=== PATIENT | male | born 1970 | race Caucasian/White ===

== ENCOUNTER 2019-01-14 18:30 | Emergency (ER) | payer OTHER, SELFPAY ==
[2019-01-14 18:31] VITALS: BP 108/63; PULSE 80; RESP 15; TEMP 36.7; O2SAT 97; BMI 36.0
--- NOTE | 2019-01-14 18:35 | EKG12_ITS ---
Test Reason : DIZZINESS Blood Pressure : / mmHG Vent. Rate : 078 BPM Atrial Rate : 078 BPM P-R Int : 172 ms QRS Dur : 104 ms QT Int : 334 ms P-R-T Axes : 023 -32 098 degrees QTc Int : 380 ms Normal sinus rhythm Left axis deviation Anterolateral infarct , age undetermined Abnormal ECG Confirmed by BELINDA WALDROP, MARLIN ([id number]), casing trimmer [place] SANDOVAL ([id number]) on 01/17/2019 1:57:25 PM Referred By: KALIA Confirmed By:MARLIN TREVINO MD
--- NOTE | 2019-01-14 18:50 | RAD_ITS ---
STUDY: X-RAY CHEST REASON FOR EXAM: Male, 48 years old. Dizziness TECHNIQUE: Single AP portable view of the chest. COMPARISON: None. FINDINGS: A left-sided pacemaker is present. The lungs are clear and expanded. There is no demonstrated pleural abnormality. The heart size is within normal limits. Status post sternotomy changes are present. Normal mediastinum and brisa. Normal visualized pulmonary arteries. Normal visualized aortic arch and descending thoracic aorta. Normal visualized thoracic spine. Normal visualized ribs, clavicles, and shoulders. There is no demonstrated abnormality of the visualized soft tissue structures of the upper abdomen. RAD/Chest 1 View (Portable) IMPRESSION: Left-sided pacemaker present. Status post sternotomy. No acute cardiopulmonary disease process is seen. Electronically Signed: Rogelio Wang MD at 19:10 EDT , Service support ,
[2019-01-14 19:02] VITALS: O2SAT 95
[2019-01-14 19:06] VITALS: BP 98/65; PULSE 76; RESP 18; O2SAT 93
[2019-01-14] MEDS: 0.9% Normal Saline 1,000 ML 150 ML IV (19:07)
--- NOTE | 2019-01-14 19:19 | ED.DCSUM_ITS ---
History of Present Illness Chief Complaint: Dizziness Informant: Patient Onset: Today Context: Onset with activity Timing: Intermittent Current Severity: Moderate Maximum Severity: Moderate Narrative: Patient presents to the emergency department with chest pressure and lightheadedness. The patient has a significant cardiac history. 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 He states that for the past few days, he has had intermittent chest pressure. He states that this is not abnormal when it is hot or humid. Today, he noticed that when he changes position, he will get lightheaded. He had no chest pain associated with this. He denies exertional dyspnea orthopnea. He denies any leg swelling. He has had no recent change in medications. Past Medical History - Allergies and Home Meds Allergies/Adverse Reactions: Allergies No Known Allergies Allergy (Verified 01/14/19 18:34) Primary Care Physician: Chanda Espana DO [Primary Care Provider] - Prior records reviewed: Yes Surgical History: coronary bypass surgery Lives: With Family Smoking Status: Never smoker Alcohol: None Drugs: None Review of Systems General: Denies: Chills, Fever, Sweats Eyes: Denies: Visual changes - bilaterally, Diplopia ENT: Denies: Rhinorrhea, Sore throat Cardiovascular: Reports: Chest pain Respiratory: Denies: Dyspnea, Cough, Dyspnea on exertion Gastrointestinal: Denies: Abdominal pain, Nausea, Vomiting, Diarrhea, Melena, Hematochezia Genitourinary: Denies: Dysuria, Hematuria, Frequency Musculoskeletal: Denies: Back pain, Extremity Pain Skin: Denies: Rash, Wounds Neurological: Denies: Headache, Weakness, Numbness Physical Exam Vital Signs/Narrative: Vital Signs Temp Pulse Resp BP Pulse Ox 01/14/19 19:06 76 18 98/65 93 01/14/19 19:02 95 01/14/19 18:31 98.0 F 80 15 108/63 97 Inital Vital Signs reviewed: Yes General: Well nourished, Well developed, No Acute Distress Head: Normocephalic, Atraumatic Eyes: Perrl, EOMI ENT: Moist mucous membranes, No rhinorrhea Neck: Supple, Nontender Cardiovascular: Regular rate, Regular rhythm, No murmurs Respiratory: No distress, CTA bilaterally, Chest nontender Abdomen: Soft, Nontender, Nondistended, Normal bowel sounds Back: Nontender, Normal Inspection Extremities: Nontender, No edema Skin: Normal color, No rash Neurological: Alert, Oriented x3, Cranial nerves II-XII grossly intact, Normal Strength, Normal Sensation Psychological: Normal affect, Normal Mood Diagnostic/Tx/Re-eval Chest X-Ray - ED: 1 View, Normal, Heart, Lungs Clinical Impression(s) from Imaging Studies Chest X-Ray 01/14/19 18:50 IMPRESSION: Left-sided pacemaker present. Status post sternotomy. No acute cardiopulmonary disease process is seen. Electronically Signed: Rogelio Wang MD at 19:10 EDT , Service support , Abnormal Lab Results 01/14/19 01/14/19 01/14/19 19:11 19:11 19:11 WBC 4.6 RBC 4.63 Hgb 13.1 Hct 39.0 L MCV 84.2 MCH 28.3 MCHC 33.6 RDW 16.8 H RDW Differential 51.7 H Plt Count 276 MPV 8.8 Immature Gran % (Auto) 0.000 Neut % (Auto) 57.3 Lymph % (Auto) 29.1 [place] % (Auto) 9.5 Eos % (Auto) 3.7 Baso % (Auto) 0.4 Absolute Neuts (auto) 2.6 Absolute Lymphs (auto) 1.34 Total Counted Not Reportable Sodium 137 Potassium 3.8 Chloride 104 Carbon Dioxide 27.0 Anion Gap 6 BUN 21 H Creatinine 1.34 H Estim Creat Clear Calc 71.12 Est GFR (MDRD) Af Amer 74 Est GFR (MDRD) Non-Af 61 BUN/Creatinine Ratio 15.7 Glucose 107 H Calcium 8.7 Troponin I < 0.015 B-Natriuretic Peptide 31.6 01/14/19 21:28 WBC RBC Hgb Hct MCV MCH MCHC RDW RDW Differential Plt Count MPV Immature Gran % (Auto) Neut % (Auto) Lymph % (Auto) [place] % (Auto) Eos % (Auto) Baso % (Auto) Absolute Neuts (auto) Absolute Lymphs (auto) Total Counted Sodium Potassium Chloride Carbon Dioxide Anion Gap BUN Creatinine Estim Creat Clear Calc Est GFR (MDRD) Af Amer Est GFR (MDRD) Non-Af BUN/Creatinine Ratio Glucose Calcium Troponin I < 0.015 B-Natriuretic Peptide - Rhythm Strip Rhythm Strip: Sinus Rhythm - EKG Initial EKG Interpretation: Sinus Rhythm, No Acute Injury Pattern Prior: Unchanged - Medical Decision Making The patient presents with lightheadedness. His EKG on arrival. Showed no acute ischemic change. It was unchanged from prior. He has not had chest pain or dyspnea. His blood pressure was borderline so he was given IV fluids. He did have improvement. His initial cardiac enzymes are normal. In light of the patient's significant coronary vascular disease, I did do a repeat troponin at 3 hours. This continues to be negative. His symptoms have improved. My suspicion is mild dehydration causing his lightheadedness as the patient is on multiple cardiac medications. At this point, I do feel that he is safe for outpatient follow-up. Both he and are comfortable with this plan of care. He will be discharged home. ED Disposition - Plan for ED Patient: Disposition: Home or Assisted Living Diagnosis: Lightheaded Instructions: DEHYDRATION (8y-Adult) Referrals: Chanda Espana DO [Primary Care Provider] -
--- OUTSIDE RECORDS SUMMARY | 2019-01-14 19:22 | XMS RPT_ITS | CCD ---
:1970 External Reference #:[id number] Author Organization [facility] Care Team Providers Name Role Phone KIMBELL Unavailable Unavailable KIMBELL Unavailable Unavailable KIMBELL Unavailable Unavailable Asbridge Unavailable Unavailable Asbridge Unavailable Unavailable Oberhauser, L Unavailable Unavailable KIMBELL Attending Unavailable KIMRILEY Primary Care Unavailable KEVAN Attending Unavailable CARMEN Primary Care Unavailable DENNING Admitting Unavailable KIMBELL Primary Care Unavailable KIMBELL Consulting Unavailable ISREAL SJustine Attending Unavailable Chava ALBA Consulting Unavailable DENNING Consulting Unavailable ISREAL SJustine Consulting Unavailable RAGHUNATALEXIS Consulting Unavailable ZAYNAB Consulting Unavailable BAUTISTA SERVIN Consulting Unavailable ARTHUR Attending Unavailable CARMEN Primary Care Unavailable REFERRING, WO ID~[id number] Primary Care Unavailable SANDY Admitting Unavailable SANDY Attending Unavailable ALLI PONBLOSSOM Consulting Unavailable NAGAJOTHI Consulting Unavailable PODUGU Attending Unavailable REFERRING, WO ID~[id number] Primary Care Unavailable PODUGU Admitting Unavailable NAGAJOTHI Consulting Unavailable RAGHUNATHAN Consulting Unavailable Problems Active Problems Category Problem Name Status Date Location Diabetes mellitus Type 2 diabetes Active 10-27-2017 - [facility] without complication mellitus without Fou [place]ation ([place]) complications (81046) Unclassified Unknown / UNK(Unknown) Active 01-19-2017 - [facility] [place] (000 00) Past or Other Problems Category Problem Name Status Date Location Other aftercare Encounter for Completed 10-27-2017 - [facility] therapeutic drug level Found ation ([place]) monitoring (86528) Unclassified E11.9,V58.83,Z51.81 01-19-2017 - [facility] (000 00) Results Result Name Value Range Unit Interpretation Flag Date Location zzplt morph on 2018 Platelet morphology finding NORMAL Normal [facility] (d) System (00 000) Comment: Performed By: #### [id number] # ### IMELDA [employer] [address] [place] [address] Platelets #/vol (Bld) NORMAL Normal 01-04-20 [facility] (09534) Comment: Performed By: #### [id number] # ### IMELDA [employer] [address] [place] [address] morph on 2019-01-03 Anisocytosis Ql (Bld) 2+ Normal 01-04-20 [facility] (65265) Comment: Order Comment: Order Added b y Discern Expert. Performed By: #### [id number] # ### IMELDA [employer] [address] [place] [address] Elliptocytes 1+ Normal 01-03-2019 [facility] (56366) Comment: Order Comment: Order Added b y Discern Expert. Performed By: #### [id number] # ### IMELDA [employer] [address] [place] [address] RBC morphology finding SEE MORPHOLOGY Normal [facility] (d) Health Sys tem (46820) Comment: Order Comment: Order Added b y Discern Expert. Performed By: #### [id number] # ### IMELDA [employer] [address] [place] [address] lipid profile on 28-12-24 Cholesterol in HDL mass conc 37 40-60 mg/dL Low 0 01-03-2019 [facility] (00 000) Comment: Performed By: #### [id number] # ### IMELDA [employer] [address] [place] [address] Cholesterol in LDL mass 71 0-130 mg/dL Normal 2018 [facility] (00 000) Comment: Result Comment: <100 OPTIMAL 100-129 NEAR / ABOVE OPTIMAL 130-159 BORDERLINE HIGH 160-189 HIGH >190 VERY HIGH CALC LDL NOT VALID WHEN TRIG LYCERIDE IS >400 MG/DL Performed By: #### [id number] # ### IMELDA [facility] [address] [place] [address] Cholesterol in VLDL mass 26 0-40 mg/dL Normal 01-03 [facility] (00 000) Comment: Performed By: #### [id number] # ### IMELDA [employer] [address] [place] [address] Cholesterol mass conc 134 0-199 mg/dL Normal 01-04-20 19 [facility] (00 000) Comment: Result Comment: TOTAL CHOLEE STEROL: <200 NORMAL 200 - 239 BORDERLINE HIGH >240 HIGH Performed By: #### [id number] # ### IMELDA IsabellaStonehenge Gardens [facility] [place] [address] Triglyceride mass conc 131 0-149 mg/dL Normal 019 [facility] () Comment: Result Comment: AGE DESIRABL E BORDERLINE HIGH 91 D - 9 Y 0 - 74 75 - 99 > 100 10 - 19 Y 0 - 89 90 - 129 > 130 20 -24 Y 0 - 114 115 - 149 > 150 > 25 0 - 149 150 - 199 200 - 499 Performed By: #### [id number] # ### [facility]ELDADan[facility] MasonStonehen[facility] Gardens [address] [place] [address] hep func panel on Albumin mass conc 4.2 3.4-5.0 gm/dL Normal 01-03-[address] [facility] () Comment: Performed By: #### [id number] # ### IMELDA [facility] [address] [place] [address] Albumin/Globulin mass ratio 1.8 1.1-1.9 ratio Normal [facility] tem (15699) Comment: Performed By: #### [id number] # ### [facility] [address] [place] [address] Alk Phos 37 33-120 Int._Unit/L Normal 01-03-2019 [facility] (14220) Comment: Performed By: #### [id number] # ### [facility] [address] [place] [address] ALT enzyme act/vol 20 10-52 Int._Unit/L Normal 9 [facility] ( 000) Comment: Performed By: #### [id number] # ### IMELDA [facility] [place] [address] AST enzyme act/vol 12 9-39 Int._Unit/L Normal 9 [facility] ( 000) Comment: Performed By: #### [id number] # ### IMELDA [employer] [address] [place] [address] Bili Direct 0.10 0.00-0.30 mg/dL Normal 01-03-2019 [facility] (33206) Comment: Performed By: #### [id number] # ### IMELDA Alfaro [address] [place] [address] Bili Indirect 0.43 mg/dL Normal 01-03-2019 [facility] (82896) Comment: Result Comment: No establish ed ranges available for the indirect bilirubin Performed By: #### [id number] # ### IMELDA Angelina [address] [place] [address] Bili Total 0.53 0.00-1.20 mg/dL Normal 01-03-2019 [facility] (04455) Comment: Performed By: #### [id number] # ### IMELDA Angelina [facility] [place] [address] Globulin mass conc (S) 2.0 2.0-4.0 G/DL Normal [address] [place] [address] (00 000) Comment: Performed By: #### [id number] # ### IMELDA Alfaro [address] [place] [address] Protein mass conc 6.5 6.4-8.2 gm/dL Normal 01-03-[address] [facility] (00 000) Comment: Performed By: #### [id number] # ### IMELDA Angelina [address] [place] [address] egfr on 2019-01-03 GFR/1.73 sq M predicted >60 mL/min/{1.73_m2} Normal 01-03-2019 [facility]bl[facility] (63292) vol rate/area (S/P/Bld) Comment: Order Comment: Order added b y Discern Expert. Performed By: #### [id number] # ### IMELDA Angelina [address] [place] [address] cbc w/ auto diff on 2019-01-03 Erythrocyte distribution 19.0 11.5-14.5 % High 01-03 [facility] width Ratio (RBC) He alth System (03630) Comment: Performed By: #### [id number] # ### IMELDA [employer] [address] [place] [address] Hematocrit Volume Fraction 42.7 42.0-52.0 % Normal [facility] Sys tem (75758) Comment: Performed By: #### [id number] # ### IMELDA [employer] [address] [place] [address] Hemoglobin mass conc 13.9 13.5-18.0 G/DL Normal 9 [facility] Sys tem (64345) Comment: Performed By: #### [id number] # ### IMELDA [employer] [address] [place] [address] MCH Entitic mass (RBC) 27.8 27.0-31.0 pg Normal 019 [facility] () Comment: Performed By: #### [id number] # ### IMELDA [employer] [address] [place] [address] MCHC mass conc (RBC) 32.6 33.0-37.0 G/DL Low 9 [facility] (00 000) Comment: Performed By: #### [id number] # ### IMELDA [employer] [address] [place] [address] MCV Entitic volume 85.4 78.0-100.0 fL Normal 01-03-2019 [facility] (RBC) System (00 000) Comment: Performed By: #### [id number] # ### IMELDA [employer] [address] [place] [address] Platelet mean volume 7.9 7.4-11.0 fL Normal 9 [facility] Entitic volume (Bld) System (13466) Comment: Performed By: #### [id number] # ### IMELDA [employer] [address] [place] [address] Platelets #/vol (Bld) 312 130-400 E3/mcL Normal 01-04-20 19 [facility] (00 000) Comment: Performed By: #### [id number] # ### IMELDA [employer] [address] [place] [address] RBC #/vol (Bld) 5.00 3.90-6.10 E6/mcL Normal 01-03-2019 [facility] () Comment: Performed By: #### [id number] # ### IMELDA [employer] [address] [place] [address] WBC #/vol (Bld) 5.3 3.6-11.0 E3/mcL Normal 01-03-2019 [facility] () Comment: Performed By: #### [id number] # ### IMELDA [employer] [address] [place] [address] bmp on 2019-01-03 Anion gap molar conc 13 10-20 mEq/L Normal 9 [facility] () Comment: Performed By: #### [id number] # ### IMELDA [employer] [address] [place] [address] Calcium mass conc 9.0 8.6-10.3 mg/dL Normal 01-03-[address] [facility] () Comment: Performed By: #### [id number] # ### IMELDA [employer] [address] [place] [address] Chloride molar conc 105 98-107 mEq/L Normal 01-03-2019 [facility] () Comment: Performed By: #### [id number] # ### IMELDA [employer] [address] [place] [address] CO2 molar conc 24.0 21.0-32.0 mEq/L Normal 01-03-2019 [facility] () Comment: Performed By: #### [id number] # ### IMELDA [employer] [address] [place] [address] Creatinine mass conc 1.0 0.5-1.3 mg/dL Normal 9 [facility] () Comment: Performed By: #### [id number] # ### IMELDA [employer] [address] [place] [address] Glucose mass conc 122 70-99 mg/dL High 01-03-[address] [facility] (24701) Comment: Performed By: #### [id number] # ### IMELDA [employer] [address] [place] [address] Potassium molar conc 4.2 3.5-5.3 mEq/L Normal 9 [facility] () Comment: Performed By: #### [id number] # ### IMELDA [place] [address] [place] [address] Sodium molar conc 137 136-145 mEq/L Normal 01-03-[address] [facility] () Comment: Performed By: #### [id number] # ### IMELDA Alfaro [facility] [place] [address] Urea nitrogen mass conc 19 6-23 mg/dL Normal 2018 [facility] () Comment: Performed By: #### [id number] # ### IMELDA [place] [address] [place] [address] Urea nitrogen/Creatinine mass 19.0 5.4-30.0 ratio Normal 01-03-2019 [facility] (94194) Comment: Performed By: #### [id number] # ### IMELDADanica Mason[address] [address] auto diff on 01-03 Basophils #/vol (Bld) 0.1 0.0-0.2 E3/mcL Normal 01-04-20 [facility] () Comment: Order Comment: Order Added b y Discern Expert. Performed By: #### [id number] # ### IMELDA Mason[address] [address] Basophils/100 WBC (Bld) 1.3 0.0-2.0 % Normal 2018 [facility] ( 000) Comment: Order Comment: Order Added b y Discern Expert. Performed By: #### [id number] # ### IMELDA Mason[address] [address] Eos Absolute 0.2 0.0-0.7 E3/mcL Normal 01-03-2019 [facility] (63997) Comment: Order Comment: Order Added b y Discern Expert. Performed By: #### [id number] # ### IMELDADanica Mason[address] [address] Eosinophils/100 WBC (Bld) 2.9 0.0-11.0 % Normal 12-11 [facility] ( 000) Comment: Order Comment: Order Added b y Discern Expert. Performed By: #### [id number] # ### IMELDA [employer] [address] [place] [address] Lymphocytes #/vol (Bld) 1.0 1.2-3.4 E3/mcL Low 2018 [facility] (00 000) Comment: Order Comment: Order Added b y Discern Expert. Performed By: #### [id number] # ### IMELDA MasonJarett [address] [place] [address] Lymphocytes/100 WBC (Bld) 18.1 20.0-55.0 % Low 12-11 [facility] (00 000) Comment: Order Comment: Order Added b y Discern Expert. Performed By: #### [id number] # ### IMELDA [facility] [address] [place] [address] [place] Absolute 0.5 0.0-0.7 E3/mcL Normal 01-03-2019 [facility] (42977) Comment: Order Comment: Order Added b y Discern Expert. Performed By: #### [id number] # ### IMELDA MasonJarett [address] [place] [address] Monocytes/100 WBC (Bld) 8.6 0.0-10.0 % Normal 2018 [facility] (00 000) Comment: Order Comment: Order Added b y Discern Expert. Performed By: #### [id number] # ### IMELDA [employer] [address] [place] [address] Neutro Absolute 3.7 1.4-6.5 E3/mcL Normal 01-03-2019 [facility] (73168) Comment: Order Comment: Order Added b y Discern Expert. Performed By: #### [id number] # ### IMELDA [employer] [address] [place] [address] Neutro Auto 69.1 37.0-75.0 % Normal 01-03-2019 [facility] (37148) Comment: Order Comment: Order Added b y Discern Expert. Performed By: #### [id number] # ### IMELDA [employer] [address] [place] [address] xr knee 1 or 2 views right on 2018-12-14 XR Knee 1 or 2 Exam Date/Time: Normal 9 [facility] Views Right 12/14/2018 10:48 EDT [facility] System Reason for Exam: (00 000) Pain, Non Traumatic Report STUDY: XR Knee 1 or 2 Views Right; 12/14/2018 10:48 am INDICATION: Pain, Non Traumatic. COMPARISON: None. ACCESSION NUMBER(S): [id number] ORDERING CLINICIAN: Chanda Espana TECHNIQUE: 2 views of the right knee including AP and later al projections were obtained. FINDINGS: There is no evidence of acut e fracture or dislocation identified. The joint spaces are well preserved throughout without significant degenerative changes. No suprapatellar joint effusion is present. IMPRESSION: 1. No acute fracture or dislocation. FINAL REPORT Dictated: 12/14/2018 1:44 pm Rip Mar MD Signed (Electronic Signature): 12/14/2018 1:44 pm Signed by: Rip Mar MD Technologist: MARGARITA zzplt morph on 2018 Platelet morphology finding NORMAL Normal [facility] System (00 000) Comment: Performed By: #### [id number] # ### IMELDA [employer] [address] [place] [address] Platelets #/vol (Bld) NORMAL Normal 11-03-19 19 [facility] (86057) Comment: Performed By: #### [id number] # ### IMELDA [employer] [address] [place] [address] morph on 2018-11-02 Anisocytosis Ql (Bld) 1+ Normal 11-03-19 19 [facility] (21211) Comment: Order Comment: Order Added b y Discern Expert. Performed By: #### [id number] # ### IMELDA [employer] [address] [place] [address] Poikilocytosis 1+ Normal 11-02-2018 [facility] (22623) Comment: Order Comment: Order Added b y Discern Expert. Performed By: #### [id number] # ### IMELDA [employer] [address] [place] [address] RBC morphology finding SEE MORPHOLOGY Normal [facility] Health Sys tem (82977) Comment: Order Comment: Order Added b y Shamika Expert. Performed By: #### [id number] # ### IMELDA [facility] [address] [place] [address] egfr on 2018-11-02 GFR/1.73 sq M predicted >60 mL/min/{1.73_m2} Normal 11-02-2018 [facility] among non-blacks [facility] (04010) vol rate/area (S/P/Bld) Comment: Order Comment: Order added b y Shamika Expert. Performed By: #### [id number] # ### IMELDA [facility] [address] [place] [address] cbc w/ auto diff on 2018-11-02 Erythrocyte distribution 18.4 11.5-14.5 % High 11-02 [facility] width Ratio (RBC) He alth System (63983) Comment: Performed By: #### [id number] #### IMELDA [facility]abellaStone[facility] [address] [place] [address] Hematocrit Volume Fraction 43.1 42.0-52.0 % Normal [facility] (00791) Comment: Performed By: #### [id number] #### IMELDA RemStone[facility] [address] [place] [address] Hemoglobin mass conc 14.2 13.5-18.0 G/DL Normal 9 [facility] tem (63586) Comment: Performed By: #### [id number] #### IMELDA [facility] [address] [place] [address] MCH Entitic mass (RBC) 25.9 27.0-31.0 pg Low 019 [facility] (00 000) Comment: Performed By: #### [id number] #### IMELDA [facility] [address] [place] [address] MCHC mass conc (RBC) 32.9 33.0-37.0 G/DL Low 9 [facility] (00 000) Comment: Performed By: #### [id number] #### IMELDA [facility] [address] [place] [address] MCV Entitic volume 78.9 78.0-100.0 fL Normal 11-02-2018 [facility] (RBC) System () Comment: Performed By: #### [id number] #### IMELDADanica Alfaro [address] [place] [address]5 Platelet mean volume 7.7 7.4-11.0 fL Normal 9 [facility] Entitic volume (Bld) System (60102) Comment: Performed By: #### [id number] #### IMELDADanica [employer] [address] [place] [address]19805 Platelets #/vol (Bld) 356 130-400 E3/mcL Normal 11-03-19 19 [facility] () Comment: Performed By: #### [id number] #### IMELDADanica MasonChem [facility] [place] [address]19805 RBC #/vol (Bld) 5.47 3.90-6.10 E6/mcL Normal 11-02-2018 [facility] () Comment: Performed By: #### [id number] #### IMELDADanica MasonChem [facility] [place] [address]19805 WBC #/vol (Bld) 8.7 3.6-11.0 E3/mcL Normal 11-02-2018 [facility] () Comment: Performed By: #### [id number] #### IMELDADanica [employer] [address] [place] [address]19805 bmp on 2018-11-02 Anion gap molar conc 14 10-20 mEq/L Normal 9 [facility] () Comment: Performed By: #### [id number] #### IMELDADanica [employer] [address] [place] [address] Calcium mass conc 9.3 8.6-10.3 mg/dL Normal 11-02-[address] [facility] () Comment: Performed By: #### [id number] #### IMELDADanica [employer] [address] [place] [address] Chloride molar conc 102 98-107 mEq/L Normal 11-02-2018 [facility] () Comment: Performed By: #### [id number] #### IMELDADanica [employer] [address] [place] 2519805 CO2 molar conc 26.0 21.0-32.0 mEq/L Normal 11-02-2018 [facility] ( 000) Comment: Performed By: #### [id number] #### IMELDA Alfaro [address] [place] [address] Creatinine mass conc 1.2 0.5-1.3 mg/dL Normal 9 [facility] (00 000) Comment: Performed By: #### [id number] #### IMELDA Alfaro [facility] [place] [address] Glucose mass conc 98 70-99 mg/dL Normal 11-02-[address] [facility] (56352) Comment: Performed By: #### [id number] #### IMELDA Alfaro [facility] [place] [address] Potassium molar conc 4.5 3.5-5.3 mEq/L Normal 9 [facility] () Comment: Performed By: #### [id number] #### IMELDA Alfaro [facility] [place] [address] Sodium molar conc 137 136-145 mEq/L Normal 11-02-[address] [facility] ( 000) Comment: Performed By: #### [id number] #### IMELDA Alfaro [facility] [place] [address] Urea nitrogen mass conc 22 6-23 mg/dL Normal 2018 [facility] (00 000) Comment: Performed By: #### [id number] #### IMELDA Alfaro [facility] [place] [address] Urea nitrogen/Creatinine mass 18.3 5.4-30.0 ratio Normal 11-02-2018 [facility] (75212) Comment: Performed By: #### [id number] #### IMELDA MasonStonehen[facility] Gardens [facility] [place] [address] auto diff on 24 Basophils #/vol (Bld) 0.0 0.0-0.2 E3/mcL Normal 11-03-19 19 [facility] (00 000) Comment: Order Comment: Order added b y Discern Expert. Performed By: #### [id number] #### IMELDA [employer] [address] [place] [address] Basophils/100 WBC (Bld) 0.6 0.0-2.0 % Normal 2018 [facility] (00 000) Comment: Order Comment: Order added b y Discern Expert. Performed By: #### [id number] #### IMELDA IsabellaChem [facility] [place] [address] Eos Absolute 0.3 0.0-0.7 E3/mcL Normal 11-02-2018 [facility] (21099) Comment: Order Comment: Order added b y Discern Expert. Performed By: #### [id number] #### IMELDA MasonChem [facility] [place] [address] Eosinophils/100 WBC (Bld) 3.1 0.0-11.0 % Normal 10-11 [facility] (00 000) Comment: Order Comment: Order added b y Discern Expert. Performed By: #### [id number] #### IMELDA [facility] [address] [place] [address] Lymphocytes #/vol (Bld) 1.2 1.2-3.4 E3/mcL Normal 2018 [facility] (62214) Comment: Order Comment: Order added b y Discern Expert. Performed By: #### [id number] #### IMELDA MasonStone[facility] [address] [place] [address] Lymphocytes/100 WBC (Bld) 13.2 20.0-55.0 % Low 10-11 [facility] (00 000) Comment: Order Comment: Order added b y Discern Expert. Performed By: #### [id number] #### IMELDA Rem[employer] [facility] [place] [address] [place] Absolute 0.8 0.0-0.7 E3/mcL High 11-02-2018 [facility] (73100) Comment: Order Comment: Order added b y Discern Expert. Performed By: #### [id number] #### IMELDA RemStonehenge Gardens [facility] [place] [address] Monocytes/100 WBC (Bld) 9.6 0.0-10.0 % Normal 2018 [facility] (00 000) Comment: Order Comment: Order added richard Wick Expert. Performed By: #### [id number] #### IMELDADanica Alfaro [address] [place] [address] Neutro Absolute 6.4 1.4-6.5 E3/mcL Normal 11-02-2018 [facility] (56220) Comment: Order Comment: Order added richard Wick Expert. Performed By: #### [id number] #### IMELDADanica Alfaro [address] [place] [address] Neutro Auto 73.5 37.0-75.0 % Normal 11-02-2018 [facility] (03880) Comment: Order Comment: Order added richard Wick Expert. Performed By: #### [id number] #### IMELDADanica Alfaro [address] [place] [address] phos on 2018-10-15 Phosphate mass conc 2.8 2.5-4.5 mg/dL Normal 10-15-2018 [facility] ([place]) (0000 0) Comment: Performed By: #### BMP, CK, GFR, LIPID, HFP, A1C #### [address] [address] mg on 2018-10-15 Magnesium mass conc 2.7 1.6-2.4 mg/dL High 10-15-2018 [facility] ([place]) (76601) Comment: Performed By: #### BMP, CK, GFR, LIPID, HFP, A1C #### [address] [address] lipid on 2018-10-15 Cholesterol in HDL mass conc 24 40-59 mg/dL Low 0 10-15-2018 [facility] ([place]) (0000 0) Comment: Result Comment: HDL Referenc e Interval: Less than 40 Low - high risk 60 or above Optimal/lowers r isk Performed By: #### BMP, CK, GFR, LIPID, HFP, A1C #### [address] [address] Cholesterol in LDL mass Not Valid 0-129 Normal 2018 [facility] ([place]) (51890) Comment: Result Comment: Triglyceride >400 invalidates the calculated LDL. LDL is a calculated result a nd requires a 12-hr fast. LDL Reference Interval: Less than 100 Optimal 100-129 Near or above optima l 130-159 Borderline high risk 160-189 High risk 190 and above Very high risk Performed By: #### BMP, CK, GFR, LIPID, HFP, A1C #### [address] [address] Cholesterol mass conc 131 50-199 mg/dL Normal 10-16-19 19 [facility] ([place]) (0000 0) Comment: Result Comment: Cholesterol Reference Interval: Less than 200 Desirable 200-239 Borderline high risk 240 and above High risk Performed By: #### BMP, CK, GFR, LIPID, HFP, A1C #### [address] [address] Triglyceride mass conc 449 3-149 mg/dL High 019 [facility] ([place] (33298) Comment: Result Comment: Triglyceride Reference Interval: Less than 150 Normal 150-199 Borderline high risk 200-499 High risk 500 or higher Very high risk Performed By: #### BMP, CK, GFR, LIPID, HFP, A1C #### [address] [address] cbc on 2018-10-15 Erythrocyte distribution 17.3 11.5-15.5 % High 10-15 [facility] width Ratio (RBC) (O H) (18095) Comment: Performed By: #### BMP, CK, GFR, LIPID, HFP, A1C #### [place] [address] Hematocrit Volume Fraction 36.1 40.0-52.0 % Low [facility] (d) ([place]) (0000 0) Comment: Performed By: #### BMP, CK, GFR, LIPID, HFP, A1C #### [place] [id number] Hemoglobin mass conc 11.9 13.0-17.5 G/dL Low 9 [facility] (d) ([place]) (0000 0) Comment: Performed By: #### BMP, CK, GFR, LIPID, HFP, A1C #### [place] [address] MCH Entitic mass (RBC) 25.8 27.0-33.0 pg Low --2 019 [facility] ([place]) (0000 0) Comment: Performed By: #### BMP, CK, GFR, LIPID, HFP, A1C #### [place] [address] MCHC mass conc (RBC) 33.0 32.0-36.0 G/dL Normal 9 [facility] ([place]) (0000 0) Comment: Performed By: #### BMP, CK, GFR, LIPID, HFP, A1C #### [place] [address] MCV Entitic volume (RBC) 78.3 81.0-100.0 fL Low 04-0 [facility] [facility] ([place]) (0000 0) Comment: Performed By: #### BMP, CK, GFR, LIPID, HFP, A1C #### [place] [address] Platelet mean volume 7.6 6.4-10.5 fL Normal 9 [facility] Entitic volume (Bld) ([place]) (47661) Comment: Performed By: #### BMP, CK, GFR, LIPID, HFP, A1C #### [place] [address] Platelets #/vol (Bld) 263 150-450 10 3/mcL Normal 10-16-19 19 [facility] ([place]) (26843) Comment: Performed By: #### BMP, CK, GFR, LIPID, HFP, A1C #### [place] [address] RBC #/vol (Bld) 4.61 4.50-6.00 10 6/mcL Normal 10-15-2018 [facility] ([place]) (0000 0) Comment: Performed By: #### BMP, CK, GFR, LIPID, HFP, A1C #### [place] [address] WBC #/vol (Bld) 3.50 4.50-10.80 10 3/mcL Low 10-15-2018 [facility] ([place]) (0000 0) Comment: Performed By: #### BMP, CK, GFR, LIPID, HFP, A1C #### [address] [address] bmp on 2018-10-15 Creatinine mass conc 0.89 0.60-1.40 mg/dL Normal 9 [facility] ([place]) (0000 0) Comment: Performed By: #### BMP, CK, GFR, LIPID, HFP, A1C #### [place] [address] Urea nitrogen/Creatinine mass 23.6 10.0-22.0 ratio High 10-15-2018 [facility] ([place]) (80551) Comment: Performed By: #### BMP, CK, GFR, LIPID, HFP, A1C #### [place] [address] Calcium mass conc 8.0 8.4-10.1 mg/dL Low 10-15-2018 [facility] ([place]) (38610) Comment: Performed By: #### BMP, CK, GFR, LIPID, HFP, A1C #### [place] [address] Chloride molar conc 106 98-110 mEq/L Normal 10-15-2018 [facility] ([place]) (72644) Comment: Performed By: #### BMP, CK, GFR, LIPID, HFP, A1C #### [address] [address] CO2 molar conc 28 22-32 mEq/L Normal 10-15-2018 Count includes the [facility] ([place]) (94108) Comment: Performed By: #### BMP, CK, GFR, LIPID, HFP, A1C #### [place] [address] Electrolyte Balance 3.0 4.0-15.0 mEq/L Low 10-15-2018 [facility] ([place]) (85233) Comment: Performed By: #### BMP, CK, GFR, LIPID, HFP, A1C #### [place] [address] Glucose mass conc 189 70-110 mg/dL High 10-15-2018 A [facility] ([place]) (78045) Comment: Performed By: #### BMP, CK, GFR, LIPID, HFP, A1C #### [address] [address] Potassium molar conc 4.9 3.5-5.0 mEq/L Normal 9 [facility] ([place]) (0000 0) Comment: Performed By: #### BMP, CK, GFR, LIPID, HFP, A1C #### [place] [address] Sodium molar conc 137 136-145 mEq/L Normal 10-15-2018 A [facility] ([place]) (41215) Comment: Performed By: #### BMP, CK, GFR, LIPID, HFP, A1C #### [place] [address] Urea nitrogen mass conc 21.0 8.0-22.0 mg/dL Normal 2018 [facility] ([place]) (33165) Comment: Performed By: #### BMP, CK, GFR, LIPID, HFP, A1C #### [address] [address] .neuabs on Neutrophils #/vol (Bld) 1.80 2.25-8.10 10 3/mcL Low 2018 [facility] ([place]) (99670) Comment: Performed By: #### BMP, CK, GFR, LIPID, HFP, A1C #### [address] [address] .gfr on 2018-10-15 GFR >60 Normal 9 [facility] ([place]) (15378) Comment: Result Comment: GFR Population mean for Afri can Nauruan, Non- Americans Ages 20-29 = 116 mL/min/1.73 sq.m. Ages 30-39 = 107 mL/min/1.73 sq.m. Ages 40-49 = 99 mL/min/1.73 sq.m. Ages 50-59 = 93 mL/min/1.73 sq.m. Ages 60-69 = 85 mL/min/1.73 sq.m. Ages 70+ = 75 mL/min/1.73 sq .m. Chronic Kidney Disease: Less than 60 mL/min/1.73 square meters End Stage Renal Disease: Les s than 15 mL/min/1.73 square meters Performed By: #### BMP, CK, GFR, LIPID, HFP, A1C #### [address] [address] GFR Non- >60 Normal 10-15 [facility] ([place]) (80863) Comment: Result Comment: GFR Population mean for Afri can Nauruan, Non- Americans Ages 20-29 = 116 mL/min/1.73 sq.m. Ages 30-39 = 107 mL/min/1.73 sq.m. Ages 40-49 = 99 mL/min/1.73 sq.m. Ages 50-59 = 93 mL/min/1.73 sq.m. Ages 60-69 = 85 mL/min/1.73 sq.m. Ages 70+ = 75 mL/min/1.73 sq .m. Chronic Kidney Disease: Less than 60 mL/min/1.73 square meters End Stage Renal Disease: Les s than 15 mL/min/1.73 square meters Performed By: #### BMP, CK, GFR, LIPID, HFP, A1C #### [address] [address] .auto diff on 10-15 Ammonia mass conc 0.60 0.09-1.40 10 3/mcL Normal 10-15-2018 A [facility] () [facility] ([place]) (82361) Comment: Performed By: #### BMP, CK, GFR, LIPID, HFP, A1C #### [address] [address] Basophils #/vol (Bld) 0.00 0.00-0.27 10 3/mcL Normal 10-16-19 19 [facility] ([place]) (45197) Comment: Performed By: #### BMP, CK, GFR, LIPID, HFP, A1C #### [place] [address] Basophils/100 WBC (Bld) 0.5 0.0-2.5 % Normal 2018 [facility] ([place]) (0000 0) Comment: Performed By: #### BMP, CK, GFR, LIPID, HFP, A1C #### [address] [address] Eosinophils #/vol 0.30 0.00-0.65 10 3/[facility] Normal 10-15-2018 [facility]) (00176) Comment: Performed By: #### BMP, CK, GFR, LIPID, HFP, A1C #### [address] [address] Eosinophils/100 WBC (Bld) 7.6 0.0-6.0 % High -0 [facility] ([place]) (0000 0) Comment: Performed By: #### BMP, CK, GFR, LIPID, HFP, A1C #### [address] [address] Lymphocytes #/vol (Bld) 0.80 0.90-4.32 10 3/[facility] Low 2018 [facility] ([place]) (52012) Comment: Performed By: #### BMP, CK, GFR, LIPID, HFP, A1C #### [address] [address] Lymphocytes/100 WBC (Bld) 22.6 20.0-40.0 % Normal [facility] ([place]) (31726) Comment: Performed By: #### BMP, CK, GFR, LIPID, HFP, A1C #### [address] [address] Monocytes/100 WBC (Bld) 16.4 2.0-13.0 % High 2018 [facility] ([place]) (0000 0) Comment: Performed By: #### BMP, CK, GFR, LIPID, HFP, A1C #### [address] [address] Neutrophils/100 WBC (Bld) 52.9 50.0-75.0 % Normal 0 [facility] ([place]) (04228) Comment: Performed By: #### BMP, CK, GFR, LIPID, HFP, A1C #### [address] [address] xr chest 1 view on 2018-10-14 XR CHEST 1 VIEW ORIGINAL Normal 10-14-2018 [facility] XR CHEST 1 VIEW [facility] ([place] ([address]16) CLINICAL STATEMENT: Chest Pain. COMPARISON: 08/14/2018 FINDINGS: The heart is normal in size. Pacer/defibrillator device seen from a LEFT subclavian approach. No consolidation seen. No pneumothorax. No destructive osseous lesion visualized. IMPRESSION: No acute radiographic finding Interpreted By: Pawel Bass MD Preliminary Report By: Pawel Bass MD Electronically Signed By: Pawel Bass MD Dictated Date: 10/14/2018 8:28:55 AM Prelim Date: 10/14/2018 8:28:55 AM Sign Date: 10/14/2018 8:30:09 AM tsh on 2018-10-14 Thyrotropin Qn 2.190 0.360-3.740 mcIU/mL Normal 10-14-2018 [facility] ([place]) (0000 0) Comment: Result Comment: Please note as of 01/23/17 new pediatric reference intervals were added for this test. Performed By: #### BMP, CK, GFR, LIPID, HFP, A1C #### [address] [address] tropi on 2018-10-14 Troponin I.cardiac 0.113 0.000-0.040 ng/mL High 9 [facility] ([place]) (35819) Comment: Result Comment: Troponin I r eference ranges (03/19/14): 0.00-0.040 ng/mL Negative an d non-diagnostic. >0.040 ng/mL Consistent with cardiac damage, increased clinical risk and possibility of myocardial in farction. Serial measurements, a rise & fall in test results, clinical histo ry, appropriate symptoms and/or ECG changes may help assess possibility of IN. *Other non-acute coronary sy ndrome conditions such as CHF, myoc arditis, pulmonary emboli, sepsis and cardiac surgery could result in myoc ardial damage and increased troponi n levels. Performed By: #### BMP, CK, GFR, LIPID, HFP, A1C #### [address] [address] Troponin I.cardiac 0.129 0.000-0.040 ng/mL High 9 [facility] ([place]) (23934) Comment: Result Comment: Troponin I r eference ranges (03/19/14): 0.00-0.040 ng/mL Negative an d non-diagnostic. >0.040 ng/mL Consistent with cardiac damage, increased clinical risk and possibility of myocardial in farction. Serial measurements, a rise & fall in test results, clinical histo ry, appropriate symptoms and/or ECG changes may help assess possibility of IN. *Other non-acute coronary sy ndrome conditions such as CHF, myoc arditis, pulmonary emboli, sepsis and cardiac surgery could result in myoc ardial damage and increased troponi n levels. Performed By: #### BMP, CK, GFR, LIPID, HFP, A1C #### [place] [id number] [address] [place] [address] Troponin I.cardiac 0.161 0.000-0.040 ng/mL High 9 [facility] ([place]) (43759) Comment: Result Comment: Troponin I r eference ranges (03/19/14): 0.00-0.040 ng/mL Negative an d non-diagnostic. >0.040 ng/mL Consistent with cardiac damage, increased clinical risk and possibility of myocardial in farction. Serial measurements, a rise & fall in test results, clinical histo ry, appropriate symptoms and/or ECG changes may help assess possibility of IN. *Other non-acute coronary sy ndrome conditions such as CHF, myoc arditis, pulmonary emboli, sepsis and cardiac surgery could result in myoc ardial damage and increased troponi n levels. Performed By: #### BMP, CK, GFR, LIPID, HFP, A1C #### [facility] [address] [place] [address] pro on 2018-10-14 INR Coag RelTime (PPP) 0.9 ratio Normal 019 [facility] ([place]) (47924) Comment: Result Comment: The [place] [employer] (CHEST, 1992, 102:312S-25S) recommended therapeutic rang e for oral anticoagulant therapy is: LOW RISK: Prophylaxis of denise ous thrombosis INR: 2.0-3.0 Treatment of pulmonary embol ism 2.0-3.0 Prevention of systemic embol ism 2.0-3.0 HIGH RISK: Mechanical prosth etic valves 2.5-3.5 Performed By: #### BMP, CK, GFR, LIPID, HFP, A1C #### [address] [address] Prothrombin time (PT) 11.0 9.0-14.6 seconds Normal 10-15-19 19 [facility] Coag time (PPP) [facility] ([place] (20325) Comment: Result Comment: Effective , Protime results may be affected by some antibiotics (i.e. Ciprofloxa emelia, Azithromycin, Bactrim) which may potentiate the action of oral anticoagu lants, with further increases in Protime/INR. Performed By: #### BMP, CK, GFR, LIPID, HFP, A1C #### [address] [address] phos on 2018-10-14 Phosphate mass conc 2.8 2.5-4.5 mg/dL Normal 10-14-2018 [facility] ([place]) (0000 0) Comment: Performed By: #### BMP, CK, GFR, LIPID, HFP, A1C #### [address] [address] pbnp on 2018-10-14 Natriuretic peptide B mass 80 0-450 pg/mL Normal [facility] conc (Bld) ([place]) (000 00) Comment: Result Comment: NT-proBNP re sults of less than 300 pg/mL effectively rules out acute congestive h eart failure with 99% negative predictive value. Performed By: #### BMP, CK, GFR, LIPID, HFP, A1C #### [address] [address] mg on 2018-10-14 Magnesium mass conc 2.4 1.6-2.4 mg/dL Normal 10-14-2018 [facility] ([place]) (0000 0) Comment: Result Comment: Specimen sli ghtly hemolyzed. Results may be falsely elevated. Performed By: #### BMP, CK, GFR, LIPID, HFP, A1C #### [address] [address] cmp on 2018-10-14 ALT enzyme act/vol 38 12-55 U/L Normal 10-14-2018 [facility] ([place]) (43972) Comment: Performed By: #### BMP, CK, GFR, LIPID, HFP, A1C #### [place] [id number] Albumin/Globulin mass ratio 1.1 0.9-1.6 ratio Normal [facility] ([place]) (82127) Comment: Performed By: #### BMP, CK, GFR, LIPID, HFP, A1C #### [place] [id number] ALP enzyme act/vol 56 38-126 U/L Normal 10-14-2018 [facility] ([place]) (96293) Comment: Performed By: #### BMP, CK, GFR, LIPID, HFP, A1C #### [place] [address] Bili Total 0.7 0.2-1.2 mg/dL Normal 10-14-2018 [facility] ([place]) (98140) Comment: Performed By: #### BMP, CK, GFR, LIPID, HFP, A1C #### [place] [address] Creatinine mass conc 0.89 0.60-1.40 mg/dL Normal 9 [facility] ([place]) (0000 0) Comment: Performed By: #### BMP, CK, GFR, LIPID, HFP, A1C #### [place] [address] Globulin mass conc (S) 3.2 1.5-3.8 G/dL Normal 019 [facility] ([place]) (0000 0) Comment: Performed By: #### BMP, CK, GFR, LIPID, HFP, A1C #### [place] [address] Protein mass conc 6.8 6.0-8.5 G/dL Normal 10-14-2018 A [facility] ([place]) (59510) Comment: Performed By: #### BMP, CK, GFR, LIPID, HFP, A1C #### [place] [address] Urea nitrogen/Creatinine mass 32.6 10.0-22.0 ratio High 10-14-2018 [facility] ([place]) (26601) Comment: Performed By: #### BMP, CK, GFR, LIPID, HFP, A1C #### [place] [address] AST enzyme act/vol 27 8-34 U/L Normal 10-14-2018 [facility] ([place]) (42245) Comment: Result Comment: Specimen sli ghtly hemolyzed. Results may be falsely elevated. Performed By: #### BMP, CK, GFR, LIPID, HFP, A1C #### [place] [address] Glucose mass conc 136 70-110 mg/dL High 10-14-2018 A [facility] ([place]) (04658) Comment: Result Comment: Specimen sli ghtly lipemic. Results may be falsely elevated. Performed By: #### BMP, CK, GFR, LIPID, HFP, A1C #### [place] [address] Potassium molar conc 4.1 3.5-5.0 mEq/L Normal 9 [facility] ([place]) (0000 0) Comment: Result Comment: Specimen sli ghtly hemolyzed. Results may be falsely elevated. Performed By: #### BMP, CK, GFR, LIPID, HFP, A1C #### [place] [address] Albumin mass conc 3.6 3.2-4.8 G/dL Normal 10-14-2018 A [facility] ([place]) (63065) Comment: Performed By: #### BMP, CK, GFR, LIPID, HFP, A1C #### [place] [address] Calcium mass conc 8.3 8.4-10.1 mg/dL Low 10-14-2018 A [facility] ([place]) (94910) Comment: Performed By: #### BMP, CK, GFR, LIPID, HFP, A1C #### [place] [address] Chloride molar conc 103 98-110 mEq/L Normal 10-14-2018 [facility] ([place]) (56439) Comment: Performed By: #### BMP, CK, GFR, LIPID, HFP, A1C #### [place] [address] CO2 molar conc 24 22-32 mEq/L Normal 10-14-2018 Count includes the [facility] ([place]) (43741) Comment: Performed By: #### BMP, CK, GFR, LIPID, HFP, A1C #### [place] [address] Electrolyte Balance 9.0 4.0-15.0 mEq/L Normal 10-14-2018 [facility] ([place]) (0000 0) Comment: Performed By: #### BMP, CK, GFR, LIPID, HFP, A1C #### [place] [address] Sodium molar conc 136 136-145 mEq/L Normal 10-14-2018 [facility] ([place]) (98036) Comment: Performed By: #### BMP, CK, GFR, LIPID, HFP, A1C #### [place] [address] Urea nitrogen mass conc 29.0 8.0-22.0 mg/dL High 2018 [facility] ([place]) (0000 0) Comment: Performed By: #### BMP, CK, GFR, LIPID, HFP, A1C #### [place] [address] cbc on 2018-10-14 Erythrocyte distribution 17.3 11.5-15.5 % High 10-14 [facility] width Ratio (RBC) ([place]) (00512) Comment: Performed By: #### BMP, CK, GFR, LIPID, HFP, A1C #### [place] [address] Hematocrit Volume Fraction 36.0 40.0-52.0 % Low [facility] (Bld) ([place]) (0000 0) Comment: Performed By: #### BMP, CK, GFR, LIPID, HFP, A1C #### [place] [address] Hemoglobin mass conc 12.4 13.0-17.5 G/dL Low 9 [facility] (Bld) ([place]) (0000 0) Comment: Performed By: #### BMP, CK, GFR, LIPID, HFP, A1C #### [place] [address] MCH Entitic mass (RBC) 26.8 27.0-33.0 pg Low --2 019 [facility] ([place]) (0000 0) Comment: Performed By: #### BMP, CK, GFR, LIPID, HFP, A1C #### [place] [address] MCHC mass conc (RBC) 34.3 32.0-36.0 G/dL Normal 9 [facility] ([place]) (0000 0) Comment: Performed By: #### BMP, CK, GFR, LIPID, HFP, A1C #### [place] [address] MCV Entitic volume (RBC) 78.3 81.0-100.0 fL Low -0 [facility] ([place]) (0000 0) Comment: Performed By: #### BMP, CK, GFR, LIPID, HFP, A1C #### [place] [address] Platelet mean volume 7.7 6.4-10.5 fL Normal 9 [facility] Entitic volume (Bld) ([place]) (84660) Comment: Performed By: #### BMP, CK, GFR, LIPID, HFP, A1C #### [place] [address] Platelets #/vol (Bld) 266 150-450 10 3/mcL Normal 10-15-19 19 [facility] ([place]) (29809) Comment: Performed By: #### BMP, CK, GFR, LIPID, HFP, A1C #### [place] [address] RBC #/vol (Bld) 4.60 4.50-6.00 10 6/[facility] Normal 10-14-2018 [facility]) (0000 0) Comment: Performed By: #### BMP, CK, GFR, LIPID, HFP, A1C #### [place] [address] WBC #/vol (Bld) 4.40 4.50-10.80 10 3/mcL Low 10-14-2018 [facility] ([place]) (0000 0) Comment: Performed By: #### BMP, CK, GFR, LIPID, HFP, A1C #### [place] [address] aptt on 2018-10-14 aPTT Coag time (Bld) Heparin IV Normal 10-15-[address] [place] [address] ([place]) (05222) Comment: Performed By: #### BMP, CK, GFR, LIPID, HFP, A1C #### [place] [address] aPTT Coag time (Bld) 36.5 25.0-35.0 seconds High 10-14- 9 [facility] ([place]) (0000 0) Comment: Result Comment: For Heparin anticoagulation therapy, the recommended therapeutic range is: 54-77 seconds (APTT Correlation with Anti-Xa therapeutic ran ge of 0.3-0.7 units/ml). PLEASE REFERENCE THE PHARMAC Y PROTOCOL FOR DOSING. Performed By: #### BMP, CK, GFR, LIPID, HFP, A1C #### [place] [address] aPTT Coag time (Bld) Heparin IV Normal 10-15-19 19 [facility] ([place]) (67484) Comment: Performed By: #### BMP, CK, GFR, LIPID, HFP, A1C #### [place] [address] aPTT Coag time (Bld) 35.1 25.0-35.0 seconds High --201 9 [facility] ([place]) (0000 0) Comment: Result Comment: For Heparin anticoagulation therapy, the recommended therapeutic range is: 54-77 seconds (APTT Correlation with Anti-Xa therapeutic ran ge of 0.3-0.7 units/ml). PLEASE REFERENCE THE PHARMAC Y PROTOCOL FOR DOSING. Performed By: #### BMP, CK, GFR, LIPID, HFP, A1C #### [place] [id number] [address] [place] [address] a1c on 2018-10-14 Hemoglobin A1c/Hemoglobin.total 9.2 4.0-6.0 % High 10-14-2018 [facility] mass fraction ([facility]) [facility] ([place]) (00215) Comment: Performed By: #### BMP, CK, GFR, LIPID, HFP, A1C #### [address] [address] .neuabs on Neutrophils #/vol 2.50 2.25-8.10 10 3/mcL Normal 10-14-2018 A [facility] ([facility]) [facility] ([place]) (22229) Comment: Performed By: #### BMP, CK, GFR, LIPID, HFP, A1C #### [place] [address] .gfr on 2018-10-14 GFR Non- >60 Normal 10-14 [facility] ([place]) (06470) Comment: Result Comment: GFR Population mean for Afri can Nauruan, Non- Americans Ages 20-29 = 116 mL/min/1.73 sq.m. Ages 30-39 = 107 mL/min/1.73 sq.m. Ages 40-49 = 99 mL/min/1.73 sq.m. Ages 50-59 = 93 mL/min/1.73 sq.m. Ages 60-69 = 85 mL/min/1.73 sq.m. Ages 70+ = 75 mL/min/1.73 sq .m. Chronic Kidney Disease: Less than 60 mL/min/1.73 square meters End Stage Renal Disease: Les s than 15 mL/min/1.73 square meters Performed By: #### BMP, CK, GFR, LIPID, HFP, A1C #### [address] [address] GFR >60 Normal 9 [facility] ([place]) (48398) Comment: Result Comment: GFR Population mean for Afri can Nauruan, Non- Americans Ages 20-29 = 116 mL/min/1.73 sq.m. Ages 30-39 = 107 mL/min/1.73 sq.m. Ages 40-49 = 99 mL/min/1.73 sq.m. Ages 50-59 = 93 mL/min/1.73 sq.m. Ages 60-69 = 85 mL/min/1.73 sq.m. Ages 70+ = 75 mL/min/1.73 sq .m. Chronic Kidney Disease: Less than 60 mL/min/1.73 square meters End Stage Renal Disease: Les s than 15 mL/min/1.73 square meters Performed By: #### BMP, CK, GFR, LIPID, HFP, A1C #### [address] [address] .auto diff on 10-14 Ammonia mass conc 0.70 0.09-1.40 10 3/[facility] Normal 10-14-2018 [facility] () [facility] ([place]) (32445) Comment: Performed By: #### BMP, CK, GFR, LIPID, HFP, A1C #### [address] [address] Basophils #/vol (Bld) 0.00 0.00-0.27 10 3/[facility] Normal 10-15-19 19 [facility] ([place]) (71059) Comment: Performed By: #### BMP, CK, GFR, LIPID, HFP, A1C #### [address] [address] Basophils/100 WBC (Bld) 0.5 0.0-2.5 % Normal 2018 [facility] ([place]) (0000 0) Comment: Performed By: #### BMP, CK, GFR, LIPID, HFP, A1C #### [address] [address] Eosinophils #/vol 0.20 0.00-0.65 10 3/[facility] Normal 10-14-2018 [facility] (d) [facility] ([place]) (68519) Comment: Performed By: #### BMP, CK, GFR, LIPID, HFP, A1C #### [address] [address] Eosinophils/100 WBC (Bld) 5.5 0.0-6.0 % Normal [facility] ([place]) (0000 0) Comment: Performed By: #### BMP, CK, GFR, LIPID, HFP, A1C #### [address] [address] Lymphocytes #/vol 1.00 0.90-4.32 10 3/mcL Normal 10-14-2018 [facility] ([facility] ([place]) (83995) Comment: Performed By: #### BMP, CK, GFR, LIPID, HFP, A1C #### [address] [address] Lymphocytes/100 WBC (Bld) 21.6 20.0-40.0 % Normal [facility] ([place]) (52024) Comment: Performed By: #### BMP, CK, GFR, LIPID, HFP, A1C #### [address] [address] Monocytes/100 WBC (Bld) 15.4 2.0-13.0 % High 2018 [facility] ([place]) (0000 0) Comment: Performed By: #### BMP, CK, GFR, LIPID, HFP, A1C #### [address] [address] Neutrophils/100 WBC (Bld) 57.0 50.0-75.0 % Normal [facility] ([place]) (75082) Comment: Performed By: #### BMP, CK, GFR, LIPID, HFP, A1C #### [address] [address] zzplt morph on 2018 Platelet morphology finding NORMAL Normal [facility] ([facility]) System (00 000) Comment: Performed By: #### [id number] #### [facility] [address] [place] [address] Platelets #/vol (d) NORMAL Normal 10-14-19 19 [facility] (63490) Comment: Performed By: #### [id number] #### [facility] [address] [place] [address] xr chest ap portable on 2018-10-13 XR Chest AP Exam Date/Time: Normal 10-13-2018 [facility] 10/13/2018 21:09 EDT H lt System Reason for Exam: (00 000) Chest pain Report STUDY: XR Chest AP Portable; 10/13/2018 9:09 pm INDICATION: Chest pain. COMPARISON: 06/24/2018 ACCESSION NUMBER(S): [id number] ORDERING CLINICIAN: Jose Garcia FINDINGS: Left cardiac pacing device has a wire to the right atrium and right ventricle. CARDIOMEDIASTINAL SILHOUETTE: Cardiomediastinal silhouette is normal in size and configuration. The patient is status post sternotomy. LUNGS: Lungs are clear. There is no confluent airspace disease or e ffusion. ABDOMEN: No remarkable upper abdominal findings. BONES: No acute osseous changes. IMPRESSION: 1. No evidence of acute cardiopulmonary process. FINAL REPORT Dictated: 10/13/2018 9:11 pm Micah Can MD Signed (Electronic Signature): 10/13/2018 9:11 pm Signed by: Micah Can MD Technologist: JERICA troponin-i on 10-13 Troponin I.cardiac .12 .00-.03 ng/mL Critically abnormal 0 10-13-2018 [facility] ([id number]) Comment: Result Comment: Critical Res ult (s) Called to and read back by: ED GENAO at: 10/13/2018 21:04 :03 by:MARJAN Performed By: #### [id number] #### [facility] [address] [place] [address] morph on 2018-10-13 Anisocytosis Ql (Bld) 1+ Normal 10-14-19 19 [facility] ([id number]) Comment: Order Comment: Order added richard Wick Expert. Performed By: #### [id number] #### [facility] [address] [place] [address] Hypochromasia 2+ Normal 10-13-2018 [facility] (15218) Comment: Order Comment: Order added richard Wick Expert. Performed By: #### [id number] #### [facility] [address] [place] [address] RBC morphology finding SEE MORPHOLOGY Normal [facility] ([facility]) [facility] ([id number]) Comment: Order Comment: Order added b y Discern Expert. Performed By: #### [id number] #### [facility] IsabellaChem [address] [place] [address] magnesium on 10-13 Magnesium mass conc 2.0 1.6-2.4 mg/dL Normal 10-13-2018 [facility] (00 000) Comment: Performed By: #### [id number] ### [facility] [address] [place] [id number] egfr on 2018-10-13 GFR/1.73 sq M predicted >60 mL/min/{1.73_m2} Normal 10-13-2018 [facility] among non-blacks [facility] ([id number]) vol rate/area (S/P/Bld) Comment: Order Comment: Order added b y Discern Expert. Performed By: #### [id number] ### IMELDA [facility] [address] [place] [id number] cbc w/ auto diff on 2018-10-13 Erythrocyte distribution 17.1 11.5-14.5 % High 10-13 [facility] width Ratio (RBC) [facility] ([id number]) Comment: Performed By: #### [id number] #### [facility] [address] [place], [place] [address] Hematocrit Volume Fraction 40.3 42.0-52.0 % Low [facility] (d) System (00 000) Comment: Performed By: #### [id number] #### IMELDA [employer] [address] [place] [address] Hemoglobin mass conc (Bld) 12.9 13.5-18.0 G/DL Low [facility] tem (83951) Comment: Performed By: #### [id number] #### IMELDA [employer] [address] [place] [address] MCH Entitic mass (RBC) 25.4 27.0-31.0 pg Low 019 [facility] (00 000) Comment: Performed By: #### [id number] #### IMELDADanica Shen5 [place] 2519805 MCHC mass conc (RBC) 31.9 33.0-37.0 G/DL Low 9 [facility] (00 000) Comment: Performed By: #### [id number] #### IMELDA IsabellaJarett [facility]5 [place] 2519805 MCV Entitic volume 79.7 78.0-100.0 fL Normal 10-13-2018 [facility] (RBC) System (00 000) Comment: Performed By: #### [id number] #### IMELDA IsabellaJarett [facility]5 [place] 2519805 Platelet mean volume 7.7 7.4-11.0 fL Normal 9 [facility] Entitic volume (Bld) System (26713) Comment: Performed By: #### [id number] #### IMELDA IsabellaJarett [address] [place] [address] Platelets #/vol (Bld) 303 130-400 E3/mcL Normal 10-14-19 19 [facility] (00 000) Comment: Performed By: #### [id number] #### IMELDA Angelina [facility]5 [place] [address] RBC #/vol (Bld) 5.06 3.90-6.10 E6/mcL Normal 10-13-2018 [facility] (00 000) Comment: Performed By: #### [id number] #### IMELDA IsabellaJarett [address] [place], [place] [address] WBC #/vol (Bld) 4.8 3.6-11.0 E3/mcL Normal 10-13-2018 [facility] (00 000) Comment: Performed By: #### [id number] #### IMELDA IsabellaJarett [facility]5 [place] 2519805 bnp. on 2018-10-13 Natriuretic peptide B mass 28 <=500 pg/mL Normal [facility] conc (Bld) System (0 0000) Comment: Result Comment: Notice: Effe ctive 12/23/2016 the methodology for BNP testing has changed. BNP values less than or equal to 100 pg/mL is considered normal for patients without CHF.The decision threshold was determined by the 95% confidence limit of BNP conc entration in the non-CHF population age 55 and older.It is recommended that a new baseline value be established using the new method if monitoring pat ient's BNP level. Performed By: #### [id number] #### IMELDA [facility] [address] [place] [address] bmp on 2018-10-13 Anion gap molar conc 14 10-20 mEq/L Normal 9 [facility] (00 000) Comment: Performed By: #### [id number] # ### IMELDA [facility] [address] [place] [address] Calcium mass conc 9.1 8.6-10.3 mg/dL Normal 10-13-[address] [facility] (00 000) Comment: Performed By: #### [id number] # ### IMELDA [employer] [address] [place] [address] Chloride molar conc 100 98-107 mEq/L Normal 10-13-2018 [facility] (00 000) Comment: Performed By: #### [id number] # ### IMELDA [facility] [address] [place] [address] CO2 molar conc 24.0 21.0-32.0 mEq/L Normal 10-13-2018 [facility] (00 000) Comment: Performed By: #### [id number] # ### IMELDA [facility] [address] [place] [address] Creatinine mass conc 1.0 0.5-1.3 mg/dL Normal 9 [facility] (00 000) Comment: Performed By: #### [id number] # ### IMELDA [employer] [address] [place] [address] Glucose mass conc 153 70-99 mg/dL High 10-13-[address] [facility] (81060) Comment: Performed By: #### [id number] # ### IMELDA [facility] [address] [place] [address] Potassium molar conc 3.9 3.5-5.3 mEq/L Normal 9 [facility] () Comment: Performed By: #### [id number] # ### IMELDA [place] [address] [place] [address] Sodium molar conc 134 136-145 mEq/L Low 10-13-2018 [facility] (57890) Comment: Performed By: #### [id number] # ### IMELDA Mason[address] [address] Urea nitrogen mass conc 27 6-23 mg/dL High 2018 [facility] ( 000) Comment: Performed By: #### [id number] # ### IMELDA Mason[address] [address] Urea nitrogen/Creatinine mass 27.0 5.4-30.0 ratio Normal 10-13-2018 [facility] (75291) Comment: Performed By: #### [id number] # ### IMELDADanica Mason[address] [address] auto diff on 10-13 Basophils #/vol (Bld) 0.0 0.0-0.2 E3/mcL Normal 10-14-19 19 [facility] ( 000) Comment: Order Comment: Order added b y Discern Expert. Performed By: #### [id number] #### IMELDADanica Mason[address] [address] Basophils/100 WBC (Bld) 0.6 0.0-2.0 % Normal 2018 [facility] ( 000) Comment: Order Comment: Order added b y Discern Expert. Performed By: #### [id number] #### IMELDADanica Mason[address] [address] Eos Absolute 0.2 0.0-0.7 E3/mcL Normal 10-13-2018 [facility] (31318) Comment: Order Comment: Order added b y Discern Expert. Performed By: #### [id number] #### IMELDADanica Mason[address] [address] Eosinophils/100 WBC (Bld) 4.4 0.0-11.0 % Normal [facility] ( 000) Comment: Order Comment: Order added b y Discern Expert. Performed By: #### [id number] #### IMELDA IsabellaStonehenge Gardens [facility]5 [place] [address] Lymphocytes #/vol (Bld) 0.8 1.2-3.4 E3/mcL Low 2018 [facility] (00 000) Comment: Order Comment: Order added b y Discern Expert. Performed By: #### [id number] #### [facility] Isabella[address] [address] Lymphocytes/100 WBC (Bld) 16.8 20.0-55.0 % Low 04-0 [facility] (00 000) Comment: Order Comment: Order added b y Discern Expert. Performed By: #### [id number] #### [facility] [address] [place] [address] [place] Absolute 0.7 0.0-0.7 E3/mcL Normal 10-13-2018 [facility] (14895) Comment: Order Comment: Order added b y Discern Expert. Performed By: #### [id number] #### IMELDA [facility]abellaStonehenge Gardens [address] [place] [address] Monocytes/100 WBC (Bld) 14.0 0.0-10.0 % High 2018 [facility] (00 000) Comment: Order Comment: Order added b y Discern Expert. Performed By: #### [id number] #### IMELDA Isabella[address] [address] Neutro Absolute 3.1 1.4-6.5 E3/mcL Normal 10-13-2018 [facility] (73591) Comment: Order Comment: Order added b y Discern Expert. Performed By: #### [id number] #### [facility] [address] [place] [address] Neutro Auto 64.2 37.0-75.0 % Normal 10-13-2018 [facility] (18736) Comment: Order Comment: Order added b y Discern Expert. Performed By: #### [id number] #### [facility] [address] [place] [address] tropi on 2018-08-15 Troponin I.cardiac <0.015 0.000-0.040 ng/mL Normal 9 [facility] ([place]) (237[address]) Comment: Result Comment: Troponin I r eference ranges (03/19/14): 0.00-0.040 ng/mL Negative an d non-diagnostic. >0.040 ng/mL Consistent with cardiac damage, increased clinical risk and possibility of myocardial in farction. Serial measurements, a rise & fall in test results, clinical histo ry, appropriate symptoms and/or ECG changes may help assess possibility of IN. *Other non-acute coronary sy ndrome conditions such as CHF, myoc arditis, pulmonary emboli, sepsis and cardiac surgery could result in myoc ardial damage and increased troponi n levels. Performed By: #### BMP, CK, GFR, LIPID, HFP, A1C #### [address] [address] Troponin I.cardiac <0.015 0.000-0.040 ng/mL Normal 9 [facility] ([place]) ([address]61) Comment: Result Comment: Troponin I r eference ranges (03/19/14): 0.00-0.040 ng/mL Negative an d non-diagnostic. >0.040 ng/mL Consistent with cardiac damage, increased clinical risk and possibility of myocardial in farction. Serial measurements, a rise & fall in test results, clinical histo ry, appropriate symptoms and/or ECG changes may help assess possibility of IN. *Other non-acute coronary sy ndrome conditions such as CHF, myoc arditis, pulmonary emboli, sepsis and cardiac surgery could result in myoc ardial damage and increased troponi n levels. Performed By: #### BMP, CK, GFR, LIPID, HFP, A1C #### [address] [address] Troponin I.cardiac <0.015 0.000-0.040 ng/mL Normal 9 [facility] ([place]) (04192) Comment: Result Comment: Troponin I r eference ranges (03/19/14): 0.00-0.040 ng/mL Negative an d non-diagnostic. >0.040 ng/mL Consistent with cardiac damage, increased clinical risk and possibility of myocardial in farction. Serial measurements, a rise & fall in test results, clinical histo ry, appropriate symptoms and/or ECG changes may help assess possibility of IN. *Other non-acute coronary sy ndrome conditions such as CHF, myoc arditis, pulmonary emboli, sepsis and cardiac surgery could result in myoc ardial damage and increased troponi n levels. Performed By: #### BMP, CK, GFR, LIPID, HFP, A1C #### [place] [address] respid on 4 Adenovirus Not Detected Not Detected Normal 08-15-2018 [facility] ([place]) (0000 0) Comment: Order Comment: Order added b y [email or web address] Performed By: #### BMP, CK, GFR, LIPID, HFP, A1C #### [place] [address] Bordetella Not Detected Not Detected Normal 08-15-2018 [facility] ([place]) ([address]) Comment: Order Comment: Order added b y [email or web address] Performed By: #### BMP, CK, GFR, LIPID, HFP, A1C #### [place] [address] Bordetella Pertussis Not Detected Not Detected Normal [facility] ([place]) (94131) Comment: Order Comment: Order added b y [email or web address] Performed By: #### BMP, CK, GFR, LIPID, HFP, A1C #### [place] [address] Chlamydophila Not Detected Not Detected Normal 08-15-2018 [facility] ([place]) ([address]43) Comment: Order Comment: Order added b y [email or web address] Performed By: #### BMP, CK, GFR, LIPID, HFP, A1C #### [place] [address] Coronavirus 229E Not Detected Not Detected Normal 019 [facility] ([place]) (55665) Comment: Order Comment: Order added b y [email or web address] Performed By: #### BMP, CK, GFR, LIPID, HFP, A1C #### [place] [address] Coronavirus HKU1 Not Detected Not Detected Normal [address] [place] [address] ([place]) ([address]) Comment: Order Comment: Order added b y [email or web address] Performed By: #### BMP, CK, GFR, LIPID, HFP, A1C #### [place] [address] Coronavirus NL63 Not Detected Not Detected Normal 019 [facility] ([place]) (92243) Comment: Order Comment: Order added b y [email or web address] Performed By: #### BMP, CK, GFR, LIPID, HFP, A1C #### [place] [address] Coronavirus OC43 Not Detected Not Detected Normal 019 [facility] ([place]) (27967) Comment: Order Comment: Order added b y [email or web address] Performed By: #### BMP, CK, GFR, LIPID, HFP, A1C #### [place] [address] Human Metapneumovirus Not Detected Not Detected Normal [facility] ([place]) ([address]25) Comment: Order Comment: Order added b y [email or web address] Performed By: #### BMP, CK, GFR, LIPID, HFP, A1C #### [place] [address] Influenza A Not Detected Not Detected Normal 08-15-2018 A [facility] ([place]) (0000 0) Comment: Order Comment: Order added b y [email or web address] Performed By: #### BMP, CK, GFR, LIPID, HFP, A1C #### [place] [address] Influenza B Not Detected Not Detected Normal 08-15-2018 A [facility] ([place]) (0000 0) Comment: Order Comment: Order added b y [email or web address] Performed By: #### BMP, CK, GFR, LIPID, HFP, A1C #### [address] [address] Mycoplasma Not Detected Not Detected Normal 08-15-2018 [facility] ([place]) (71549) Comment: Order Comment: Order added b y [email or web address] Performed By: #### BMP, CK, GFR, LIPID, HFP, A1C #### [place] [address] Parainfluenza 1 Not Detected Not Detected Normal 08-15-19 19 [facility] ([place]) (36081) Comment: Order Comment: Order added b y [email or web address] Performed By: #### BMP, CK, GFR, LIPID, HFP, A1C #### [place] [address] Parainfluenza 2 Not Detected Not Detected Normal 08-15-19 19 [facility] ([place]) (81991) Comment: Order Comment: Order added b y [email or web address] Performed By: #### BMP, CK, GFR, LIPID, HFP, A1C #### [place] [address] Parainfluenza 3 Not Detected Not Detected Normal 08-15-19 19 [facility] ([place]) (84647) Comment: Order Comment: Order added b y [email or web address] Performed By: #### BMP, CK, GFR, LIPID, HFP, A1C #### [place] [address] Parainfluenza 4 Not Detected Not Detected Normal 08-15-19 19 [facility] ([place]) (10702) Comment: Order Comment: Order added b y [email or web address] Performed By: #### BMP, CK, GFR, LIPID, HFP, A1C #### [place] [address] Respiratory Not Detected Not Detected Normal 08-15-2018 A [facility] Syncytial Virus Foun dation ([place]) (07148) Comment: Order Comment: Order added b y [email or web address] Performed By: #### BMP, CK, GFR, LIPID, HFP, A1C #### [place] [id number] [address] [place] [address] Rhinovirus/Enterovirus Not Detected Not Detected Normal 0 08-15-2018 [facility] ([place]) (51881) Comment: Order Comment: Order added b y [email or web address] Performed By: #### BMP, CK, GFR, LIPID, HFP, A1C #### [address] [address] nm myocardial spect stress/rest on 2018-08-15 NM MYOCARDIAL ORIGINAL Normal 08-15-2018 [facility] SPECT STRESS/REST PA MYOCARDIAL SPECT STRESS/REST [facility]) (94299) CLINICAL STATEMENT: CP TECHNIQUE: Adenosine dose:60 mg Radiopharmaceutical (stress): Tc-99m Sestamibi Dose:18.7 mCi Radiopharmaceutical (rest): Tc-99m Sestamibi Dose:6.6 mCi SPECT acquisition and processing Reconstruction and reorienta tion of SPECT images into short axis, vertical and horizontal long axis planes Quantitative LVEF assessment COMPARISON:08/28/2017 REPORT:This is a good qualit y study. Review tomographic images reveals a fixed defect in the anterior wall most prominent from the mid ventricle to the apex. There is also a fixed apical wall defect and a fixed inferoapical wall d efect extending to the mid inferior wall. There are no significant reversible defects noted the gated study demonstrates apical hypokinesis extending into the anteroapical an d inferoapical quinonez. The re maining segments are fabiano normally with normal thickening. 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 There are no signific ant areas of ischemia noted. The gated study demonstrates mild apical hypokinesis with preserved ejection fraction. Compared to prior study the defect is the same. The ejection fraction is improved from 48-61% Interpreted By: Jonathan Chen MD Preliminary Report By: Jonathan Chen MD Electronically Signed By: Jonathan Chen MD Dictated Date: 08/15/2018 10:16:06 AM Prelim Date: 08/15/2018 10:16:06 AM Sign Date: 08/15/2018 10:22:30 AM cbc on 2018-08-15 Erythrocyte distribution 13.8 11.5-15.5 % Normal 08-15 [facility] Ratio (RBC) Fo undation ([place]) (17778) Comment: Performed By: #### BMP, CK, GFR, LIPID, HFP, A1C #### [place] [address] Hematocrit Volume Fraction 35.0 40.0-52.0 % Low [facility] ([facility]) ([place]) (0000 0) Comment: Performed By: #### BMP, CK, GFR, LIPID, HFP, A1C #### [place] [address] Hemoglobin mass conc 11.8 13.0-17.5 G/dL Low 9 [facility] ([facility]) ([place]) (0000 0) Comment: Performed By: #### BMP, CK, GFR, LIPID, HFP, A1C #### [place] [address] MCH Entitic mass (RBC) 27.8 27.0-33.0 pg Normal 019 [facility] ([place]) (0000 0) Comment: Performed By: #### BMP, CK, GFR, LIPID, HFP, A1C #### [place] [address] MCHC mass conc (RBC) 33.6 32.0-36.0 G/dL Normal 9 [facility] ([place]) (0000 0) Comment: Performed By: #### BMP, CK, GFR, LIPID, HFP, A1C #### [place] [address] MCV Entitic volume 82.6 81.0-100.0 fL Normal 08-15-2018 [facility] (RBC) ([place]) (0000 0) Comment: Performed By: #### BMP, CK, GFR, LIPID, HFP, A1C #### [place] [address] Platelet mean volume 7.8 6.4-10.5 fL Normal 9 [facility] Entitic volume (Bld) ([place]) (86477) Comment: Performed By: #### BMP, CK, GFR, LIPID, HFP, A1C #### [address] [address] Platelets #/vol (Bld) 286 150-450 10 3/mcL Normal 08-15-19 19 [facility] ([place]) (03662) Comment: Performed By: #### BMP, CK, GFR, LIPID, HFP, A1C #### [address] [address] RBC #/vol (Bld) 4.24 4.50-6.00 10 6/mcL Low 08-15-2018 [facility] ([place]) (71867) Comment: Performed By: #### BMP, CK, GFR, LIPID, HFP, A1C #### [place] [address] WBC #/vol (Bld) 5.10 4.50-10.80 10 3/mcL Normal 08-15-2018 [facility] ([place]) (0000 0) Comment: Performed By: #### BMP, CK, GFR, LIPID, HFP, A1C #### [address] [address] bmp on 2018-08-15 Calcium mass conc 8.6 8.4-10.1 mg/dL Normal 08-15-2018 [facility] ([place]) (31164) Comment: Performed By: #### BMP, CK, GFR, LIPID, HFP, A1C #### [place] [address] Chloride molar conc 98 98-110 mEq/L Normal 08-15-2018 [facility] ([place]) (25850) Comment: Performed By: #### BMP, CK, GFR, LIPID, HFP, A1C #### [place] [address] CO2 molar conc 27 22-32 mEq/L Normal 08-15-2018 Count includes the [facility] ([place]) (54170) Comment: Performed By: #### BMP, CK, GFR, LIPID, HFP, A1C #### [place] [address] Creatinine mass conc 0.92 0.60-1.40 mg/dL Normal 9 [facility] ([place]) (0000 0) Comment: Performed By: #### BMP, CK, GFR, LIPID, HFP, A1C #### [place] [address] Electrolyte Balance 13.0 4.0-15.0 mEq/L Normal 08-15-2018 [facility] ([place]) (0000 0) Comment: Performed By: #### BMP, CK, GFR, LIPID, HFP, A1C #### [place] [address] Glucose mass conc 192 70-110 mg/dL High 08-15-2018 A [facility] ([place]) (89662) Comment: Performed By: #### BMP, CK, GFR, LIPID, HFP, A1C #### [place] [address] Potassium molar conc 3.6 3.5-5.0 mEq/L Normal 9 [facility] ([place]) (0000 0) Comment: Performed By: #### BMP, CK, GFR, LIPID, HFP, A1C #### [place] [address] Sodium molar conc 138 136-145 mEq/L Normal 08-15-2018 [facility] ([place]) (05630) Comment: Performed By: #### BMP, CK, GFR, LIPID, HFP, A1C #### [place] [address] Urea nitrogen mass conc 27.0 8.0-22.0 mg/dL High 2018 [facility] ([place]) (0000 0) Comment: Performed By: #### BMP, CK, GFR, LIPID, HFP, A1C #### [place] [address] Urea nitrogen/Creatinine mass 29.3 10.0-22.0 ratio High 08-15-2018 [facility] ([place]) (49409) Comment: Performed By: #### BMP, CK, GFR, LIPID, HFP, A1C #### [address] [address] .neuabs on Neutrophils #/vol 3.20 2.25-8.10 10 3/mcL Normal 08-15-2018 A [facility] ([facility]) [facility] ([place]) ([address]28) Comment: Performed By: #### BMP, CK, GFR, LIPID, HFP, A1C #### [address] [address] .gfr on 2018-08-15 GFR >60 Normal 9 [facility] ([place]) (37100) Comment: Result Comment: GFR Population mean for Afri can Nauruan, Non- Americans Ages 20-29 = 116 mL/min/1.73 sq.m. Ages 30-39 = 107 mL/min/1.73 sq.m. Ages 40-49 = 99 mL/min/1.73 sq.m. Ages 50-59 = 93 mL/min/1.73 sq.m. Ages 60-69 = 85 mL/min/1.73 sq.m. Ages 70+ = 75 mL/min/1.73 sq .m. Chronic Kidney Disease: Less than 60 mL/min/1.73 square meters End Stage Renal Disease: Les s than 15 mL/min/1.73 square meters Performed By: #### BMP, CK, GFR, LIPID, HFP, A1C #### [address] [address] GFR Non- >60 Normal 08-15 [facility] ([place]) (27728) Comment: Result Comment: GFR Population mean for Afri can Nauruan, Non- Americans Ages 20-29 = 116 mL/min/1.73 sq.m. Ages 30-39 = 107 mL/min/1.73 sq.m. Ages 40-49 = 99 mL/min/1.73 sq.m. Ages 50-59 = 93 mL/min/1.73 sq.m. Ages 60-69 = 85 mL/min/1.73 sq.m. Ages 70+ = 75 mL/min/1.73 sq .m. Chronic Kidney Disease: Less than 60 mL/min/1.73 square meters End Stage Renal Disease: Les s than 15 mL/min/1.73 square meters Performed By: #### BMP, CK, GFR, LIPID, HFP, A1C #### [place] [address] .auto diff on 08-15 Ammonia mass conc 0.80 0.09-1.40 10 3/mcL Normal 08-15-2018 [facility] () [facility] ([place]) ([id number]) Comment: Performed By: #### BMP, CK, GFR, LIPID, HFP, A1C #### [place] [address] Basophils #/vol (Bld) 0.00 0.00-0.27 10 3/mcL Normal 08-15-19 19 [facility] ([place]) (03806) Comment: Performed By: #### BMP, CK, GFR, LIPID, HFP, A1C #### [place] [address] Basophils/100 WBC (Bld) 0.5 0.0-2.5 % Normal 2018 [facility] ([place]) (0000 0) Comment: Performed By: #### BMP, CK, GFR, LIPID, HFP, A1C #### [place] [address] Eosinophils #/vol 0.20 0.00-0.65 10 3/[facility] Normal 08-15-2018 [facility] ([facility] ([place]) (06144) Comment: Performed By: #### BMP, CK, GFR, LIPID, HFP, A1C #### [place] [address] Eosinophils/100 WBC (Bld) 3.2 0.0-6.0 % Normal [facility] ([place]) (0000 0) Comment: Performed By: #### BMP, CK, GFR, LIPID, HFP, A1C #### [place] [address] Lymphocytes #/vol 0.90 0.90-4.32 10 3/mcL Normal 08-15-2018 [facility] ([facility]) [facility] ([place]) (63479) Comment: Performed By: #### BMP, CK, GFR, LIPID, HFP, A1C #### [facility] [address] [place] [address] Lymphocytes/100 WBC (Bld) 17.2 20.0-40.0 % Low -0 [facility] ([place]) (0000 0) Comment: Performed By: #### BMP, CK, GFR, LIPID, HFP, A1C #### [place] [id number] [place] [address] Monocytes/100 WBC (Bld) 15.2 2.0-13.0 % High 2018 [facility] ([place]) (0000 0) Comment: Performed By: #### BMP, CK, GFR, LIPID, HFP, A1C #### [place] [id number] [place] [address] Neutrophils/100 WBC (Bld) 63.9 50.0-75.0 % Normal - [facility] ([place]) (94428) Comment: Performed By: #### BMP, CK, GFR, LIPID, HFP, A1C #### [address] [address] xr chest 1 view on 2018-08-14 XR CHEST 1 VIEW ORIGINAL Normal 08-14-2018 [facility] XR CHEST 1 VIEW [facility] ([place]) (47459) CLINICAL STATEMENT: Chest pain COMPARISON: Chest radiograph 07/20/2018 FINDINGS: The cardiomediasti nal contours are normal. There is a left-sided ICD device in place and positioned similarly when compared to prior study. There is no consolidation, vascular congestion, pleu ral effusion, or pneumothora x. Osseous structures demonstrate no acute abnormalities. IMPRESSION: No acute radiographic findings. I have personally reviewed t he images of this examination and agree with the resident's findings and interpretation. Interpreted By: Judson Jeffries MD Preliminary Report By: Rosita Flores MD Electronically Signed By: Judson Jeffries MD Dictated Date: 08/14/2018 5:44:02 PM Prelim Date: 08/14/2018 5:44:43 PM Sign Date: 08/14/2018 5:55:31 PM tropi on 2018-08-14 Troponin I.cardiac <0.015 0.000-0.040 ng/mL Normal 9 [facility] ([facility] ([id number]) Comment: Result Comment: Troponin I r eference ranges (03/19/14): 0.00-0.040 ng/mL Negative an d non-diagnostic. >0.040 ng/mL Consistent with cardiac damage, increased clinical risk and possibility of myocardial in farction. Serial measurements, a rise & fall in test results, clinical histo ry, appropriate symptoms and/or ECG changes may help assess possibility of IN. *Other non-acute coronary sy ndrome conditions such as CHF, myoc arditis, pulmonary emboli, sepsis and cardiac surgery could result in myoc ardial damage and increased troponi n levels. Performed By: #### BMP, CK, GFR, LIPID, HFP, A1C #### [address] [address] rflu on 2018-08-14 RFLU . Normal 08-14-2018 [facility] MICRO - Microbiology [facility] ([place]) (35045) PROCEDURE: Rapid Influenza A+B Screen w Cult if Ind [*1] SOURCE: Nasopharyngeal Swab BODY SITE: COLLECTED DATE/TIME: 08/14/2018 17:56 EST RECEIVED DATE/TIME: 08/14/2018 18:05 EST START DATE/TIME: 08/14/2018 18:05 EST FREE TEXT SOURCE: FINAL REPORTS Final Report [] Verified Date/Time/Personnel: 08/14/2018 18:22 EST Specimen is negative for the presence of influenza A antigen. . Specimen is negative for the presence of influenza B antigen. . Inadequate specimen collection, improper sample handling and/or low levels of viral shedding may yield a false-negative result. . The optimal specimen type for the Rapid Flu test is a nasopharyngeal wash/aspirate or nasopharyngeal swab. All negative rapid tests for Flu A and Flu B will be confirmed with a Respiratory Id Panel by PCR. . Assay method employs immunofluorescence technology. Performing Locations *1: This test was performed at: [address], [address] , [place] Comment: Performed By: #### BMP, CK, GFR, LIPID, HFP, A1C #### [address] [address] cbc on 2018-08-14 Erythrocyte distribution 14.5 11.5-15.5 % Normal 08-14 [facility] Ratio (RBC) Fo undation ([place]) ([id number]) Comment: Performed By: #### BMP, CK, GFR, LIPID, HFP, A1C #### [place] [address] Hematocrit Volume Fraction 36.8 40.0-52.0 % Low [facility] ([facility]) ([place]) (0000 0) Comment: Performed By: #### BMP, CK, GFR, LIPID, HFP, A1C #### [place] [address] Hemoglobin mass conc 12.6 13.0-17.5 G/dL Low 9 [facility] (d) ([place]) (0000 0) Comment: Performed By: #### BMP, CK, GFR, LIPID, HFP, A1C #### [place] [address] MCH Entitic mass (RBC) 27.9 27.0-33.0 pg Normal 019 [facility] ([place]) (0000 0) Comment: Performed By: #### BMP, CK, GFR, LIPID, HFP, A1C #### [place] [address] MCHC mass conc (RBC) 34.2 32.0-36.0 G/dL Normal 9 [facility] ([place]) (0000 0) Comment: Performed By: #### BMP, CK, GFR, LIPID, HFP, A1C #### [place] [address] MCV Entitic volume 81.7 81.0-100.0 fL Normal 08-14-2018 [facility] (RBC) ([place]) (0000 0) Comment: Performed By: #### BMP, CK, GFR, LIPID, HFP, A1C #### [place] [address] Platelet mean volume 7.6 6.4-10.5 fL Normal 9 [facility] Entitic volume (Bld) ([place]) ([id number]) Comment: Performed By: #### BMP, CK, GFR, LIPID, HFP, A1C #### [place] [address] Platelets #/vol (Bld) 322 150-450 10 3/mcL Normal 08-14-19 19 [facility] ([place]) ([address]16) Comment: Performed By: #### BMP, CK, GFR, LIPID, HFP, A1C #### [place] [address] RBC #/vol (Bld) 4.50 4.50-6.00 10 6/mcL Normal 08-14-2018 [facility] ([place]) (0000 0) Comment: Performed By: #### BMP, CK, GFR, LIPID, HFP, A1C #### [place] [address] WBC #/vol (Bld) 8.70 4.50-10.80 10 3/mcL Normal 08-14-2018 [facility] ([place]) (0000 0) Comment: Performed By: #### BMP, CK, GFR, LIPID, HFP, A1C #### [place] [address] bmp on 2018-08-14 Calcium mass conc 9.0 8.4-10.1 mg/dL Normal 08-14-2018 A [facility] ([place]) ([id number]) Comment: Performed By: #### BMP, CK, GFR, LIPID, HFP, A1C #### [place] [address] Chloride molar conc 95 98-110 mEq/L Low 08-14-2018 [facility] ([place]) ([id number]) Comment: Performed By: #### BMP, CK, GFR, LIPID, HFP, A1C #### [place] [address] CO2 molar conc 24 22-32 mEq/L Normal 08-14-2018 Count includes the [facility] ([place]) ([address]206) Comment: Performed By: #### BMP, CK, GFR, LIPID, HFP, A1C #### [place] [address] Creatinine mass conc 0.93 0.60-1.40 mg/dL Normal 9 [facility] ([place]) (0000 0) Comment: Performed By: #### BMP, CK, GFR, LIPID, HFP, A1C #### [address] [address] Electrolyte Balance 14.0 4.0-15.0 mEq/L Normal 08-14-2018 [facility] ([place]) (0000 0) Comment: Performed By: #### BMP, CK, GFR, LIPID, HFP, A1C #### [address] [address] Glucose mass conc 233 70-110 mg/dL High 08-14-2018 A [facility] ([place]) (02355) Comment: Performed By: #### BMP, CK, GFR, LIPID, HFP, A1C #### [place] [address] Potassium molar conc 3.4 3.5-5.0 mEq/L Low 9 [facility] ([place]) (30787) Comment: Performed By: #### BMP, CK, GFR, LIPID, HFP, A1C #### [address] [address] Sodium molar conc 133 136-145 mEq/L Low 08-14-2018 A [facility] ([place]) (92551) Comment: Performed By: #### BMP, CK, GFR, LIPID, HFP, A1C #### [place] [address] Urea nitrogen mass conc 30.0 8.0-22.0 mg/dL High 2018 [facility] ([place]) (0000 0) Comment: Performed By: #### BMP, CK, GFR, LIPID, HFP, A1C #### [place] [address] Urea nitrogen/Creatinine mass 32.3 10.0-22.0 ratio High 08-14-2018 [facility] ([place]) (48339) Comment: Performed By: #### BMP, CK, GFR, LIPID, HFP, A1C #### [address] [address] .neuabs on Neutrophils #/vol 7.00 2.25-8.10 10 3/mcL Normal 08-14-2018 A [facility] ([facility]) [facility] ([place]) ([id number]) Comment: Performed By: #### BMP, CK, GFR, LIPID, HFP, A1C #### [address] [address] .gfr on 2018-08-14 GFR >60 Normal 9 [facility] ([place]) (35891) Comment: Result Comment: GFR Population mean for Afri can Nauruan, Non- Americans Ages 20-29 = 116 mL/min/1.73 sq.m. Ages 30-39 = 107 mL/min/1.73 sq.m. Ages 40-49 = 99 mL/min/1.73 sq.m. Ages 50-59 = 93 mL/min/1.73 sq.m. Ages 60-69 = 85 mL/min/1.73 sq.m. Ages 70+ = 75 mL/min/1.73 sq .m. Chronic Kidney Disease: Less than 60 mL/min/1.73 square meters End Stage Renal Disease: Les s than 15 mL/min/1.73 square meters Performed By: #### BMP, CK, GFR, LIPID, HFP, A1C #### [place] [address] GFR Non- >60 Normal 08-14 [facility] ([place]) (97456) Comment: Result Comment: GFR Population mean for Afri can Nauruan, Non- Americans Ages 20-29 = 116 mL/min/1.73 sq.m. Ages 30-39 = 107 mL/min/1.73 sq.m. Ages 40-49 = 99 mL/min/1.73 sq.m. Ages 50-59 = 93 mL/min/1.73 sq.m. Ages 60-69 = 85 mL/min/1.73 sq.m. Ages 70+ = 75 mL/min/1.73 sq .m. Chronic Kidney Disease: Less than 60 mL/min/1.73 square meters End Stage Renal Disease: Les s than 15 mL/min/1.73 square meters Performed By: #### BMP, CK, GFR, LIPID, HFP, A1C #### [address] [address] .auto diff on 08-14 Ammonia mass conc 0.80 0.09-1.40 10 3/mcL Normal 08-14-2018 [facility] () [facility] ([place]) ([id number]) Comment: Performed By: #### BMP, CK, GFR, LIPID, HFP, A1C #### [address] [address] Basophils #/vol (Bld) 0.00 0.00-0.27 10 3/[facility] Normal 08-14-19 19 [facility] ([place]) (71232) Comment: Performed By: #### BMP, CK, GFR, LIPID, HFP, A1C #### [place] [address] Basophils/100 WBC (Bld) 0.3 0.0-2.5 % Normal 2018 [facility] ([place]) (0000 0) Comment: Performed By: #### BMP, CK, GFR, LIPID, HFP, A1C #### [address] [address] Eosinophils #/vol 0.10 0.00-0.65 10 3/[facility] Normal 08-14-2018 [facility] ([facility] ([place]) (31249) Comment: Performed By: #### BMP, CK, GFR, LIPID, HFP, A1C #### [place] [address] Eosinophils/100 WBC (Bld) 1.5 0.0-6.0 % Normal [facility] ([place]) (0000 0) Comment: Performed By: #### BMP, CK, GFR, LIPID, HFP, A1C #### [address] [address] Lymphocytes #/vol (Bld) 0.80 0.90-4.32 10 3/mcL Low 2018 [facility] ([place]) (85144) Comment: Performed By: #### BMP, CK, GFR, LIPID, HFP, A1C #### [address] [address] Lymphocytes/100 WBC (Bld) 8.7 20.0-40.0 % Low 02-0 [facility] ([place]) (0000 0) Comment: Performed By: #### BMP, CK, GFR, LIPID, HFP, A1C #### [address] [address] Monocytes/100 WBC (Bld) 9.4 2.0-13.0 % Normal 2018 [facility] ([place]) (0000 0) Comment: Performed By: #### BMP, CK, GFR, LIPID, HFP, A1C #### [address] [address] Neutrophils/100 WBC (Bld) 80.1 50.0-75.0 % High 02-0 [facility] ([place]) (0000 0) Comment: Performed By: #### BMP, CK, GFR, LIPID, HFP, A1C #### [address] [address] egfr on 2018-08-10 GFR/1.73 sq M predicted >60 mL/min/{1.73_m2} Normal 08-10-2018 [facility] among non-blacks [facility] (67601) vol rate/area (S/P/Bld) Comment: Order Comment: Order added b y Discern Expert. Performed By: #### [id number] # ### [facility] [employer] [address] [place] [address] bmp on 2018-08-10 Anion gap molar conc 14 10-20 mEq/L Normal [address] [place] [address] (00 000) Comment: Performed By: #### [id number] # ### [facility] [employer] [address] [place] [address] Calcium mass conc 9.4 8.6-10.3 mg/dL Normal 08-10-[address] [facility] (00 000) Comment: Performed By: #### [id number] # ### [facility] [employer] [address] [place] [address] Chloride molar conc 107 98-107 mEq/L Normal 08-10-2018 [facility] (00 000) Comment: Performed By: #### [id number] # ### [facility] [address] [place] [address] CO2 molar conc 24.0 21.0-32.0 mEq/L Normal 08-10-2018 [facility] (00 000) Comment: Performed By: #### [id number] # ### [facility] [employer] [address] [place] [address] Creatinine mass conc 0.8 0.5-1.3 mg/dL Normal 9 [facility] (00 000) Comment: Performed By: #### [id number] # ### [facility] [employer] [address] [place] [address] Glucose mass conc 176 70-99 mg/dL High 08-10-[address] [facility] (29769) Comment: Performed By: #### [id number] # ### [facility] [employer] [address] [place] [address] Potassium molar conc 4.6 3.5-5.3 mEq/L Normal 9 [facility] (00 000) Comment: Performed By: #### [id number] # ### [facility] [employer] [address] [place] [address] Sodium molar conc 140 136-145 mEq/L Normal 08-10-[address] [facility] (00 000) Comment: Performed By: #### [id number] # ### [facility] [employer] [address] [place] [address] Urea nitrogen mass conc 19 6-23 mg/dL Normal 2018 [facility] (00 000) Comment: Performed By: #### [id number] # ### [facility] [employer] [address] [place] [address] Urea nitrogen/Creatinine mass 23.8 5.4-30.0 ratio Normal 08-10-2018 [facility] (39581) Comment: Performed By: #### [id number] # ### [facility] [employer] [address] [place] [address] xr chest 2 views on 2018-07-20 XR CHEST 2 VIEWS ORIGINAL Normal 07-20-2018 [facility] Chest 2 views [facility] ([place]) ([id number]) HISTORY: Pleural effusion COMPARISON: 07/02/2018 Pacemaker unit and wires are in good position. The heart is normal in size and there is no vascular congestion present. No consolidation, atelectasis or pleural fluid seen. There are minor degenerative changes noted in the spine and at the shoulders. IMPRESSION: No acute finding. Interpreted By: Judson Hathaway MD Preliminary Report By: Judson Hathaway MD Electronically Signed By: Judson Hathaway MD Dictated Date: 07/20/2018 12:12:06 PM Prelim Date: 07/20/2018 12:12:06 PM Sign Date: 07/20/2018 12:12:35 PM xr chest 2 views on 2018-07-02 XR CHEST 2 VIEWS ORIGINAL Normal 07-02-2018 [facility] Clinical history: Abnormal breath sounds . Cardiac surgery postoperative day 4. [facility] ([place]) ([address]653) COMPARISON: Chest x-ray on 06/30/2018. RIGHT subclavian central denise ous catheter tip is in the superior vena cava. LEFT subclavian defibrillator is in place. There is mild cardiomegaly that is stable. Small LEFT pleural effusion is present. There is mild atelectasis in LEFT lower lobe with slight improvement compared with prior chest x-ray. RIGHT lung is well-expanded with no acute abnormality. There is no pneumothorax. IMPRESSION: Small LEFT pleural effusion and mild LEFT lower lobe atele ctasis remaining. Interpreted By: Shawn Kim MD Preliminary Report By: Shawn Kim MD Electronically Signed By: Shawn Kim MD Dictated Date: 07/02/2018 7:43:05 AM Prelim Date: 07/02/2018 7:43:05 AM Sign Date: 07/02/2018 7:44:46 AM cbc on 2018-07-02 Erythrocyte distribution 13.2 11.5-15.5 % Normal 07-02 [facility] Ratio (RBC) [place] ([place]) ([id number]) Comment: Performed By: #### BMP, CK, GFR, LIPID, HFP, A1C #### [address] [address] Hematocrit Volume Fraction 31.5 40.0-52.0 % Low [facility] (d) ([place]) (0000 0) Comment: Performed By: #### BMP, CK, GFR, LIPID, HFP, A1C #### [place] [address] Hemoglobin mass conc 10.8 13.0-17.5 G/dL Low 8 [facility] (Bld) ([place]) (0000 0) Comment: Performed By: #### BMP, CK, GFR, LIPID, HFP, A1C #### [place] [address] MCH Entitic mass (RBC) 31.1 27.0-33.0 pg Normal 018 [facility] ([place]) (0000 0) Comment: Performed By: #### BMP, CK, GFR, LIPID, HFP, A1C #### [place] [address] MCHC mass conc (RBC) 34.2 32.0-36.0 G/dL Normal 8 [facility] ([place]) (0000 0) Comment: Performed By: #### BMP, CK, GFR, LIPID, HFP, A1C #### [place] [address] MCV Entitic volume 90.9 81.0-100.0 fL Normal 07-02-2018 [facility] (RBC) ([place]) (0000 0) Comment: Performed By: #### BMP, CK, GFR, LIPID, HFP, A1C #### [place] [address] Platelet mean volume 7.7 6.4-10.5 fL Normal 8 [facility] Entitic volume (Bld) ([place]) (82707) Comment: Performed By: #### BMP, CK, GFR, LIPID, HFP, A1C #### [place] [address] Platelets #/vol (Bld) 248 150-450 10 3/mcL Normal 07-02-20 18 [facility] ([place]) (89754) Comment: Performed By: #### BMP, CK, GFR, LIPID, HFP, A1C #### [place] [address] RBC #/vol (Bld) 3.46 4.50-6.00 10 6/mcL Low 07-02-2018 [facility] ([place]) ([address]82) Comment: Performed By: #### BMP, CK, GFR, LIPID, HFP, A1C #### [address] [address] WBC #/vol (Bld) 6.50 4.50-10.80 10 3/mcL Normal 07-02-2018 [facility] ([place]) (0000 0) Comment: Performed By: #### BMP, CK, GFR, LIPID, HFP, A1C #### [address] [address] bmp on 2018-07-02 Creatinine mass conc 0.87 0.60-1.40 mg/dL Normal [address] [place] [address] ([place]) (0000 0) Comment: Performed By: #### BMP, CK, GFR, LIPID, HFP, A1C #### [place] [address] Urea nitrogen mass conc 24.0 8.0-22.0 mg/dL High 2017 [facility] ([place]) (0000 0) Comment: Performed By: #### BMP, CK, GFR, LIPID, HFP, A1C #### [place] [address] Urea nitrogen/Creatinine mass 27.6 10.0-22.0 ratio High 07-02-2018 [facility] ([place]) (28305) Comment: Performed By: #### BMP, CK, GFR, LIPID, HFP, A1C #### [place] [address] Calcium mass conc 8.2 8.4-10.1 mg/dL Low 07-02-2018 A [facility] ([place]) (47945) Comment: Performed By: #### BMP, CK, GFR, LIPID, HFP, A1C #### [place] [address] Chloride molar conc 108 98-110 mEq/L Normal 07-02-2018 [facility] ([place]) (25161) Comment: Performed By: #### BMP, CK, GFR, LIPID, HFP, A1C #### [address] [address] CO2 molar conc 26 22-32 mEq/L Normal 07-02-2018 Count includes the [facility] ([place]) (69493) Comment: Performed By: #### BMP, CK, GFR, LIPID, HFP, A1C #### [place] [address] Electrolyte Balance 6.0 4.0-15.0 mEq/L Normal 07-02-2018 [facility] ([place]) (0000 0) Comment: Performed By: #### BMP, CK, GFR, LIPID, HFP, A1C #### [place] [address] Glucose mass conc 120 70-110 mg/dL High 07-02-2018 A [facility] ([place]) (20262) Comment: Performed By: #### BMP, CK, GFR, LIPID, HFP, A1C #### [place] [address] Potassium molar conc 3.9 3.5-5.0 mEq/L Normal 8 [facility] ([place]) (0000 0) Comment: Performed By: #### BMP, CK, GFR, LIPID, HFP, A1C #### [place] [address] Sodium molar conc 140 136-145 mEq/L Normal 07-02-2018 A [facility] ([place]) (71718) Comment: Performed By: #### BMP, CK, GFR, LIPID, HFP, A1C #### [place] [address] .neuabs on Neutrophils #/vol 4.30 2.25-8.10 10 3/mcL Normal 07-02-2018 A [facility] ([facility]) [facility] ([place]) ([address]) Comment: Performed By: #### BMP, CK, GFR, LIPID, HFP, A1C #### [address] [address] .gfr on 2018-07-02 GFR >60 Normal 8 [facility] ([place]) (72592) Comment: Result Comment: GFR Population mean for Afri can Nauruan, Non- Americans Ages 20-29 = 116 mL/min/1.73 sq.m. Ages 30-39 = 107 mL/min/1.73 sq.m. Ages 40-49 = 99 mL/min/1.73 sq.m. Ages 50-59 = 93 mL/min/1.73 sq.m. Ages 60-69 = 85 mL/min/1.73 sq.m. Ages 70+ = 75 mL/min/1.73 sq .m. Chronic Kidney Disease: Less than 60 mL/min/1.73 square meters End Stage Renal Disease: Les s than 15 mL/min/1.73 square meters Performed By: #### BMP, CK, GFR, LIPID, HFP, A1C #### [address] [address] GFR Non- >60 Normal 07-02 [facility] ([place]) (19957) Comment: Result Comment: GFR Population mean for Afri can Nauruan, Non- Americans Ages 20-29 = 116 mL/min/1.73 sq.m. Ages 30-39 = 107 mL/min/1.73 sq.m. Ages 40-49 = 99 mL/min/1.73 sq.m. Ages 50-59 = 93 mL/min/1.73 sq.m. Ages 60-69 = 85 mL/min/1.73 sq.m. Ages 70+ = 75 mL/min/1.73 sq .m. Chronic Kidney Disease: Less than 60 mL/min/1.73 square meters End Stage Renal Disease: Les s than 15 mL/min/1.73 square meters Performed By: #### BMP, CK, GFR, LIPID, HFP, A1C #### [address] [address] .auto diff on 07-02 Ammonia mass conc 0.70 0.09-1.40 10 3/mcL Normal 07-02-2018 A [facility] () [facility] ([place]) ([address]30) Comment: Performed By: #### BMP, CK, GFR, LIPID, HFP, A1C #### [address] [address] Basophils #/vol (Bld) 0.00 0.00-0.27 10 3/mcL Normal 07-02-20 18 [facility]) (88861) Comment: Performed By: #### BMP, CK, GFR, LIPID, HFP, A1C #### [address] [address] Basophils/100 WBC (Bld) 0.3 0.0-2.5 % Normal 2017 [facility] ([place]) (0000 0) Comment: Performed By: #### BMP, CK, GFR, LIPID, HFP, A1C #### [address] [address] Eosinophils #/vol 0.40 0.00-0.65 10 3/mcL Normal 07-02-2018 [facility] ([facility]) (79534) Comment: Performed By: #### BMP, CK, GFR, LIPID, HFP, A1C #### [address] [address] Eosinophils/100 WBC (Bld) 6.0 0.0-6.0 % Normal 06-12 [facility] ([place]) (0000 0) Comment: Performed By: #### BMP, CK, GFR, LIPID, HFP, A1C #### [address] [address] Lymphocytes #/vol 1.10 0.90-4.32 10 3/mcL Normal 07-02-2018 [facility] ([facility] ([place]) (26611) Comment: Performed By: #### BMP, CK, GFR, LIPID, HFP, A1C #### [address] [address] Lymphocytes/100 WBC (Bld) 17.6 20.0-40.0 % Low 06-12 [facility] ([place]) (0000 0) Comment: Performed By: #### BMP, CK, GFR, LIPID, HFP, A1C #### [address] [address] Monocytes/100 WBC (Bld) 10.5 2.0-13.0 % Normal 2017 [facility] ([place]) (0000 0) Comment: Performed By: #### BMP, CK, GFR, LIPID, HFP, A1C #### [facility] [address] [place] [address] Neutrophils/100 WBC (Bld) 65.6 50.0-75.0 % Normal 06-12 [facility]) (86764) Comment: Performed By: #### BMP, CK, GFR, LIPID, HFP, A1C #### [address] [address] k on 2018-07-01 Potassium molar conc 3.9 3.5-5.0 mEq/L Normal 8 [facility]) (0000 0) Comment: Performed By: #### BMP, CK, GFR, LIPID, HFP, A1C #### [place] [id number] [place] [address] xr chest 1 view on 2018-06-30 XR CHEST 1 VIEW ORIGINAL Normal 06-30-2018 [facility] Clinical history: Abnormal breath sounds. [facility]) ([id number]) COMPARISON: Chest x-ray on 06/29/2018. Portable AP radiograph of the chest was obtained at 5:00 AM. The endotracheal tube and th e enteric tube have been removed. RIGHT subclavian central venous catheter tip is in the superior vena cava. LEFT subclavian defibrillator is in place. Heart size is mildly e nlarged but stable. Mild ericka ateral basilar atelectasis is unchanged. There is no pleural fluid or pneumothorax. Mediastinal drain is in place. IMPRESSION: Patient has been extubated. Mild bilateral basilar atelectasis. No new abnormality. Interpreted By: Shawn Kim MD Preliminary Report By: Shawn Kim MD Electronically Signed By: Shawn Kim MD Dictated Date: 06/30/2018 5:22:31 AM Prelim Date: 06/30/2018 5:22:31 AM Sign Date: 06/30/2018 5:24:23 AM k on 2018-06-30 Potassium molar conc 4.3 3.5-5.0 mEq/L Normal 8 [facility] ([place]) (0000 0) Comment: Performed By: #### BMP, CK, GFR, LIPID, HFP, A1C #### [facility] [address] [place] [address] Potassium molar conc 3.9 3.5-5.0 mEq/L Normal 8 [facility] ([place]) (0000 0) Comment: Performed By: #### BMP, CK, GFR, LIPID, HFP, A1C #### [address] [address] cmp on 2018-06-30 Albumin/Globulin mass ratio 2.0 0.9-1.6 ratio High [facility]) (07562) Comment: Performed By: #### BMP, CK, GFR, LIPID, HFP, A1C #### [address] [address] ALP enzyme act/vol 29 38-126 U/L Low 06-30-2018 [facility] ([place]) (79045) Comment: Performed By: #### BMP, CK, GFR, LIPID, HFP, A1C #### [address] [address] Bili Total 0.8 0.2-1.2 mg/dL Normal 06-30-2018 [facility] ([place]) (04650) Comment: Performed By: #### BMP, CK, GFR, LIPID, HFP, A1C #### [address] [address] Creatinine mass conc 0.72 0.60-1.40 mg/dL Normal 8 [facility] ([place]) (0000 0) Comment: Performed By: #### BMP, CK, GFR, LIPID, HFP, A1C #### [address] [address] Globulin mass conc (S) 2.2 1.5-3.8 G/dL Normal 018 [facility]) (0000 0) Comment: Performed By: #### BMP, CK, GFR, LIPID, HFP, A1C #### [address] [address] Protein mass conc 6.5 6.0-8.5 G/dL Normal 06-30-2018 A [facility] ([place]) (50844) Comment: Performed By: #### BMP, CK, GFR, LIPID, HFP, A1C #### [place] [address] Urea nitrogen/Creatinine 20.8 10.0-22.0 ratio Normal 06-30 [facility] ([place]) (80079) Comment: Performed By: #### BMP, CK, GFR, LIPID, HFP, A1C #### [place] [address] Albumin mass conc 4.3 3.2-4.8 G/dL Normal 06-30-2018 A [facility] ([place]) (95936) Comment: Performed By: #### BMP, CK, GFR, LIPID, HFP, A1C #### [place] [address] ALT enzyme act/vol 45 12-55 U/L Normal 06-30-2018 [facility] ([place]) (35312) Comment: Performed By: #### BMP, CK, GFR, LIPID, HFP, A1C #### [place] [address] AST enzyme act/vol 35 8-34 U/L High 06-30-2018 [facility] ([place]) (51451) Comment: Performed By: #### BMP, CK, GFR, LIPID, HFP, A1C #### [place] [address] Calcium mass conc 9.0 8.4-10.1 mg/dL Normal 06-30-2018 [facility] ([place]) (23935) Comment: Performed By: #### BMP, CK, GFR, LIPID, HFP, A1C #### [place] [address] Chloride molar conc 110 98-110 mEq/L Normal 06-30-2018 [facility] ([place]) (58726) Comment: Performed By: #### BMP, CK, GFR, LIPID, HFP, A1C #### [place] [address] CO2 molar conc 24 22-32 mEq/L Normal 06-30-2018 Count includes the [facility] ([place]) (26966) Comment: Performed By: #### BMP, CK, GFR, LIPID, HFP, A1C #### [place] [address] Electrolyte Balance 9.0 4.0-15.0 mEq/L Normal 06-30-2018 [facility] ([place]) (0000 0) Comment: Performed By: #### BMP, CK, GFR, LIPID, HFP, A1C #### [place] [address] Glucose mass conc 128 70-110 mg/dL High 06-30-2018 A [facility] ([place]) (53228) Comment: Performed By: #### BMP, CK, GFR, LIPID, HFP, A1C #### [place] [address] Potassium molar conc 3.8 3.5-5.0 mEq/L Normal [address] [place] [address] ([place]) (0000 0) Comment: Performed By: #### BMP, CK, GFR, LIPID, HFP, A1C #### [place] [address] Sodium molar conc 143 136-145 mEq/L Normal 06-30-2018 [facility] ([place]) ([id number]) Comment: Performed By: #### BMP, CK, GFR, LIPID, HFP, A1C #### [place] [address] Urea nitrogen mass conc 15.0 8.0-22.0 mg/dL Normal 2017 [facility] ([place]) ([id number]) Comment: Performed By: #### BMP, CK, GFR, LIPID, HFP, A1C #### [place] [address] cbc on 2018-06-30 Erythrocyte distribution 13.2 11.5-15.5 % Normal 06-30 [facility] width Ratio (RBC) [place] ([place]) ([address]) Comment: Performed By: #### BMP, CK, GFR, LIPID, HFP, A1C #### [place] [address] Hematocrit Volume Fraction 32.0 40.0-52.0 % Low [facility] ([place] ([place]) (0000 0) Comment: Performed By: #### BMP, CK, GFR, LIPID, HFP, A1C #### [place] [address] Hemoglobin mass conc 10.9 13.0-17.5 G/dL Low 8 [facility] [place] ([place]) (0000 0) Comment: Performed By: #### BMP, CK, GFR, LIPID, HFP, A1C #### [place] [address] MCH Entitic mass (RBC) 30.7 27.0-33.0 pg Normal 018 [facility] ([place]) (0000 0) Comment: Performed By: #### BMP, CK, GFR, LIPID, HFP, A1C #### [place] [address] MCHC mass conc (RBC) 34.0 32.0-36.0 G/dL Normal 8 [facility] ([place]) (0000 0) Comment: Performed By: #### BMP, CK, GFR, LIPID, HFP, A1C #### [place] [address] MCV Entitic volume 90.2 81.0-100.0 fL Normal 06-30-2018 [facility] (RBC) ([place]) (0000 0) Comment: Performed By: #### BMP, CK, GFR, LIPID, HFP, A1C #### [place] [address] Platelet mean volume 7.5 6.4-10.5 fL Normal 8 [facility] Entitic volume (Bld) ([place]) ([id number]) Comment: Performed By: #### BMP, CK, GFR, LIPID, HFP, A1C #### [place] [address] Platelets #/vol (Bld) 230 150-450 10 3/mcL Normal 06-30-20 18 [facility] ([place]) ([id number]) Comment: Performed By: #### BMP, CK, GFR, LIPID, HFP, A1C #### [place] [address] RBC #/vol (Bld) 3.55 4.50-6.00 10 6/mcL Low 06-30-2018 [facility] ([place]) ([id number]) Comment: Performed By: #### BMP, CK, GFR, LIPID, HFP, A1C #### [address] [address] WBC #/vol (Bld) 10.10 4.50-10.80 10 3/mcL Normal 06-30-2018 [facility] ([place]) (0000 0) Comment: Performed By: #### BMP, CK, GFR, LIPID, HFP, A1C #### [address] [address] bg on 2018-06-30 Barometric Pressure 731 mmHg Normal 06-30-2018 [facility] ([place]) ([id number]) Comment: Performed By: #### BMP, CK, GFR, LIPID, HFP, A1C #### [place] [address] Base excess Calculated 1.0 mmol/L Normal [address] [place] [address] molar conc (Bld) ([place] ) ([id number]) Comment: Performed By: #### BMP, CK, GFR, LIPID, HFP, A1C #### [place] [address] CO2 molar conc 25.6 22.0-30.0 mmol/L Normal 06-30-2018 Count includes the [facility] ([place]) ([id number]) Comment: Performed By: #### BMP, CK, GFR, LIPID, HFP, A1C #### [place] [address] HCO3 molar conc 24.5 21.0-29.0 mmol/L Normal 06-30-2018 [facility] (Bld) ([place]) (0000 0) Comment: Performed By: #### BMP, CK, GFR, LIPID, HFP, A1C #### [place] [address] Oxygen ppres (Bld) 65.4 74.0-108.0 mmHg Low 06-30-2018 [facility] ([place]) ([id number]) Comment: Performed By: #### BMP, CK, GFR, LIPID, HFP, A1C #### [address] [place], [place] [address] Oxygen saturation in 94.9 92.0-96.0 % Normal 06-30- 8 [facility] Blood ([place]) (0000 0) Comment: Performed By: #### BMP, CK, GFR, LIPID, HFP, A1C #### [place] [id number] [address] [place] [address] pCO2 34.9 32.0-46.0 mmHg Normal 06-30-2018 Pending sale to [facility] ([place]) ([id number]) Comment: Performed By: #### BMP, CK, GFR, LIPID, HFP, A1C #### [address] [address] pH (Bld) 7.464 7.380-7.460 [pH] High 06-30-2018 [facility] ([place]) ([id number]) Comment: Performed By: #### BMP, CK, GFR, LIPID, HFP, A1C #### [address] [address] .neuabs on Neutrophils #/vol (Bld) 8.30 2.25-8.10 10 3/mcL High 2017 [facility] ([place]) ([id number]) Comment: Performed By: #### BMP, CK, GFR, LIPID, HFP, A1C #### [address] [address] .gfr on 2018-06-30 GFR Non- >60 Normal 06-30 [facility] ([place]) ([id number]) Comment: Result Comment: GFR Population mean for Afri can Nauruan, Non- Americans Ages 20-29 = 116 mL/min/1.73 sq.m. Ages 30-39 = 107 mL/min/1.73 sq.m. Ages 40-49 = 99 mL/min/1.73 sq.m. Ages 50-59 = 93 mL/min/1.73 sq.m. Ages 60-69 = 85 mL/min/1.73 sq.m. Ages 70+ = 75 mL/min/1.73 sq .m. Chronic Kidney Disease: Less than 60 mL/min/1.73 square meters End Stage Renal Disease: Les s than 15 mL/min/1.73 square meters Performed By: #### BMP, CK, GFR, LIPID, HFP, A1C #### [address] [address] GFR >60 Normal 8 [facility] ([place]) ([id number]) Comment: Result Comment: GFR Population mean for Afri can Nauruan, Non- Americans Ages 20-29 = 116 mL/min/1.73 sq.m. Ages 30-39 = 107 mL/min/1.73 sq.m. Ages 40-49 = 99 mL/min/1.73 sq.m. Ages 50-59 = 93 mL/min/1.73 sq.m. Ages 60-69 = 85 mL/min/1.73 sq.m. Ages 70+ = 75 mL/min/1.73 sq .m. Chronic Kidney Disease: Less than 60 mL/min/1.73 square meters End Stage Renal Disease: Les s than 15 mL/min/1.73 square meters Performed By: #### BMP, CK, GFR, LIPID, HFP, A1C #### [address] [address] .auto diff on 06-30 Ammonia mass conc 1.10 0.09-1.40 10 3/mcL Normal 06-30-2018 [facility] () [facility] ([place]) ([id number]) Comment: Performed By: #### BMP, CK, GFR, LIPID, HFP, A1C #### [address] [address] Basophils #/vol (Bld) 0.00 0.00-0.27 10 3/mcL Normal 06-30-20 18 [facility] ([place]) ([id number]) Comment: Performed By: #### BMP, CK, GFR, LIPID, HFP, A1C #### [place] [address] Basophils/100 WBC (Bld) 0.1 0.0-2.5 % Normal 2017 [facility] ([place]) (0000 0) Comment: Performed By: #### BMP, CK, GFR, LIPID, HFP, A1C #### [address] [address] Eosinophils #/vol 0.00 0.00-0.65 10 3/mcL Normal 06-30-2018 [facility] ([facility] ([place]) (05784) Comment: Performed By: #### BMP, CK, GFR, LIPID, HFP, A1C #### [address] [address] Eosinophils/100 WBC (Bld) 0.0 0.0-6.0 % Normal 06-12 [facility] ([place]) (0000 0) Comment: Performed By: #### BMP, CK, GFR, LIPID, HFP, A1C #### [address] [address] Lymphocytes #/vol (Bld) 0.60 0.90-4.32 10 3/mcL Low 2017 [facility] ([place]) (76135) Comment: Performed By: #### BMP, CK, GFR, LIPID, HFP, A1C #### [address] [address] Lymphocytes/100 WBC (Bld) 6.2 20.0-40.0 % Low 06-12 [facility] ([place]) (0000 0) Comment: Performed By: #### BMP, CK, GFR, LIPID, HFP, A1C #### [address] [address] Monocytes/100 WBC (Bld) 11.2 2.0-13.0 % Normal 2017 [facility] ([place]) (0000 0) Comment: Performed By: #### BMP, CK, GFR, LIPID, HFP, A1C #### [address] [address] Neutrophils/100 WBC (Bld) 82.5 50.0-75.0 % High 06-12 [facility] ([place]) (0000 0) Comment: Performed By: #### BMP, CK, GFR, LIPID, HFP, A1C #### [address] [address] xr chest 1 view on 2018-06-29 XR CHEST 1 VIEW ORIGINAL Normal 06-29-2018 [facility] XR CHEST 1 VIEW, 06/29/2018 12:36 PM [facility] [place] ([place]) ([id number]) INDICATION: Post operative lines COMPARISON: Previous day FINDINGS: LEFT ICD is unchan ged. Sternotomy wires and a RIGHT subclavian catheter with tip in the superior vena cava are new. There is an endotracheal tube with tip above the level of the clavicles. The re is nasogastric tube with tip below the diaphragm. There is mild atelectasis on both sides. The pulmonary vasculature is unremarkable in appearance. IMPRESSION: Interval sternotomy. Mild atelectasis. Interpreted By: Nazario Miller MD Preliminary Report By: Nazario Miller MD Electronically Signed By: Nazario Miller MD Dictated Date: 06/29/2018 12:45:42 PM Prelim Date: 06/29/2018 12:45:42 PM Sign Date: 06/29/2018 12:46:51 PM xr abdomen ap on 28-06-19 XR ABDOMEN AP ORIGINAL Normal 06-29-2018 [facility] XR ABDOMEN AP, 06/29/2018 12:37 PM [facility] [place] ([place]) ([id number]) INDICATION: OG placement COMPARISON: No FINDINGS: There is a nasogas tric tube with tip in the stomach. Mediastinal drains, sternotomy wires and pacemaker leads are all partly visualized. IMPRESSION: Nasogastric tube tip is in the stomach. Interpreted By: Nazario Miller MD Preliminary Report By: Nazario Miller MD Electronically Signed By: Nazario Miller MD Dictated Date: 06/29/2018 12:44:55 PM Prelim Date: 06/29/2018 12:44:55 PM Sign Date: 06/29/2018 12:45:31 PM rbc (product) on 28-06-19 RBC #/vol (Bld) RBC Ready for Pickup Normal [facility] ([place]) (0000 0) Comment: Order Comment: on hold for s urgery 06/29/18 Performed By: #### BMP, CK, GFR, LIPID, HFP, A1C #### [place] [address] pro on 2018-06-29 INR Coag RelTime (PPP) 1.2 ratio Normal 018 [facility]) ([id number]) Comment: Result Comment: The [place] [employer] (CHEST, 1992, 102:[id number]) recommended therapeutic rang e for oral anticoagulant therapy is: LOW RISK: Prophylaxis of denise ous thrombosis INR: 2.0-3.0 Treatment of pulmonary embol ism 2.0-3.0 Prevention of systemic embol ism 2.0-3.0 HIGH RISK: Mechanical prosth etic valves 2.5-3.5 Performed By: #### MG, PHOS, CMP, PBNP, GFR, CBC, ADIFF, ANEU, A1C #### [address] [address] Prothrombin time (PT) 13.5 9.0-14.6 seconds Normal 06-29-20 18 [facility] Coag time (PPP) [facility] ([place]) ([id number]) Comment: Result Comment: Effective , Protime results may be affected by some antibiotics (i.e. Ciprofloxa emelia, Azithromycin, Bactrim) which may potentiate the action of oral anticoagu lants, with further increases in Protime/INR. Performed By: #### MG, PHOS, CMP, PBNP, GFR, CBC, ADIFF, ANEU, A1C #### [address] [address] plt on 2018-06-29 Platelets #/vol (Bld) 216 150-450 10 3/mcL Normal 06-29-20 18 [facility] ([place]) ([id number]) Comment: Performed By: #### BMP, CK, GFR, LIPID, HFP, A1C #### [address] [address] platelet (product) on 2018-06-29 Platelets #/vol (Bld) Platelet Ready for Normal 06-29-2018 [facility] ([place]) ([id number]) Comment: Order Comment: ON HOLD FOR C VOR Performed By: #### BMP, CK, GFR, LIPID, HFP, A1C #### [address] [address] phos on 2018-06-29 Phosphate mass conc 1.8 2.5-4.5 mg/dL Low 06-29-2018 [facility]) (51259) Comment: Performed By: #### BMP, CK, GFR, LIPID, HFP, A1C #### [address] [address] narp on 2018-06-29 Sodium molar conc 139 136-145 mEq/L Normal 06-29-2018 A [facility] ([place]) (75002) Comment: Performed By: #### BMP, CK, GFR, LIPID, HFP, A1C #### [address] [address] Sodium molar conc 137 136-145 mEq/L Normal 06-29-2018 A [facility] ([place]) (85072) Comment: Performed By: #### BMP, CK, GFR, LIPID, HFP, A1C #### [address] [address] Sodium molar conc 135 136-145 mEq/L Low 06-29-2018 A [facility] ([place]) (38497) Comment: Performed By: #### BMP, CK, GFR, LIPID, HFP, A1C #### [address] [address] Sodium molar conc 134 136-145 mEq/L Low 06-29-2018 A [facility] ([place]) (41870) Comment: Performed By: #### MG, PHOS, CMP, PBNP, GFR, CBC, ADIFF, ANEU, A1C #### [address] [address] Sodium molar conc 138 136-145 mEq/L Normal 06-29-2018 A [facility] ([place]) (75909) Comment: Performed By: #### MG, PHOS, CMP, PBNP, GFR, CBC, ADIFF, ANEU, A1C #### [address] [address] Sodium molar conc 138 136-145 mEq/L Normal 06-29-2018 A [facility] ([place]) (18793) Comment: Performed By: #### MG, PHOS, CMP, PBNP, GFR, CBC, ADIFF, ANEU, A1C #### [address] [address] Sodium molar conc 139 136-145 mEq/L Normal 06-29-2018 A [facility] ([place]) (51821) Comment: Performed By: #### MG, PHOS, CMP, PBNP, GFR, CBC, ADIFF, ANEU, A1C #### [address] [address] mg on 2018-06-29 Magnesium mass conc 2.6 1.6-2.4 mg/dL High 06-29-2018 [facility] ([place]) (49347) Comment: Performed By: #### BMP, CK, GFR, LIPID, HFP, A1C #### [address] [address] Magnesium mass conc 2.1 1.6-2.4 mg/dL Normal 06-29-2018 [facility] ([place]) (0000 0) Comment: Performed By: #### MG, PHOS, CMP, PBNP, GFR, CBC, ADIFF, ANEU, A1C #### [address] [address] krp on 2018-06-29 Potassium molar conc 4.1 3.5-5.0 mEq/L Normal 8 [facility] ([place]) (0000 0) Comment: Performed By: #### BMP, CK, GFR, LIPID, HFP, A1C #### [address] [address] Potassium molar conc 4.8 3.5-5.0 mEq/L Normal 8 [facility] ([place]) (0000 0) Comment: Performed By: #### BMP, CK, GFR, LIPID, HFP, A1C #### [address] [address] Potassium molar conc 5.3 3.5-5.0 mEq/L High 8 [facility] ([place]) (23937) Comment: Performed By: #### BMP, CK, GFR, LIPID, HFP, A1C #### [address] [address] Potassium molar conc 5.1 3.5-5.0 mEq/L High 8 [facility] ([place]) (15446) Comment: Performed By: #### MG, PHOS, CMP, PBNP, GFR, CBC, ADIFF, ANEU, A1C #### [address] [address] Potassium molar conc 4.7 3.5-5.0 mEq/L Normal 8 [facility] ([place]) (0000 0) Comment: Performed By: #### MG, PHOS, CMP, PBNP, GFR, CBC, ADIFF, ANEU, A1C #### [address] [address] Potassium molar conc 4.3 3.5-5.0 mEq/L Normal 8 [facility] ([place]) (0000 0) Comment: Performed By: #### MG, PHOS, CMP, PBNP, GFR, CBC, ADIFF, ANEU, A1C #### [address] [address] Potassium molar conc 4.4 3.5-5.0 mEq/L Normal 8 [facility] ([place]) (0000 0) Comment: Performed By: #### MG, PHOS, CMP, PBNP, GFR, CBC, ADIFF, ANEU, A1C #### [address] [address] k on 2018-06-29 Potassium molar conc 4.0 3.5-5.0 mEq/L Normal 8 [facility] ([place]) (0000 0) Comment: Performed By: #### BMP, CK, GFR, LIPID, HFP, A1C #### [address] [address] Potassium molar conc 3.7 3.5-5.0 mEq/L Normal 8 [facility] ([place]) (0000 0) Comment: Performed By: #### BMP, CK, GFR, LIPID, HFP, A1C #### [address] [address] hh on 2018-06-29 Hematocrit Volume Fraction 36.0 40.0-52.0 % Low [facility] ([facility]) ([place]) (0000 0) Comment: Performed By: #### BMP, CK, GFR, LIPID, HFP, A1C #### [address] [address] Hemoglobin mass conc 12.4 13.0-17.5 G/dL Low 8 [facility] ([place]) (0000 0) Comment: Performed By: #### BMP, CK, GFR, LIPID, HFP, A1C #### [address] [address] hgbrp on 2018-06-29 Hemoglobin mass conc 13.4 13.0-17.5 G/dL Normal 8 [facility] ([place]) (82684) Comment: Performed By: #### BMP, CK, GFR, LIPID, HFP, A1C #### [address] [address] Hemoglobin mass conc 12.8 13.0-17.5 G/dL Low 8 [facility] ([place]) (0000 0) Comment: Performed By: #### BMP, CK, GFR, LIPID, HFP, A1C #### [address] [address] Hemoglobin mass conc 12.0 13.0-17.5 G/dL Low 8 [facility] ([place]) (0000 0) Comment: Performed By: #### BMP, CK, GFR, LIPID, HFP, A1C #### [address] [address] Hemoglobin mass conc 11.7 13.0-17.5 G/dL Low 8 [facility] ([place]) (0000 0) Comment: Performed By: #### MG, PHOS, CMP, PBNP, GFR, CBC, ADIFF, ANEU, A1C #### [address] [address] Hemoglobin mass conc 13.8 13.0-17.5 G/dL Normal 8 [facility] ([place]) (24771) Comment: Performed By: #### MG, PHOS, CMP, PBNP, GFR, CBC, ADIFF, ANEU, A1C #### [address] [address] Hemoglobin mass conc 14.0 13.0-17.5 G/dL Normal 8 [facility] ([place]) (30698) Comment: Performed By: #### MG, PHOS, CMP, PBNP, GFR, CBC, ADIFF, ANEU, A1C #### [place] [address] Hemoglobin mass conc 14.5 13.0-17.5 G/dL Normal 8 [facility] ([place]) (30108) Comment: Performed By: #### MG, PHOS, CMP, PBNP, GFR, CBC, ADIFF, ANEU, A1C #### [address] [address] hctrp on 2018-06-29 Hematocrit Volume Fraction 39.0 42.0-52.0 % Low [facility] ([place]) (0000 0) Comment: Performed By: #### BMP, CK, GFR, LIPID, HFP, A1C #### [place] [address] Hematocrit Volume Fraction 38.0 42.0-52.0 % Low [facility] ([facility] ([place]) (0000 0) Comment: Performed By: #### BMP, CK, GFR, LIPID, HFP, A1C #### [place] [address] Hematocrit Volume Fraction 35.0 42.0-52.0 % Low [facility] ([facility] ([place]) (0000 0) Comment: Performed By: #### BMP, CK, GFR, LIPID, HFP, A1C #### [place] [address] Hematocrit Volume Fraction 34.0 42.0-52.0 % Low [facility] ([facility]) ([place]) (0000 0) Comment: Performed By: #### MG, PHOS, CMP, PBNP, GFR, CBC, ADIFF, ANEU, A1C #### [place] [address] Hematocrit Volume Fraction 41.0 42.0-52.0 % Low [facility] (d) ([place]) (0000 0) Comment: Performed By: #### MG, PHOS, CMP, PBNP, GFR, CBC, ADIFF, ANEU, A1C #### [address] [address] Hematocrit Volume Fraction 41.0 42.0-52.0 % Low [facility] (d) ([place]) (0000 0) Comment: Performed By: #### MG, PHOS, CMP, PBNP, GFR, CBC, ADIFF, ANEU, A1C #### [address] [address] Hematocrit Volume 43.0 42.0-52.0 % Normal 06-29-2018 A [facility] Fraction (d) ([place]) ([id number]) Comment: Performed By: #### MG, PHOS, CMP, PBNP, GFR, CBC, ADIFF, ANEU, A1C #### [address] [address] glurp on 2018-06-29 Glucose mass conc 182 70-110 mg/dL High 06-29-2018 A [facility] ([place]) ([id number]) Comment: Performed By: #### BMP, CK, GFR, LIPID, HFP, A1C #### [address] [address] Glucose mass conc 182 70-110 mg/dL High 06-29-2018 A [facility] ([place]) (57887) Comment: Performed By: #### BMP, CK, GFR, LIPID, HFP, A1C #### [address] [address] Glucose mass conc 180 70-110 mg/dL High 06-29-2018 A [facility] ([place]) (72228) Comment: Performed By: #### BMP, CK, GFR, LIPID, HFP, A1C #### [address] [address] Glucose mass conc 159 70-110 mg/dL High 06-29-2018 A [facility] ([place]) (46629) Comment: Performed By: #### MG, PHOS, CMP, PBNP, GFR, CBC, ADIFF, ANEU, A1C #### [place] [address] Glucose mass conc 155 70-110 mg/dL High 06-29-2018 A [facility] ([place]) (71440) Comment: Performed By: #### MG, PHOS, CMP, PBNP, GFR, CBC, ADIFF, ANEU, A1C #### [place] [address] Glucose mass conc 140 70-110 mg/dL High 06-29-2018 A [facility] ([place]) (80564) Comment: Performed By: #### MG, PHOS, CMP, PBNP, GFR, CBC, ADIFF, ANEU, A1C #### [place] [address] Glucose mass conc 154 70-110 mg/dL High 06-29-2018 A [facility] ([place]) (02507) Comment: Performed By: #### MG, PHOS, CMP, PBNP, GFR, CBC, ADIFF, ANEU, A1C #### [address] [address] fib on 2018-06-29 Fibrinogen 290 250-550 mg/dL Normal 06-29-2018 [facility] ([place]) (70994) Comment: Performed By: #### MG, PHOS, CMP, PBNP, GFR, CBC, ADIFF, ANEU, A1C #### [address] [address] clrp on 2018-06-29 Chloride molar conc 103 98-110 mEq/L Normal 06-29-2018 [facility] ([place]) ([id number]) Comment: Performed By: #### BMP, CK, GFR, LIPID, HFP, A1C #### [place] [id number] Chloride molar conc 102 98-110 mEq/L Normal 06-29-2018 [facility] ([place]) (25342) Comment: Performed By: #### BMP, CK, GFR, LIPID, HFP, A1C #### [place] [address] Chloride molar conc 103 98-110 mEq/L Normal 06-29-2018 [facility] ([place]) (72426) Comment: Performed By: #### MG, PHOS, CMP, PBNP, GFR, CBC, ADIFF, ANEU, A1C #### [address] [address] Chloride molar conc 102 98-110 mEq/L Normal 06-29-2018 [facility] ([place]) (34626) Comment: Performed By: #### MG, PHOS, CMP, PBNP, GFR, CBC, ADIFF, ANEU, A1C #### [address] [address] Chloride molar conc 105 98-110 mEq/L Normal 06-29-2018 [facility] ([place]) (36650) Comment: Performed By: #### MG, PHOS, CMP, PBNP, GFR, CBC, ADIFF, ANEU, A1C #### [address] [address] Chloride molar conc 105 98-110 mEq/L Normal 06-29-2018 [facility] ([place]) ([id number]) Comment: Performed By: #### MG, PHOS, CMP, PBNP, GFR, CBC, ADIFF, ANEU, A1C #### [address] [address] Chloride molar conc 104 98-110 mEq/L Normal 06-29-2018 [facility] ([place]) (37643) Comment: Performed By: #### MG, PHOS, CMP, PBNP, GFR, CBC, ADIFF, ANEU, A1C #### [address] [address] cbc on 2018-06-29 Erythrocyte distribution 13.3 11.5-15.5 % Normal 06-29 [facility] width Ratio (RBC) Fo undation ([place]) (45283) Comment: Performed By: #### BMP, CK, GFR, LIPID, HFP, A1C #### [address] [address] Hematocrit Volume 42.9 40.0-52.0 % Normal 06-29-2018 A [facility] Fraction (Bld) ([place]) (26628) Comment: Performed By: #### BMP, CK, GFR, LIPID, HFP, A1C #### [place] [address] Hemoglobin mass conc 14.7 13.0-17.5 G/dL Normal 8 [facility] ([facility] ([place]) (72012) Comment: Performed By: #### BMP, CK, GFR, LIPID, HFP, A1C #### [place] [address] MCH Entitic mass (RBC) 30.9 27.0-33.0 pg Normal 018 [facility] ([place]) (0000 0) Comment: Performed By: #### BMP, CK, GFR, LIPID, HFP, A1C #### [place] [address] MCHC mass conc (RBC) 34.2 32.0-36.0 G/dL Normal 8 [facility] ([place]) (0000 0) Comment: Performed By: #### BMP, CK, GFR, LIPID, HFP, A1C #### [place] [address] MCV Entitic volume 90.4 81.0-100.0 fL Normal 06-29-2018 [facility] (RBC) ([place]) (0000 0) Comment: Performed By: #### BMP, CK, GFR, LIPID, HFP, A1C #### [place] [address] Platelet mean volume 7.5 6.4-10.5 fL Normal 8 [facility] Entitic volume (Bld) ([place]) ([id number]) Comment: Performed By: #### BMP, CK, GFR, LIPID, HFP, A1C #### [place] [address] Platelets #/vol (Bld) 275 150-450 10 3/mcL Normal 06-29-20 18 [facility] ([place]) (71210) Comment: Performed By: #### BMP, CK, GFR, LIPID, HFP, A1C #### [place] [address] RBC #/vol (Bld) 4.75 4.50-6.00 10 6/mcL Normal 06-29-2018 [facility]) (0000 0) Comment: Performed By: #### BMP, CK, GFR, LIPID, HFP, A1C #### [place] [address] WBC #/vol (Bld) 5.00 4.50-10.80 10 3/[facility] Normal 06-29-2018 [facility] ([place]) (0000 0) Comment: Performed By: #### BMP, CK, GFR, LIPID, HFP, A1C #### [place] [address] carp on 2018-06-29 Ionized Calcium - POC 1.11 1.12-1.32 mmol/L Low 06-29-[address] [place] [address] ([place]) (0000 0) Comment: Performed By: #### BMP, CK, GFR, LIPID, HFP, A1C #### [place] [address] Ionized Calcium - POC 1.25 1.12-1.32 mmol/L Normal 06-29-[address] [place] [address] ([place]) ([id number]) Comment: Performed By: #### BMP, CK, GFR, LIPID, HFP, A1C #### [place] [address] Ionized Calcium - POC 1.08 1.12-1.32 mmol/L Low 06-29-[address] [place] [address] ([place]) (0000 0) Comment: Performed By: #### BMP, CK, GFR, LIPID, HFP, A1C #### [place] [address] Ionized Calcium - POC 1.04 1.12-1.32 mmol/L Low 06-29-[address] [place] [address] ([place]) (0000 0) Comment: Performed By: #### MG, PHOS, CMP, PBNP, GFR, CBC, ADIFF, ANEU, A1C #### [place] [address] Ionized Calcium - POC 1.10 1.12-1.32 mmol/L Low 06-29-[address] [place] [address] ([place]) (0000 0) Comment: Performed By: #### MG, PHOS, CMP, PBNP, GFR, CBC, ADIFF, ANEU, A1C #### [place] [address] Ionized Calcium - POC 1.12 1.12-1.32 mmol/L Normal 06-29-20 18 [facility] ([place]) ([id number]) Comment: Performed By: #### MG, PHOS, CMP, PBNP, GFR, CBC, ADIFF, ANEU, A1C #### [place] [address] Ionized Calcium - POC 1.15 1.12-1.32 mmol/L Normal 06-29-20 18 [facility] ([place]) (35541) Comment: Performed By: #### MG, PHOS, CMP, PBNP, GFR, CBC, ADIFF, ANEU, A1C #### [place] [address] caion on 2018-06-29 Calcium Ionized 1.04 1.12-1.32 mmol/L Low 06-29-2018 [facility] ([place]) (04385) Comment: Performed By: #### BMP, CK, GFR, LIPID, HFP, A1C #### [place] [address] bmp on 2018-06-29 Calcium mass conc 8.4 8.4-10.1 mg/dL Normal 06-29-2018 A [facility] ([place]) ([id number]) Comment: Performed By: #### BMP, CK, GFR, LIPID, HFP, A1C #### [place] [address] CO2 molar conc 27 22-32 mEq/L Normal 06-29-2018 Count includes the [facility] ([place]) ([id number]) Comment: Performed By: #### BMP, CK, GFR, LIPID, HFP, A1C #### [place] [address] Creatinine mass conc 0.79 0.60-1.40 mg/dL Normal 8 [facility] ([place]) (0000 0) Comment: Performed By: #### BMP, CK, GFR, LIPID, HFP, A1C #### [place] [address] Electrolyte Balance 10.0 4.0-15.0 mEq/L Normal 06-29-2018 [facility] ([place]) (0000 0) Comment: Performed By: #### BMP, CK, GFR, LIPID, HFP, A1C #### [address] [address] Glucose mass conc 170 70-110 mg/dL High 06-29-2018 A [facility] ([place]) ([id number]) Comment: Performed By: #### BMP, CK, GFR, LIPID, HFP, A1C #### [address] [address] Potassium molar conc 3.7 3.5-5.0 mEq/L Normal 8 [facility] ([place]) (0000 0) Comment: Performed By: #### BMP, CK, GFR, LIPID, HFP, A1C #### [place] [address] Urea nitrogen mass conc 18.0 8.0-22.0 mg/dL Normal 2017 [facility] ([place] ([id number]) Comment: Performed By: #### BMP, CK, GFR, LIPID, HFP, A1C #### [place] [address] Urea nitrogen/Creatinine mass 22.8 10.0-22.0 ratio High 06-29-2018 [facility] ([place]) ([id number]) Comment: Performed By: #### BMP, CK, GFR, LIPID, HFP, A1C #### [address] [address] Chloride molar conc 104 98-110 mEq/L Normal 06-29-2018 [facility] ([place]) ([id number]) Comment: Performed By: #### BMP, CK, GFR, LIPID, HFP, A1C #### [address] [address] Sodium molar conc 141 136-145 mEq/L Normal 06-29-2018 A [facility] ([place]) ([id number]) Comment: Performed By: #### BMP, CK, GFR, LIPID, HFP, A1C #### [address] [address] Calcium mass conc 9.3 8.4-10.1 mg/dL Normal 06-29-2018 A [facility] ([place]) ([id number]) Comment: Performed By: #### BMP, CK, GFR, LIPID, HFP, A1C #### [place] [address] Chloride molar conc 105 98-110 mEq/L Normal 06-29-2018 [facility] ([place]) (25507) Comment: Performed By: #### BMP, CK, GFR, LIPID, HFP, A1C #### [place] [address] CO2 molar conc 33 22-32 mEq/L High 06-29-2018 Count includes the [facility] ([place]) (05456) Comment: Performed By: #### BMP, CK, GFR, LIPID, HFP, A1C #### [place] [address] Creatinine mass conc 0.94 0.60-1.40 mg/dL Normal 8 [facility] ([place]) (0000 0) Comment: Performed By: #### BMP, CK, GFR, LIPID, HFP, A1C #### [place] [address] Electrolyte Balance 3.0 4.0-15.0 mEq/L Low 06-29-2018 [facility] ([place]) ([id number]) Comment: Performed By: #### BMP, CK, GFR, LIPID, HFP, A1C #### [place] [address] Glucose mass conc 146 70-110 mg/dL High 06-29-2018 [facility] ([place]) (06943) Comment: Performed By: #### BMP, CK, GFR, LIPID, HFP, A1C #### [place] [address] Potassium molar conc 4.3 3.5-5.0 mEq/L Normal 8 [facility] ([place]) (0000 0) Comment: Performed By: #### BMP, CK, GFR, LIPID, HFP, A1C #### [place] [address] Sodium molar conc 141 136-145 mEq/L Normal 06-29-2018 A [facility] ([place]) (76131) Comment: Performed By: #### BMP, CK, GFR, LIPID, HFP, A1C #### [place] [address] Urea nitrogen mass conc 18.0 8.0-22.0 mg/dL Normal 2017 [facility] ([place]) ([id number]) Comment: Performed By: #### BMP, CK, GFR, LIPID, HFP, A1C #### [place] [address] Urea nitrogen/Creatinine 19.1 10.0-22.0 ratio Normal 06-29 [facility] ([place]) (67525) Comment: Performed By: #### BMP, CK, GFR, LIPID, HFP, A1C #### [address] [address] bgrp on 2018-06-29 Base Excess - POC 0.6 mmol/L Normal 06-29-2018 A [facility] ([place]) ([id number]) Comment: Performed By: #### BMP, CK, GFR, LIPID, HFP, A1C #### [place] [id number] Bicarbonate - POC 24.6 21.0-29.0 mmol/L Normal 06-29-2018 A [facility] ([place]) (0000 0) Comment: Performed By: #### BMP, CK, GFR, LIPID, HFP, A1C #### [place] [id number] Oxygen saturation in Blood 97.8 92.0-96.0 % High [facility] ([place]) (0000 0) Comment: Performed By: #### BMP, CK, GFR, LIPID, HFP, A1C #### [place] [id number] PCO2 - POC 37.5 32.0-46.0 mmHg Normal 06-29-2018 [facility] ([place]) ([id number]) Comment: Performed By: #### BMP, CK, GFR, LIPID, HFP, A1C #### [place] [address] pH (poct) - POC 7.435 7.380-7.460 Normal 06-29-2018 A [facility] ([place]) ([id number]) Comment: Performed By: #### BMP, CK, GFR, LIPID, HFP, A1C #### [place] [address] PO2 - POC 129.9 74.0-108.0 mmHg High 06-29-2018 [facility] ([place]) ([id number]) Comment: Performed By: #### BMP, CK, GFR, LIPID, HFP, A1C #### [place] [address] Total CO2 - POC 25.8 22.0-30.0 mmol/L Normal 06-29-2018 [facility] ([place]) (0000 0) Comment: Performed By: #### BMP, CK, GFR, LIPID, HFP, A1C #### [place] [address] Base Excess - POC 1.1 mmol/L Normal 06-29-2018 A [facility] ([place]) (23818) Comment: Performed By: #### BMP, CK, GFR, LIPID, HFP, A1C #### [place] [address] Bicarbonate - POC 25.2 21.0-29.0 mmol/L Normal 06-29-2018 A [facility] ([place]) (0000 0) Comment: Performed By: #### BMP, CK, GFR, LIPID, HFP, A1C #### [place] [address] Oxygen saturation in Blood 98.3 92.0-96.0 % High [facility] ([place]) (0000 0) Comment: Performed By: #### BMP, CK, GFR, LIPID, HFP, A1C #### [place] [address] PCO2 - POC 38.4 32.0-46.0 mmHg Normal 06-29-2018 [facility] ([place]) ([id number]) Comment: Performed By: #### BMP, CK, GFR, LIPID, HFP, A1C #### [place] [id number] pH (poct) - POC 7.435 7.380-7.460 Normal 06-29-2018 A [facility] ([place]) ([id number]) Comment: Performed By: #### BMP, CK, GFR, LIPID, HFP, A1C #### [place] [address] PO2 - POC 194.1 74.0-108.0 mmHg High 06-29-2018 [facility] ([place]) (01307) Comment: Performed By: #### BMP, CK, GFR, LIPID, HFP, A1C #### [place] [address] Total CO2 - POC 26.4 22.0-30.0 mmol/L Normal 06-29-2018 [facility] ([place]) (0000 0) Comment: Performed By: #### BMP, CK, GFR, LIPID, HFP, A1C #### [place] [address] Base Excess - POC -2.6 mmol/L Normal 06-29-2018 A [facility] ([place]) (05972) Comment: Performed By: #### MG, PHOS, CMP, PBNP, GFR, CBC, ADIFF, ANEU, A1C #### [place] [address] Bicarbonate - POC 22.3 21.0-29.0 mmol/L Normal 06-29-2018 A [facility] ([place]) (0000 0) Comment: Performed By: #### MG, PHOS, CMP, PBNP, GFR, CBC, ADIFF, ANEU, A1C #### [place] [address] Oxygen saturation in Blood 98.4 92.0-96.0 % High [facility] ([place]) (0000 0) Comment: Performed By: #### MG, PHOS, CMP, PBNP, GFR, CBC, ADIFF, ANEU, A1C #### [place] [address] PCO2 - POC 38.9 32.0-46.0 mmHg Normal 06-29-2018 [facility] ([place]) ([id number]) Comment: Performed By: #### MG, PHOS, CMP, PBNP, GFR, CBC, ADIFF, ANEU, A1C #### [address] [address] pH (poct) - POC 7.376 7.380-7.460 Low 06-29-2018 A [facility] ([place]) (89107) Comment: Performed By: #### MG, PHOS, CMP, PBNP, GFR, CBC, ADIFF, ANEU, A1C #### [address] [address] PO2 - POC 247.0 74.0-108.0 mmHg High 06-29-2018 [facility] ([place]) (45512) Comment: Performed By: #### MG, PHOS, CMP, PBNP, GFR, CBC, ADIFF, ANEU, A1C #### [place] [id number] Total CO2 - POC 23.5 22.0-30.0 mmol/L Normal 06-29-2018 [facility] ([place]) (0000 0) Comment: Performed By: #### MG, PHOS, CMP, PBNP, GFR, CBC, ADIFF, ANEU, A1C #### [place] [id number] Base Excess - POC -1.4 mmol/L Normal 06-29-2018 A [facility] ([place]) (27617) Comment: Performed By: #### MG, PHOS, CMP, PBNP, GFR, CBC, ADIFF, ANEU, A1C #### [address] [address] Bicarbonate - POC 24.1 21.0-29.0 mmol/L Normal 06-29-2018 A [facility] ([place]) (0000 0) Comment: Performed By: #### MG, PHOS, CMP, PBNP, GFR, CBC, ADIFF, ANEU, A1C #### [address] [address] Oxygen saturation in Blood 98.4 92.0-96.0 % High [facility] ([place]) (0000 0) Comment: Performed By: #### MG, PHOS, CMP, PBNP, GFR, CBC, ADIFF, ANEU, A1C #### [address] [address] PCO2 - POC 43.3 32.0-46.0 mmHg Normal 06-29-2018 [facility] ([place]) ([id number]) Comment: Performed By: #### MG, PHOS, CMP, PBNP, GFR, CBC, ADIFF, ANEU, A1C #### [address] [address] pH (poct) - POC 7.363 7.380-7.460 Low 06-29-2018 A [facility] ([place]) (04827) Comment: Performed By: #### MG, PHOS, CMP, PBNP, GFR, CBC, ADIFF, ANEU, A1C #### [address] [address] PO2 - POC 498.8 74.0-108.0 mmHg High 06-29-2018 [facility] ([place]) (44833) Comment: Performed By: #### MG, PHOS, CMP, PBNP, GFR, CBC, ADIFF, ANEU, A1C #### [address] [address] Total CO2 - POC 25.4 22.0-30.0 mmol/L Normal 06-29-2018 [facility] ([place]) (0000 0) Comment: Performed By: #### MG, PHOS, CMP, PBNP, GFR, CBC, ADIFF, ANEU, A1C #### [address] [address] Base Excess - POC -0.1 mmol/L Normal 06-29-2018 A [facility] ([place]) ([id number]) Comment: Performed By: #### MG, PHOS, CMP, PBNP, GFR, CBC, ADIFF, ANEU, A1C #### [address] [address] Bicarbonate - POC 24.6 21.0-29.0 mmol/L Normal 06-29-2018 [facility] ([place]) (0000 0) Comment: Performed By: #### MG, PHOS, CMP, PBNP, GFR, CBC, ADIFF, ANEU, A1C #### [place] [id number] Oxygen saturation in Blood 98.6 92.0-96.0 % High [facility] ([place]) (0000 0) Comment: Performed By: #### MG, PHOS, CMP, PBNP, GFR, CBC, ADIFF, ANEU, A1C #### [place] [id number] PCO2 - POC 40.4 32.0-46.0 mmHg Normal 06-29-2018 [facility] ([place]) (52441) Comment: Performed By: #### MG, PHOS, CMP, PBNP, GFR, CBC, ADIFF, ANEU, A1C #### [place] [address] pH (poct) - POC 7.403 7.380-7.460 Normal 06-29-2018 [facility] ([place]) (43283) Comment: Performed By: #### MG, PHOS, CMP, PBNP, GFR, CBC, ADIFF, ANEU, A1C #### [place] [id number] PO2 - POC 355.4 74.0-108.0 mmHg High 06-29-2018 [facility] ([place]) (60047) Comment: Performed By: #### MG, PHOS, CMP, PBNP, GFR, CBC, ADIFF, ANEU, A1C #### [place] [address] Total CO2 - POC 25.9 22.0-30.0 mmol/L Normal 06-29-2018 [facility] ([place]) (0000 0) Comment: Performed By: #### MG, PHOS, CMP, PBNP, GFR, CBC, ADIFF, ANEU, A1C #### [place] [address] Base Excess - POC 0.7 mmol/L Normal 06-29-2018 [facility] ([place]) (81672) Comment: Performed By: #### MG, PHOS, CMP, PBNP, GFR, CBC, ADIFF, ANEU, A1C #### [address] [address] Bicarbonate - POC 25.2 21.0-29.0 mmol/L Normal 06-29-2018 A [facility] ([place]) (0000 0) Comment: Performed By: #### MG, PHOS, CMP, PBNP, GFR, CBC, ADIFF, ANEU, A1C #### [address] [address] Oxygen saturation in Blood 98.5 92.0-96.0 % High [facility] ([place]) (0000 0) Comment: Performed By: #### MG, PHOS, CMP, PBNP, GFR, CBC, ADIFF, ANEU, A1C #### [address] [address] PCO2 - POC 40.1 32.0-46.0 mmHg Normal 06-29-2018 [facility] ([place]) ([id number]) Comment: Performed By: #### MG, PHOS, CMP, PBNP, GFR, CBC, ADIFF, ANEU, A1C #### [address] [address] pH (poct) - POC 7.416 7.380-7.460 Normal 06-29-2018 A [facility] ([place]) (05312) Comment: Performed By: #### MG, PHOS, CMP, PBNP, GFR, CBC, ADIFF, ANEU, A1C #### [address] [address] PO2 - POC 258.4 74.0-108.0 mmHg High 06-29-2018 [facility] ([place]) (33965) Comment: Performed By: #### MG, PHOS, CMP, PBNP, GFR, CBC, ADIFF, ANEU, A1C #### [address] [address] Total CO2 - POC 26.4 22.0-30.0 mmol/L Normal 06-29-2018 [facility] ([place]) (0000 0) Comment: Performed By: #### MG, PHOS, CMP, PBNP, GFR, CBC, ADIFF, ANEU, A1C #### [place] [address] Base Excess - POC -0.7 mmol/L Normal 06-29-2018 A [facility] ([place]) (45106) Comment: Performed By: #### MG, PHOS, CMP, PBNP, GFR, CBC, ADIFF, ANEU, A1C #### [place] [address] Bicarbonate - POC 24.6 21.0-29.0 mmol/L Normal 06-29-2018 A [facility] ([place]) (0000 0) Comment: Performed By: #### MG, PHOS, CMP, PBNP, GFR, CBC, ADIFF, ANEU, A1C #### [place] [address] Oxygen saturation in Blood 98.0 92.0-96.0 % High [facility] ([place]) (0000 0) Comment: Performed By: #### MG, PHOS, CMP, PBNP, GFR, CBC, ADIFF, ANEU, A1C #### [place] [address] PCO2 - POC 43.3 32.0-46.0 mmHg Normal 06-29-2018 [facility] ([place]) (65681) Comment: Performed By: #### MG, PHOS, CMP, PBNP, GFR, CBC, ADIFF, ANEU, A1C #### [place] [address] pH (poct) - POC 7.373 7.380-7.460 Low 06-29-2018 A [facility] ([place]) (65248) Comment: Performed By: #### MG, PHOS, CMP, PBNP, GFR, CBC, ADIFF, ANEU, A1C #### [place] [address] PO2 - POC 142.8 74.0-108.0 mmHg High 06-29-2018 [facility] ([place]) (99810) Comment: Performed By: #### MG, PHOS, CMP, PBNP, GFR, CBC, ADIFF, ANEU, A1C #### [place] [id number] Total CO2 - POC 26.0 22.0-30.0 mmol/L Normal 06-29-2018 [facility] ([place]) (0000 0) Comment: Performed By: #### MG, PHOS, CMP, PBNP, GFR, CBC, ADIFF, ANEU, A1C #### [address] [address] bg on 2018-06-29 Barometric Pressure 733 mmHg Normal 06-29-2018 [facility] ([place]) (46709) Comment: Performed By: #### BMP, CK, GFR, LIPID, HFP, A1C #### [place] [address] Base excess Calculated 2.3 mmol/L Normal 018 [facility] molar conc (Bld) ([place] ) (10238) Comment: Performed By: #### BMP, CK, GFR, LIPID, HFP, A1C #### [place] [address] CO2 molar conc 27.9 22.0-30.0 mmol/L Normal 06-29-2018 Count includes the [facility] ([place]) (43985) Comment: Performed By: #### BMP, CK, GFR, LIPID, HFP, A1C #### [place] [address] HCO3 molar conc 26.6 21.0-29.0 mmol/L Normal 06-29-2018 [facility] (d) ([place]) (0000 0) Comment: Performed By: #### BMP, CK, GFR, LIPID, HFP, A1C #### [place] [address] Oxygen ppres (Bld) 111.6 74.0-108.0 mmHg High 06-29-2018 [facility] ([place]) (0000 0) Comment: Performed By: #### BMP, CK, GFR, LIPID, HFP, A1C #### [place] [address] Oxygen saturation in Blood 98.2 92.0-96.0 % High [facility] ([place]) (0000 0) Comment: Performed By: #### BMP, CK, GFR, LIPID, HFP, A1C #### [address] [address] pCO2 40.4 32.0-46.0 mmHg Normal 06-29-2018 [facility] ([place]) (63027) Comment: Performed By: #### BMP, CK, GFR, LIPID, HFP, A1C #### [place] [address] pH (Bld) 7.437 7.380-7.460 [pH] Normal 06-29-2018 [facility] ([place]) (58515) Comment: Performed By: #### BMP, CK, GFR, LIPID, HFP, A1C #### [place] [address] Barometric Pressure 730 mmHg Normal 06-29-2018 [facility] ([place]) (31975) Comment: Performed By: #### BMP, CK, GFR, LIPID, HFP, A1C #### [place] [address] Base excess Calculated 2.0 mmol/L Normal [address] [place] [address] molar conc (Bld) ([place] ) (89049) Comment: Performed By: #### BMP, CK, GFR, LIPID, HFP, A1C #### [place] [address] CO2 molar conc 27.5 22.0-30.0 mmol/L Normal 06-29-2018 Count includes the [facility] ([place]) (89483) Comment: Performed By: #### BMP, CK, GFR, LIPID, HFP, A1C #### [place] [address] HCO3 molar conc 26.3 21.0-29.0 mmol/L Normal 06-29-2018 [facility] ([facility]) ([place]) (0000 0) Comment: Performed By: #### BMP, CK, GFR, LIPID, HFP, A1C #### [place] [address] Oxygen ppres (Bld) 109.9 74.0-108.0 mmHg High 06-29-2018 [facility] ([place]) (0000 0) Comment: Performed By: #### BMP, CK, GFR, LIPID, HFP, A1C #### [address] [address] Oxygen saturation in Blood 98.0 92.0-96.0 % High [facility] ([place]) (0000 0) Comment: Performed By: #### BMP, CK, GFR, LIPID, HFP, A1C #### [address] [address] pCO2 39.7 32.0-46.0 mmHg Normal 06-29-2018 [facility] to [facility] ([place]) (79938) Comment: Performed By: #### BMP, CK, GFR, LIPID, HFP, A1C #### [place] [id number] pH (Bld) 7.439 7.380-7.460 [pH] Normal 06-29-2018 [facility] ([place]) (08537) Comment: Performed By: #### BMP, CK, GFR, LIPID, HFP, A1C #### [place] [address] Barometric Pressure 734 mmHg Normal 06-29-2018 [facility] ([place]) (42687) Comment: Performed By: #### BMP, CK, GFR, LIPID, HFP, A1C #### [place] [address] Base excess Calculated 1.3 mmol/L Normal [address] [place] [address] molar conc ([facility]) ([place] ) (33622) Comment: Performed By: #### BMP, CK, GFR, LIPID, HFP, A1C #### [address] [address] CO2 molar conc 26.8 22.0-30.0 mmol/L Normal 06-29-2018 Count includes the [facility] ([place]) (54617) Comment: Performed By: #### BMP, CK, GFR, LIPID, HFP, A1C #### [place] [address] HCO3 molar conc 25.6 21.0-29.0 mmol/L Normal 06-29-2018 [facility] (d) ([place]) (0000 0) Comment: Performed By: #### BMP, CK, GFR, LIPID, HFP, A1C #### [address] [address] Oxygen ppres (Bld) 160.1 74.0-108.0 mmHg High 06-29-2018 [facility] ([place]) (0000 0) Comment: Performed By: #### BMP, CK, GFR, LIPID, HFP, A1C #### [place] [id number] Oxygen saturation in Blood 98.6 92.0-96.0 % High [facility] ([place]) (0000 0) Comment: Performed By: #### BMP, CK, GFR, LIPID, HFP, A1C #### [place] [id number] pCO2 39.4 32.0-46.0 mmHg Normal 06-29-2018 [facility] to [facility] ([place]) (88126) Comment: Performed By: #### BMP, CK, GFR, LIPID, HFP, A1C #### [address] [address] pH (Bld) 7.430 7.380-7.460 [pH] Normal 06-29-2018 [facility] ([place]) (26947) Comment: Performed By: #### BMP, CK, GFR, LIPID, HFP, A1C #### [address] [address] aptt on 2018-06-29 aPTT Coag time (Bld) 22.5 25.0-35.0 seconds Low 8 [facility] ([place]) (0000 0) Comment: Order Comment: coags collect ed in error by CVOR; Result Comment: For Heparin anticoagulation therapy, the recommended therapeutic range is: 54-77 seconds (APTT Correlation with Anti-Xa therapeutic ran ge of 0.3-0.7 units/ml). PLEASE REFERENCE THE PHARMAC Y PROTOCOL FOR DOSING. Performed By: #### MG, PHOS, CMP, PBNP, GFR, CBC, ADIFF, ANEU, A1C #### [address] [address] aPTT Coag time (Bld) Unknown Normal 8 [facility] ([place]) (06516) Comment: Order Comment: coags collect ed in error by CVOR; Performed By: #### MG, PHOS, CMP, PBNP, GFR, CBC, ADIFF, ANEU, A1C #### [facility] [address] [place] [address] aPTT Coag time (Bld) 30.5 25.0-35.0 seconds Normal 8 [facility] ([place]) (06340) Comment: Result Comment: For Heparin anticoagulation therapy, the recommended therapeutic range is: 54-77 seconds (APTT Correlation with Anti-Xa therapeutic ran ge of 0.3-0.7 units/ml). PLEASE REFERENCE THE PHARMAC Y PROTOCOL FOR DOSING. Performed By: #### MG, PHOS, CMP, PBNP, GFR, CBC, ADIFF, ANEU, A1C #### [place] [id number] [address] [place], [place] [id number] aPTT Coag time (Bld) Unknown Normal 8 [facility] ([place]) (78412) Comment: Performed By: #### MG, PHOS, CMP, PBNP, GFR, CBC, ADIFF, ANEU, A1C #### [address] [address] .neuabs on Neutrophils #/vol 3.10 2.25-8.10 10 3/mcL Normal 06-29-2018 A [facility] ([facility]) [facility] [place] ([place]) (33975) Comment: Performed By: #### MG, PHOS, CMP, PBNP, GFR, CBC, ADIFF, ANEU, A1C #### [address] [address] .gfr on 2018-06-29 GFR >60 Normal 8 [facility] ([place]) (53527) Comment: Result Comment: GFR Population mean for Afri can Nauruan, Non- Americans Ages 20-29 = 116 mL/min/1.73 sq.m. Ages 30-39 = 107 mL/min/1.73 sq.m. Ages 40-49 = 99 mL/min/1.73 sq.m. Ages 50-59 = 93 mL/min/1.73 sq.m. Ages 60-69 = 85 mL/min/1.73 sq.m. Ages 70+ = 75 mL/min/1.73 sq .m. Chronic Kidney Disease: Less than 60 mL/min/1.73 square meters End Stage Renal Disease: Les s than 15 mL/min/1.73 square meters Performed By: #### BMP, CK, GFR, LIPID, HFP, A1C #### [address] [address] GFR Non- >60 Normal 06-29 [facility] ([place]) (50538) Comment: Result Comment: GFR Population mean for Afri can Nauruan, Non- Americans Ages 20-29 = 116 mL/min/1.73 sq.m. Ages 30-39 = 107 mL/min/1.73 sq.m. Ages 40-49 = 99 mL/min/1.73 sq.m. Ages 50-59 = 93 mL/min/1.73 sq.m. Ages 60-69 = 85 mL/min/1.73 sq.m. Ages 70+ = 75 mL/min/1.73 sq .m. Chronic Kidney Disease: Less than 60 mL/min/1.73 square meters End Stage Renal Disease: Les s than 15 mL/min/1.73 square meters Performed By: #### BMP, CK, GFR, LIPID, HFP, A1C #### [address] [address] GFR Non- >60 Normal 06-29 [facility] ([place]) (44698) Comment: Result Comment: GFR Population mean for Afri can Nauruan, Non- Americans Ages 20-29 = 116 mL/min/1.73 sq.m. Ages 30-39 = 107 mL/min/1.73 sq.m. Ages 40-49 = 99 mL/min/1.73 sq.m. Ages 50-59 = 93 mL/min/1.73 sq.m. Ages 60-69 = 85 mL/min/1.73 sq.m. Ages 70+ = 75 mL/min/1.73 sq .m. Chronic Kidney Disease: Less than 60 mL/min/1.73 square meters End Stage Renal Disease: Les s than 15 mL/min/1.73 square meters Performed By: #### BMP, CK, GFR, LIPID, HFP, A1C #### [address] [address] GFR >60 Normal 8 [facility] ([place]) (91877) Comment: Result Comment: GFR Population mean for Afri can Nauruan, Non- Americans Ages 20-29 = 116 mL/min/1.73 sq.m. Ages 30-39 = 107 mL/min/1.73 sq.m. Ages 40-49 = 99 mL/min/1.73 sq.m. Ages 50-59 = 93 mL/min/1.73 sq.m. Ages 60-69 = 85 mL/min/1.73 sq.m. Ages 70+ = 75 mL/min/1.73 sq .m. Chronic Kidney Disease: Less than 60 mL/min/1.73 square meters End Stage Renal Disease: Les s than 15 mL/min/1.73 square meters Performed By: #### BMP, CK, GFR, LIPID, HFP, A1C #### [address] [address] .auto diff on 06-29 Ammonia mass conc 0.60 0.09-1.40 10 3/mcL Normal 06-29-2018 A [facility] () [facility] ([place]) (00700) Comment: Performed By: #### BMP, CK, GFR, LIPID, HFP, A1C #### [address] [address] Basophils #/vol (Bld) 0.00 0.00-0.27 10 3/mcL Normal 06-29-20 18 [facility] ([place]) (31529) Comment: Performed By: #### BMP, CK, GFR, LIPID, HFP, A1C #### [place] [address] Basophils/100 WBC (Bld) 0.6 0.0-2.5 % Normal 2017 [facility] ([place]) (0000 0) Comment: Performed By: #### BMP, CK, GFR, LIPID, HFP, A1C #### [address] [address] Eosinophils #/vol 0.20 0.00-0.65 10 3/mcL Normal 06-29-2018 [facility] ([place]) (27496) Comment: Performed By: #### BMP, CK, GFR, LIPID, HFP, A1C #### [address] [address] Eosinophils/100 WBC (Bld) 4.6 0.0-6.0 % Normal 06-11 [facility] ([place]) (0000 0) Comment: Performed By: #### BMP, CK, GFR, LIPID, HFP, A1C #### [address] [address] Lymphocytes #/vol 1.10 0.90-4.32 10 3/mcL Normal 06-29-2018 [facility] ([facility] ([place]) (27649) Comment: Performed By: #### BMP, CK, GFR, LIPID, HFP, A1C #### [address] [address] Lymphocytes/100 WBC (Bld) 21.1 20.0-40.0 % Normal 06-11 [facility] ([place]) (41607) Comment: Performed By: #### BMP, CK, GFR, LIPID, HFP, A1C #### [address] [address] Monocytes/100 WBC (Bld) 11.8 2.0-13.0 % Normal 2017 [facility] ([place]) (0000 0) Comment: Performed By: #### BMP, CK, GFR, LIPID, HFP, A1C #### [address] [address] Neutrophils/100 WBC (Bld) 61.9 50.0-75.0 % Normal 06-11 [facility] ([place]) (24361) Comment: Performed By: #### BMP, CK, GFR, LIPID, HFP, A1C #### [address] [address] xr chest 2 views on 2018-06-28 XR CHEST 2 ORIGINAL Normal 06-28-2018 [facility] VIEWS XR CHEST 2 VIEWS, [place] [facility] ([place]) ([id number]) Clinical Statement: CHF, , chest pain, pacemaker Comparison: 06/25/2018 Findings: No consolidation, pneumothor ax, pleural fluid, or vascular congestion is seen. Heart size and mediastinal contours are within normal limits for age and projection. No acute skeletal abnormality. There i s a dual lead left-sided def ibrillator/pacemaker as previously with intracardiac leads in the RIGHT atrium and RIGHT ventricle. IMPRESSION: No acute cardiopulmonary process. Interpreted By: Chacho Dye MD Preliminary Report By: Chacho Dye MD Electronically Signed By: Chacho Dye MD Dictated Date: 06/28/2018 8:40:20 AM Prelim Date: 06/28/2018 8:40:20 AM Sign Date: 06/28/2018 8:40:54 AM tsh on 2018-06-28 Thyrotropin Qn 2.690 0.360-3.740 mcIU/mL Normal 06-28-2018 [facility] ([place]) (0000 0) Comment: Result Comment: Please note as of 01/23/17 new pediatric reference intervals were added for this test. Performed By: #### BMP, CK, GFR, LIPID, HFP, A1C #### [address] [id number] tabs on 2018-06-28 Antibody Screen Tango Negative ABSC Normal 06-11 [facility] ([place]) (0000 0) Comment: Performed By: #### BMP, CK, GFR, LIPID, HFP, A1C #### [address] [address] tabo on 2018-06-28 ABO/Rh Interp A POS 06-28-2018 [facility] ([place]) ([id number]) Comment: Performed By: #### BMP, CK, GFR, LIPID, HFP, A1C #### [address] [address] phos on 2018-06-28 Phosphate mass conc 2.8 2.5-4.5 mg/dL Normal 06-28-2018 [facility] ([place]) (0000 0) Comment: Performed By: #### BMP, CK, GFR, LIPID, HFP, A1C #### [place] [address] mg on 2018-06-28 Magnesium mass conc 2.0 1.6-2.4 mg/dL Normal 06-28-2018 [facility] ([place]) (0000 0) Comment: Performed By: #### BMP, CK, GFR, LIPID, HFP, A1C #### [address] [address] lipid on 2018-06-28 Cholesterol in HDL mass conc 27 40-59 mg/dL Low 1 08-29-2017 [facility] ([place]) (0000 0) Comment: Result Comment: HDL Referenc e Interval: Less than 40 Low - high risk 60 or above Optimal/lowers r isk Performed By: #### BMP, CK, GFR, LIPID, HFP, A1C #### [address] [address] Cholesterol in LDL mass Not Valid 0-129 Normal 2017 [facility] ([place]) ([id number]) Comment: Result Comment: Triglyceride >400 invalidates the calculated LDL. LDL is a calculated result a nd requires a 12-hr fast. LDL Reference Interval: Less than 100 Optimal 100-129 Near or above optima l 130-159 Borderline high risk 160-189 High risk 190 and above Very high risk Performed By: #### BMP, CK, GFR, LIPID, HFP, A1C #### [address] [address] Cholesterol mass conc 193 50-199 mg/dL Normal 06-28-20 18 [facility] ([place]) (0000 0) Comment: Result Comment: Cholesterol Reference Interval: Less than 200 Desirable 200-239 Borderline high risk 240 and above High risk Performed By: #### BMP, CK, GFR, LIPID, HFP, A1C #### [address] [address] Triglyceride mass conc 520 3-149 mg/dL High 018 [facility] ([place]) ([id number]) Comment: Result Comment: Triglyceride Reference Interval: Less than 150 Normal 150-199 Borderline high risk 200-499 High risk 500 or higher Very high risk Performed By: #### BMP, CK, GFR, LIPID, HFP, A1C #### [address] [address] cbc on 2018-06-28 Erythrocyte distribution 13.1 11.5-15.5 % Normal 06-28 [facility] width Ratio (RBC) Fo undation ([place]) (02753) Comment: Performed By: #### BMP, CK, GFR, LIPID, HFP, A1C #### [place] [address] Hematocrit Volume 40.8 40.0-52.0 % Normal 06-28-2018 A [facility] Fraction (Bld) ([place]) ([id number]) Comment: Performed By: #### BMP, CK, GFR, LIPID, HFP, A1C #### [place] [address] Hemoglobin mass conc 13.9 13.0-17.5 G/dL Normal 8 [facility] (Bld) [facility] [place] ([place]) ([address]486) Comment: Performed By: #### BMP, CK, GFR, LIPID, HFP, A1C #### [place] [address] MCH Entitic mass (RBC) 31.1 27.0-33.0 pg Normal 018 [facility] ([place]) (0000 0) Comment: Performed By: #### BMP, CK, GFR, LIPID, HFP, A1C #### [place] [address] MCHC mass conc (RBC) 34.0 32.0-36.0 G/dL Normal 8 [facility] ([place]) (0000 0) Comment: Performed By: #### BMP, CK, GFR, LIPID, HFP, A1C #### [place] [address] MCV Entitic volume 91.3 81.0-100.0 fL Normal 06-28-2018 [facility] (RBC) ([place]) (0000 0) Comment: Performed By: #### BMP, CK, GFR, LIPID, HFP, A1C #### [place] [address] Platelet mean volume 7.4 6.4-10.5 fL Normal 8 [facility] Entitic volume (Bld) ([place]) (38593) Comment: Performed By: #### BMP, CK, GFR, LIPID, HFP, A1C #### [place] [address] Platelets #/vol (Bld) 289 150-450 10 3/mcL Normal 06-28-20 [facility] ([place]) (40198) Comment: Performed By: #### BMP, CK, GFR, LIPID, HFP, A1C #### [place] [address] RBC #/vol (Bld) 4.47 4.50-6.00 10 6/mcL Low 06-28-2018 [facility] ([place]) (48266) Comment: Performed By: #### BMP, CK, GFR, LIPID, HFP, A1C #### [place] [address] WBC #/vol (Bld) 4.80 4.50-10.80 10 3/mcL Normal 06-28-2018 [facility] ([place]) (0000 0) Comment: Performed By: #### BMP, CK, GFR, LIPID, HFP, A1C #### [place] [address] bmp on 2018-06-28 Calcium mass conc 8.1 8.4-10.1 mg/dL Low 06-28-2018 [facility] ([place]) (85102) Comment: Performed By: #### BMP, CK, GFR, LIPID, HFP, A1C #### [place] [address] CO2 molar conc 26 22-32 mEq/L Normal 06-28-2018 Count includes the [facility] ([place]) (10886) Comment: Performed By: #### BMP, CK, GFR, LIPID, HFP, A1C #### [place] [address] Creatinine mass conc 0.83 0.60-1.40 mg/dL Normal [facility] ([place]) (0000 0) Comment: Performed By: #### BMP, CK, GFR, LIPID, HFP, A1C #### [place] [address] Electrolyte Balance 10.0 4.0-15.0 mEq/L Normal 06-28-2018 [facility] ([place]) (0000 0) Comment: Performed By: #### BMP, CK, GFR, LIPID, HFP, A1C #### [address] [address] Glucose mass conc 177 70-110 mg/dL High 06-28-2018 A [facility] ([place]) (41922) Comment: Performed By: #### BMP, CK, GFR, LIPID, HFP, A1C #### [address] [address] Potassium molar conc 3.7 3.5-5.0 mEq/L Normal 8 [facility] ([place]) (0000 0) Comment: Performed By: #### BMP, CK, GFR, LIPID, HFP, A1C #### [place] [address] Urea nitrogen mass conc 18.0 8.0-22.0 mg/dL Normal 2017 [facility] ([place]) ([id number]) Comment: Performed By: #### BMP, CK, GFR, LIPID, HFP, A1C #### [place] [id number] Urea nitrogen/Creatinine 21.7 10.0-22.0 ratio Normal 06-28 [facility] ([place]) (61052) Comment: Performed By: #### BMP, CK, GFR, LIPID, HFP, A1C #### [address] [address] Chloride molar conc 105 98-110 mEq/L Normal 06-28-2018 [facility] ([place]) (11160) Comment: Performed By: #### BMP, CK, GFR, LIPID, HFP, A1C #### [address] [address] Sodium molar conc 141 136-145 mEq/L Normal 06-28-2018 A [facility] ([place]) (89460) Comment: Performed By: #### BMP, CK, GFR, LIPID, HFP, A1C #### [address] [address] bg on 2018-06-28 Barometric Pressure 736 mmHg Normal 06-28-2018 [facility] ([place]) (70609) Comment: Order Comment: on Room Air. Preop Cardiothoracic OR (date) Performed By: #### BMP, CK, GFR, LIPID, HFP, A1C #### [address] [address] Base excess Calculated 0.4 mmol/L Normal 018 [facility] molar conc (Bld) ([place] ) (72500) Comment: Order Comment: on Room Air. Preop Cardiothoracic OR (date) Performed By: #### BMP, CK, GFR, LIPID, HFP, A1C #### [address] [address] CO2 molar conc 25.8 22.0-30.0 mmol/L Normal 06-28-2018 Count includes the [facility] ([place]) (56473) Comment: Order Comment: on Room Air. Preop Cardiothoracic OR (date) Performed By: #### BMP, CK, GFR, LIPID, HFP, A1C #### [address] [address] HCO3 molar conc 24.6 21.0-29.0 mmol/L Normal 06-28-2018 [facility] (d) ([place]) (0000 0) Comment: Order Comment: on Room Air. Preop Cardiothoracic OR (date) Performed By: #### BMP, CK, GFR, LIPID, HFP, A1C #### [place] [id number] Oxygen ppres (Bld) 74.3 74.0-108.0 mmHg Normal 06-28-2018 [facility] ([place]) (0000 0) Comment: Order Comment: on Room Air. Preop Cardiothoracic OR (date) Performed By: #### BMP, CK, GFR, LIPID, HFP, A1C #### [address] [address] Oxygen saturation in 94.9 92.0-96.0 % Normal 8 [facility] Blood ([place]) (0000 0) Comment: Order Comment: on Room Air. Preop Cardiothoracic OR (date) Performed By: #### BMP, CK, GFR, LIPID, HFP, A1C #### [address] [address] pCO2 38.4 32.0-46.0 mmHg Normal 06-28-2018 Pending [facility] to [facility] ([place]) (17816) Comment: Order Comment: on Room Air. Preop Cardiothoracic OR (date) Performed By: #### BMP, CK, GFR, LIPID, HFP, A1C #### [place] [address] pH (Bld) 7.425 7.380-7.460 [pH] Normal 06-28-2018 [facility] ([place]) (31013) Comment: Order Comment: on Room Air. Preop Cardiothoracic OR (date) Performed By: #### BMP, CK, GFR, LIPID, HFP, A1C #### [place] [id number] aptt on 2018-06-28 aPTT Coag time (Bld) 49.1 25.0-35.0 seconds High 8 [facility] ([place]) (0000 0) Comment: Result Comment: For Heparin anticoagulation therapy, the recommended therapeutic range is: 54-77 seconds (APTT Correlation with Anti-Xa therapeutic ran ge of 0.3-0.7 units/ml). PLEASE REFERENCE THE PHARMAC Y PROTOCOL FOR DOSING. Performed By: #### BMP, CK, GFR, LIPID, HFP, A1C #### [address] [address] aPTT Coag time (Bld) Heparin IV Normal 06-28-20 18 [facility] ([place]) (10675) Comment: Performed By: #### BMP, CK, GFR, LIPID, HFP, A1C #### [address] [address] aPTT Coag time (Bld) 49.9 25.0-35.0 seconds High 8 [facility] ([place]) (0000 0) Comment: Result Comment: For Heparin anticoagulation therapy, the recommended therapeutic range is: 54-77 seconds (APTT Correlation with Anti-Xa therapeutic ran ge of 0.3-0.7 units/ml). PLEASE REFERENCE THE PHARMAC Y PROTOCOL FOR DOSING. Performed By: #### BMP, CK, GFR, LIPID, HFP, A1C #### [place] [address] aPTT Coag time (Bld) Heparin IV Normal 06-28-20 [facility] ([place]) ([id number]) Comment: Performed By: #### BMP, CK, GFR, LIPID, HFP, A1C #### [place] [address] .neuabs on Neutrophils #/vol (Bld) 2.20 2.25-8.10 10 3/mcL Low 2017 [facility] ([place]) (21879) Comment: Performed By: #### BMP, CK, GFR, LIPID, HFP, A1C #### [place] [address] .gfr on 2018-06-28 GFR Non- >60 Normal 06-28 [facility] ([place]) (06012) Comment: Result Comment: GFR Population mean for Afri can Nauruan, Non- Americans Ages 20-29 = 116 mL/min/1.73 sq.m. Ages 30-39 = 107 mL/min/1.73 sq.m. Ages 40-49 = 99 mL/min/1.73 sq.m. Ages 50-59 = 93 mL/min/1.73 sq.m. Ages 60-69 = 85 mL/min/1.73 sq.m. Ages 70+ = 75 mL/min/1.73 sq .m. Chronic Kidney Disease: Less than 60 mL/min/1.73 square meters End Stage Renal Disease: Les s than 15 mL/min/1.73 square meters Performed By: #### BMP, CK, GFR, LIPID, HFP, A1C #### [place] [address] GFR >60 Normal 06-28- 8 [facility] ([place]) ([id number]) Comment: Result Comment: GFR Population mean for Afri can Nauruan, Non- Americans Ages 20-29 = 116 mL/min/1.73 sq.m. Ages 30-39 = 107 mL/min/1.73 sq.m. Ages 40-49 = 99 mL/min/1.73 sq.m. Ages 50-59 = 93 mL/min/1.73 sq.m. Ages 60-69 = 85 mL/min/1.73 sq.m. Ages 70+ = 75 mL/min/1.73 sq .m. Chronic Kidney Disease: Less than 60 mL/min/1.73 square meters End Stage Renal Disease: Les s than 15 mL/min/1.73 square meters Performed By: #### BMP, CK, GFR, LIPID, HFP, A1C #### [address] [address] .auto diff on 06-28 Ammonia mass conc 0.50 0.09-1.40 10 3/mcL Normal 06-28-2018 [facility] () [facility] [place] ([place]) (70246) Comment: Performed By: #### BMP, CK, GFR, LIPID, HFP, A1C #### [place] [address] Basophils #/vol (Bld) 0.00 0.00-0.27 10 3/mcL Normal 06-28-20 [facility] ([place]) (23196) Comment: Performed By: #### BMP, CK, GFR, LIPID, HFP, A1C #### [address] [address] Basophils/100 WBC (Bld) 0.4 0.0-2.5 % Normal 2017 [facility] ([place]) (0000 0) Comment: Performed By: #### BMP, CK, GFR, LIPID, HFP, A1C #### [address] [address] Eosinophils #/vol 0.30 0.00-0.65 10 3/mcL Normal 06-28-2018 [facility] (d) [facility] [place] ([place]) (74388) Comment: Performed By: #### BMP, CK, GFR, LIPID, HFP, A1C #### [address] [address] Eosinophils/100 WBC (Bld) 5.4 0.0-6.0 % Normal 06-11 [facility] ([place]) (0000 0) Comment: Performed By: #### BMP, CK, GFR, LIPID, HFP, A1C #### [address] [address] Lymphocytes #/vol 1.90 0.90-4.32 10 3/mcL Normal 06-28-2018 [facility] ([facility]) [facility] [place] ([place]) ([address]43) Comment: Performed By: #### BMP, CK, GFR, LIPID, HFP, A1C #### [address] [address] Lymphocytes/100 WBC (Bld) 38.3 20.0-40.0 % Normal 06-11 [facility] ([place]) (71001) Comment: Performed By: #### BMP, CK, GFR, LIPID, HFP, A1C #### [address] [address] Monocytes/100 WBC (Bld) 10.3 2.0-13.0 % Normal 2017 [facility] ([place]) (0000 0) Comment: Performed By: #### BMP, CK, GFR, LIPID, HFP, A1C #### [address] [address] Neutrophils/100 WBC (Bld) 45.6 50.0-75.0 % Low 06-11 [facility] ([place]) (0000 0) Comment: Performed By: #### BMP, CK, GFR, LIPID, HFP, A1C #### [address] [address] cbc on 2018-06-27 Erythrocyte distribution 13.0 11.5-15.5 % Normal 06-27 [facility] width Ratio (RBC) Fo [facility]ation ([place]) (86943) Comment: Performed By: #### BMP, CK, GFR, LIPID, HFP, A1C #### [address] [address] Hematocrit Volume 40.3 40.0-52.0 % Normal 06-27-2018 [facility] Fraction (d) ([place]) (05874) Comment: Performed By: #### BMP, CK, GFR, LIPID, HFP, A1C #### [place] [address] Hemoglobin mass conc 14.4 13.0-17.5 G/dL Normal 8 [facility] ([facility]) [facility] [place] ([place]) (84143) Comment: Performed By: #### BMP, CK, GFR, LIPID, HFP, A1C #### [place] [address] MCH Entitic mass (RBC) 32.3 27.0-33.0 pg Normal 018 [facility] ([place]) (0000 0) Comment: Performed By: #### BMP, CK, GFR, LIPID, HFP, A1C #### [place] [address] MCHC mass conc (RBC) 35.6 32.0-36.0 G/dL Normal 8 [facility] ([place]) (0000 0) Comment: Performed By: #### BMP, CK, GFR, LIPID, HFP, A1C #### [place] [address] MCV Entitic volume 90.6 81.0-100.0 fL Normal 06-27-2018 [facility] (RBC) ([place]) (0000 0) Comment: Performed By: #### BMP, CK, GFR, LIPID, HFP, A1C #### [place] [address] Platelet mean volume 7.8 6.4-10.5 fL Normal 8 [facility] Entitic volume (Bld) ([place]) (23235) Comment: Performed By: #### BMP, CK, GFR, LIPID, HFP, A1C #### [place] [address] Platelets #/vol (Bld) 288 150-450 10 3/mcL Normal 06-27-20 18 [facility] ([place]) (53049) Comment: Performed By: #### BMP, CK, GFR, LIPID, HFP, A1C #### [place] [address] RBC #/vol (Bld) 4.45 4.50-6.00 10 6/mcL Low 12-17-2018 [facility] ([place]) (40849) Comment: Performed By: #### BMP, CK, GFR, LIPID, HFP, A1C #### [address] [address] WBC #/vol (Bld) 4.40 4.50-10.80 10 3/mcL Low 06-27-2018 [facility] ([place]) (0000 0) Comment: Performed By: #### BMP, CK, GFR, LIPID, HFP, A1C #### [address] [address] bmp on 2018-06-27 Creatinine mass conc 0.94 0.60-1.40 mg/dL Normal 8 [facility] ([place]) (0000 0) Comment: Performed By: #### BMP, CK, GFR, LIPID, HFP, A1C #### [address] [address] Urea nitrogen/Creatinine mass 22.3 10.0-22.0 ratio High 06-27-2018 [facility] ([place]) (75717) Comment: Performed By: #### BMP, CK, GFR, LIPID, HFP, A1C #### [address] [address] Calcium mass conc 8.1 8.4-10.1 mg/dL Low 06-27-2018 [facility] ([place]) (27018) Comment: Performed By: #### BMP, CK, GFR, LIPID, HFP, A1C #### [address] [address] Glucose mass conc 229 70-110 mg/dL High 06-27-2018 [facility] ([place]) (60589) Comment: Result Comment: Specimen lip emic. All tests except CO2, cholesterol, triglyceride and HDL were ru n on a specimen processed to remove lipemia. Performed By: #### BMP, CK, GFR, LIPID, HFP, A1C #### [address] [address] Potassium molar conc 4.0 3.5-5.0 mEq/L Normal 8 [facility] ([place]) (0000 0) Comment: Performed By: #### BMP, CK, GFR, LIPID, HFP, A1C #### [place] [address] Urea nitrogen mass conc 21.0 8.0-22.0 mg/dL Normal 2017 [facility] ([place]) (64129) Comment: Performed By: #### BMP, CK, GFR, LIPID, HFP, A1C #### [place] [id number] Chloride molar conc 105 98-110 mEq/L Normal 06-27-2018 [facility] ([place]) (22010) Comment: Performed By: #### BMP, CK, GFR, LIPID, HFP, A1C #### [place] [address] Electrolyte Balance 6.0 4.0-15.0 mEq/L Normal 06-27-2018 [facility] ([place]) (0000 0) Comment: Performed By: #### BMP, CK, GFR, LIPID, HFP, A1C #### [place] [address] Sodium molar conc 140 136-145 mEq/L Normal 06-27-2018 [facility] ([place]) (02080) Comment: Performed By: #### BMP, CK, GFR, LIPID, HFP, A1C #### [place] [address] CO2 molar conc 29 22-32 mEq/L Normal 06-27-2018 Count includes the [facility] ([place]) (44078) Comment: Performed By: #### BMP, CK, GFR, LIPID, HFP, A1C #### [address] [address] aptt on 2018-06-27 aPTT Coag time (Bld) Heparin IV Normal 06-27-20 18 [facility] ([place]) (56249) Comment: Performed By: #### BMP, CK, GFR, LIPID, HFP, A1C #### [address] [address] aPTT Coag time (Bld) 51.4 25.0-35.0 seconds High 8 [facility] ([place]) (0000 0) Comment: Result Comment: For Heparin anticoagulation therapy, the recommended therapeutic range is: 54-77 seconds (APTT Correlation with Anti-Xa therapeutic ran ge of 0.3-0.7 units/ml). PLEASE REFERENCE THE PHARMAC Y PROTOCOL FOR DOSING. Performed By: #### BMP, CK, GFR, LIPID, HFP, A1C #### [address] [address] .neuabs on Neutrophils #/vol (Bld) 2.00 2.25-8.10 10 3/mcL Low 2017 [facility] ([place]) (22709) Comment: Performed By: #### BMP, CK, GFR, LIPID, HFP, A1C #### [address] [address] .gfr on 2018-06-27 GFR Non- >60 Normal 06-27 [facility] ([place]) (80038) Comment: Result Comment: GFR Population mean for Afri can Nauruan, Non- Americans Ages 20-29 = 116 mL/min/1.73 sq.m. Ages 30-39 = 107 mL/min/1.73 sq.m. Ages 40-49 = 99 mL/min/1.73 sq.m. Ages 50-59 = 93 mL/min/1.73 sq.m. Ages 60-69 = 85 mL/min/1.73 sq.m. Ages 70+ = 75 mL/min/1.73 sq .m. Chronic Kidney Disease: Less than 60 mL/min/1.73 square meters End Stage Renal Disease: Les s than 15 mL/min/1.73 square meters Performed By: #### BMP, CK, GFR, LIPID, HFP, A1C #### [address] [address] GFR >60 Normal 8 [facility] ([place]) (66242) Comment: Result Comment: GFR Population mean for Afri can Nauruan, Non- Americans Ages 20-29 = 116 mL/min/1.73 sq.m. Ages 30-39 = 107 mL/min/1.73 sq.m. Ages 40-49 = 99 mL/min/1.73 sq.m. Ages 50-59 = 93 mL/min/1.73 sq.m. Ages 60-69 = 85 mL/min/1.73 sq.m. Ages 70+ = 75 mL/min/1.73 sq .m. Chronic Kidney Disease: Less than 60 mL/min/1.73 square meters End Stage Renal Disease: Les s than 15 mL/min/1.73 square meters Performed By: #### BMP, CK, GFR, LIPID, HFP, A1C #### [address] [address] .auto diff on 06-27 Ammonia mass conc 0.50 0.09-1.40 10 3/mcL Normal 06-27-2018 [facility] () [facility] [place] ([place]) (52295) Comment: Performed By: #### BMP, CK, GFR, LIPID, HFP, A1C #### [address] [address] Basophils #/vol (Bld) 0.00 0.00-0.27 10 3/mcL Normal 06-27-20 18 [facility] ([place]) (70712) Comment: Performed By: #### BMP, CK, GFR, LIPID, HFP, A1C #### [address] [address] Basophils/100 WBC (Bld) 0.7 0.0-2.5 % Normal 2017 [facility] ([place]) (0000 0) Comment: Performed By: #### BMP, CK, GFR, LIPID, HFP, A1C #### [address] [address] Eosinophils #/vol 0.30 0.00-0.65 10 3/mcL Normal 06-27-2018 [facility] ([facility]) [facility] [place] ([place]) (88463) Comment: Performed By: #### BMP, CK, GFR, LIPID, HFP, A1C #### [address] [address] Eosinophils/100 WBC (Bld) 6.4 0.0-6.0 % High 12- [facility] ([place]) (0000 0) Comment: Performed By: #### BMP, CK, GFR, LIPID, HFP, A1C #### [address] [address] Lymphocytes #/vol 1.50 0.90-4.32 10 3/mcL Normal 06-27-2018 [facility]) (16851) Comment: Performed By: #### BMP, CK, GFR, LIPID, HFP, A1C #### [address] [address] Lymphocytes/100 WBC (Bld) 34.9 20.0-40.0 % Normal 06-11 [facility]) (97687) Comment: Performed By: #### BMP, CK, GFR, LIPID, HFP, A1C #### [address] [address] Monocytes/100 WBC (Bld) 11.8 2.0-13.0 % Normal 2017 [facility]) (0000 0) Comment: Performed By: #### BMP, CK, GFR, LIPID, HFP, A1C #### [address] [address] Neutrophils/100 WBC (d) 46.2 50.0-75.0 % Low 06-11 [facility] ([place]) (0000 0) Comment: Performed By: #### BMP, CK, GFR, LIPID, HFP, A1C #### [address] [address] tropi on 2018-06-26 Troponin I.cardiac <0.015 0.000-0.040 ng/mL Normal 06-26-201 8 [facility] ([place]) (72816) Comment: Result Comment: Troponin I r eference ranges (03/19/14): 0.00-0.040 ng/mL Negative an d non-diagnostic. >0.040 ng/mL Consistent with cardiac damage, increased clinical risk and possibility of myocardial in farction. Serial measurements, a rise & fall in test results, clinical histo ry, appropriate symptoms and/or ECG changes may help assess possibility of IN. *Other non-acute coronary sy ndrome conditions such as CHF, myoc arditis, pulmonary emboli, sepsis and cardiac surgery could result in myoc ardial damage and increased troponi n levels. Performed By: #### BMP, CK, GFR, LIPID, HFP, A1C #### [place] [address] cbc on 2018-06-26 Erythrocyte distribution 13.2 11.5-15.5 % Normal 06-26 [facility] (27233) Comment: Performed By: #### BMP, CK, GFR, LIPID, HFP, A1C #### [place] [address] Hematocrit Volume 46.0 40.0-52.0 % Normal 06-26-2018 A [facility] Fraction (d) ([place]) (16250) Comment: Performed By: #### BMP, CK, GFR, LIPID, HFP, A1C #### [place] [address] Hemoglobin mass conc 15.8 13.0-17.5 G/dL Normal 8 [facility] (d) [facility] [place] ([place]) (76257) Comment: Performed By: #### BMP, CK, GFR, LIPID, HFP, A1C #### [place] [address] MCH Entitic mass (RBC) 31.3 27.0-33.0 pg Normal 018 [facility] ([place]) (0000 0) Comment: Performed By: #### BMP, CK, GFR, LIPID, HFP, A1C #### [place] [address] MCHC mass conc (RBC) 34.3 32.0-36.0 G/dL Normal 8 [facility] ([place]) (0000 0) Comment: Performed By: #### BMP, CK, GFR, LIPID, HFP, A1C #### [place] [address] MCV Entitic volume 91.2 81.0-100.0 fL Normal 06-26-2018 [facility] (RBC) ([place]) (0000 0) Comment: Performed By: #### BMP, CK, GFR, LIPID, HFP, A1C #### [place] [address] Platelet mean volume 7.9 6.4-10.5 fL Normal 8 [facility] Entitic volume (Bld) ([place]) (64063) Comment: Performed By: #### BMP, CK, GFR, LIPID, HFP, A1C #### [address] [address] Platelets #/vol (Bld) 284 150-450 10 3/mcL Normal 06-26-20 18 [facility] ([place]) (54005) Comment: Performed By: #### BMP, CK, GFR, LIPID, HFP, A1C #### [address] [address] RBC #/vol (Bld) 5.05 4.50-6.00 10 6/mcL Normal 06-26-2018 [facility] ([place]) (0000 0) Comment: Performed By: #### BMP, CK, GFR, LIPID, HFP, A1C #### [place] [address] WBC #/vol (Bld) 5.80 4.50-10.80 10 3/mcL Normal 06-26-2018 [facility] ([place]) (0000 0) Comment: Performed By: #### BMP, CK, GFR, LIPID, HFP, A1C #### [address] [address] bmp on 2018-06-26 Creatinine mass conc 0.93 0.60-1.40 mg/dL Normal 8 [facility] ([place]) (0000 0) Comment: Performed By: #### BMP, CK, GFR, LIPID, HFP, A1C #### [place] [address] Urea nitrogen mass conc 23.0 8.0-22.0 mg/dL High 2017 [facility] ([place]) (0000 0) Comment: Performed By: #### BMP, CK, GFR, LIPID, HFP, A1C #### [place] [address] Urea nitrogen/Creatinine mass 24.7 10.0-22.0 ratio High 06-26-2018 [facility] ([place]) (69738) Comment: Performed By: #### BMP, CK, GFR, LIPID, HFP, A1C #### [address] [address] Calcium mass conc 9.1 8.4-10.1 mg/dL Normal 06-26-2018 A [facility] ([place]) (33798) Comment: Performed By: #### BMP, CK, GFR, LIPID, HFP, A1C #### [address] [address] Chloride molar conc 101 98-110 mEq/L Normal 06-26-2018 [facility] ([place]) (23559) Comment: Performed By: #### BMP, CK, GFR, LIPID, HFP, A1C #### [address] [address] CO2 molar conc 28 22-32 mEq/L Normal 06-26-2018 Count includes the [facility] ([place]) (03443) Comment: Performed By: #### BMP, CK, GFR, LIPID, HFP, A1C #### [address] [address] Electrolyte Balance 9.0 4.0-15.0 mEq/L Normal 06-26-2018 [facility] ([place]) (0000 0) Comment: Performed By: #### BMP, CK, GFR, LIPID, HFP, A1C #### [address] [address] Glucose mass conc 186 70-110 mg/dL High 06-26-2018 A [facility] ([place]) ([id number]) Comment: Performed By: #### BMP, CK, GFR, LIPID, HFP, A1C #### [address] [address] Potassium molar conc 3.7 3.5-5.0 mEq/L Normal 8 [facility] ([place]) (0000 0) Comment: Performed By: #### BMP, CK, GFR, LIPID, HFP, A1C #### [address] [address] Sodium molar conc 138 136-145 mEq/L Normal 06-26-2018 A [facility] ([place] ([id number]) Comment: Performed By: #### BMP, CK, GFR, LIPID, HFP, A1C #### [address] [address] aptt on 2018-06-26 aPTT Coag time (Bld) 54.2 25.0-35.0 seconds High -201 8 [facility] ([place] (0000 0) Comment: Result Comment: For Heparin anticoagulation therapy, the recommended therapeutic range is: 54-77 seconds (APTT Correlation with Anti-Xa therapeutic ran ge of 0.3-0.7 units/ml). PLEASE REFERENCE THE PHARMAC Y PROTOCOL FOR DOSING. Performed By: #### BMP, CK, GFR, LIPID, HFP, A1C #### [place] [id number] aPTT Coag time (Bld) Heparin IV Normal 06-26- 18 [facility] ([place] ([id number]) Comment: Performed By: #### BMP, CK, GFR, LIPID, HFP, A1C #### [place] [address] aPTT Coag time (Bld) 55.0 25.0-35.0 seconds High 8 [facility] ([place] (0000 0) Comment: Result Comment: For Heparin anticoagulation therapy, the recommended therapeutic range is: 54-77 seconds (APTT Correlation with Anti-Xa therapeutic ran ge of 0.3-0.7 units/ml). PLEASE REFERENCE THE PHARMAC Y PROTOCOL FOR DOSING. Performed By: #### BMP, CK, GFR, LIPID, HFP, A1C #### [place] [id number] aPTT Coag time (Bld) Heparin IV Normal 06-26-20 18 [facility] ([place] ([id number]) Comment: Performed By: #### BMP, CK, GFR, LIPID, HFP, A1C #### [place] [id number] aPTT Coag time (Bld) Heparin IV Normal 06-26-20 18 [facility] [facility] ([place]) ([id number]) Comment: Performed By: #### BMP, CK, GFR, LIPID, HFP, A1C #### [facility] [address] [place] [address] aPTT Coag time ([facility]) 59.0 25.0-35.0 seconds High 8 [facility] ([place]) (0000 0) Comment: Result Comment: For Heparin anticoagulation therapy, the recommended therapeutic range is: 54-77 seconds (APTT Correlation with Anti-Xa therapeutic ran ge of 0.3-0.7 units/ml). PLEASE REFERENCE THE PHARMAC Y PROTOCOL FOR DOSING. Performed By: #### BMP, CK, GFR, LIPID, HFP, A1C #### [address] [address] .neuabs on Neutrophils #/vol 2.90 2.25-8.10 10 3/mcL Normal 06-26-2018 A [facility] ([facility]) [facility] ([place]) ([id number]) Comment: Performed By: #### BMP, CK, GFR, LIPID, HFP, A1C #### [address] [address] .gfr on 2018-06-26 GFR Non- >60 Normal 06-26 [facility] ([place]) (69104) Comment: Result Comment: GFR Population mean for Afri can Nauruan, Non- Americans Ages 20-29 = 116 mL/min/1.73 sq.m. Ages 30-39 = 107 mL/min/1.73 sq.m. Ages 40-49 = 99 mL/min/1.73 sq.m. Ages 50-59 = 93 mL/min/1.73 sq.m. Ages 60-69 = 85 mL/min/1.73 sq.m. Ages 70+ = 75 mL/min/1.73 sq .m. Chronic Kidney Disease: Less than 60 mL/min/1.73 square meters End Stage Renal Disease: Les s than 15 mL/min/1.73 square meters Performed By: #### BMP, CK, GFR, LIPID, HFP, A1C #### [address] [address] GFR >60 Normal 8 [facility] ([place]) (58681) Comment: Result Comment: GFR Population mean for Afri can Nauruan, Non- Americans Ages 20-29 = 116 mL/min/1.73 sq.m. Ages 30-39 = 107 mL/min/1.73 sq.m. Ages 40-49 = 99 mL/min/1.73 sq.m. Ages 50-59 = 93 mL/min/1.73 sq.m. Ages 60-69 = 85 mL/min/1.73 sq.m. Ages 70+ = 75 mL/min/1.73 sq .m. Chronic Kidney Disease: Less than 60 mL/min/1.73 square meters End Stage Renal Disease: Les s than 15 mL/min/1.73 square meters Performed By: #### BMP, CK, GFR, LIPID, HFP, A1C #### [address] [address] .auto diff on 06-26 Ammonia mass conc 0.60 0.09-1.40 10 3/mcL Normal 06-26-2018 [facility] () [facility] ([place]) (10635) Comment: Performed By: #### BMP, CK, GFR, LIPID, HFP, A1C #### [address] [address] Basophils #/vol (Bld) 0.00 0.00-0.27 10 3/mcL Normal 06-26-20 18 [facility] ([place]) ([id number]) Comment: Performed By: #### BMP, CK, GFR, LIPID, HFP, A1C #### [address] [address] Basophils/100 WBC (Bld) 0.6 0.0-2.5 % Normal 2017 [facility] ([place]) (0000 0) Comment: Performed By: #### BMP, CK, GFR, LIPID, HFP, A1C #### [address] [address] Eosinophils #/vol 0.40 0.00-0.65 10 3/mcL Normal 06-26-2018 [facility] (d) [facility] ([place]) (96211) Comment: Performed By: #### BMP, CK, GFR, LIPID, HFP, A1C #### [address] [address] Eosinophils/100 WBC (Bld) 6.2 0.0-6.0 % High - [facility] ([place]) (0000 0) Comment: Performed By: #### BMP, CK, GFR, LIPID, HFP, A1C #### [address] [address] Lymphocytes #/vol 1.90 0.90-4.32 10 3/mcL Normal 06-26-2018 [facility] ([facility] ([place]) (51720) Comment: Performed By: #### BMP, CK, GFR, LIPID, HFP, A1C #### [address] [address] Lymphocytes/100 WBC (Bld) 33.3 20.0-40.0 % Normal 06-11 [facility] ([place]) (93360) Comment: Performed By: #### BMP, CK, GFR, LIPID, HFP, A1C #### [address] [address] Monocytes/100 WBC (Bld) 9.6 2.0-13.0 % Normal 2017 [facility] ([place]) (0000 0) Comment: Performed By: #### BMP, CK, GFR, LIPID, HFP, A1C #### [address] [address] Neutrophils/100 WBC (Bld) 50.3 50.0-75.0 % Normal 06-11 [facility] ([place]) (97931) Comment: Performed By: #### BMP, CK, GFR, LIPID, HFP, A1C #### [address] [address] xr chest ap portable on 2018-06-25 INR Coag Exam Date/Time:06/24/2018 22:25 Normal 06-25-2018 [facility] ESTReason for Exam:Chest Regional (Bld) painReportSTUDY:XR Chest AP Portable; Health System 06/24/2018 10:25 pmINDICATION:Chest (68443) pain.COMPARISON:None. CLINICIAN:Urvashi AsbridgeFINDINGS:Cardiac device has a wire to the right atrium and right ventricle.CARDIOMEDIASTINAL SILHOUETTE:Cardiomediastinal silhouette is normal in size and configuration.LUNGS:Lungs are clear. There is no confluent airspace disease or effusion.ABDOMEN:No remarkable upper abdominal findings.BONES:No acute osseous changes.IMPRESSION:1. No evidence of acute cardiopulmonary process. FINAL REPORT Dictated: 06/24/2018 10:37 pm Micah Can MD JSigned (Electronic Signature): 06/24/2018 10:37 pmSigned by: Micah Can MD Technologist: [facility] XR Chest AP Exam Date/Time: Normal 06-25-2018 [place] [facility] Portable 06/24/2018 22:25 EST Regional Reason for Exam: [facility] Chest pain (54127) Report STUDY: XR Chest AP Portable; 06/24/2018 10:25 pm INDICATION: Chest pain. COMPARISON: None. ACCESSION NUMBER(S): [id number] ORDERING CLINICIAN: Urvashi Aldridge FINDINGS: Cardiac device has a wire to the right atrium and right vent ricle. CARDIOMEDIASTINAL SILHOUETTE: Cardiomediastinal silhouette is normal in size and configura tion. LUNGS: Lungs are clear. There is no confluent airspace disease or e ffusion. ABDOMEN: No remarkable upper abdominal findings. BONES: No acute osseous changes. IMPRESSION: 1. No evidence of acute cardiopulmonary process. FINAL REPORT Dictated: 06/24/2018 10:37 pm Micah Can MD Signed (Electronic Signature): 06/24/2018 10:37 pm Signed by: Micah Can MD Technologist: [facility] xr chest 1 view on 2018-06-25 XR CHEST 1 VIEW ORIGINAL Normal 06-25-2018 [facility] XR CHEST 1 VIEW Foun dation ([place]) ([id number]) CLINICAL STATEMENT: Chest Pain. COMPARISON: 10/14/2017 FINDINGS: Heart size is norm al. Pacer/defibrillator device is unchanged. There is no consolidation. No pneumothorax. No destructive osseous lesion. IMPRESSION: Low lung volumes with hypoventilatory change Interpreted By: Pawel Bass MD Preliminary Report By: Pawel Bass MD Electronically Signed By: Pawel aBss MD Dictated Date: 06/25/2018 7:53:58 AM Prelim Date: 06/25/2018 7:53:58 AM Sign Date: 06/25/2018 7:55:37 AM ua on 2018-06-25 Color Nom (U) Yellow Normal 06-25-2018 formerly [facility] ([place]) (73935) Comment: Performed By: #### BMP, CK, GFR, LIPID, HFP, A1C #### [address] [address] Glucose mass conc (U) >=1000 Negative mg/dL 06-25-20 18 [facility] ([place]) (0000 0) Comment: Performed By: #### BMP, CK, GFR, LIPID, HFP, A1C #### [address] [address] Ketones Ql (U) Negative Neg-Trace Normal 06-25-2018 Count includes the [facility] ([place]) (20019) Comment: Performed By: #### BMP, CK, GFR, LIPID, HFP, A1C #### [address] [address] UA Appear Clear Clear Normal 06-25-2018 Pending sale to [facility] ([place]) (75379) Comment: Performed By: #### BMP, CK, GFR, LIPID, HFP, A1C #### [address] [address] UA Blood Negative Neg-Trace Normal 06-25-2018 Pending sale to [facility] ([place]) (75661) Comment: Performed By: #### BMP, CK, GFR, LIPID, HFP, A1C #### [address] [address] UA Leuk Est Negative Negative Normal 06-25-2018 [facility] ([place]) (01158) Comment: Performed By: #### BMP, CK, GFR, LIPID, HFP, A1C #### [address] [address] UA Nitrite Negative Negative Normal 06-25-2018 [facility] ([place]) (13498) Comment: Performed By: #### BMP, CK, GFR, LIPID, HFP, A1C #### [address] [address] UA pH 5.0 5.0 - 8.0 Normal 06-25-2018 Pending [facility] to [facility] ([place]) (92370) Comment: Performed By: #### BMP, CK, GFR, LIPID, HFP, A1C #### [address] [address] UA Protein Negative Negative Normal 06-25-2018 [facility] ([place]) (65282) Comment: Performed By: #### BMP, CK, GFR, LIPID, HFP, A1C #### [address] [address] UA Spec Grav >=1.030 1.006-1.029 06-25-2018 Count includes the [facility] ([place]) (84998) Comment: Performed By: #### BMP, CK, GFR, LIPID, HFP, A1C #### [address] [address] UA Specimen Type Clean Catch Normal 06-25-2018 [facility] ([place]) (16946) Comment: Performed By: #### BMP, CK, GFR, LIPID, HFP, A1C #### [address] [address] UA Urobilinogen 0.2 0.2-1.0 E.U./dL Normal 06-25-2018 [facility] ([place]) (21083) Comment: Performed By: #### BMP, CK, GFR, LIPID, HFP, A1C #### [place] [address] Urobilinogen Qn (U) Negative Neg-Trace Normal 06-25-2018 [facility] ([place]) (0000 0) Comment: Performed By: #### BMP, CK, GFR, LIPID, HFP, A1C #### [address] [address] troponin-i on 06-25 Troponin I.cardiac mass .01 .00-.03 ng/mL Normal 2017 [facility] tem (94445) Comment: Performed By: #### [id number] # ###IMELDA [address] [place] [address] Performed By: #### [id number] # ### IMELDA [facility] [address] [place] [address] tropi on 2018-06-25 Troponin I.cardiac <0.015 0.000-0.040 ng/mL Normal 8 [facility] ([place]) (30119) Comment: Result Comment: Troponin I r eference ranges (03/19/14): 0.00-0.040 ng/mL Negative an d non-diagnostic. >0.040 ng/mL Consistent with cardiac damage, increased clinical risk and possibility of myocardial in farction. Serial measurements, a rise & fall in test results, clinical histo ry, appropriate symptoms and/or ECG changes may help assess possibility of IN. *Other non-acute coronary sy ndrome conditions such as CHF, myoc arditis, pulmonary emboli, sepsis and cardiac surgery could result in myoc ardial damage and increased troponi n levels. Performed By: #### BMP, CK, GFR, LIPID, HFP, A1C #### [address] [address] Troponin I.cardiac <0.015 0.000-0.040 ng/mL Normal 8 [facility] ([place]) (67489) Comment: Result Comment: Troponin I r eference ranges (03/19/14): 0.00-0.040 ng/mL Negative an d non-diagnostic. >0.040 ng/mL Consistent with cardiac damage, increased clinical risk and possibility of myocardial in farction. Serial measurements, a rise & fall in test results, clinical histo ry, appropriate symptoms and/or ECG changes may help assess possibility of IN. *Other non-acute coronary sy ndrome conditions such as CHF, myoc arditis, pulmonary emboli, sepsis and cardiac surgery could result in myoc ardial damage and increased troponi n levels. Performed By: #### BMP, CK, GFR, LIPID, HFP, A1C #### [address] [address] ptt on 2018-06-25 aPTT Coag time 32.8 23.2-36.4 second(s) Normal 06-25-2018 [facility] ([facility] (24632) Comment: Performed By: #### [id number] # ###IMELDA [facility] [employer] [address] [place] [address] 05 Performed By: #### [id number] # ### IMELDA RemHemo [address] [place] [address] ptt control ratio o n 2018-06-25 PTT Ratio 1.1 0.8-1.2 ratio Normal 06-25-2018 [facility] (65074) Comment: Order Comment: Order added richard Wick Expert. Performed By: #### [id number] ####IMELDA [facility] [address] [place] [address] 05 Performed By: #### [id number] # ### IMELDA RemHemo [address] [place] [address] pt on 2018-06-25 INR Coag RelTime (PPP) 1.4 1.0-1.2 {INR} High 06-25-2 018 [facility] (00 000) Comment: Result Comment: INR Recommen ded Therapeuptic Ranges: Prophylaxis/treatment of DVT and PE?2. 0-3.0 Prevention of systemic embolism?.2.0- 3.0 Mechanical prosthetic values?2.5-3 .5 CRITICAL VALUES?.>4.0 Performed By: #### [id number] # ###IMELDA [facility] [address] [place] [address] 05 Result Comment: INR Recommen ded Therapeuptic Ranges: Prophylaxis/treatment of DVT and PE?2.0-3.0 Prevention of systemic embol ism?.2.0-3.0 Mechanical prosthetic values ?2.5-3.5 CRITICAL VALUES?.>4.0 Performed By: #### [id number] # ### IMELDA RemHemo [address] [place] [address] Prothrombin time (PT) 15.9 11.6-14.6 second(s) High 06-25-20 18 [facility] Coag time (PPP) [facility] (38096) Comment: Performed By: #### [id number] # ###IMELDA [facility] [address] [place], [place] [address] Performed By: #### [id number] # ### IMELDA RemHemo [address] [place] [address] phos on 2018-06-25 Phosphate mass conc 4.3 2.5-4.5 mg/dL Normal 06-25-2018 [facility] ([place]) (0000 0) Comment: Performed By: #### MG, PHOS, CMP, PBNP, GFR, CBC, ADIFF, ANEU, A1C #### [address] [address] pbnp on 2018-06-25 Natriuretic peptide B mass 85 0-450 pg/mL Normal [facility] conc (Bld) ([place]) (000 00) Comment: Result Comment: NT-proBNP re sults of less than 300 pg/mL effectively rules out acute congestive h eart failure with 99% negative predictive value. Performed By: #### MG, PHOS, CMP, PBNP, GFR, CBC, ADIFF, ANEU, A1C #### [address] [address] mg on 2018-06-25 Magnesium mass conc 2.2 1.6-2.4 mg/dL Normal 06-25-2018 [facility] ([place]) (0000 0) Comment: Performed By: #### MG, PHOS, CMP, PBNP, GFR, CBC, ADIFF, ANEU, A1C #### [address] [address] magnesium on 2017-07 Magnesium mass conc 2.0 1.6-2.4 mg/dL Normal 06-25-2018 [facility] (00 000) Comment: Performed By: #### [id number] # ###IMELDA [address] [place] [address] Performed By: #### [id number] # ### IMELDA [facility] [address] [place] [address] egfr on 2018-06-25 eGFR AA >60 Normal 06-25-2018 [facility] (87933) Comment: Order Comment: Order added richard Wick Expert. Performed By: #### [id number] ####IMELDA [address] [place] [address] GFR/1.73 sq M predicted >60 mL/min/{1.73_m2} Normal 06-25-2018 [facility] among non-blacks [facility] (88771) vol rate/area (S/P/Bld) Comment: Order Comment: Order added richard Wick Expert. Performed By: #### [id number] ####IMELDA [address] [place] [address] Performed By: #### [id number] # ### IMELDA [facility] [address] [place] [address] cmp on 2018-06-25 Albumin/Globulin mass ratio 1.3 0.9-1.6 ratio Normal [facility] ([place]) (54332) Comment: Performed By: #### MG, PHOS, CMP, PBNP, GFR, CBC, ADIFF, ANEU, A1C #### [address] [address] ALP enzyme act/vol 40 38-126 U/L Normal 06-25-2018 [facility] ([place]) (94845) Comment: Performed By: #### MG, PHOS, CMP, PBNP, GFR, CBC, ADIFF, ANEU, A1C #### [address] [address] ALT enzyme act/vol 30 12-55 U/L Normal 06-25-2018 [facility] ([place]) (78526) Comment: Performed By: #### MG, PHOS, CMP, PBNP, GFR, CBC, ADIFF, ANEU, A1C #### [address] [address] AST enzyme act/vol 11 8-34 U/L Normal 06-25-2018 [facility] ([place]) (27739) Comment: Performed By: #### MG, PHOS, CMP, PBNP, GFR, CBC, ADIFF, ANEU, A1C #### [address] [address] Bili Total 0.6 0.2-1.2 mg/dL Normal 06-25-2018 [facility] ([place]) (50564) Comment: Performed By: #### MG, PHOS, CMP, PBNP, GFR, CBC, ADIFF, ANEU, A1C #### [place] [address] Creatinine mass conc 0.98 0.60-1.40 mg/dL Normal 8 [facility] ([place]) (0000 0) Comment: Performed By: #### MG, PHOS, CMP, PBNP, GFR, CBC, ADIFF, ANEU, A1C #### [address] [address] Globulin mass conc (S) 3.2 1.5-3.8 G/dL Normal 018 [facility] ([place]) (0000 0) Comment: Performed By: #### MG, PHOS, CMP, PBNP, GFR, CBC, ADIFF, ANEU, A1C #### [address] [address] Protein mass conc 7.3 6.0-8.5 G/dL Normal 06-25-2018 A [facility] ([place]) (84635) Comment: Performed By: #### MG, PHOS, CMP, PBNP, GFR, CBC, ADIFF, ANEU, A1C #### [place] [id number] Urea nitrogen/Creatinine mass 29.6 10.0-22.0 ratio High 06-25-2018 [facility] ([place]) (46438) Comment: Performed By: #### MG, PHOS, CMP, PBNP, GFR, CBC, ADIFF, ANEU, A1C #### [address] [address] Albumin mass conc 4.1 3.2-4.8 G/dL Normal 06-25-2018 A [facility] ([place]) (84693) Comment: Performed By: #### MG, PHOS, CMP, PBNP, GFR, CBC, ADIFF, ANEU, A1C #### [place] [address] Calcium mass conc 8.7 8.4-10.1 mg/dL Normal 06-25-2018 A [facility] ([place]) (99201) Comment: Performed By: #### MG, PHOS, CMP, PBNP, GFR, CBC, ADIFF, ANEU, A1C #### [place] [address] Chloride molar conc 103 98-110 mEq/L Normal 06-25-2018 [facility] ([place]) (91777) Comment: Performed By: #### MG, PHOS, CMP, PBNP, GFR, CBC, ADIFF, ANEU, A1C #### [place] [address] CO2 molar conc 27 22-32 mEq/L Normal 06-25-2018 Count includes the [facility] ([place]) (83522) Comment: Performed By: #### MG, PHOS, CMP, PBNP, GFR, CBC, ADIFF, ANEU, A1C #### [place] [address] Electrolyte Balance 8.0 4.0-15.0 mEq/L Normal 06-25-2018 [facility] ([place]) (0000 0) Comment: Performed By: #### MG, PHOS, CMP, PBNP, GFR, CBC, ADIFF, ANEU, A1C #### [place] [address] Glucose mass conc 144 70-110 mg/dL High 06-25-2018 A [facility] ([place]) (19754) Comment: Performed By: #### MG, PHOS, CMP, PBNP, GFR, CBC, ADIFF, ANEU, A1C #### [place] [address] Potassium molar conc 3.8 3.5-5.0 mEq/L Normal 8 [facility] ([place]) (0000 0) Comment: Performed By: #### MG, PHOS, CMP, PBNP, GFR, CBC, ADIFF, ANEU, A1C #### [address] [address] Sodium molar conc 138 136-145 mEq/L Normal 06-25-2018 A [facility] ([place]) (83549) Comment: Performed By: #### MG, PHOS, CMP, PBNP, GFR, CBC, ADIFF, ANEU, A1C #### [place] [address] Urea nitrogen mass conc 29.0 8.0-22.0 mg/dL High 2017 [facility] ([place]) (0000 0) Comment: Performed By: #### MG, PHOS, CMP, PBNP, GFR, CBC, ADIFF, ANEU, A1C #### [place] [address] cbc on 2018-06-25 Erythrocyte distribution 13.4 11.5-15.5 % Normal 06-25 [facility] width Ratio (RBC) Fo undation ([place]) (39132) Comment: Performed By: #### BMP, CK, GFR, LIPID, HFP, A1C #### [place] [address] Hematocrit Volume 40.8 40.0-52.0 % Normal 06-25-2018 A [facility] Fraction ([facility]) ([place]) (14195) Comment: Performed By: #### BMP, CK, GFR, LIPID, HFP, A1C #### [place] [address] Hemoglobin mass conc 13.9 13.0-17.5 G/dL Normal 8 [facility] (d) [facility] ([place]) (93937) Comment: Performed By: #### BMP, CK, GFR, LIPID, HFP, A1C #### [address] [address] MCH Entitic mass (RBC) 30.9 27.0-33.0 pg Normal 018 [facility] ([place]) (0000 0) Comment: Performed By: #### BMP, CK, GFR, LIPID, HFP, A1C #### [place] [id number] MCHC mass conc (RBC) 34.0 32.0-36.0 G/dL Normal 8 [facility] ([place]) (0000 0) Comment: Performed By: #### BMP, CK, GFR, LIPID, HFP, A1C #### [place] [address] MCV Entitic volume 90.9 81.0-100.0 fL Normal 06-25-2018 [facility] (RBC) ([place]) (0000 0) Comment: Performed By: #### BMP, CK, GFR, LIPID, HFP, A1C #### [place] [address] Platelet mean volume 7.9 6.4-10.5 fL Normal 8 [facility] Entitic volume (Bld) ([place]) (80396) Comment: Performed By: #### BMP, CK, GFR, LIPID, HFP, A1C #### [place] [address] Platelets #/vol (Bld) 255 150-450 10 3/mcL Normal 06-25-20 18 [facility] ([place]) (56270) Comment: Performed By: #### BMP, CK, GFR, LIPID, HFP, A1C #### [place] [address] RBC #/vol (Bld) 4.48 4.50-6.00 10 6/mcL Low 06-25-2018 [facility] ([place]) (53275) Comment: Performed By: #### BMP, CK, GFR, LIPID, HFP, A1C #### [place] [address] WBC #/vol (Bld) 4.20 4.50-10.80 10 3/mcL Low 06-25-2018 [facility] ([place]) (0000 0) Comment: Performed By: #### BMP, CK, GFR, LIPID, HFP, A1C #### [place] [address] Erythrocyte distribution 13.5 11.5-15.5 % Normal 06-25 [facility] width Ratio (RBC) Fo undation ([place]) (55176) Comment: Performed By: #### BMP, CK, GFR, LIPID, HFP, A1C #### [place] [address] Hematocrit Volume 41.5 40.0-52.0 % Normal 06-25-2018 A [facility] Fraction (Bld) ([place]) (83596) Comment: Performed By: #### BMP, CK, GFR, LIPID, HFP, A1C #### [place] [address] Hemoglobin mass conc 14.1 13.0-17.5 G/dL Normal 8 [facility] (Bld) [facility] ([place]) ([address]486) Comment: Performed By: #### BMP, CK, GFR, LIPID, HFP, A1C #### [place] [address] MCH Entitic mass (RBC) 30.7 27.0-33.0 pg Normal 018 [facility] ([place]) (0000 0) Comment: Performed By: #### BMP, CK, GFR, LIPID, HFP, A1C #### [place] [address] MCHC mass conc (RBC) 33.9 32.0-36.0 G/dL Normal 8 [facility] ([place]) (0000 0) Comment: Performed By: #### BMP, CK, GFR, LIPID, HFP, A1C #### [place] [address] MCV Entitic volume 90.5 81.0-100.0 fL Normal 06-25-2018 [facility] (RBC) ([place]) (0000 0) Comment: Performed By: #### BMP, CK, GFR, LIPID, HFP, A1C #### [place] [address] Platelet mean volume 8.0 6.4-10.5 fL Normal 8 [facility] Entitic volume (Bld) ([place]) (85786) Comment: Performed By: #### BMP, CK, GFR, LIPID, HFP, A1C #### [place] [address] Platelets #/vol (Bld) 270 150-450 10 3/mcL Normal 06-25-20 18 [facility] ([place]) (48061) Comment: Performed By: #### BMP, CK, GFR, LIPID, HFP, A1C #### [address] [address] RBC #/vol (Bld) 4.59 4.50-6.00 10 6/mcL Normal 06-25-2018 [facility] ([place]) (0000 0) Comment: Performed By: #### BMP, CK, GFR, LIPID, HFP, A1C #### [address] [address] WBC #/vol (Bld) 4.60 4.50-10.80 10 3/mcL Normal 06-25-2018 [facility] ([place]) (0000 0) Comment: Performed By: #### BMP, CK, GFR, LIPID, HFP, A1C #### [address] [address] cbc w/ auto diff on 2018-06-25 Erythrocyte distribution 13.2 11.5-14.5 % Normal 06-25 [facility] width Auto Ratio (RBC) [facility] (36292) Comment: Performed By: #### [id number] # ###IMELDA [address] [place] [address] Erythrocyte distribution 13.2 11.5-14.5 % Normal 06-25 [facility] Regional width Ratio (RBC) He alth System (99764) Comment: Performed By: #### [id number] # ### IMELDA RemHemo [address] [place] [address] Hematocrit Auto Volume 42.2 42.0-52.0 % Normal 018 [facility]Bld[facility] (55481[facility] Comment: Performed By: #### [id number] # ###IMELDA [address] [place] [address] Hematocrit Volume Fraction 42.2 42.0-52.0 % Normal [facility] (Bld) Health Sys tem (13791) Comment: Performed By: #### [id number] # ### IMELDA RemHemo [address] [place] [address] Hemoglobin mass conc 14.2 13.5-18.0 G/DL Normal 8 [facility] tem (70575) Comment: Performed By: #### [id number] # ###IMELDA [address] [place] [address] Performed By: #### [id number] # ### IMELDA RemHemo [address] [place] [address] MCH Auto Entitic mass 31.0 27.0-31.0 pg Normal 06-25-20 18 [facility] (RBC) System (00 000) Comment: Performed By: #### [id number] # ###IMELDA [address] [place] [address] MCH Entitic mass (RBC) 31.0 27.0-31.0 pg Normal 018 [facility] (00 000) Comment: Performed By: #### [id number] # ### IMELDA RemHemo [address] [place] [id number] MCHC Auto mass conc 33.7 33.0-37.0 G/DL Normal 06-25-2018 [facility] (RBC) System (00 000) Comment: Performed By: #### [id number] # ###IMELDA [address] [place] [address] MCHC mass conc (RBC) 33.7 33.0-37.0 G/DL Normal 8 [facility] (00 000) Comment: Performed By: #### [id number] # ### IMELDA RemHemo [address] [place] [address] MCV Auto Entitic volume 92.1 78.0-100.0 fL Normal 06-25 [facility] (00 000) Comment: Performed By: #### [id number] # ###IMELDA [id number] [place] [address] MCV Entitic volume 92.1 78.0-100.0 fL Normal 06-25-2018 [facility] (00 000) Comment: Performed By: #### [id number] # ### IMELDA RemHemo [address] [place] [id number] Platelet mean volume Auto 7.8 7.4-11.0 fL Normal 06-11 [facility] Entitic volume (d) System (82564) Comment: Performed By: #### [id number] # ###IMELDA [id number] [place] [address] Platelet mean volume 7.8 7.4-11.0 fL Normal 8 [facility] Entitic volume (Bld) System (26413) Comment: Performed By: #### [id number] # ### IMELDA RemHemo [address] [place] [address] Platelets #/vol (Bld) 283 130-400 E3/mcL Normal 06-25-20 18 [facility] (00 000) Comment: Performed By: #### [id number] # ### IMELDA RemHemo [address] [place] [address] Platelets Auto #/vol 283 130-400 E3/mcL Normal 8 [facility] (46205) Comment: Performed By: #### [id number] # ###IMELDA [id number] [place] [address] RBC #/vol (Bld) 4.58 3.90-6.10 E6/mcL Normal 06-25-2018 [facility] (00 000) Comment: Performed By: #### [id number] # ### IMELDA RemHemo [address] [place] [address] RBC Auto #/vol (Bld) 4.58 3.90-6.10 E6/mcL Normal 8 [facility] (45032) Comment: Performed By: #### [id number] # ###IMELDA ImmMdjd9067 [place] [address] WBC #/vol (Bld) 4.6 3.6-11.0 E3/mcL Normal 06-25-2018 [facility] (00 000) Comment: Performed By: #### [id number] # ### IMELDA RemHemo [address] [place] [address] WBC Auto #/vol (Bld) 4.6 3.6-11.0 E3/mcL Normal 8 [facility] (00 000) Comment: Performed By: #### [id number] # ###IMELDA AkyBnxc2681 [place] [address] bmp on 2018-06-25 Creatinine mass conc 0.97 0.60-1.40 mg/dL Normal 8 [facility] ([place]) (0000 0) Comment: Performed By: #### BMP, CK, GFR, LIPID, HFP, A1C #### [address] [address] Urea nitrogen/Creatinine mass 28.9 10.0-22.0 ratio High 06-25-2018 [facility] ([place]) (25286) Comment: Performed By: #### BMP, CK, GFR, LIPID, HFP, A1C #### [address] [address] Calcium mass conc 8.7 8.4-10.1 mg/dL Normal 06-25-2018 [facility] ([place]) (26301) Comment: Performed By: #### BMP, CK, GFR, LIPID, HFP, A1C #### [address] [address] Chloride molar conc 103 98-110 mEq/L Normal 06-25-2018 [facility] ([place]) (52360) Comment: Performed By: #### BMP, CK, GFR, LIPID, HFP, A1C #### [address] [address] CO2 molar conc 27 22-32 mEq/L Normal 06-25-2018 Count includes the [facility] ([place]) (43617) Comment: Performed By: #### BMP, CK, GFR, LIPID, HFP, A1C #### [address] [address] Electrolyte Balance 8.0 4.0-15.0 mEq/L Normal 06-25-2018 [facility] ([place]) (0000 0) Comment: Performed By: #### BMP, CK, GFR, LIPID, HFP, A1C #### [address] [address] Glucose mass conc 167 70-110 mg/dL High 06-25-2018 [facility] ([place]) (07366) Comment: Performed By: #### BMP, CK, GFR, LIPID, HFP, A1C #### [address] [address] Potassium molar conc 3.9 3.5-5.0 mEq/L Normal 8 [facility] ([place]) (0000 0) Comment: Performed By: #### BMP, CK, GFR, LIPID, HFP, A1C #### [address] [address] Sodium molar conc 138 136-145 mEq/L Normal 06-25-2018 A [facility] ([place]) (17867) Comment: Performed By: #### BMP, CK, GFR, LIPID, HFP, A1C #### [address] [address] Urea nitrogen mass conc 28.0 8.0-22.0 mg/dL High 2017 [facility] ([place]) (0000 0) Comment: Performed By: #### BMP, CK, GFR, LIPID, HFP, A1C #### [address] [address] Anion gap 3 molar conc 16 10-20 mEq/L Normal [address] [place] [address] (00 000) Comment: Performed By: #### [id number] # ###IMELDA MasonVofDgac1856 [place] [address] Anion gap molar conc 16 10-20 mEq/L Normal 8 [facility] (00 000) Comment: Performed By: #### [id number] # ### IMELDA RemChem [address] [place] [address] Calcium mass conc 9.8 8.6-10.3 mg/dL Normal 06-25-[address] [facility] (00 000) Comment: Performed By: #### [id number] # ###IMELDA JkcQjvw0717 [place] [address] Performed By: #### [id number] # ### IMELDA RemChem [address] [place] [address] Chloride molar conc 101 98-107 mEq/L Normal 06-25-2018 [facility] (00 000) Comment: Performed By: #### [id number] # ###[facility] DnsExxk1751 [place] [address] Performed By: #### [id number] # ### IMELDADanica Mason[employer] [address] [place] [address] CO2 molar conc 22.0 21.0-32.0 mEq/L Normal 06-25-2018 [facility] () Comment: Performed By: #### [id number] # ###[facility] TfmAhpf1478 [place] [address] Performed By: #### [id number] # ### IMELDADanica [employer] [address] [place] [address] Creatinine mass conc 1.1 0.5-1.3 mg/dL Normal 8 [facility] () Comment: Performed By: #### [id number] # ###[facility] L[address] [place] [address] Performed By: #### [id number] # ### IMELDADanica [employer] [address] [place] [address] Glucose mass conc 236 70-99 mg/dL High 06-25-[address] [facility] (15287) Comment: Performed By: #### [id number] # ###[facility] RmiOcol8542 [place] [address] Performed By: #### [id number] # ### IMELDADanica [employer] [address] [place] [address] Potassium molar conc 3.8 3.5-5.3 mEq/L Normal 8 [facility] () Comment: Performed By: #### [id number] # ###IMELDADanica MasonXkaUtgs4601 [place] [address] Performed By: #### [id number] # ### [facility] RemChem [address] [place] [address] Sodium molar conc 135 136-145 mEq/L Low 06-25-[address] [facility] (19223) Comment: Performed By: #### [id number] # ###[facility] PprPeoy3723 [place] [address] Performed By: #### [id number] # ### [facility] RemChem [address] [place] [address] Urea nitrogen mass conc 28 6-23 mg/dL High 2017 [facility] (00 000) Comment: Performed By: #### [id number] # ###IMELDA Alfar[address] [place] [address] Performed By: #### [id number] # ### [facility] [address] [place] [address] Urea nitrogen/Creatinine mass 25.5 5.4-30.0 ratio Normal 06-25-2018 [facility] tem (90000) Comment: Performed By: #### [id number] # ###IMELDA MasonGsnZqge[address] [place] [address] Performed By: #### [id number] # ### IMELDADanica [employer] [address] [place] [address] auto diff on 2017-07 Basophils #/vol (Bld) 0.0 0.0-0.2 E3/mcL Normal 06-25-20 18 [facility] (00 000) Comment: Order Comment: Order Added b y Discern Expert. Performed By: #### [id number] # ### IMELDA MasonHemo [address] [place] [address] Basophils Auto #/vol 0.0 0.0-0.2 E3/mcL Normal 8 [facility] (70893) Comment: Order Comment: Order Added b y Discern Expert. Performed By: #### [id number] # ###IMELDA MasonItoYniz1543 [place] [address] Basophils/100 WBC (Bld) 0.8 0.0-2.0 % Normal 2017 [facility] (00 000) Comment: Order Comment: Order Added b y Discern Expert. Performed By: #### [id number] # ### IMELDADanica MasonHemo [address] [place] [address] Basophils/100 WBC Auto (Bld) 0.8 0.0-2.0 % Normal 1 08-26-2017 [facility] tem (12688) Comment: Order Comment: Order Added b y Discern Expert. Performed By: #### [id number] # ###IMELDA MasonAkcTmzs8534 [place] [address] Eos Absolute 0.2 0.0-0.7 E3/mcL Normal 06-25-2018 [facility] (28165) Comment: Order Comment: Order Added b y Discern Expert. Performed By: #### [id number] # ###IMELDA Bucknero[address] [place] [address] Performed By: #### [id number] # ### IMELDA Bucknero [address] [place] [address] Eosinophils/100 WBC (Bld) 5.0 0.0-11.0 % Normal 06-11 [facility] (00 000) Comment: Order Comment: Order Added b y Discern Expert. Performed By: #### [id number] # ### IMELDA MasonAarono [address] [place] [address] Eosinophils/100 WBC Auto 5.0 0.0-11.0 % Normal 06-25 [facility] (95125) Comment: Order Comment: Order Added b y Discern Expert. Performed By: #### [id number] # ###IMELDA [address]nero[address] [place] [address] Lymphocytes #/vol (Bld) 1.7 1.2-3.4 E3/mcL Normal 2017 [facility] (45333) Comment: Order Comment: Order Added b y Discern Expert. Performed By: #### [id number] # ### IMELDA Bucknero [address] [place] [address] Lymphocytes Auto #/vol 1.7 1.2-3.4 E3/mcL Normal 018 [facility] (22555) Comment: Order Comment: Order Added b y Discern Expert. Performed By: #### [id number] # ###IMELDA MasonQhlOyts6773 [place] [address] Lymphocytes/100 WBC (Bld) 37.0 20.0-55.0 % Normal 06-11 [facility] (16205) Comment: Order Comment: Order Added b y Discern Expert. Performed By: #### [id number] # ### IMELDADanica MasonHemo [address] [place] [address] Lymphocytes/100 WBC Auto 37.0 20.0-55.0 % Normal 06-25 [facility] (49530) Comment: Order Comment: Order Added richard Wick Expert. Performed By: #### [id number] # ###IMELDADanica MasonNrkPned8487 [place] [address] [place] Absolute 0.5 0.0-0.7 E3/mcL Normal 06-25-2018 [facility] (58867) Comment: Order Comment: Order Added richard Wick Expert. Performed By: #### [id number] # ###IMELDADanica MasonWydXhze1250 [place] [address] Performed By: #### [id number] # ### IMELDADanica MasonHemo [address] [place] [address] Monocytes/100 WBC (Bld) 11.4 0.0-10.0 % High 2017 [facility] (00 000) Comment: Order Comment: Order Added richard Wick Expert. Performed By: #### [id number] # ### IMELDADanica MasonHemo [address] [place] [address] Monocytes/100 WBC Auto (Bld) 11.4 0.0-10.0 % High 1 08-26-2017 [facility] (52209) Comment: Order Comment: Order Added richard Wick Expert. Performed By: #### [id number] # ###IMELDA MasonXnaUtbj6943 [place] [address] Neutro Absolute 2.1 1.4-6.5 E3/mcL Normal 06-25-2018 [facility] (58338) Comment: Order Comment: Order Added richard Wick Expert. Performed By: #### [id number] # ###IMELDA LvvHzit3870 [place] [address] Performed By: #### [id number] # ### IMELDA RemHemo [address] [place] [address] Neutro Auto 45.8 37.0-75.0 % Normal 06-25-2018 [facility] (56484) Comment: Order Comment: Order Added richard Wick Expert. Performed By: #### [id number] # ###IMELDA PqtQcnf1590 [place] [address] Performed By: #### [id number] # ### IMELDA RemHemo [address] [place] [address] a1c on 2018-06-25 Hemoglobin A1c/Hemoglobin.total 7.2 4.0-6.0 % High 06-25-2018 [facility] mass fraction (Bld) [facility]) (94188) Comment: Performed By: #### BMP, CK, GFR, LIPID, HFP, A1C #### [address] [address] .neuabs on Neutrophils #/vol (Bld) 1.70 2.25-8.10 10 3/mcL Low 2017 [facility] ([place]) (47958) Comment: Performed By: #### BMP, CK, GFR, LIPID, HFP, A1C #### [address] [address] Neutrophils #/vol (Bld) 1.90 2.25-8.10 10 3/mcL Low 2017 [facility] ([place]) (91660) Comment: Performed By: #### BMP, CK, GFR, LIPID, HFP, A1C #### [address] [address] .gfr on 2018-06-25 GFR >60 Normal 8 [facility] ([place]) (02294) Comment: Result Comment: GFR Population mean for Afri can Nauruan, Non- Americans Ages 20-29 = 116 mL/min/1.73 sq.m. Ages 30-39 = 107 mL/min/1.73 sq.m. Ages 40-49 = 99 mL/min/1.73 sq.m. Ages 50-59 = 93 mL/min/1.73 sq.m. Ages 60-69 = 85 mL/min/1.73 sq.m. Ages 70+ = 75 mL/min/1.73 sq .m. Chronic Kidney Disease: Less than 60 mL/min/1.73 square meters End Stage Renal Disease: Les s than 15 mL/min/1.73 square meters Performed By: #### BMP, CK, GFR, LIPID, HFP, A1C #### [address] [address] GFR Non- >60 Normal 06-25 [facility] ([place]) (52342) Comment: Result Comment: GFR Population mean for Afri can Nauruan, Non- Americans Ages 20-29 = 116 mL/min/1.73 sq.m. Ages 30-39 = 107 mL/min/1.73 sq.m. Ages 40-49 = 99 mL/min/1.73 sq.m. Ages 50-59 = 93 mL/min/1.73 sq.m. Ages 60-69 = 85 mL/min/1.73 sq.m. Ages 70+ = 75 mL/min/1.73 sq .m. Chronic Kidney Disease: Less than 60 mL/min/1.73 square meters End Stage Renal Disease: Les s than 15 mL/min/1.73 square meters Performed By: #### BMP, CK, GFR, LIPID, HFP, A1C #### [address] [address] GFR >[address] [place] [address] ([place]) (26475) Comment: Result Comment: GFR Population mean for Afri can Nauruan, Non- Americans Ages 20-29 = 116 mL/min/1.73 sq.m. Ages 30-39 = 107 mL/min/1.73 sq.m. Ages 40-49 = 99 mL/min/1.73 sq.m. Ages 50-59 = 93 mL/min/1.73 sq.m. Ages 60-69 = 85 mL/min/1.73 sq.m. Ages 70+ = 75 mL/min/1.73 sq .m. Chronic Kidney Disease: Less than 60 mL/min/1.73 square meters End Stage Renal Disease: Les s than 15 mL/min/1.73 square meters Performed By: #### BMP, CK, GFR, LIPID, HFP, A1C #### [address] [address] GFR Non- >60 Normal 06-25 [facility] ([place]) (66982) Comment: Result Comment: GFR Population mean for Afri can Nauruan, Non- Americans Ages 20-29 = 116 mL/min/1.73 sq.m. Ages 30-39 = 107 mL/min/1.73 sq.m. Ages 40-49 = 99 mL/min/1.73 sq.m. Ages 50-59 = 93 mL/min/1.73 sq.m. Ages 60-69 = 85 mL/min/1.73 sq.m. Ages 70+ = 75 mL/min/1.73 sq .m. Chronic Kidney Disease: Less than 60 mL/min/1.73 square meters End Stage Renal Disease: Les s than 15 mL/min/1.73 square meters Performed By: #### BMP, CK, GFR, LIPID, HFP, A1C #### [address] [address] .auto diff on 06-25 Ammonia mass conc 0.60 0.09-1.40 10 3/mcL Normal 06-25-2018 [facility] (P) [facility] ([place]) (93104) Comment: Performed By: #### BMP, CK, GFR, LIPID, HFP, A1C #### [place] [address] Basophils #/vol (Bld) 0.00 0.00-0.27 10 3/mcL Normal 06-25-20 18 [facility] ([place]) (91599) Comment: Performed By: #### BMP, CK, GFR, LIPID, HFP, A1C #### [address] [address] Basophils/100 WBC (Bld) 0.5 0.0-2.5 % Normal 2017 [facility] ([place]) (0000 0) Comment: Performed By: #### BMP, CK, GFR, LIPID, HFP, A1C #### [address] [address] Eosinophils #/vol 0.30 0.00-0.65 10 3/mcL Normal 06-25-2018 [facility] (d) [facility] ([place]) (25598) Comment: Performed By: #### BMP, CK, GFR, LIPID, HFP, A1C #### [address] [address] Eosinophils/100 WBC (Bld) 6.3 0.0-6.0 % High 12-1 5-2018 [facility] ([place]) (0000 0) Comment: Performed By: #### BMP, CK, GFR, LIPID, HFP, A1C #### [address] [address] Lymphocytes #/vol 1.60 0.90-4.32 10 3/mcL Normal 06-25-2018 [facility] ([facility]) [facility]) (11088) Comment: Performed By: #### BMP, CK, GFR, LIPID, HFP, A1C #### [address] [address] Lymphocytes/100 WBC (Bld) 38.6 20.0-40.0 % Normal 06-11 [facility]) (66886) Comment: Performed By: #### BMP, CK, GFR, LIPID, HFP, A1C #### [address] [address] Monocytes/100 WBC (Bld) 13.4 2.0-13.0 % High 2017 [facility] ([place]) (0000 0) Comment: Performed By: #### BMP, CK, GFR, LIPID, HFP, A1C #### [address] [address] Neutrophils/100 WBC (Bld) 41.2 50.0-75.0 % Low 06-11 [facility] ([place]) (0000 0) Comment: Performed By: #### BMP, CK, GFR, LIPID, HFP, A1C #### [address] [address] Ammonia mass conc 0.60 0.09-1.40 10 3/mcL Normal 06-25-2018 [facility] (P) [facility] ([place]) (68783) Comment: Performed By: #### BMP, CK, GFR, LIPID, HFP, A1C #### [address] [address] Basophils #/vol (Bld) 0.00 0.00-0.27 10 3/mcL Normal 06-25-20 18 [facility] ([place]) (86795) Comment: Performed By: #### BMP, CK, GFR, LIPID, HFP, A1C #### [address] [address] Basophils/100 WBC (Bld) 0.7 0.0-2.5 % Normal 2017 [facility] ([place]) (0000 0) Comment: Performed By: #### BMP, CK, GFR, LIPID, HFP, A1C #### [address] [address] Eosinophils #/vol 0.30 0.00-0.65 10 3/mcL Normal 06-25-2018 [facility] ([place]) (44284) Comment: Performed By: #### BMP, CK, GFR, LIPID, HFP, A1C #### [address] [address] Eosinophils/100 WBC (Bld) 5.6 0.0-6.0 % Normal 06-11 [facility] ([place]) (0000 0) Comment: Performed By: #### BMP, CK, GFR, LIPID, HFP, A1C #### [address] [address] Lymphocytes #/vol 1.90 0.90-4.32 10 3/mcL Normal 06-25-2018 [facility] ([facility] ([place]) (55454) Comment: Performed By: #### BMP, CK, GFR, LIPID, HFP, A1C #### [address] [address] Lymphocytes/100 WBC (Bld) 39.8 20.0-40.0 % Normal 06-11 [facility] ([place]) (89425) Comment: Performed By: #### BMP, CK, GFR, LIPID, HFP, A1C #### [address] [address] Monocytes/100 WBC (Bld) 12.7 2.0-13.0 % Normal 2017 [facility] ([place]) (0000 0) Comment: Performed By: #### BMP, CK, GFR, LIPID, HFP, A1C #### [address] [address] Neutrophils/100 WBC (Bld) 41.2 50.0-75.0 % Low 06-11 [facility] ([place]) (0000 0) Comment: Performed By: #### BMP, CK, GFR, LIPID, HFP, A1C #### [facility] [address] [place], [place] [address] magnesium on 2017-07 Magnesium mass conc 2.1 1.6-2.4 mg/dL Normal 06-15-2018 [facility] (00 000) Comment: Performed By: #### [id number] # ### IMELDA RemHemo [address] [place] [address] hgba1c on Hemoglobin A1c/Hemoglobin.total 7.2 4.0-6.3 % High 06-15-2018 [facility] ([facility]) [facility] (85236) Comment: Performed By: #### [id number] # ### IMELDA RemHemo [facility] [place] [address] egfr on 2018-06-15 GFR/1.73 sq M predicted >60 mL/min/{1.73_m2} Normal 06-15-2018 [facility] among non-blacks [facility] (22951) vol rate/area (S/P/Bld) Comment: Order Comment: Order Added b y Discern Expert. Performed By: #### [id number] # ### IMELDA RemHemo [address] [place] [address] bmp on 2018-06-15 Anion gap molar conc 12 10-20 mEq/L Normal 8 [facility] (00 000) Comment: Performed By: #### [id number] # ### IMELDA RemHemo [address] [place] [address] Calcium mass conc 9.0 8.6-10.3 mg/dL Normal 06-15-[address] [facility] (00 000) Comment: Performed By: #### [id number] # ### IMELDA RemHemo [address] [place] [address] Chloride molar conc 109 98-107 mEq/L High 06-15-2018 [facility] (16015) Comment: Performed By: #### [id number] # ### IMELDA RemHemo [address] [place] [address] CO2 molar conc 21.0 21.0-32.0 mEq/L Normal 06-15-2018 [facility] (00 000) Comment: Performed By: #### [id number] # ### IMELDA Bucknero [address] [place] [address] Creatinine mass conc 0.8 0.5-1.3 mg/dL Normal 8 [facility] (00 000) Comment: Performed By: #### [id number] # ### IMELDA Bucknero [address] [place] [address] Glucose mass conc 156 70-99 mg/dL High 06-15-[address] [facility] (64419) Comment: Performed By: #### [id number] # ### IMELDA Bucknero [facility] [place] [address] Potassium molar conc 4.4 3.5-5.3 mEq/L Normal 8 [facility] (00 000) Comment: Performed By: #### [id number] # ### IMELDA Bucknero [address] [place] [address] Sodium molar conc 138 136-145 mEq/L Normal 06-15-[address] [facility] (00 000) Comment: Performed By: #### [id number] # ### IMELDA Bucknero [address] [place] [address] Urea nitrogen mass conc 20 6-23 mg/dL Normal 2017 [facility] (00 000) Comment: Performed By: #### [id number] # ### IMELDA Bucknero [facility] [place] [address] Urea nitrogen/Creatinine mass 25.0 5.4-30.0 ratio Normal 06-15-2018 [facility] (41230) Comment: Performed By: #### [id number] # ### IMELDA Bucknero [address] [place] [address] tsh on 2018-03-22 Thyrotropin Qn 0.53 0.30-5.60 mIU/m Normal 03-22-2018 [facility] (00 000) Comment: Performed By: #### [id number] # ### IMELDA [employer] [address] [place] [address] hgba1c on 2018-03-12 1 Hemoglobin A1c/Hemoglobin.total 6.0 4.0-6.3 % Normal 03-22-2018 [facility] ([facility] (53037) Comment: Performed By: #### [id number] # ### IMELDA RemHemo [address] [place] [address] xr chest ap portable on 2018-02-12 XR Chest AP Exam Date/Time: Normal 02-12-2018 [facility] 02/12/2018 19:22 EDT [facility] Reason for Exam: (00 000) weakness;Other (please specify) Report STUDY: XR Chest AP Portable; 02/12/2018 7:22 pm INDICATION: Lightheaded, weakness COMPARISON: None. ACCESSION NUMBER(S): [id number] ORDERING CLINICIAN: Bam Salomon FINDINGS: There is left side cardiac g enerator and dual leads. The cardiac silhouette is normal in size. No airspace consolidation or pl eural effusion. No pneumothorax. Degenerative osseous spurring of the lower thoracic spine. IMPRESSION: No airspace consolidation or pleural effusion. FINAL REPORT Dictated: 02/12/2018 7:30 pm Leonidas Krishnan MD Signed (Electronic Signature): 02/12/2018 7:30 pm Signed by: Leonidas Krishnan MD Technologist: CEC ua complete on 2017 Color Nom (U) Yellow Yellow Normal 02-12-2018 [facility] (11302) Comment: Performed By: #### [id number] #### IMELDA Urinalysis [employer] [facility] [address] [place] [address] Glucose mass conc (U) 3+ Negative Abnormal 02-13-20 18 [facility] (00 000) Comment: Performed By: #### [id number] #### MIELDA Urinalysis [employer] [facility] [address] [place] [address] Ketones Ql (U) Negative Negative Normal 02-12-2018 [facility] (99078) Comment: Performed By: #### [id number] #### IMELDA Urinalysis [employer] [facility] [address] [place] [address] RBC #/vol (U) 0-3 0-3 Normal 02-12-2018 [facility] (55975) Comment: Performed By: #### [id number] #### IMELDA Urinalysis [employer] [facility] [address] [place] [address] UA Blood Negative Negative Normal 02-12-2018 [facility] (73042) Comment: Performed By: #### [id number] #### IMELDA Urinalysis [employer] [facility] [address] [place] [address] UA Ascorbic Acid 20 <=19 mg/dL High 02-12-2018 [facility] (52346) Comment: Performed By: #### [id number] #### IMELDA Urinal[facility] [employer] [facility] [address] [place] [address] UA Clarity Clear Clear Normal 02-12-2018 [facility] (90136) Comment: Performed By: #### [id number] #### IMELDA Urinalysis [employer] [facility] [address] [place] [address] UA Leuk Est Negative Negative Normal 02-12-2018 [facility] (41248) Comment: Performed By: #### [id number] #### IMELDA Urinalysis [employer] [facility] [address] [place] [address] UA Nitrite Negative Negative Normal 02-12-2018 [facility] (90307) Comment: Performed By: #### [id number] #### IMELDA Urinalysis [employer] [facility] [address] [place] [address] UA pH 6.0 4.6-8.0 Normal 02-12-2018 [facility] (05787) Comment: Performed By: #### [id number] #### IMELDA Urinalysis [employer] [facility] [address] [place] [address] UA Protein Negative Negative Normal 02-12-2018 [facility] (34269) Comment: Performed By: #### [id number] #### IMELDA Urinalysis [employer] [facility] [address] [place] [address] UA Spec Grav 1.030 1.003-1.030 Normal 02-12-2018 [facility] (19857) Comment: Performed By: #### [id number] #### IMELDA Urinalysis [employer] [facility] [address] [place] [address] UA Squam Epithelial 0-5 0-5 Normal 02-12-2018 [facility] (99382) Comment: Performed By: #### [id number] #### IMELDA Urinalysis [employer] [facility] [address] [place] [address] UA Urobilinogen 4.0 mg/dL Abnormal 02-12-2018 [facility] (36818) Comment: Performed By: #### [id number] #### IMELDA Urinalysis [employer] [facility] [address] [place] [address] UA WBC 0-5 0-5 Normal 02-12-2018 [facility] (80752) Comment: Performed By: #### [id number] #### IMELDA Urinalysis [employer] [facility] [address] [place] [address] Urobilinogen Qn (U) Negative Negative Normal 02-12-2018 [facility] (00 000) Comment: Performed By: #### [id number] #### IMELDA Urinalysis [employer] [facility] [address] [place] [address] troponin-i on 02-12 Troponin I.cardiac mass .01 .00-.03 ng/mL Normal 2017 [facility] (32142) Comment: Performed By: #### [id number] # ### IMELDA [employer] [address] [place] [address] magnesium on 02-12 Magnesium mass conc 2.0 1.7-2.8 mg/dL Normal 02-12-2018 [facility] (00 000) Comment: Performed By: #### [id number] # ### IMELDA [employer] [address] [place] [address] egfr on 2018-02-12 GFR/1.73 sq M predicted >60 mL/min/{1.73_m2} Normal 02-12-2018 [facility] among non-blacks [facility] (79317) vol rate/area (S/P/Bld) Comment: Order Comment: Order added b y Discern Expert. Performed By: #### [id number] #### IMELDA [employer] [facility] [place] [address] ct head or brain w/o contrast on 2018-02-12 CT Head or Brain Exam Date/Time: Normal [facility] w/o Contrast 02/12/2018 19:22 EDT [facility] Reason for Exam: Sys tem (14860) Injury Report STUDY: CT Head or Brain w/o Contrast; 02/12/2018 7:22 pm INDICATION: Injury. COMPARISON: None ACCESSION NUMBER(S): [id number] ORDERING CLINICIAN: Bam Salomon TECHNIQUE: Contiguous axial images of t he head were obtained without intravenous contrast. FINDINGS: BRAIN PARENCHYMA:There is ce rebral atrophy and chronic periventricular white matter small vessel ischemic change. The carrasco wh ite matter differentiation is preserved. No mass effect or midline shift. HEMORRHAGE: No evidence of acute intracranial hemorrhage. VENTRICLES AND EXTRA-AXIAL S PACES:The ventricles are within normal limits in size for brain volume. No evidence of abnormal extraaxial fluid collection. EXTRACRANIAL SOFT TISSUES:Within normal limits. PARANASAL SINUSES/MASTOIDS:T he visualized paranasal sinuses and mastoid air cells are clear and well pneumatized. CALVARIUM:No evidence of depressed calvarial fracture. OTHER FINDINGS:Deformity of the nasal bones. IMPRESSION: No evidence of acute intracranial hemorrhage or depressed calvarial fracture. Cerebral atrophy and chronic periventricular white matter small vessel ischemic change. Deformity of the nasal bones ; correlation with point tenderness recommended to assess acuity. FINAL REPORT Dictated: 02/12/2018 7:29 pm Leonidas Krishnan MD Signed (Electronic Signature): 02/12/2018 7:29 pm Signed by: Leonidas Krishnan MD Technologist: CAMACHO terrazas on 2018-02-12 Albumin mass conc 4.1 3.2-5.0 G/DL Normal 02-12-[address] [facility] ([id number]) Comment: Performed By: #### [id number] # ### IMELDA [facility] [address] [place] [address] Albumin/Globulin mass ratio 1.5 1.1-1.9 ratio Normal [facility] (86260) Comment: Performed By: #### [id number] # ### IMELDA [employer] [address] [place] [address] Alk Phos 34 42-121 Int._Unit/L Low 02-12-2018 [facility] (02678) Comment: Performed By: #### [id number] # ### IMELDA [employer] [address] [place] [address] ALT enzyme act/vol 31 10-40 Int._Unit/L Normal [address] [place] [address] (00 000) Comment: Performed By: #### [id number] # ### IMELDA [employer] [address] [place] [address] AST enzyme act/vol 23 10-42 Int._Unit/L Normal 8 [facility] (00 000) Comment: Performed By: #### [id number] # ### IMELDA [employer] [address] [place] [address] Bili Total 1.5 0.2-1.0 mg/dL High 02-12-2018 [facility] (18845) Comment: Performed By: #### [id number] # ### IMELDA [employer] [address] [place] [address] Calcium mass conc 8.4 8.4-10.2 mg/dL Normal 02-12-[address] [facility] (00 000) Comment: Performed By: #### [id number] # ### IMELDA [employer] [address] [place] [address] Chloride molar conc 102 98-107 mEq/L Normal 02-12-2018 [facility] (00 000) Comment: Performed By: #### [id number] # ### IMELDA [employer] [address] [place] [address] CO2 molar conc 22.8 24.0-30.0 mEq/L Low 02-12-2018 [facility] (69160) Comment: Performed By: #### [id number] # ### IMELDA [employer] [address] [place] [address] Creatinine mass conc 1.1 0.6-1.3 mg/dL Normal [address] [place] [address] (00 000) Comment: Performed By: #### [id number] # ### IMELDA [facility] [address] [place] [address] Globulin mass conc (S) 2.8 2.0-4.0 G/DL Normal 018 [facility] (00 000) Comment: Performed By: #### [id number] # ### IMELDA [employer] [address] [place] [address] Glucose mass conc 58 70-99 mg/dL Low 02-12-[address] [facility] (25283) Comment: Performed By: #### [id number] # ### [facility] [address] [place] [address] Potassium molar conc 3.8 3.5-5.1 mEq/L Normal 8 [facility] (00 000) Comment: Performed By: #### [id number] # ### IMELDA [facility] [address] [place] [address] Protein mass conc 6.9 6.4-8.3 G/DL Normal 02-12-[address] [facility] (29792) Comment: Performed By: #### [id number] # ### [facility] [address] [place] [address] Sodium molar conc 135 136-145 mEq/L Low 02-12-[address] [facility] (80883) Comment: Performed By: #### [id number] # ### [facility]DA [facility] [address] [place] [address] Urea nitrogen mass conc 15 7-18 mg/dL Normal 2017 [facility] (00 000) Comment: Performed By: #### [id number] # ### IM[facility]DA [facility] [address] [place] [address] Urea nitrogen/Creatinine mass 13.6 5.4-30.0 ratio Normal 02-12-2018 [facility] (39177) Comment: Performed By: #### [id number] # ### IMELDA [employer] [address] [place] [address] cbc w/ auto diff on 2018-02-12 Erythrocyte distribution 14.9 11.5-14.5 % High 02-12 [facility] width Ratio (RBC) [facility] (02953) Comment: Performed By: #### [id number] # ### IMELDA IsabellaHemo [address] [place] [address] Hematocrit Volume Fraction 39.9 42.0-52.0 % Low [facility] (d) System (00 000) Comment: Performed By: #### [id number] # ### IMELDA IsabellaHemo [address] [place] [id number] Hemoglobin mass conc 13.6 13.5-18.0 G/DL Normal 8 [facility] ([facility] (81169) Comment: Performed By: #### [id number] # ### IMELDA IsabellaHemo [facility] [place] [address] MCH Entitic mass (RBC) 30.4 27.0-31.0 pg Normal 018 [facility] (00 000) Comment: Performed By: #### [id number] # ### IMELDA IsabellaHemo [address] [place], [place] [address] MCHC mass conc (RBC) 34.0 33.0-37.0 G/DL Normal 8 [facility] (00 000) Comment: Performed By: #### [id number] # ### IMELDA Sitao [address] [place], [place] [address] MCV Entitic volume 89.3 78.0-100.0 fL Normal 02-12-2018 [facility] (RBC) System (00 000) Comment: Performed By: #### [id number] # ### IMELDA IsabellaHemo [facility] [place] [address] Platelet mean volume 7.9 7.4-11.0 fL Normal 8 [facility] Entitic volume (Bld) System (23722) Comment: Performed By: #### [id number] # ### IMELDADanica MasonHemo [facility] [place] [address] Platelets #/vol (Bld) 283 130-400 E3/mcL Normal 02-13-20 18 [facility] (00 000) Comment: Performed By: #### [id number] # ### IMELDA IsabellaHem[address] [address] RBC #/vol (Bld) 4.47 3.90-6.10 E6/mcL Normal 02-12-2018 [facility] ( 000) Comment: Performed By: #### [id number] # ### IMELDADanica Mason[address] [address] WBC #/vol (Bld) 4.7 3.6-11.0 E3/mcL Normal 02-12-2018 [facility] () Comment: Performed By: #### [id number] # ### IMELDA [address] [address] auto diff on 8- Basophils #/vol (Bld) 0.0 0.0-0.2 E3/mcL Normal 02-13-20 [facility] ( 000) Comment: Order Comment: Order Added b y Discern Expert. Performed By: #### [id number] # ### [address] [address] Basophils/100 WBC (Bld) 0.4 0.0-2.0 % Normal 2017 [facility] (00 000) Comment: Order Comment: Order Added b y Discern Expert. Performed By: #### [id number] # ### IMELDA [address] [address] Eos Absolute 0.1 0.0-0.7 E3/mcL Normal 02-12-2018 [facility] (14393) Comment: Order Comment: Order Added b y Discern Expert. Performed By: #### [id number] # ### IMELDA [address] [address] Eosinophils/100 WBC (Bld) 3.0 0.0-11.0 % Normal [facility] ( 000) Comment: Order Comment: Order Added b y Discern Expert. Performed By: #### [id number] # ### IMELDA [address] [address] Lymphocytes #/vol (Bld) 1.3 1.2-3.4 E3/mcL Normal 2017 [facility] (49437) Comment: Order Comment: Order Added b y Discern Expert. Performed By: #### [id number] # ### IMELDA RemHemo [address] [place] [address] Lymphocytes/100 WBC (Bld) 28.2 20.0-55.0 % Normal 08 [facility] (71556) Comment: Order Comment: Order Added b y Discern Expert. Performed By: #### [id number] # ### IMELDA RemHemo [address] [place] [address] [place] Absolute 0.5 0.0-0.7 E3/mcL Normal 02-12-2018 [facility] (47969) Comment: Order Comment: Order Added b y Discern Expert. Performed By: #### [id number] # ### IMELDADanica MasonHemo [address] [place] [address] Monocytes/100 WBC (Bld) 10.8 0.0-10.0 % High 2017 [facility] (00 000) Comment: Order Comment: Order Added b y Discern Expert. Performed By: #### [id number] # ### IMELDA RemHemo [address] [place] [address] Neutro Absolute 2.7 1.4-6.5 E3/mcL Normal 02-12-2018 [facility] (82249) Comment: Order Comment: Order Added b y Discern Expert. Performed By: #### [id number] # ### IMELDA RemHemo [address] [place] [address] Neutro Auto 57.6 37.0-75.0 % Normal 02-12-2018 [facility] (07882) Comment: Order Comment: Order Added b y Discern Expert. Performed By: #### [id number] # ### IMELDA RemHemo [address] [place] [address] cnco on 2017-11-05 [facility] Letter Text Pawel Childress M.D.9500 Norm al 11-05-2017 [facility]/[address] ([address]) [id number]: Fax: April 2017Dear : Mr. Richmond you for choosing the [facility] for your cardiaccare. We are pleased to offer you an appointment with Pawel Childress MD onJanuary 03, 2018 at 10:30 AM.Appointment PreparationPlease review the attached appointment schedule and follow all instructionsthat are given. Be sure to bring this appointment schedule with you as well.Your Medical History and RecordsBelow is a checklist with information you must send to your doctor's officeprior to your appointment. This information is required by the doctor priorto your visit to best evaluate and treat your medical condition. Recordsmust be obtained from your physician or the hospital where you have receivedcare previously. You may use this letter as a guide for what is required. Youmay need to sign a release of information to obtain these records. It isimportant that we receive your outside records to provide the best care toyou. Please fax these results to your [facility] doctor at least oneweek prior to your appointment. Faxing is the preferred method to receiverecords. If records must be mailed rather than faxed, they should be sentvia mail or express mail directly to the physician using the address and desknumber provided in this letter.Items needed for your visit:Your most recent hospital discharge summary related to your current heartproblemIf you have had any of the following diagnostic tests or procedures listedbelow, please obtain the film (CD) if applicable and the reportOperative notes from previous heart surgeriesMost recent cardiac catheterization (CD in DICOM format and report)Most recent echocardiogram (CD in DICOM format and report)Most recent stress testMost recent cardiac CT and MRI (CD and report)Most recent EKG (report and actual tracing; include any abnormal EKGs orrhythm disturbances)Most recent electrophysiology testing (report and actual tracing)Most recent labworkMost recent emergency room visit informationYour device identification card if you have an implanted device such as apacemaker or defibrillator or stentHaving this information will give us the best information about your illnessand help prevent delays in evaluation and treatment on the day of yourappointment. If you are having difficulty obtaining your records, pleasecontact the physician?s office for assistance.Please bring all of your medications in their original bottles. Include hixufky-aid-cdfqpli pills or remedies. This helps avoid confusion over thedosages and names of your current medications.You are encouraged to bring a family member or friend on the day of yourappointment, though it is not absolutely necessary.Medication GuidelinesTake all of your medications as prescribed, unless you have been given otherinstructions. You may need to fast or adjust diabetic medications dependingon what test or procedures you may have scheduled.Appointment TimeThe time you are asked to report for your appointment or procedure includesthe time necessary to provide you with additional instructions orpreparations. There may be a delay in the time of your procedure or seeingyour physician because of these preparations. It is our commitment to provideeach patient with the best care. We will do our best to make sure that youand your family members are as comfortable as possible during your stay.ParkingValet parking is available from 6:00 a.m. to 7:00 p.m. in front [facility] the [facility] You can also park in the Parking Garagelocated on [facility] between [address]. Wheelchairsare available in the garage or at the [facility] Admitting and Registration Desk.Discount parking vouchers are available - please ask your parking garageattendant or visit the [facility] Brush Holder Inspector's Office.ArrivalPlease report to the [facility] Registration Desk tostart your appointment. The desk is located on the first floor of the [facility]. Please show the electric meter tester helper the enclosed appointment schedule andyour insurance information.During Your AppointmentA nurse, physician physician assistant surgery, nurse practitioner, clinical nurse specialist,or fellow (doctor) may see you prior to your appointment with your physician.He or she will review the information from your checklist and will ask youquestions regarding your medical history. A physical examination may beperformed at this time. You may be scheduled for additional tests that mayinclude blood work, x-rays, EKG, or other diagnostic tests after you see yourphysician.Appointment DurationIf this is your first visit, please plan on being at the [facility] forfour hours.If You Have Questions or Need to Reschedule Your AppointmentIf for some reason you are unable to keep your appointment or you have anyquestions, please notify us as soon as possible by calling [phone]. [phone].We look forward to meeting you.Sincerely yours,Scheduling OfficeAdams County Hospital and Vascular InstituteEnclosureLetter Radha Connell:How to activate your [facility] Mobile[employer] Account 1. Visit the [employer] Signup page at [email or web address] 2. Identify yourself using your one-time use activation code: [email or web address] 3. Follow the on-screen prompts to choose your own secure username andpasswordThe following information will be necessary to access your account for thefirst time:Information needed for sign-up:Your custom activation code used one-time only for the initial accountset-up.Your date of birthThe last 4 digits of your social security numberWhat to do next:Fill in the requested information on the Identify Yourself Form [email or web address] , click Next.Create your login and password, choose a Mobile[employer] ID and password that will beeasy for you to use, but impossible for anyone else to guess.Pick a security question that will assist you in the event you forget yourpassword the next time you log-on.If you have difficulty activating your account, please call our [employer] at [phone] or toll free at .We hope you enjoy using Mobile[employer]!Kindest Regards,[facility] MobileIron Team lipid on 2017-10-27 Cholesterol in HDL mass conc 29 40-59 mg/dL Low 0 10-27-2017 [facility] ([place]) (0000 0) Comment: Result Comment: HDL Referenc e Interval: Less than 40 Low - high risk 60 or above Optimal/lowers r isk Performed By: #### BMP, CK, GFR, LIPID, HFP, A1C #### [address] [address] Cholesterol in LDL mass 60 0-129 mg/dL Normal 2017 [facility] conc ([place]) (0000 0) Comment: Result Comment: LDL is a hilton culated result and requires a 12-hr fast. LDL Reference Interval: Less than 100 Optimal 100-129 Near or above optima l 130-159 Borderline high risk 160-189 High risk 190 and above Very high risk Performed By: #### BMP, CK, GFR, LIPID, HFP, A1C #### [address] [address] Triglyceride mass conc 294 3-149 mg/dL High 018 [facility] ([place]) (23587) Comment: Result Comment: Triglyceride Reference Interval: Less than 150 Normal 150-199 Borderline high risk 200-499 High risk 500 or higher Very high risk Performed By: #### BMP, CK, GFR, LIPID, HFP, A1C #### [address] [address] Cholesterol mass conc 148 50-199 mg/dL Normal 10-28-19 18 [facility] ([place] (0000 0) Comment: Result Comment: Cholesterol Reference Interval: Less than 200 Desirable 200-239 Borderline high risk 240 and above High risk Performed By: #### BMP, CK, GFR, LIPID, HFP, A1C #### [address] [address] hfp on 2017-10-27 Bili Direct 0.2 0.0-0.4 mg/dL Normal 10-27-2017 [facility] ([place] (54200) Comment: Performed By: #### BMP, CK, GFR, LIPID, HFP, A1C #### [place] [address] Bili Indirect 0.6 0.1-10.0 mg/dL Normal 10-27-2017 [facility] ([place]) (55130) Comment: Performed By: #### BMP, CK, GFR, LIPID, HFP, A1C #### [address] [address] Albumin/Globulin mass ratio 1.2 0.9-1.6 ratio Normal [facility] ([place] (78934) Comment: Performed By: #### BMP, CK, GFR, LIPID, HFP, A1C #### [place] [id number] ALP enzyme act/vol 51 38-126 U/L Normal 10-27-2017 [facility] ([place] (48061) Comment: Performed By: #### BMP, CK, GFR, LIPID, HFP, A1C #### [address] [address] ALT enzyme act/vol 40 12-55 U/L Normal 10-27-2017 [facility] ([place] (95629) Comment: Performed By: #### BMP, CK, GFR, LIPID, HFP, A1C #### [address] [address] Bili Total 0.8 0.2-1.2 mg/dL Normal 10-27-2017 [facility] ([place] (49690) Comment: Performed By: #### BMP, CK, GFR, LIPID, HFP, A1C #### [address] [address] Globulin mass conc (S) 3.4 1.5-3.8 G/dL Normal 018 [facility] ([place] (0000 0) Comment: Performed By: #### BMP, CK, GFR, LIPID, HFP, A1C #### [address] [address] Protein mass conc 7.6 6.0-8.5 G/dL Normal 10-27-2017 A [facility] ([place]) (87452) Comment: Performed By: #### BMP, CK, GFR, LIPID, HFP, A1C #### [address] [address] Albumin mass conc 4.2 3.2-4.8 G/dL Normal 10-27-2017 A [facility] ([place] (14374) Comment: Performed By: #### BMP, CK, GFR, LIPID, HFP, A1C #### [address] [address] AST enzyme act/vol 14 8-34 U/L Normal 10-27-2017 [facility] ([place] (82870) Comment: Performed By: #### BMP, CK, GFR, LIPID, HFP, A1C #### [address] [address] ck on 2017-10-27 CK enzyme act/vol 97 7-185 U/L Normal 10-27-2017 A [facility] ([place]) (92168) Comment: Performed By: #### BMP, CK, GFR, LIPID, HFP, A1C #### [address] [address] bmp on 2017-10-27 Creatinine mass conc 1.12 0.60-1.40 mg/dL Normal 8 [facility] ([place]) (0000 0) Comment: Performed By: #### BMP, CK, GFR, LIPID, HFP, A1C #### [place] [address] Urea nitrogen/Creatinine 21.4 10.0-22.0 ratio Normal 10-27 [facility] ([place]) (06072) Comment: Performed By: #### BMP, CK, GFR, LIPID, HFP, A1C #### [place] [address] Calcium mass conc 9.6 8.4-10.1 mg/dL Normal 10-27-2017 A [facility] ([place]) (94848) Comment: Performed By: #### BMP, CK, GFR, LIPID, HFP, A1C #### [place] [address] Chloride molar conc 104 98-110 mEq/L Normal 10-27-2017 [facility] ([place] (75924) Comment: Performed By: #### BMP, CK, GFR, LIPID, HFP, A1C #### [address] [address] CO2 molar conc 29 22-32 mEq/L Normal 10-27-2017 Count includes the [facility] ([place]) (87078) Comment: Performed By: #### BMP, CK, GFR, LIPID, HFP, A1C #### [place] [address] Electrolyte Balance 8.0 4.0-15.0 mEq/L Normal 10-27-2017 [facility] ([place]) (0000 0) Comment: Performed By: #### BMP, CK, GFR, LIPID, HFP, A1C #### [place] [address] Glucose mass conc 114 70-110 mg/dL High 10-27-2017 A [facility] ([place]) (90444) Comment: Performed By: #### BMP, CK, GFR, LIPID, HFP, A1C #### [address] [address] Potassium molar conc 5.0 3.5-5.0 mEq/L Normal 8 [facility] ([place]) (0000 0) Comment: Performed By: #### BMP, CK, GFR, LIPID, HFP, A1C #### [address] [address] Sodium molar conc 141 136-145 mEq/L Normal 10-27-2017 A [facility] ([place] (62207) Comment: Performed By: #### BMP, CK, GFR, LIPID, HFP, A1C #### [address] [address] Urea nitrogen mass conc 24.0 8.0-22.0 mg/dL High 2017 [facility] ([place]) (0000 0) Comment: Performed By: #### BMP, CK, GFR, LIPID, HFP, A1C #### [address] [address] a1c on 2017-10-27 Hemoglobin A1c/Hemoglobin.total 6.8 4.0-6.0 % High 10-27-2017 [facility] mass fraction (Bld) [facility] ([place]) (34704) Comment: Performed By: #### BMP, CK, GFR, LIPID, HFP, A1C #### [address] [address] .gfr on 2017-10-27 GFR >60 Normal 8 [facility] ([place]) (81199) Comment: Result Comment: GFR Population mean for Afri can Nauruan, Non- Americans Ages 20-29 = 116 mL/min/1.73 sq.m. Ages 30-39 = 107 mL/min/1.73 sq.m. Ages 40-49 = 99 mL/min/1.73 sq.m. Ages 50-59 = 93 mL/min/1.73 sq.m. Ages 60-69 = 85 mL/min/1.73 sq.m. Ages 70+ = 75 mL/min/1.73 sq .m. Chronic Kidney Disease: Less than 60 mL/min/1.73 square meters End Stage Renal Disease: Les s than 15 mL/min/1.73 square meters Performed By: #### BMP, CK, GFR, LIPID, HFP, A1C #### [address] [address] GFR Non- >60 Normal 10-27 [facility] ([place]) (84285) Comment: Result Comment: GFR Population mean for Afri can Nauruan, Non- Americans Ages 20-29 = 116 mL/min/1.73 sq.m. Ages 30-39 = 107 mL/min/1.73 sq.m. Ages 40-49 = 99 mL/min/1.73 sq.m. Ages 50-59 = 93 mL/min/1.73 sq.m. Ages 60-69 = 85 mL/min/1.73 sq.m. Ages 70+ = 75 mL/min/1.73 sq .m. Chronic Kidney Disease: Less than 60 mL/min/1.73 square meters End Stage Renal Disease: Les s than 15 mL/min/1.73 square meters Performed By: #### BMP, CK, GFR, LIPID, HFP, A1C #### [address] [address] microalbumin, random (u) on 2017-01-19 Microalbumin (u) 10,414 mcg/dL Normal 01-19-2017 [facility] (80360) Comment: Order Comment: fasting Performed By: #### MALBR ### [address] [address] Ratio of Alb/Creat 92.2 0.0-16.9 mcg/mg High 01-19-2017 [facility] (47658) Comment: Order Comment: fasting Performed By: #### MALBR ### [address] [address] Creatinine 113.0 mg/dL Normal 01-19-2017 [facility] (37682) Comment: Order Comment: fasting Performed By: #### MALBR ### [address] [address] hepatic function panel on 2017-01-19 Alk. Phosphatase 46 38-126 U/L Normal 01-19-2017 [facility] (35964) Comment: Order Comment: fasting Performed By: #### HFP ####[facility], [address] [place] [address] Albumin/Globulin Ratio 1.1 0.9-1.6 {ratio} Normal 017 [facility] (27945) Comment: Order Comment: fasting Performed By: #### HFP ####[facility], [address] [place] [address] Bilirubin (direct) 0.6 0.2-1.2 mg/dL Normal 01-19-2017 [facility] (32946) Comment: Order Comment: fasting Performed By: #### HFP ####[facility], [facility] [address] [place] [address] Bilirubin (indirect) 0.5 mg/dL Normal 7 [facility] (31898) Comment: Order Comment: fasting Performed By: #### HFP ####[facility], [address] [place] [address] Globulin 3.4 1.5-3.8 G/dL Normal 01-19-2017 [facility]ending [facility] to [facility] (35095) Comment: Order Comment: fasting Performed By: #### HFP ####[facility], [facility] [address] [place] [address] T. Protein 7.2 6.0-8.5 G/dL Normal 01-19-2017 [facility] (17450) Comment: Order Comment: fasting Performed By: #### HFP ####[facility], [address] [place] [address] Bilirubin (direct) 0.1 0.0-0.4 mg/dL Normal 01-19-2017 [facility] (18685) Comment: Order Comment: fasting Performed By: #### HFP ####[facility], [address] [place] [address] Alanine aminotransferase (ALT) 29 12-55 U/L Normal 01-19-2017 [facility] (10169) Comment: Order Comment: fasting Performed By: #### HFP ####[facility], [address] [place] [address] Aspartate aminotransferase 11 8-34 U/L Normal [facility] (AST) [facility] (49521) Comment: Order Comment: fasting Performed By: #### HFP ####A [facility] [facility] [address] [place] [address] Albumin 3.8 3.2-4.8 G/dL Normal 01-19-2017 Pending sale to [facility] ([id number]) Comment: Order Comment: fasting Performed By: #### HFP ####[place] [address] hdl cholesterol profile on 2017-01-19 HDL Cholesterol 34 40-59 mg/dL Low 01-19-2017 [facility] ([id number]) Comment: Order Comment: fasting Result Comment: HDL Referenc e Interval: Less than 40 Low - high risk 60 or above Optimal/lowers risk Performed By: #### LIPID ### [address] [address] LDL Cholesterol 92 0-129 mg/dL Normal 01-19-2017 [facility] ([id number]) Comment: Order Comment: fasting Result Comment: LDL is a hilton culated result and requires a 12-hr fast. LDL Reference Interval: Less dada n 100 Optimal 100-129 Near or above optimal 130-159 Borderline high risk 160-189 High risk 190 and above Very high risk Performed By: #### LIPID ### #[facility], [address] [place] [address] Triglyceride 246 3-149 mg/dL High 01-19-2017 [facility] ([id number]) Comment: Order Comment: fasting Result Comment: Triglyceride Reference Interval: Less than 150 Normal 150-199 Borderline high risk 200-499 High risk 500 or higher Very high risk Performed By: #### LIPID ### #[facility], [address] [place] [address] Cholesterol 175 50-199 mg/dL Normal 01-19-2017 [facility] ([id number]) Comment: Order Comment: fasting Result Comment: Cholesterol Reference Interval: Less than 200 Desirable 200-239 Borderline high risk 240 and above High risk Performed By: #### LIPID ### #[place] [id number] glomerular filtration rate estimate on 2017-01-19 eGFR (non-black) >60 mL/min/{1.73_m2} Normal 2016 [facility] ([id number]) Comment: Order Comment: fasting Result Comment: Population m alicia GFR = 99 mL/min/1.73 sq.m. for ages 40-49 years. Chronic Kidney Diseas e: Less than 60 mL/min/1.73 square metersEnd Stage Renal Disease: Less th an 15 mL/min/1.73 square meters Performed By: #### GFR ####A [place] [id number] cpk on 2017-01-19 Creatine kinase (CK) 70 7-185 U/L Normal 7 [facility] ([id number]) Comment: Order Comment: fasting Performed By: #### CK ####[facility], [address] [place] [address] basic metabolic panel on 2017-01-19 BUN/Creatinine Ratio 18.3 10.0-22.0 mg/mg Normal 7 [facility] ([id number]) Comment: Order Comment: fasting Performed By: #### BMP ####A [facility], [address] [place] [address] Creatinine 1.04 0.60-1.40 mg/dL Normal 01-19-2017 [facility] ([id number]) Comment: Order Comment: fasting Performed By: #### BMP ####A [facility], [facility] [address] [place], [place] [id number] CO2 29 22-32 mEq/L Normal 01-19-2017 Pending sale to [facility] ([id number]) Comment: Order Comment: fasting Performed By: #### BMP ####[place] [address] Electrolyte Balance 6.0 4.0-15.0 mEq/L Normal 01-19-2017 [facility] ([id number]) Comment: Order Comment: fasting Performed By: #### BMP ####[place] [address] Glucose mass conc 176 70-110 mg/dL High 01-19-2017 A [facility] ([id number]) Comment: Order Comment: fasting Performed By: #### BMP ####[place] [address] Urea nitrogen 19.0 8.0-22.0 mg/dL Normal 01-19-2017 [facility] ([id number]) Comment: Order Comment: fasting Performed By: #### BMP ####[place] [id number] Calcium 9.0 8.4-10.1 mg/dL Normal 01-19-2017 Pending sale to [facility] ([id number]) Comment: Order Comment: fasting Performed By: #### BMP ####A [place] [id number] Chloride 104 98-110 mEq/L Normal 01-19-2017 Pending sale to [facility] ([id number]) Comment: Order Comment: fasting Performed By: #### BMP ####A [facility], [address] [place] [address] Potassium molar conc 5.0 3.5-5.0 mEq/L Normal 7 [facility] ([id number]) Comment: Order Comment: fasting Performed By: #### BMP ####A [facility], [address] [place] [address] Sodium 139 136-145 mEq/L Normal 01-19-2017 Pending sale to [facility] ([id number]) Comment: Order Comment: fasting Performed By: #### BMP ####A [facility], [facility] [address] [place] [address] a1c hgb on Hemoglobin A1c/Hemoglobin.total 8.0 4.0-6.0 % High 01-19-2017 [facility] fraction (d) [facility] ([id number]) Comment: Order Comment: fasting Performed By: #### A1C ####A [facility], [address] [place] [address] Encounters Date Type Reason Provider Location 01-19-2017 - Ambulatory E11.9,V58.83,Z51.81 [facility]IE HADDAD [facility]2017 [facility] 06-24-2018 - Emergency Urvashi Aldridge Facility:[facility] 06-25-2018 department patient [place] [facility] Chanda Espana 10-14-2018 - Evaluation and KYLE KATINA PHY Facility :A 10-15-2018 management of WO ID~[id number] inpatient REFERRING KYLE THAYER 06-25-2018 - Evaluation and PAWEL BANUELOS Facility:A 07-03-2018 management of CATIE HADDAD inpatient [facility] 11-02-2018 Patient encounter Facility:9 509 procedure 10-13-2018 Patient encounter Facility:9 509 procedure 08-14-2018 - Patient encounter PHY WO ID~[id number] Facilit y:A 08-15-2018 procedure REFERRING ROLAN RUSSO ALLI HARRISON MAINOR FRITZ 08-10-2018 Patient encounter Facility:9 509 procedure 08-05-2018 Patient encounter Facility:9 509 procedure 07-20-2018 - Patient encounter CAROLYN Facility:A 07-21-2018 procedure FAUSNEAUCHT CATIE MORALES 06-24-2018 Patient encounter Facility:9 509 procedure 06-15-2018 Patient encounter Facility:9 509 procedure 03-22-2018 Patient encounter Facility:9 509 procedure 02-12-2018 Patient encounter Facility:9 509 procedure 01-19-2018 - Patient encounter BRITTNEY Duong ty:[facility] 01-20-2018 procedure KIMBELL N 10-27-2017 - Patient encounter Type 2 diabetes CATIE HADDAD Facility:[facility] 11-01-2017 procedure mellitus without KIMBELL N WEST complications Payers Payer Name Policy Number Location [facility] ([id number]) [employer] [id number] [facility] ([id number]) [employer] [id number] [facility] (60168) [employer] [id number] [facility] (44724) [employer] [id number] [facility] (13386) [id number] [facility] (17209) [id number] [facility] (02057) [id number] [facility] (89835) [id number] [facility] (93200) [id number] [facility] (37139) [id number] [facility] [place] (01001) [id number] [facility] (05777) [id number] [facility] (56027) [id number] [facility] (84862) [id number] [facility] (27752) [id number] [facility] (33812) [id number] [facility] (54021) [id number] [facility] (88998) [id number] [facility] (04262) [id number] [facility] (06786) The following information is from the original human readable contentNo Payer Records FoundNo Payer Records FoundNo Payer Records Found Summary Purpose Family History No Family History Records FoundNo Family History Records FoundNo Family History Records FoundNo Family History Records FoundNo Family History Records FoundNo Family History Records Found Advance Directives No Advanced Directives Records FoundNo Advanced Directives Records FoundNo Advanced Directives Records FoundNo Advanced Directives Records FoundNo Advanced Directives Records FoundNo Advanced Directives Records Found Additional Source Comments FOR RECORDS PERTAINING TO PATIENTS WHO ARE OR HAVE BEEN ENROLLED IN A CHEMICAL DEPENDENCY/SUBSTANCE ABUSE PROGRAM, SOME INFORMATION MAY BE OMITTED. This clinical summary was aggregated from multiple sources. Caution should be exercised in using it in the provision of clinical care. This summary normalizes information from multiple sources, and as a consequence, information in this document may materially changethe coding, format and clinical context of patient data. In addition, data may be omittedin some cases. CLINICAL DECISIONS SHOULD BE BASED ON THE PRIMARY CLINICAL RECORDS. [facility] provides no warranty or guarantee of the accuracy or completeness of information in this document. UNRECOGNIZED CONTENT PROVIDED BELOW FOR UNRECOGNIZED SECTION No Status Records FoundNo Status Records FoundNo Status Records FoundNo Status Records FoundNo Status Records FoundNo Status Records Found UNRECOGNIZED CONTENT PROVIDED BELOW FOR UNRECOGNIZED SECTION INFORMATION SOURCE DATE CREATED AUTHOR AUTHOR'S ORGANIZATIO N 12/30/2017 [facility] DATE CREATED AUTHOR AUTHOR'S ORGANIZATIO N 01/05/2018 [facility] DATE CREATED AUTHOR AUTHOR'S ORGANIZATIO N 06/27/2018 [facility] DATE CREATED AUTHOR AUTHOR'S ORGANIZATIO N 10/24/2018 [facility] DATE CREATED AUTHOR AUTHOR'S ORGANIZATIO N 11/07/2018 [facility] DATE CREATED AUTHOR AUTHOR'S ORGANIZATIO N 01/04/2019 [facility]
[2019-01-14 19:30] LABS: Absolute Lymphocyte Count 1.34 X10^3/ul (0.83-4.51); Absolute Neutrophil Count 2.6 X10^3/uL (2.0-7.7); Basophil# 0.02 X10^3/uL; Basophil% 0.4 % (0-1); Eosinophil# 0.17 X10^3/uL; Eosinophils% 3.7 % (0-5); Hemoglobin 13.1 g/dl (13.0-16.5); Lymphocyte # 1.34 X10^3/ul (4.0); Lymphocyte % 29.1 % (19-41); Mean Corp Hgb Conc 33.6 g/gl (32-36); Mean Corpuscular Hgb 28.3 pg (27.0-32.0); Mean Corpuscular Volume 84.2 fL (80-94); Mean Platelet Vol. 8.8 fl (6.2-12.0); Monocyte# 0.44 X10^3/uL; Monocyte% 9.5 % (0-10); Neutrophil # 2.64 X10^3/uL (2.7-7.7); Neutrophil % 57.3 % (47-70); Platelet Count 276 K/mm3 (150-450); RBC Distribution Width CV 16.8 % (11.6-14.6); RBC Distribution Width SD 51.7 fl (35.1-43.9); Red Blood Count 4.63 M/mm3 (4.6-6.2); White Blood Count 4.6 K/mm3 (4.4-11.0)
[2019-01-14 19:34] LABS: POSITIVE COUNT NO; POSITIVE DIFFERENTIAL NO; POSITIVE MORPHOLOGY NO
[2019-01-14 19:47] LABS: Anion Gap 6 (5-15); BUN 21 mg/dL (7-18); BUN/Creat Ratio 15.7 RATIO (10-20); Calcium,Total 8.7 mg/dL (8.5-10.1); Chloride 104 mmol/L (98-107); Creatinine, Serum 1.34 mg/dL (0.70-1.30); EST Glomerular Filtration Rate 61 mL/min (>60); Est Glom Filt Rate - Afr Amer 74 mL/min (>60); Estimated Creatinine Clearance 71.12 ml/min; Glucose 107 mg/dL (74-106); Potassium 3.8 mmol/L (3.5-5.1); Sodium Level 137 mmol/L (136-145)
[2019-01-14] MEDS: Aspirin 81 MG TAB.CHEW 324 MG PO (19:50)
[2019-01-14 19:57] LABS: BNP,B-Type NATRIURETIC PEPTIDE 31.6 pg/mL (0-100)
[2019-01-14 20:33] VITALS: BP 104/66; PULSE 74; RESP 18; O2SAT 93
[2019-01-14 22:28] VITALS: BP 118/78; PULSE 73; RESP 15; O2SAT 97
== END 2019-01-14 22:28 | disposition home or self-care (01) ==
PROVIDERS: Emergency Provider Emergency Medicine; Family Provider Internal Medicine; PCP Internal Medicine
DX: R42 Dizziness and giddiness (principal); Z95.0 Presence of cardiac pacemaker; Z95.1 Presence of aortocoronary bypass graft
CPT/HCPCS: 71045; 80048; 83880; 84484; 85025; 93005; 99284

== ENCOUNTER 2019-03-02 14:04 | Observation (INO) | payer OTHER, SELFPAY ==
[2019-03-02] VITALS (12 sets, daily range): BP systolic 101–136; BP diastolic 68–87; PULSE 68–82; RESP 12–23; TEMP 36.6–36.7; O2SAT 94–98; BMI 34.7; BMI 34.0; BMI 34.1
--- NOTE | 2019-03-02 14:14 | EKG12_ITS ---
Test Reason : CP Blood Pressure : / mmHG Vent. Rate : 069 BPM Atrial Rate : 069 BPM P-R Int : 172 ms QRS Dur : 096 ms QT Int : 306 ms P-R-T Axes : 035 -19 114 degrees QTc Int : 327 ms Normal sinus rhythm Anterolateral infarct , age undetermined Abnormal ECG Confirmed by CATRINA WALDROP, AMINOR ([id number]), tape editor ABIMBOLA LAMAR ([id number]) on 03/06/2019 11:23:57 A M Referred By: Maria Elena Hernandez Confirmed By:RUBEN FRITZ MD
--- NOTE | 2019-03-02 14:14 | RAD_ITS ---
STUDY: X-RAY CHEST REASON FOR EXAM: Male, 48 years old. Chest pain for 2 days TECHNIQUE: Single AP portable view of the chest. COMPARISON: None. FINDINGS: Left pacemaker in place. Prior cardiac surgery. The lungs are clear and expanded. There is no demonstrated pleural abnormality. Normal size heart. Normal mediastinum and brisa. Normal visualized pulmonary arteries. Normal visualized aortic arch and descending thoracic aorta. Unremarkable visualized thoracic spine. Normal visualized ribs, clavicles, and shoulders. There is no demonstrated abnormality of the visualized soft tissue structures of the upper abdomen. RAD/Chest 1 View (Portable) IMPRESSION: Left pacemaker in place. Prior cardiac surgery. No acute intrathoracic process. Electronically Signed: Kenton Jaimes MD at 15:02 EDT Tel [phone], Service support ,
[2019-03-02 14:48] LABS: Anion Gap 4 (5-15); BUN 14 mg/dL (7-18); BUN/Creat Ratio 10.6 RATIO (10-20); Calcium,Total 9.7 mg/dL (8.5-10.1); Chloride 105 mmol/L (98-107); Creatinine, Serum 1.32 mg/dL (0.70-1.30); EST Glomerular Filtration Rate 62 mL/min (>60); Est Glom Filt Rate - Afr Amer 75 mL/min (>60); Glucose 118 mg/dL (74-106); Potassium 4.6 mmol/L (3.5-5.1); Sodium Level 138 mmol/L (136-145)
[2019-03-02 14:52] LABS: Absolute Lymphocyte Count 0.96 X10^3/uL (0.83-4.51); Absolute Neutrophil Count 3.6 X10^3/uL (2.0-7.7); Basophil# 0.01 X10^3/uL; Basophil% 0.2 % (0-1); Eosinophil# 0.09 X10^3/uL; Eosinophils% 1.7 % (0-5); Hemoglobin 13.1 g/dL (13.0-16.5); Lymphocyte # 0.96 X10^3/ul (4.0); Lymphocyte % 17.6 % (19-41); Mean Corp Hgb Conc 33.6 g/dL (32-36); Mean Corpuscular Hgb 30.1 pg (27.0-32.0); Mean Corpuscular Volume 89.7 fL (80-94); Mean Platelet Vol. 9.2 fl (6.2-12.0); Monocyte# 0.76 X10^3/uL; NRBC Flagged by Analyzer 0 % (0-5); Neutrophil # 3.61 X10^3/uL (2.7-7.7); Neutrophil % 66.3 % (47-70); Platelet Count 263 K/mm3 (150-450); RBC Distribution Width CV 13.8 % (11.6-14.6); RBC Distribution Width SD 45.4 fl (35.1-43.9); Red Blood Count 4.35 M/mm3 (4.6-6.2); White Blood Count 5.4 K/mm3 (4.4-11.0)
[2019-03-02 14:56] LABS: International Normalized Ratio 1.1; Prothrombin Time (Protime)PT. 13.9 SECONDS (11.7-14.9)
--- NOTE | 2019-03-02 15:44 | ED.DCSUM_ITS ---
- ER Visit Summary Date of Service: 03/02/19 Chief Complaint: Chest pain History of Present Illness: The patient is a 48 M who presents with chest pain that began yesterday. Patient states his pain is over the left chest. Patient states his pain is worse with exertion. Patient admits to shortness of breath. Patient describes his pain as a heaviness. Patient states this pain is similar to the pain he had prior to his bypass graft. Patient denies any nausea or vomiting. Patient denies any cough or fever. Patient denies any palpitations or diaphoresis. Patient was seen at a hospital in [place]. Patient was discharged from there and came to the emergency department here. Patient was unhappy with his care there. Patient states his support director is here at [place]. Physical Examination: Vital signs are stable. Patient is afebrile. Patient is in no acute distress. Oral mucosa is pink and moist. Neck is supple. Trachea is midline. There is no JVD noted. Heart was regular rate and rhythm. Lungs are clear and equal bilateral. Abdomen is soft. Bowel sounds are normal. There is no tenderness. There is no guarding noted. Skin is warm dry. Cranial nerves II through XII are intact. There are no focal motor or sensory deficits noted. Test Results: EKG showed normal sinus rhythm with a rate of 69. 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 This was unchanged compared to previous EKG dated 01/14/2019. CBC, basic metabolic profile, troponin were obtained and were all within normal limits. Portable chest x-ray was obtained. There is no acute cardiopulmonary process. Emergency Department Course and Treatment: Patient was given aspirin and sublingual nitroglycerin here. Case was discussed with Dr. Lee, his support director. He recommended admitting the patient to the hospital and he will see the patient in consultation. Case was discussed with the hospitalist. She will admit patient to the PCU for observation. Patient understood and was agreeable with the plan. All questions were answered. Disposition: Admit to hospital Impression: Chest pain This note was generated with Amia[employer] dictation software. It may contain incorrect words, spelling, and punctuation that were not noted in review of the chart prior to signing ED Disposition - Plan for ED Patient: Disposition: Acute Care Hospital [facility] Diagnosis: Chest pain Referrals: Chanda Espana, [Primary Care Provider] -
[2019-03-02] MEDS: Aspirin 81 MG TAB.CHEW 324 MG PO (16:07)
--- NOTE | 2019-03-02 16:19 | HP.PCM_ITS ---
<Hossein Anderson - Last Filed: 03/02/19 16:19> Problem List (1) Chest pain Status: Acute (2) Hypertension Status: Chronic (3) S/P CABG x 2 Status: Chronic Comment: 06/30/2018 COLBERT to LAD, Reverse saphenous vein aortocoronary grafting of the posterior descending branch of the RCA. (4) Diabetes mellitus, type II Status: Chronic (5) Hypothyroidism Status: Chronic (6) Cardiac defibrillator in situ Status: Resolved Comment: 08/13/2015 lt dual-ICD Medtronic Evera MRI XT, model PHUR5A4, serial number [id number], Atrial lead Mdtronic 5076-52, serial number [id number]. Ventricular lead Medtronic 3780A05 serial number [id number]. (7) HLD (hyperlipidemia) Status: Chronic (8) Ischemic cardiomyopathy Status: Chronic (9) CAD (coronary artery disease), [place] coronary artery Status: Chronic History of Present Illness Date of Admission: 03/02/19 Chief Complaint: chest pain The patient is a 48 year old M with past medical history of coronary artery disease with prior CABG last June, prior stents, patient of Dr. Lee, history of ischemic cardiomyopathy with AICD in place, atrial fibrillation, pacemaker in place, type 2 diabetes, hypothyroidism, depression who presented to the emergency room with complaints of chest pain. This pain began yesterday when he woke up. He woke up and started getting ready for work when he suddenly developed pressure on the left side of his chest that radiated into the left axilla. He also became short of breath when the chest pain came on. He took 3 nitro and had no relief. He went to work and it became worse throughout the day. He describes his pain as being exactly like when he had a CABG in the past. This morning he went to [facility] in [place] had an EKG and blood work and was sent home. He came to [facility] after this. Notably he also was seen in the emergency room for chest pain in January and was sent home. 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 And according to the last cardiology note he had another heart catheterization in October. The patient continues to have ongoing chest pain with no relief. He appears to be in obvious discomfort lying in bed. [] Past Medical History Past Medical History (Chronic Problems): Chronic Problems (This Medical Record has been edited. 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 Diabetes mellitus, type II (Chronic) Hypothyroidism (Chronic) HLD (hyperlipidemia) (Chronic) Ischemic cardiomyopathy (Chronic) CAD (coronary artery disease), [place] coronary artery (Chronic) Medical History: Medical History (This Medical Record has been edited. Action required.) Hypertension (Chronic) I10 Diabetes mellitus, type II (Chronic) E11.9 Hypothyroidism (Chronic) E03.9 HLD (hyperlipidemia) (Chronic) E78.5 Ischemic cardiomyopathy (Chronic) I25.5 CAD (coronary artery disease), [place] coronary artery (Chronic) I25.10 Foreign body of knee S80.259A right Obstructive sleep apnea G47.33 Allergies No Known Allergies Allergy (Verified 03/02/19 14:08) Home Medications: Ambulatory Orders Medication Instructions Recorded empagliflozin 25 mg tablet 25 mg PO QAM 10/24/18 levothyroxine 200 mcg capsule 200 mcg PO DAILY 10/24/18 nitroglycerin 0.4 mg sublingual 0.4 mg SUBLINGUAL Q5-15M PRN 10/24/18 tablet coenzyme Q10 100 mg capsule 100 mg PO DAILY 01/02/19 Aspirin [Aspir 81] 81 mg PO DAILY 01/14/19 Atorvastatin Calcium [Lipitor] 80 mg PO QHS 01/14/19 B-Complex with Vitamin C [Super B 1 ea PO DAILY 01/14/19 Complex-Vitamin C] Carvedilol [Coreg] 12.5 mg PO BID 01/14/19 Dexlansoprazole [Dexilant] 60 mg PO DAILY 01/14/19 Furosemide 40 mg PO DAILY 01/14/19 Gemfibrozil [Lopid] 600 mg PO BIDAC 01/14/19 Glipizide [Glipizide ER] 10 mg PO BID 01/14/19 Isosorbide Mononitrate [Isosorbide 120 mg PO DAILY 01/14/19 Mononitrate ER] Multivitamin [Daily Multiple 1 ea PO DAILY 01/14/19 Vitamin] Madrid-3 Fatty Acids [Madrid-3] 1,040 mg PO DAILY 01/14/19 Ranolazine [Ranexa] 1,000 mg PO BID 01/14/19 Sitagliptin Phos/Metformin HCl 1 tab PO BIDCM 01/14/19 [Janumet 50-1,000 MG Tablet] traZODone [Desyrel] 100 mg PO QHS 01/14/19 Dulaglutide [Trulicity] 0.75 mg SQ WE 03/02/19 Lorazepam [Ativan] 1 mg PO QHS PRN 03/02/19 Sacubitril/Valsartan 49-51 mg 1 ea PO BID 03/02/19 [Entresto 49 mg-51 mg Tablet] Spironolactone 12.5 mg PO DAILY 03/02/19 Surgical History: Surgical History (This Medical Record has been edited. Action required.) H/O hemorrhoidectomy (Resolved) Z98.890 History of appendectomy (Resolved) Z90.49 S/P CABG x 2 (Chronic) Z95.1 06/30/2018 COLBERT to LAD, Reverse saphenous vein aortocoronary grafting of the posterior descending branch of the RCA. History of left heart catheterization (Resolved) Z98.890 10/14/2018, 09/2016,06/27/2018, 08/12/2015,06/12/2016 Cardiac defibrillator in situ (Resolved) Z95.810 08/13/2015 lt dual-ICD Medtronic Evera MRI XT, model [id number], serial number [id number], Atrial lead Mdtronic 5076-52, serial number [id number]. Ventricular lead Medtronic 2671Q68 serial number [id number]. History of PTCA (Resolved) Z98.61 04/12/2015 PTCA/stent on the 100% in stent stenosis in the mid LAD, a 2.75 mm x 33 mm Xience Alpine RX JF and a 3.5 mm x 33mm Xience alpine RX JF.; 03/01/2015 4.0 x 12 bare metal stent in the LAD, proximal to that stent 4.0 x 16 bare metal stent to the LAD. Surgical History: coronary bypass surgery, tonsillectomy, - - hemorrhoidectomy, vasectomy Lives: With Family Smoking Status: Never smoker Tobacco Use: Non-smoker Alcohol: Rare Drugs: None - *Family History Maternal Family History: Family History (This Medical Record has been edited. Action required.) Mother Hypertension Diabetes COPD (chronic obstructive pulmonary disease) Heart disease Brother CVA (cerebral vascular accident) Review of Systems Constitutional: Denies: Chills, Fever, Weight Change HEENT: Denies: Head Aches, Sinus Congestion, Sinus Drainage Cardiovascular: Reports: Chest Pain, Chest Pressure. Denies: Chest Tightness, Edema, Heaviness, Light Headedness, Palpitations Respiratory: Reports: Shortness of Breath. Denies: Cough, Shortness of breath at rest, Sputum production Gastrointestinal: Denies: Abdominal Pain, Diarrhea, Nausea, Vomiting Genitourinary: Denies: Dysuria Musculoskeletal: Denies: Joint Pain, Joint Tenderness Skin: Denies: Rash, Wounds Neurological: Denies: Numbness, Tingling, Focal weakness Psychiatric: Denies: Anxiety, Depression, Homicidal Ideations, Suicidal Ideations Hematologic/ Lymphatic: Denies: Easy Bruising, Easy Bleeding VTE Information - Inpt Only VTE Present on Admission: No VTE Mechan Device Prophylaxis: SCD's VTE Pharm Prophylaxis ordered?: No Patient Problems: Active and Suspected Problems (This Medical Record has been edited. Action required.) Chest pain (Acute) - Physical Exam General: Alert, Oriented x3, Cooperative HEENT: Atraumatic, PERRLA, EOMI, Normocephalic Neck: Supple, No JVD, Negative Carotid Bruits Lungs: Clear to auscultation, Normal air movement Cardiovascular: Regular rate, No murmurs Abdomen: Bowel Sounds Present, Soft, Non Tender Extremities: No edema, Capillary Refill Less than 3 Seconds Skin: No rashes, No breakdown Musculoskeletal: No Tenderness to Palpation of Joints or Extremities Neurological: Cranial nerves II-XII grossly intact Psych/Mental Status: Normal Affect, Appropriate, Alert and oriented to time, place, person, mood and affect Vital Signs Temp Pulse Resp BP Pulse Ox 97.9 F 79 16 104/68 94 03/02/19 14:05 03/02/19 16:04 03/02/19 16:04 03/02/19 16:04 03/02/19 16:04 Oxygen Delivery Method Room Air Weight: 241 lb 10.026 oz Body Mass Index (BMI) 34.7 Laboratory Tests Past 24 Hrs 03/02/19 03/02/19 03/02/19 14:10 14:10 14:33 WBC Cancelled Corrected WBC Cancelled RBC Cancelled Hgb Cancelled Hct Cancelled MCV Cancelled MCH Cancelled MCHC Cancelled RDW Std Deviation Cancelled RDW Coeff of Mickey Cancelled Plt Count Cancelled MPV Cancelled Immature Gran % (Auto) Cancelled Neut % (Auto) Cancelled Lymph % (Auto) Cancelled Bradley % (Auto) Cancelled Eos % (Auto) Cancelled Baso % (Auto) Cancelled Absolute Neuts (auto) Cancelled Absolute Lymphs (auto) Cancelled Total Counted Cancelled Neutrophils % (Manual) Cancelled Band Neutrophils % Cancelled Lymphocytes % (Manual) Cancelled Monocytes % (Manual) Cancelled Eosinophils % (Manual) Cancelled Basophils % (Manual) Cancelled Metamyelocytes % Cancelled Myelocytes % Cancelled Promyelocytes % Cancelled Blast Cells % Cancelled Plasma Cell % (Manual) Cancelled Other Cells % Cancelled Nucleated RBC % Cancelled Nucleated RBCs/100 WBC Cancelled Differential Comment Cancelled Diff Path Review Cancelled Hypersegmented Neuts Cancelled Atypical Lymphocytes Cancelled Reactive Lymphocytes Cancelled Smudge Cells Cancelled Toxic Granulation Cancelled Toxic Vacuolation Cancelled Dohle Bodies Cancelled [place] Rods Cancelled Platelet Estimate Cancelled Plt Morphology Comment Cancelled RBC Morphology Cancelled Polychromasia Cancelled Hypochromasia Cancelled Poikilocytosis Cancelled Basophilic Stippling Cancelled Anisocytosis Cancelled Microcytosis Cancelled Macrocytosis Cancelled Spherocytes Cancelled Sickle Cells Cancelled Target Cells Cancelled Tear Drop Cells Cancelled Ovalocytes Cancelled Stomatocytes Cancelled [place] Bodies Cancelled Jordyn Cells Cancelled Bite Cells Cancelled Crenated Cell Cancelled Acanthocytes (Spur) Cancelled Rouleaux Cancelled Schistocytes Cancelled PT 13.9 INR 1.1 Sodium 138 Potassium 4.6 Chloride 105 Carbon Dioxide 29.0 Anion Gap 4 L BUN 14 Creatinine 1.32 H Estim Creat Clear Calc 72.20 Est GFR (MDRD) Af Amer 75 Est GFR (MDRD) Non-Af 62 BUN/Creatinine Ratio 10.6 Glucose 118 H Calcium 9.7 Troponin I < 0.015 03/02/19 14:43 WBC 5.4 Corrected WBC RBC 4.35 L Hgb 13.1 Hct 39.0 L MCV 89.7 MCH 30.1 MCHC 33.6 RDW Std Deviation 45.4 H RDW Coeff of Mickey 13.8 Plt Count 263 MPV 9.2 Immature Gran % (Auto) 0.200 Neut % (Auto) 66.3 Lymph % (Auto) 17.6 L Bradley % (Auto) 14.0 H Eos % (Auto) 1.7 Baso % (Auto) 0.2 Absolute Neuts (auto) 3.6 Absolute Lymphs (auto) 0.96 Total Counted Neutrophils % (Manual) Band Neutrophils % Lymphocytes % (Manual) Monocytes % (Manual) Eosinophils % (Manual) Basophils % (Manual) Metamyelocytes % Myelocytes % Promyelocytes % Blast Cells % Plasma Cell % (Manual) Other Cells % Nucleated RBC % 0 Nucleated RBCs/100 WBC Differential Comment Diff Path Review Hypersegmented Neuts Atypical Lymphocytes Reactive Lymphocytes Smudge Cells Toxic Granulation Toxic Vacuolation Dohle Bodies [place] Rods Platelet Estimate Plt Morphology Comment RBC Morphology Polychromasia Hypochromasia Poikilocytosis Basophilic Stippling Anisocytosis Microcytosis Macrocytosis Spherocytes Sickle Cells Target Cells Tear Drop Cells Ovalocytes Stomatocytes Hogan-[place] Bodies Jordyn Cells Bite Cells Crenated Cell Acanthocytes (Spur) Rouleaux Schistocytes PT INR Sodium Potassium Chloride Carbon Dioxide Anion Gap BUN Creatinine Estim Creat Clear Calc Est GFR (MDRD) Af Amer Est GFR (MDRD) Non-Af BUN/Creatinine Ratio Glucose Calcium Troponin I Assessment/Plan All Active Problems (This Medical Record has been edited. Action required.) Chest pain (Acute) H/O hemorrhoidectomy (Resolved) History of appendectomy (Resolved) History of left heart catheterization (Resolved) Cardiac defibrillator in situ (Resolved) History of PTCA (Resolved) 1. Chest pain described as exactly like chest pain with prior CABG, patient with CAD, double bypass, history of stents-patient of . CABG was June 2018. Per last cardiology note he has not had a repeat catheterization at [facility] already this year. He is also had a prior visit for chest pain, in the ER in January and also had chest pain at his cardiology visit in December of this year. He was seen at [facility] today for chest pain was sent home. His EKG was unremarkable, his troponin is negative. He will be admitted to the PCU for chest pain work-up. Cycle enzymes. Repeat EKG in the morning. Consult cardiology. Continue prior CAD medications. 2. History of ischemic cardiomyopathy-AICD/pacemaker in place. Continue home Lasix. 3. History of atrial fibrillation-it does not appear that he is anticoagulated. Continue Coreg. 4. Type 2 diabetes-hold oral medications. Provide sliding scale insulin. 5. Hypothyroidism-check TSH continue Synthroid. DVT prophylaxis: SCDs This patient was seen by Hossein Anderson PA-C under the supervision of Doctor Mary. <Maria Elena Hernandez - Last Filed: 03/02/19 20:10> History of Present Illness The patient is a 48 year old M [] Past Medical History Medical History: Medical History (This Medical Record has been edited. Action required.) Hypertension (Chronic) I10 Diabetes mellitus, type II (Chronic) E11.9 Hypothyroidism (Chronic) E03.9 HLD (hyperlipidemia) (Chronic) E78.5 Ischemic cardiomyopathy (Chronic) I25.5 CAD (coronary artery disease), [place] coronary artery (Chronic) I25.10 Foreign body of knee S80.259A right Obstructive sleep apnea G47.33 Allergies No Known Allergies Allergy (Verified 03/02/19 14:08) Surgical History: Surgical History (This Medical Record has been edited. Action required.) H/O hemorrhoidectomy (Resolved) Z98.890 History of appendectomy (Resolved) Z90.49 S/P CABG x 2 (Chronic) Z95.1 06/30/2018 COLBERT to LAD, Reverse saphenous vein aortocoronary grafting of the posterior descending branch of the RCA. History of left heart catheterization (Resolved) Z98.890 10/14/2018, 09/2016,06/27/2018, 08/12/2015,06/12/2016 Cardiac defibrillator in situ (Resolved) Z95.810 08/13/2015 lt dual-ICD Medtronic Evera MRI XT, model EGGO5D2, serial number [id number], Atrial lead Mdtronic 5076-52, serial number [id number]. Ventricular lead Medtronic [id number] serial number [id number]. History of PTCA (Resolved) Z98.61 04/12/2015 PTCA/stent on the 100% in stent stenosis in the mid LAD, a 2.75 mm x 33 mm Xience Alpine RX JF and a 3.5 mm x 33mm Xience alpine RX JF.; 03/01/2015 4.0 x 12 bare metal stent in the LAD, proximal to that stent 4.0 x 16 bare metal stent to the LAD. - *Family History Maternal Family History: Family History (This Medical Record has been edited. Action required.) Mother Hypertension Diabetes COPD (chronic obstructive pulmonary disease) Heart disease Brother CVA (cerebral vascular accident) - Physical Exam Vital Signs Temp Pulse Resp BP Pulse Ox 97.8 F 76 20 H 101/72 98 03/02/19 16:40 03/02/19 17:04 03/02/19 16:40 03/02/19 17:04 03/02/19 16:40 Oxygen Delivery Method Room Air Weight: 107.955 kg Body Mass Index (BMI) 34.0 Intake and Output for Last 24 Hours 02/28/19 03/01/19 03/02/19 23:59 23:59 23:59 Intake Total 0 / 0 Balance 0 / 0 Laboratory Tests Past 24 Hrs 03/02/19 03/02/19 03/02/19 14:10 14:10 14:33 WBC Cancelled Corrected WBC Cancelled RBC Cancelled Hgb Cancelled Hct Cancelled MCV Cancelled MCH Cancelled MCHC Cancelled RDW Std Deviation Cancelled RDW Coeff of Mickey Cancelled Plt Count Cancelled MPV Cancelled Immature Gran % (Auto) Cancelled Neut % (Auto) Cancelled Lymph % (Auto) Cancelled Bradley % (Auto) Cancelled Eos % (Auto) Cancelled Baso % (Auto) Cancelled Absolute Neuts (auto) Cancelled Absolute Lymphs (auto) Cancelled Total Counted Cancelled Neutrophils % (Manual) Cancelled Band Neutrophils % Cancelled Lymphocytes % (Manual) Cancelled Monocytes % (Manual) Cancelled Eosinophils % (Manual) Cancelled Basophils % (Manual) Cancelled Metamyelocytes % Cancelled Myelocytes % Cancelled Promyelocytes % Cancelled Blast Cells % Cancelled Plasma Cell % (Manual) Cancelled Other Cells % Cancelled Nucleated RBC % Cancelled Nucleated RBCs/100 WBC Cancelled Differential Comment Cancelled Diff Path Review Cancelled Hypersegmented Neuts Cancelled Atypical Lymphocytes Cancelled Reactive Lymphocytes Cancelled Smudge Cells Cancelled Toxic Granulation Cancelled Toxic Vacuolation Cancelled Dohle Bodies Cancelled [place] Rods Cancelled Platelet Estimate Cancelled Plt Morphology Comment Cancelled RBC Morphology Cancelled Polychromasia Cancelled Hypochromasia Cancelled Poikilocytosis Cancelled Basophilic Stippling Cancelled Anisocytosis Cancelled Microcytosis Cancelled Macrocytosis Cancelled Spherocytes Cancelled Sickle Cells Cancelled Target Cells Cancelled Tear Drop Cells Cancelled Ovalocytes Cancelled Stomatocytes Cancelled [place] Bodies Cancelled Jordyn Cells Cancelled Bite Cells Cancelled Crenated Cell Cancelled Acanthocytes (Spur) Cancelled Rouleaux Cancelled Schistocytes Cancelled PT 13.9 INR 1.1 D-Dimer Quant (PE/DVT) Sodium 138 Potassium 4.6 Chloride 105 Carbon Dioxide 29.0 Anion Gap 4 L BUN 14 Creatinine 1.32 H Estim Creat Clear Calc 72.20 Est GFR (MDRD) Af Amer 75 Est GFR (MDRD) Non-Af 62 BUN/Creatinine Ratio 10.6 Glucose 118 H Calcium 9.7 Troponin I < 0.015 03/02/19 03/02/19 03/02/19 14:33 14:43 17:04 WBC 5.4 Corrected WBC RBC 4.35 L Hgb 13.1 Hct 39.0 L MCV 89.7 MCH 30.1 MCHC 33.6 RDW Std Deviation 45.4 H RDW Coeff of Mickey 13.8 Plt Count 263 MPV 9.2 Immature Gran % (Auto) 0.200 Neut % (Auto) 66.3 Lymph % (Auto) 17.6 L Bradley % (Auto) 14.0 H Eos % (Auto) 1.7 Baso % (Auto) 0.2 Absolute Neuts (auto) 3.6 Absolute Lymphs (auto) 0.96 Total Counted Neutrophils % (Manual) Band Neutrophils % Lymphocytes % (Manual) Monocytes % (Manual) Eosinophils % (Manual) Basophils % (Manual) Metamyelocytes % Myelocytes % Promyelocytes % Blast Cells % Plasma Cell % (Manual) Other Cells % Nucleated RBC % 0 Nucleated RBCs/100 WBC Differential Comment Diff Path Review Hypersegmented Neuts Atypical Lymphocytes Reactive Lymphocytes Smudge Cells Toxic Granulation Toxic Vacuolation Dohle Bodies [place] Rods Platelet Estimate Plt Morphology Comment RBC Morphology Polychromasia Hypochromasia Poikilocytosis Basophilic Stippling Anisocytosis Microcytosis Macrocytosis Spherocytes Sickle Cells Target Cells Tear Drop Cells Ovalocytes Stomatocytes Hogan-[place] Bodies [place] Cells Bite Cells Crenated Cell Acanthocytes (Spur) Rouleaux Schistocytes PT INR D-Dimer Quant (PE/DVT) < 0.27 L Sodium Potassium Chloride Carbon Dioxide Anion Gap BUN Creatinine Estim Creat Clear Calc Est GFR (MDRD) Af Amer Est GFR (MDRD) Non-Af BUN/Creatinine Ratio Glucose Calcium Troponin I < 0.015 Assessment/Plan This patient was seen in conjunction with ROJELIO Peterson. I have independently interviewed and examined the patient and reviewed pertinent historical, laboratory, and other data. Please refer to ROJELIO Peterson note for his patient's presentation, findings, and recommendations. I have reviewed and his note and concur with his documentation CC: Chest pain HPI: 48-year-old with multiple comorbidities significant for CAD status post CABG comes in with complaints of chest pain that feels just like his work-up prior to his CABG. Patient follows with Dr. Lee in the outpatient. He was seen in the [place] ED and admitted and discharged today and patient subsequently is in the [facility] ED. He had a cardiac cath done in October with that was unremarkable. He complains of persistent dyspnea on exertion. Denies any orthopnea, PND or leg swelling. He had his PPM/ICD interrogated, no acute findings. PMHX: Hypertension, type II DM, CAD status post CABG, thyroidism, ischemic cardiomyopathy PSHx: Status post CABG, that is post ICD FHX: Hypertension, heart disease in mother, stroke in brother SHX: Denies smoking, occasional alcohol use or illicit drug use Physical Exam: Vitals: Patient 97.9F, heart rate 73, blood pressure 136/87, respiratory rate is 12, SPO2 sat 97% on room air Gen: Appears anxious, not pale, not jaundiced CVS:HS I +II, regular, no murmurs RESP: Color clear to auscultation GI: BS present and normal, soft, nontender, no palpable organs EXT:No edema Labs: CBCD is unremarkable, BMP significant for CKD stage III, 20 units x 1 is negative ASSESSMENT: 1. Chest pain suggestive of unstable angina 2. Type II DM 3. Hypertension 4. CAD status post CABG 5. Hypothyroidism 6. CKD stage III 7. History of atrial fibrillation 8. Hemic cardiomyopathy, status post ICD Plan: Admit to PCU, cycle cardiac enzymes, monitor on telemetry Cardiology consult Discussed with Dr. Khoury was covering, patient will be kept n.p.o. for possible cardiac cath by Dr. Lee in a.m. Plavix 300 mg po x1 continue with 75 mg daily Lovenox 1 mg/kg IV x1 Code Visit OBSV E&M: [id number] Initial observation care L3
[2019-03-02] MEDS: Nitroglycerin (INPATIENT USE) 0.4 MG TAB.SUBL SUBLINGUAL ×3 (16:47→17:04)
--- NOTE | 2019-03-02 17:05 | EKG12_ITS ---
Test Reason : Blood Pressure : / mmHG Vent. Rate : 076 BPM Atrial Rate : 076 BPM P-R Int : 166 ms QRS Dur : 092 ms QT Int : 376 ms P-R-T Axes : 038 000 074 degrees QTc Int : 423 ms Normal sinus rhythm Anterolateral infarct , age undetermined Abnormal ECG No previous ECGs available Confirmed by BELINDA WALDROP, MARLIN ([id number]), metropolitan editor [place] SANDOVAL ([id number]) on 03/06/2019 1:33:48 PM Referred By: Maria Elena Hernandez Confirmed By:MARLIN TREVINO MD
[2019-03-02 18:16] LABS: D-Dimer Quantitative (DVT/PE) < 0.27 FEU/ug/m (0.27-0.49)
[2019-03-02] MEDS: Clopidogrel Bisulfate 300 MG Tablet PO (20:09)
[2019-03-02] MEDS: Enoxaparin 100 MG/ML Syringe SC (20:09)
[2019-03-02] MEDS: SACUBITRIL/VALSARTAN 49-51 MG TABLET 1 EACH PO (22:07)
[2019-03-02] MEDS: Ranolazine 500 MG Tablet 1000 MG PO (22:07)
[2019-03-02] MEDS: traZODone 100 MG Tablet PO (22:07)
[2019-03-02] MEDS: Carvedilol 12.5 MG Tablet PO (22:07)
[2019-03-02] MEDS: Atorvastatin Calcium 80 MG Tablet PO (22:07)
[2019-03-02 22:31] LABS: Bedside Glucose 135 mg/dL (70-110)
[2019-03-03] VITALS (10 sets, daily range): BP systolic 98–110; BP diastolic 54–70; PULSE 67–81; RESP 16; TEMP 36.3–37.3; O2SAT 94–97
--- NOTE | 2019-03-03 05:55 | EKG12_ITS ---
Test Reason : AM EKG Blood Pressure : / mmHG Vent. Rate : 070 BPM Atrial Rate : 070 BPM P-R Int : 174 ms QRS Dur : 100 ms QT Int : 380 ms P-R-T Axes : 032 -46 124 degrees QTc Int : 410 ms Normal sinus rhythm Left anterior fascicular block Anterolateral infarct , age undetermined Abnormal ECG When compared with ECG of 02-MAR-2019 16:52, MANUAL COMPARISON REQUIRED, DATA IS UNCONFIRMED Confirmed by BELINDA WALDROP, MARLIN ([id number]), newspaper editor managing [place] SANDOVAL ([id number]) on 03/06/2019 1:32:25 PM Referred By: Maria Elena Hernandez Confirmed By:MARLIN TREVINO MD
[2019-03-03] MEDS: Levothyroxine 100 MCG Tablet 200 MCG PO (06:21)
[2019-03-03 06:39] LABS: Absolute Lymphocyte Count 0.95 X10^3/uL (0.83-4.51); Absolute Neutrophil Count 2.2 X10^3/uL (2.0-7.7); Basophil# 0.01 X10^3/uL; Basophil% 0.3 % (0-1); Eosinophil# 0.14 X10^3/uL; Eosinophils% 3.6 % (0-5); Hematocrit 39.7 % (40-54); Hemoglobin 13.4 g/dL (13.0-16.5); Lymphocyte # 0.95 X10^3/ul (4.0); Lymphocyte % 24.5 % (19-41); Mean Corp Hgb Conc 33.8 g/dL (32-36); Mean Corpuscular Volume 88.8 fL (80-94); Mean Platelet Vol. 9.3 fl (6.2-12.0); Monocyte# 0.52 X10^3/uL; Monocyte% 13.4 % (0-10); NRBC Flagged by Analyzer 0 % (0-5); Neutrophil # 2.24 X10^3/uL (2.7-7.7); Neutrophil % 57.9 % (47-70); Platelet Count 249 K/mm3 (150-450); RBC Distribution Width CV 13.6 % (11.6-14.6); RBC Distribution Width SD 44.5 fl (35.1-43.9); Red Blood Count 4.47 M/mm3 (4.6-6.2); White Blood Count 3.9 K/mm3 (4.4-11.0)
[2019-03-03 06:41] LABS: Bedside Glucose 133 mg/dL (70-110)
[2019-03-03 07:08] LABS: AST(SGOT) 14 U/L (15-37); Alanine Aminotransfer ALT/SGPT 22 U/L (16-61); Albumin, Serum 3.5 g/dL (3.2-5.0); Alkaline Phosphatase 40 U/L (45-117); Anion Gap 8 (5-15); BUN 15 mg/dL (7-18); Calcium,Total 8.7 mg/dL (8.5-10.1); Chloride 107 mmol/L (98-107); Creatinine, Serum 1.07 mg/dL (0.70-1.30); EST Glomerular Filtration Rate 79 mL/min (>60); Est Glom Filt Rate - Afr Amer 95 mL/min (>60); Estimated Creatinine Clearance 89.07 ml/min; Globulin 3.5 g/dL (2.2-4.2); Glucose 133 mg/dL (74-106); Potassium 3.9 mmol/L (3.5-5.1); Sodium Level 140 mmol/L (136-145); Thyroid Stim Hormone (TSH) 0.54 uIU/mL (0.358-3.74)
[2019-03-03] MEDS: ALPRAZolam 0.5 MG Tablet PO (10:17)
[2019-03-03] MEDS: Furosemide 40 MG/4 ML Vial IV (10:17)
[2019-03-03] MEDS: 0.9% NaCl Peripheral Flush Adult/Peds IV (10:17)
[2019-03-03] MEDS: Spironolactone 25 MG Tablet PO (10:19)
[2019-03-03] MEDS: Clopidogrel Bisulfate 75 MG Tablet PO (10:19)
[2019-03-03] MEDS: Empagliflozin 25 MG Tablet PO (10:19)
[2019-03-03] MEDS: Gemfibrozil 600 MG Tablet PO ×2 (10:20→18:00)
[2019-03-03] MEDS: Pantoprazole Sodium 40 MG Tablet PO (10:20)
[2019-03-03] MEDS: SACUBITRIL/VALSARTAN 49-51 MG TABLET 1 EACH PO ×2 (10:20→22:13)
[2019-03-03] MEDS: Carvedilol 12.5 MG Tablet PO ×2 (10:20→22:00)
[2019-03-03] MEDS: Multivitamins,Therapeutic Tablet 1 TABLET PO (10:20)
[2019-03-03] MEDS: Ranolazine 500 MG Tablet 1000 MG PO ×2 (10:20→22:00)
[2019-03-03] MEDS: Vitamin B Comp W-C Capsule 1 CAP PO (10:21)
[2019-03-03] MEDS: metFORMIN HCl 1,000 MG Tablet 1000 MG PO ×2 (10:21→17:38)
[2019-03-03] MEDS: LINAGLIPTIN 5 MG TABLET PO (10:21)
--- NOTE | 2019-03-03 10:57 | CON.PCM_ITS ---
Problem List (1) Chest pain Status: Acute (2) S/P CABG x 2 Status: Chronic Comment: 06/30/2018 COLBERT to LAD, Reverse saphenous vein aortocoronary grafting of the posterior descending branch of the RCA. Reason for Consult Date of Consultation: 03/03/19 History of Present Illness: The patient is a 48 year old M with past medical history of coronary artery disease with prior CABG last June with SVG to RCA and COLBERT to LAD, prior stents, history of ischemic cardiomyopathy with AICD in place, (EF by echo in October 2018 was 45 to 50%) atrial fibrillation, type 2 diabetes, hypothyroidism, depression who presented to the emergency room with complaints of chest pain. This pain began yesterday when he woke up. He woke up and started getting ready for work when he suddenly developed pressure on the left side of his chest that radiated into the left axilla. He also became short of breath when the chest pain came on. He took 3 nitro and had no relief. He went to work and it became worse throughout the day. He describes his pain as being exactly like when he had a CABG in the past. The pain was worse with exertion. He went to [facility] in [place] had an EKG and blood work and was sent home. He came to [facility] after this. Notably he also was seen in the emergency room for chest pain in January and was sent home. He had a heart cath in October of this year which showed atretic COLBERT to LAD and patent SVG to RCA. He had an FFR in the LAD which was 0.81. He has stents in LAD and appears to have in-stent restenosis that is borderline. He was switched to Entresto and this resulted in improvement of his symptoms including the chest pain. Currently he has worsening orthopnea. Review of systems: All systems reviewed. All else is negative except that in the HPI Past Medical History Allergies/Adverse Reactions: Allergies No Known Allergies Allergy (Verified 03/02/19 14:08) Home Medications: Ambulatory Orders Medication Instructions Recorded empagliflozin 25 mg tablet 25 mg PO QAM 10/24/18 levothyroxine 200 mcg capsule 200 mcg PO DAILY 10/24/18 nitroglycerin 0.4 mg sublingual 0.4 mg SUBLINGUAL Q5-15M PRN 10/24/18 tablet coenzyme Q10 100 mg capsule 100 mg PO DAILY 01/02/19 Aspirin [Aspir 81] 81 mg PO DAILY 01/14/19 Atorvastatin Calcium [Lipitor] 80 mg PO QHS 01/14/19 B-Complex with Vitamin C [Super B 1 ea PO DAILY 01/14/19 Complex-Vitamin C] Carvedilol [Coreg] 12.5 mg PO BID 01/14/19 Dexlansoprazole [Dexilant] 60 mg PO DAILY 01/14/19 Furosemide 40 mg PO DAILY 01/14/19 Gemfibrozil [Lopid] 600 mg PO BIDAC 01/14/19 Glipizide [Glipizide ER] 10 mg PO BID 01/14/19 Isosorbide Mononitrate [Isosorbide 120 mg PO DAILY 01/14/19 Mononitrate ER] Multivitamin [Daily Multiple 1 ea PO DAILY 01/14/19 Vitamin] [place]-3 Fatty Acids [[place]-3] 1,040 mg PO DAILY 01/14/19 Ranolazine [Ranexa] 1,000 mg PO BID 01/14/19 Sitagliptin Phos/Metformin HCl 1 tab PO BIDCM 01/14/19 [Janumet 50-1,000 MG Tablet] traZODone [Desyrel] 100 mg PO QHS 01/14/19 Dulaglutide [Trulicity] 0.75 mg SQ WE 03/02/19 Lorazepam [Ativan] 1 mg PO QHS PRN 03/02/19 Sacubitril/Valsartan 49-51 mg 1 ea PO BID 03/02/19 [Entresto 49 mg-51 mg Tablet] Spironolactone 12.5 mg PO DAILY 03/02/19 Past Medical History (Chronic Problems): Chronic Problems (This Medical Record has been edited. 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 Diabetes mellitus, type II (Chronic) Hypothyroidism (Chronic) HLD (hyperlipidemia) (Chronic) Ischemic cardiomyopathy (Chronic) CAD (coronary artery disease), [place] coronary artery (Chronic) Surgical History: coronary bypass surgery, tonsillectomy, - - hemorrhoidectomy, vasectomy - *Family History Maternal Family History: Family History (This Medical Record has been edited. Action required.) Mother Hypertension Diabetes COPD (chronic obstructive pulmonary disease) Heart disease Brother CVA (cerebral vascular accident) Lives: With Family Smoking Status: Never smoker Tobacco Use: Non-smoker Alcohol: Rare Drugs: None Objective: Vital Signs Temp Pulse Resp BP Pulse Ox 97.9 F 69 16 108/70 94 03/03/19 10:05 03/03/19 10:05 03/03/19 10:05 03/03/19 10:05 03/03/19 10:05 Oxygen Delivery Method Room Air Weight: 238 lb Body Mass Index (BMI) 34.0 Intake and Output for Last 24 Hours 03/01/19 03/02/19 03/03/19 23:59 23:59 23:59 Intake Total 480 / 480 Output Total 1000 / 1000 600 / 600 Balance -520 / -520 -580 / -580 General: Awake, Alert, Oriented x 3 HEENT: Atraumatic Oral: Moist Mucosa Neck: Supple Lungs: Clear to auscultation Cardiovascular: Regular Rhythm, Normal S1, Normal S2 Abdomen: Soft Extremities: No edema Skin: No Rashes Psych/Mental Status: Appropriate 03/02/19 14:10: WBC Cancelled, Corrected WBC Cancelled, RBC Cancelled, Hgb C ancelled, Hct Cancelled, MCV Cancelled, MCH Cancelled, MCHC Cancelled, Plt Count Cancelled, MPV Cancelled, Immature Gran % (Auto) Cancelled, Neut % (Auto) Cancelled, Lymph % (Auto) Cancelled, [place] % (Auto) Cancelled, Eos % (Auto) Cancelled, Baso % (Auto) Cancelled, Absolute Neuts (auto) Cancelled, Total Counted Cancelled, Neutrophils % (Manual) Cancelled, Band Neutrophils % Cancelled, Lymphocytes % (Manual) Cancelled, Monocytes % (Manual) Cancelled, Eosinophils % (Manual) Cancelled, Basophils % (Manual) Cancelled, Metamyelocytes % Cancelled, Myelocytes % Cancelled, Promyelocytes % Cancelled, Blast Cells % Cancelled, Plasma Cell % (Manual) Cancelled, Other Cells % Cancelled, Nucleated RBC % Cancelled 03/02/19 14:10: Sodium 138, Potassium 4.6, Chloride 105, Carbon Dioxide 29.0, Anion Gap 4 L, BUN 14, Creatinine 1.32 H, Est GFR (MDRD) Af Amer 75, Est GFR (MDRD) Non-Af 62, BUN/Creatinine Ratio 10.6, Glucose 118 H, Calcium 9.7, Troponin I < 0.015 03/02/19 14:33: PT 13.9, INR 1.1 03/02/19 14:33: D-Dimer Quant (PE/DVT) < 0.27 L 03/02/19 14:43: WBC 5.4, RBC 4.35 L, Hgb 13.1, Hct 39.0 L, MCV 89.7, MCH 30.1, MCHC 33.6, Plt Count 263, MPV 9.2, Immature Gran % (Auto) 0.200, Neut % (Auto) 66.3, Lymph % (Auto) 17.6 L, [place] % (Auto) 14.0 H, Eos % (Auto) 1.7, Baso % (Auto) 0.2, Absolute Neuts (auto) 3.6, Nucleated RBC % 0 03/02/19 17:04: Troponin I < 0.015 03/02/19 19:55: Troponin I < 0.015 03/03/19 06:08: WBC 3.9 L, RBC 4.47 L, Hgb 13.4, Hct 39.7 L, MCV 88.8, MCH 30.0, MCHC 33.8, Plt Count 249, MPV 9.3, Immature Gran % (Auto) 0.300, Neut % (Auto) 57.9, Lymph % (Auto) 24.5, [place] % (Auto) 13.4 H, Eos % (Auto) 3.6, Baso % (Auto) 0.3, Absolute Neuts (auto) 2.2, Nucleated RBC % 0 03/03/19 06:08: Sodium 140, Potassium 3.9, Chloride 107, Carbon Dioxide 25.0, Anion Gap 8, BUN 15, Creatinine 1.07, Est GFR (MDRD) Af Amer 95, Est GFR (MDRD) Non-Af 79, BUN/Creatinine Ratio 14.0, Glucose 133 H, Calcium 8.7, Total Bilirubin 0.60 Rhythm: EKG: ECHO: Stress Test: Cardiac Cath: PCI: CT Surgery: Holter monitor: EPS: PPM: CXR: Chest CT Scan: Assessment/Plan 1. Chest pain: Chest pain is atypical. However it is similar to the chest pain he had prior to stents and bypass surgery. At other times when he has had this chest pain his cath did not show significant obstructive stenoses in the major epicardial coronary vessels. He has had improvement in his chest pain with adjustment of his heart failure medications in the past. While he does not seem to be in significant volume overload on physical exam, he does have a fair degree of orthopnea. Also his LAD stenosis was within his prior stents and was borderline. He already had COLBERT graft which has failed. At this time I think it will be reasonable to give him IV Lasix x1 dose and then p.o. Lasix and see if this results in improvement of symptoms. If there is no improvement in symptoms then we will proceed with coronary angiography and possibly stent to the LAD on Wednesday. If there is improvement in symptoms then he can be discharged home and he can see me in the office on Wednesday. 2. Cardiomyopathy: EF by echo in October 2018 was 45 to 50%. We are giving him a dose of Lasix IV and then keeping him on p.o. Lasix. He does have orthopnea which is worse than his usual 2 pillow orthopnea. In the past adjusting med ications for his cardiomyopathy resulted in improvement of his chest discomfort as well.
--- NOTE | 2019-03-03 12:53 | PN_ITS ---
<Hossein Anderson - Last Filed: 03/03/19 12:53> Patient Problems: Active and Suspected Problems (This Medical Record has been edited. Action required.) Chest pain (Acute) Subjective: Pt states chest pain has not improved at all. Still radiates into the left axillae. He also has SOB with exertion, and with laying flat. He states he is at his normal weight. He does not have significant edema or abdominal distention. - Physical Exam General: Alert, Oriented x3, Cooperative HEENT: Atraumatic, PERRLA, EOMI, Normocephalic Neck: Supple, No JVD, Negative Carotid Bruits Lungs: Clear to auscultation, Normal air movement Cardiovascular: Regular rate, No murmurs Abdomen: Bowel Sounds Present, Soft, Non Tender Extremities: No edema, Capillary Refill Less than 3 Seconds Skin: No rashes, No breakdown Musculoskeletal: No Tenderness to Palpation of Joints or Extremities Neurological: Cranial nerves II-XII grossly intact Psych/Mental Status: Normal Affect, Appropriate, Alert and oriented to time, place, person, mood and affect Vital Signs Temp Pulse Resp BP Pulse Ox 97.9 F 77 16 108/70 94 03/03/19 10:05 03/03/19 11:50 03/03/19 10:05 03/03/19 10:05 03/03/19 10:05 Oxygen Delivery Method Room Air Weight: 238 lb Body Mass Index (BMI) 34.0 Intake and Output for Last 24 Hours 03/01/19 03/02/19 03/03/19 23:59 23:59 23:59 Intake Total 480 / 480 620 / 620 Output Total 1000 / 1000 2400 / 2400 Balance -520 / -520 -1780 / -1780 Laboratory Tests Past 24 Hrs 03/02/19 03/02/19 03/02/19 14:10 14:10 14:33 WBC Cancelled Corrected WBC Cancelled RBC Cancelled Hgb Cancelled Hct Cancelled MCV Cancelled MCH Cancelled MCHC Cancelled RDW Std Deviation Cancelled RDW Coeff of Mickey Cancelled Plt Count Cancelled MPV Cancelled Immature Gran % (Auto) Cancelled Neut % (Auto) Cancelled Lymph % (Auto) Cancelled [place] % (Auto) Cancelled Eos % (Auto) Cancelled Baso % (Auto) Cancelled Absolute Neuts (auto) Cancelled Absolute Lymphs (auto) Cancelled Total Counted Cancelled Neutrophils % (Manual) Cancelled Band Neutrophils % Cancelled Lymphocytes % (Manual) Cancelled Monocytes % (Manual) Cancelled Eosinophils % (Manual) Cancelled Basophils % (Manual) Cancelled Metamyelocytes % Cancelled Myelocytes % Cancelled Promyelocytes % Cancelled Blast Cells % Cancelled Plasma Cell % (Manual) Cancelled Other Cells % Cancelled Nucleated RBC % Cancelled Nucleated RBCs/100 WBC Cancelled Differential Comment Cancelled Diff Path Review Cancelled Hypersegmented Neuts Cancelled Atypical Lymphocytes Cancelled Reactive Lymphocytes Cancelled Smudge Cells Cancelled Toxic Granulation Cancelled Toxic Vacuolation Cancelled Dohle Bodies Cancelled [place] Rods Cancelled Platelet Estimate Cancelled Plt Morphology Comment Cancelled RBC Morphology Cancelled Polychromasia Cancelled Hypochromasia Cancelled Poikilocytosis Cancelled Basophilic Stippling Cancelled Anisocytosis Cancelled Microcytosis Cancelled Macrocytosis Cancelled Spherocytes Cancelled Sickle Cells Cancelled Target Cells Cancelled Tear Drop Cells Cancelled Ovalocytes Cancelled Stomatocytes Cancelled [place] Bodies Cancelled Jordyn Cells Cancelled Bite Cells Cancelled Crenated Cell Cancelled Acanthocytes (Spur) Cancelled Rouleaux Cancelled Schistocytes Cancelled PT 13.9 INR 1.1 D-Dimer Quant (PE/DVT) Sodium 138 Potassium 4.6 Chloride 105 Carbon Dioxide 29.0 Anion Gap 4 L BUN 14 Creatinine 1.32 H Estim Creat Clear Calc 72.20 Est GFR (MDRD) Af Amer 75 Est GFR (MDRD) Non-Af 62 BUN/Creatinine Ratio 10.6 Glucose 118 H Calcium 9.7 Total Bilirubin AST ALT Alkaline Phosphatase Troponin I < 0.015 Total Protein Albumin Globulin Albumin/Globulin Ratio TSH 03/02/19 03/02/19 03/02/19 14:33 14:43 17:04 WBC 5.4 Corrected WBC RBC 4.35 L Hgb 13.1 Hct 39.0 L MCV 89.7 MCH 30.1 MCHC 33.6 RDW Std Deviation 45.4 H RDW Coeff of Mickey 13.8 Plt Count 263 MPV 9.2 Immature Gran % (Auto) 0.200 Neut % (Auto) 66.3 Lymph % (Auto) 17.6 L [place] % (Auto) 14.0 H Eos % (Auto) 1.7 Baso % (Auto) 0.2 Absolute Neuts (auto) 3.6 Absolute Lymphs (auto) 0.96 Total Counted Neutrophils % (Manual) Band Neutrophils % Lymphocytes % (Manual) Monocytes % (Manual) Eosinophils % (Manual) Basophils % (Manual) Metamyelocytes % Myelocytes % Promyelocytes % Blast Cells % Plasma Cell % (Manual) Other Cells % Nucleated RBC % 0 Nucleated RBCs/100 WBC Differential Comment Diff Path Review Hypersegmented Neuts Atypical Lymphocytes Reactive Lymphocytes Smudge Cells Toxic Granulation Toxic Vacuolation Dohle Bodies [place] Rods Platelet Estimate Plt Morphology Comment RBC Morphology Polychromasia Hypochromasia Poikilocytosis Basophilic Stippling Anisocytosis Microcytosis Macrocytosis Spherocytes Sickle Cells Target Cells Tear Drop Cells Ovalocytes Stomatocytes [place] Bodies Jordyn Cells Bite Cells Crenated Cell Acanthocytes (Spur) Rouleaux Schistocytes PT INR D-Dimer Quant (PE/DVT) < 0.27 L Sodium Potassium Chloride Carbon Dioxide Anion Gap BUN Creatinine Estim Creat Clear Calc Est GFR (MDRD) Af Amer Est GFR (MDRD) Non-Af BUN/Creatinine Ratio Glucose Calcium Total Bilirubin AST ALT Alkaline Phosphatase Troponin I < 0.015 Total Protein Albumin Globulin Albumin/Globulin Ratio TSH 03/02/19 03/03/19 03/03/19 19:55 06:08 06:08 WBC 3.9 L Corrected WBC RBC 4.47 L Hgb 13.4 Hct 39.7 L MCV 88.8 MCH 30.0 MCHC 33.8 RDW Std Deviation 44.5 H RDW Coeff of Mickey 13.6 Plt Count 249 MPV 9.3 Immature Gran % (Auto) 0.300 Neut % (Auto) 57.9 Lymph % (Auto) 24.5 [place] % (Auto) 13.4 H Eos % (Auto) 3.6 Baso % (Auto) 0.3 Absolute Neuts (auto) 2.2 Absolute Lymphs (auto) 0.95 Total Counted Neutrophils % (Manual) Band Neutrophils % Lymphocytes % (Manual) Monocytes % (Manual) Eosinophils % (Manual) Basophils % (Manual) Metamyelocytes % Myelocytes % Promyelocytes % Blast Cells % Plasma Cell % (Manual) Other Cells % Nucleated RBC % 0 Nucleated RBCs/100 WBC Differential Comment Diff Path Review Hypersegmented Neuts Atypical Lymphocytes Reactive Lymphocytes Smudge Cells Toxic Granulation Toxic Vacuolation Dohle Bodies [place] Rods Platelet Estimate Plt Morphology Comment RBC Morphology Polychromasia Hypochromasia Poikilocytosis Basophilic Stippling Anisocytosis Microcytosis Macrocytosis Spherocytes Sickle Cells Target Cells Tear Drop Cells Ovalocytes Stomatocytes [place] Bodies Jordny Cells Bite Cells Crenated Cell Acanthocytes (Spur) Rouleaux Schistocytes PT INR D-Dimer Quant (PE/DVT) Sodium 140 Potassium 3.9 Chloride 107 Carbon Dioxide 25.0 Anion Gap 8 BUN 15 Creatinine 1.07 Estim Creat Clear Calc 89.07 Est GFR (MDRD) Af Amer 95 Est GFR (MDRD) Non-Af 79 BUN/Creatinine Ratio 14.0 Glucose 133 H Calcium 8.7 Total Bilirubin 0.60 AST 14 L ALT 22 Alkaline Phosphatase 40 L Troponin I < 0.015 Total Protein 7.0 Albumin 3.5 Globulin 3.5 Albumin/Globulin Ratio 1.0 TSH 0.54 POC Glucose 03/03/19 03/02/19 06:21 22:02 POC Glucose 133 H 135 H Medical Necessity - Tobacco Use Smoking Status: Never smoker Tobacco Use: Non-smoker Assessment/Plan All Active Problems (This Medical Record has been edited. Action required.) Chest pain (Acute) H/O hemorrhoidectomy (Resolved) History of appendectomy (Resolved) History of left heart catheterization (Resolved) Cardiac defibrillator in situ (Resolved) History of PTCA (Resolved) 1. Chest pain - Possibly 2/2 acute systolic CHF exacerbation - lasix started by cardiology. Diurese overnight. Monitor I/O. Pt does have orthopnea. Denies weight gain or edema. Renal function improved. TSH normal. Trop negative x3. No events on tele. Ongoing chest pain with no improvement Possible cath wednesday. 2. History of ischemic cardiomyopathy-AICD/pacemaker in place. 3. History of atrial fibrillation-it does not appear that he is anticoagulated. Continue Coreg. 4. Type 2 diabetes-hold oral medications. Provide sliding scale insulin. 5. Hypothyroidism-check TSH continue Synthroid. DVT prophylaxis: SCDs This patient was seen by Hossein Anderson PA-C under the supervision of Doctor Bridgett <Nelson Urias - Last Filed: 03/03/19 14:28> - Physical Exam Vital Signs Temp Pulse Resp BP Pulse Ox 97.9 F 77 16 108/70 94 03/03/19 10:05 03/03/19 11:50 03/03/19 10:05 03/03/19 10:05 03/03/19 10:05 Oxygen Delivery Method Room Air Weight: 237 lb 14.06 oz Body Mass Index (BMI) 34.0 Intake and Output for Last 24 Hours 03/01/19 03/02/19 03/03/19 23:59 23:59 23:59 Intake Total 480 / 480 620 / 620 Output Total 1000 / 1000 2400 / 2400 Balance -520 / -520 -1780 / -1780 Laboratory Tests Past 24 Hrs 03/02/19 03/02/19 03/02/19 14:10 14:10 14:33 WBC Cancelled Corrected WBC Cancelled RBC Cancelled Hgb Cancelled Hct Cancelled MCV Cancelled MCH Cancelled MCHC Cancelled RDW Std Deviation Cancelled RDW Coeff of Mickey Cancelled Plt Count Cancelled MPV Cancelled Immature Gran % (Auto) Cancelled Neut % (Auto) Cancelled Lymph % (Auto) Cancelled [place] % (Auto) Cancelled Eos % (Auto) Cancelled Baso % (Auto) Cancelled Absolute Neuts (auto) Cancelled Absolute Lymphs (auto) Cancelled Total Counted Cancelled Neutrophils % (Manual) Cancelled Band Neutrophils % Cancelled Lymphocytes % (Manual) Cancelled Monocytes % (Manual) Cancelled Eosinophils % (Manual) Cancelled Basophils % (Manual) Cancelled Metamyelocytes % Cancelled Myelocytes % Cancelled Promyelocytes % Cancelled Blast Cells % Cancelled Plasma Cell % (Manual) Cancelled Other Cells % Cancelled Nucleated RBC % Cancelled Nucleated RBCs/100 WBC Cancelled Differential Comment Cancelled Diff Path Review Cancelled Hypersegmented Neuts Cancelled Atypical Lymphocytes Cancelled Reactive Lymphocytes Cancelled Smudge Cells Cancelled Toxic Granulation Cancelled Toxic Vacuolation Cancelled Dohle Bodies Cancelled [place] Rods Cancelled Platelet Estimate Cancelled Plt Morphology Comment Cancelled RBC Morphology Cancelled Polychromasia Cancelled Hypochromasia Cancelled Poikilocytosis Cancelled Basophilic Stippling Cancelled Anisocytosis Cancelled Microcytosis Cancelled Macrocytosis Cancelled Spherocytes Cancelled Sickle Cells Cancelled Target Cells Cancelled Tear Drop Cells Cancelled Ovalocytes Cancelled Stomatocytes Cancelled [place] Bodies Cancelled [place] Cells Cancelled Bite Cells Cancelled Crenated Cell Cancelled Acanthocytes (Spur) Cancelled Rouleaux Cancelled Schistocytes Cancelled PT 13.9 INR 1.1 D-Dimer Quant (PE/DVT) Sodium 138 Potassium 4.6 Chloride 105 Carbon Dioxide 29.0 Anion Gap 4 L BUN 14 Creatinine 1.32 H Estim Creat Clear Calc 72.20 Est GFR (MDRD) Af Amer 75 Est GFR (MDRD) Non-Af 62 BUN/Creatinine Ratio 10.6 Glucose 118 H Calcium 9.7 Total Bilirubin AST ALT Alkaline Phosphatase Troponin I < 0.015 Total Protein Albumin Globulin Albumin/Globulin Ratio TSH 03/02/19 03/02/19 03/02/19 14:33 14:43 17:04 WBC 5.4 Corrected WBC RBC 4.35 L Hgb 13.1 Hct 39.0 L MCV 89.7 MCH 30.1 MCHC 33.6 RDW Std Deviation 45.4 H RDW Coeff of Mickey 13.8 Plt Count 263 MPV 9.2 Immature Gran % (Auto) 0.200 Neut % (Auto) 66.3 Lymph % (Auto) 17.6 L [place] % (Auto) 14.0 H Eos % (Auto) 1.7 Baso % (Auto) 0.2 Absolute Neuts (auto) 3.6 Absolute Lymphs (auto) 0.96 Total Counted Neutrophils % (Manual) Band Neutrophils % Lymphocytes % (Manual) Monocytes % (Manual) Eosinophils % (Manual) Basophils % (Manual) Metamyelocytes % Myelocytes % Promyelocytes % Blast Cells % Plasma Cell % (Manual) Other Cells % Nucleated RBC % 0 Nucleated RBCs/100 WBC Differential Comment Diff Path Review Hypersegmented Neuts Atypical Lymphocytes Reactive Lymphocytes Smudge Cells Toxic Granulation Toxic Vacuolation Dohle Bodies [place] Rods Platelet Estimate Plt Morphology Comment RBC Morphology Polychromasia Hypochromasia Poikilocytosis Basophilic Stippling Anisocytosis Microcytosis Macrocytosis Spherocytes Sickle Cells Target Cells Tear Drop Cells Ovalocytes Stomatocytes [place] Bodies Jordyn Cells Bite Cells Crenated Cell Acanthocytes (Spur) Rouleaux Schistocytes PT INR D-Dimer Quant (PE/DVT) < 0.27 L Sodium Potassium Chloride Carbon Dioxide Anion Gap BUN Creatinine Estim Creat Clear Calc Est GFR (MDRD) Af Amer Est GFR (MDRD) Non-Af BUN/Creatinine Ratio Glucose Calcium Total Bilirubin AST ALT Alkaline Phosphatase Troponin I < 0.015 Total Protein Albumin Globulin Albumin/Globulin Ratio TSH 03/02/19 03/03/19 03/03/19 19:55 06:08 06:08 WBC 3.9 L Corrected WBC RBC 4.47 L Hgb 13.4 Hct 39.7 L MCV 88.8 MCH 30.0 MCHC 33.8 RDW Std Deviation 44.5 H RDW Coeff of Mickey 13.6 Plt Count 249 MPV 9.3 Immature Gran % (Auto) 0.300 Neut % (Auto) 57.9 Lymph % (Auto) 24.5 [place] % (Auto) 13.4 H Eos % (Auto) 3.6 Baso % (Auto) 0.3 Absolute Neuts (auto) 2.2 Absolute Lymphs (auto) 0.95 Total Counted Neutrophils % (Manual) Band Neutrophils % Lymphocytes % (Manual) Monocytes % (Manual) Eosinophils % (Manual) Basophils % (Manual) Metamyelocytes % Myelocytes % Promyelocytes % Blast Cells % Plasma Cell % (Manual) Other Cells % Nucleated RBC % 0 Nucleated RBCs/100 WBC Differential Comment Diff Path Review Hypersegmented Neuts Atypical Lymphocytes Reactive Lymphocytes Smudge Cells Toxic Granulation Toxic Vacuolation Dohle Bodies [place] Rods Platelet Estimate Plt Morphology Comment RBC Morphology Polychromasia Hypochromasia Poikilocytosis Basophilic Stippling Anisocytosis Microcytosis Macrocytosis Spherocytes Sickle Cells Target Cells Tear Drop Cells Ovalocytes Stomatocytes [place] Bodies Jordyn Cells Bite Cells Crenated Cell Acanthocytes (Spur) Rouleaux Schistocytes PT INR D-Dimer Quant (PE/DVT) Sodium 140 Potassium 3.9 Chloride 107 Carbon Dioxide 25.0 Anion Gap 8 BUN 15 Creatinine 1.07 Estim Creat Clear Calc 89.07 Est GFR (MDRD) Af Amer 95 Est GFR (MDRD) Non-Af 79 BUN/Creatinine Ratio 14.0 Glucose 133 H Calcium 8.7 Total Bilirubin 0.60 AST 14 L ALT 22 Alkaline Phosphatase 40 L Troponin I < 0.015 Total Protein 7.0 Albumin 3.5 Globulin 3.5 Albumin/Globulin Ratio 1.0 TSH 0.54 POC Glucose 03/03/19 03/02/19 06:21 22:02 POC Glucose 133 H 135 H Code Visit Addendum: Dr. Urias I personally examined the patient and reviewed the chart. I agree with the above. 48-year-old male with an extensive past cardiac history including sudden cardiac arrest that he was resuscitated from and had a cardiac defibrillator placed, he is also had a history of a left heart cath in 2016, 2017, 2018, and 2019 as well as a history of stents and in-stent thrombosis as well as a CABG. He is presenting with recurrent chest pain that is similar to his previous episodes of chest pain. He was given a dose of Lasix today as well as Xanax as there is a possible component of anxiety to this pain. He was seen by the assistant operations manager who had performed all these prior catheterizations, and is recommending observation overnight and if he does not have any improvement in his chest pain, to keep him here until Wednesday for cardiac cath. If he improves then he can be discharged with an outpatient follow-up on Wednesday. We will continue to monitor on PCU. Troponins were negative x3 OBSV E&M: [id number] Subsequent observation care L2
--- NOTE | 2019-03-03 15:25 | CHAPLAIN ---
Type of Pastoral Visit _x__ Initial Visit ___ Follow-up Visit ___ On-call Visit ___ General Patient Visit ___ Spiritual Assessment ___ Family Conference ___ Bereavement ___ Rapid Response ___ Code Blue ___ Other (describe below) Pastoral Care Referral From _x__ Patient ___ Family ___ Nurse ___ Physician ___ Histology Teacher ___ Armored Truck Driver ___ Other (describe below) Sacrament/Intervention _x__ Active listening ___ Anointing ___ Judaism ___ Bereavement ___ Communion _x__ Jennifer exploration ___ _x__ Life review _x__ Prayer ___ Reconciliation ___ Sacrament of Sick _x__ Supportive presence ___ Wedding ___ Other (describe below) Pastoral Comments long visit given to patient and spouse as they discuss past health history with serious illness and heart disease; life history shared and spiritual history/thoughts shared; pt describes how jennifer is being processed in his life and how that is making a difference for him; pt very happy with his doctor and is hopeful for good results; spouse is active participant in conversation and in situation; both seek ongoing spiritual support in this health journey; pt has moved recently and does not have a mormon connection yet; pt does not have a gizzard peeler for his spiritual support at this time
[2019-03-03 16:31] LABS: Bedside Glucose 112 mg/dL (70-110)
[2019-03-03] MEDS: Atorvastatin Calcium 80 MG Tablet PO (22:00)
[2019-03-03] MEDS: traZODone 100 MG Tablet PO (22:13)
[2019-03-03 22:15] LABS: Bedside Glucose 138 mg/dL (70-110)
[2019-03-04 03:00] VITALS: PULSE 77
[2019-03-04 03:50] VITALS: BP 98/62; PULSE 73; RESP 16; TEMP 37.2; O2SAT 93
[2019-03-04 07:02] LABS: Anion Gap 9 (5-15); BUN 21 mg/dL (7-18); BUN/Creat Ratio 18.9 RATIO (10-20); Calcium,Total 8.6 mg/dL (8.5-10.1); Chloride 107 mmol/L (98-107); Creatinine, Serum 1.11 mg/dL (0.70-1.30); EST Glomerular Filtration Rate 76 mL/min (>60); Est Glom Filt Rate - Afr Amer 91 mL/min (>60); Estimated Creatinine Clearance 85.86 ml/min; Glucose 126 mg/dL (74-106); Potassium 4.1 mmol/L (3.5-5.1); Sodium Level 140 mmol/L (136-145)
[2019-03-04] MEDS: Levothyroxine 100 MCG Tablet 200 MCG PO (07:05)
[2019-03-04 07:08] VITALS: PULSE 69
[2019-03-04 07:15] LABS: Bedside Glucose 136 mg/dL (70-110)
[2019-03-04 09:15] VITALS: BP 102/64; PULSE 74; RESP 18; TEMP 36.7; O2SAT 92
[2019-03-04] MEDS: Multivitamins,Therapeutic Tablet 1 TABLET PO (09:34)
[2019-03-04] MEDS: Empagliflozin 25 MG Tablet PO (09:34)
[2019-03-04] MEDS: SACUBITRIL/VALSARTAN 49-51 MG TABLET 1 EACH PO (09:34)
[2019-03-04] MEDS: Pantoprazole Sodium 40 MG Tablet PO (09:34)
[2019-03-04] MEDS: Gemfibrozil 600 MG Tablet PO (09:34)
[2019-03-04] MEDS: Clopidogrel Bisulfate 75 MG Tablet PO (09:34)
[2019-03-04] MEDS: LINAGLIPTIN 5 MG TABLET PO (09:35)
[2019-03-04] MEDS: Vitamin B Comp W-C Capsule 1 CAP PO (09:35)
[2019-03-04] MEDS: Ranolazine 500 MG Tablet 1000 MG PO (09:35)
[2019-03-04] MEDS: Furosemide 40 MG Tablet PO (09:35)
[2019-03-04] MEDS: metFORMIN HCl 1,000 MG Tablet 1000 MG PO (09:35)
[2019-03-04] MEDS: Carvedilol 12.5 MG Tablet PO (09:35)
--- NOTE | 2019-03-04 10:15 | PN.CARD_ITS ---
Subjectve: Patient seen and evaluated. Appears to be doing better this morning. No obvious chest discomfort Objective: Vital Signs Temp Pulse Resp BP Pulse Ox 98.9 F 69 16 98/62 93 03/04/19 03:50 03/04/19 07:08 03/04/19 03:50 03/04/19 03:50 03/04/19 03:50 Oxygen Delivery Method Room Air Weight: 237 lb 14.06 oz Body Mass Index (BMI) 34.0 Intake and Output for Last 24 Hours 03/02/19 03/03/19 03/04/19 23:59 23:59 23:59 Intake Total 480 / 480 1577 / 1577 100 / 100 Output Total 1000 / 1000 3900 / 3900 700 / 700 Balance -520 / -520 -2323 / -2323 -600 / -600 General: Awake, Alert, Oriented x 3 HEENT: PERRL, EOMI, Sclera Non Icteric Neck: Supple, Good ROM, No Lymph Node Enlargement Lungs: Clear to auscultation Cardiovascular: Regular Rhythm, Normal S1, Normal S2, No Murmurs, No Rubs, No Gallops 03/04/19 06:05: Sodium 140, Potassium 4.1, Chloride 107, Carbon Dioxide 24.0, Anion Gap 9, BUN 21 H, Creatinine 1.11, Est GFR (MDRD) Af Amer 91, Est GFR (MDRD) Non-Af 76, BUN/Creatinine Ratio 18.9, Glucose 126 H, Calcium 8.6 Rhythm: EKG: ECHO: Stress Test: Cardiac Cath: PCI: CT Surgery: Holter monitor: EPS: PPM: CXR: Chest CT Scan: Medical Necessity - Tobacco Use Smoking Status: Never smoker Tobacco Use: Non-smoker Assessment/Plan 1. Chest pain: Chest pain is atypical. However it is similar to the chest pain he had prior to stents and bypass surgery. At other times when he has had this chest pain his cath did not show significant obstructive stenoses in the major epicardial coronary vessels. He has had improvement in his chest pain with adjustment of his heart failure medications in the past. While he does not seem to be in significant volume overload on physical exam, he does have a fair degree of orthopnea. Also his LAD stenosis was within his prior stents and was borderline. He already had COLBERT graft which has failed. 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 We will add low-dose amlodipine 2.5 mg a day. As an outpatient if his pain does not improve he may be a candidate for EECP therapy. 2. Cardiomyopathy: EF by echo in October 2018 was 45 to 50%. We are giving him a dose of Lasix IV and then keeping him on p.o. Lasix. He does have orthopnea which is worse than his usual 2 pillow orthopnea. In the past adjusting med ications for his cardiomyopathy resulted in improvement of his chest discomfort as well. Thank you for allowing me to participate in the care of your patient. Please don't hesitate to call if any issues arise
--- NOTE | 2019-03-04 10:24 | DCINST_ITS ---
- Discharge Diagnoses Current Active Problems: Current Active and Chronic Problems (This Medical Record has been edited. Action required.) Chest pain (Acute) You will use the following diet at home:: Cardiac Your food should be the consistency of: Regular Your liquids should be the consistency of: Regular/Thin Discharge Activity: Return to Normal Activity Call your doctor if you observe: Fever of 101 or Higher, Shortness of breath, Dizziness, Fainting spells, Swelling in the ankles, Chest pain, Increased palpitations (irregular heartbeat) Allergies/Adverse Reactions: Allergies No Known Allergies Allergy (Verified 03/02/19 14:08) Medications to take at Discharge empagliflozin 25 mg tablet 25 mg PO QAM 10/24/18 levothyroxine 200 mcg capsule 200 mcg PO DAILY 10/24/18 nitroglycerin 0.4 mg sublingual tablet 0.4 mg SUBLINGUAL Q5-15M PRN 10/24/18 coenzyme Q10 100 mg capsule 100 mg PO DAILY 01/02/19 Aspirin [Aspir 81] 81 mg PO DAILY 01/14/19 Atorvastatin Calcium [Lipitor] 80 mg PO QHS 01/14/19 B-Complex with Vitamin C [Super B Complex-Vitamin C] 1 ea PO DAILY 01/14/19 Carvedilol [Coreg (Beta Jose Guadalupe)] 12.5 mg PO BID 01/14/19 Dexlansoprazole [Dexilant] 60 mg PO DAILY 01/14/19 Furosemide 40 mg PO DAILY 01/14/19 Gemfibrozil [Lopid] 600 mg PO BIDAC 01/14/19 Glipizide [Glipizide ER] 10 mg PO BID 01/14/19 Isosorbide Mononitrate [Isosorbide Mononitrate ER] 120 mg PO DAILY 01/14/19 Multivitamin [Daily Multiple Vitamin] 1 ea PO DAILY 01/14/19 [place]-3 Fatty Acids [[place]-3] 1,040 mg PO DAILY 01/14/19 Ranolazine [Ranexa] 1,000 mg PO BID 01/14/19 Sitagliptin Phos/Metformin HCl [Janumet 50-1,000 MG Tablet] 1 tab PO BIDCM 01/14/19 traZODone [Desyrel] 100 mg PO QHS 01/14/19 Dulaglutide [Trulicity] 0.75 mg SQ WE 03/02/19 Lorazepam [Ativan] 1 mg PO QHS PRN 03/02/19 Sacubitril/Valsartan 49-51 mg [Entresto 49 mg-51 mg Tablet] 1 ea PO BID 03/02/19 Spironolactone 12.5 mg PO DAILY 03/02/19 Amlodipine [Norvasc] 2.5 mg PO DAILY #30 tab 03/04/19 The following prescriptions were given: Amlodipine [Norvasc] 2.5 mg PO DAILY #30 tab Transmission Status: Pending to [id number] Primary Care Physician: Chanda Espana DO [Primary Care Provider] - Please follow up with your Primary Care Physician in: 3-5 days Test Results: Test results from this visit will be discussed in further detail at your follow- up appointment, if applicable. Please Follow Up With: Zachary Lee MD When: 03/06/2019
--- NOTE | 2019-03-04 10:26 | PCM.DC.SUM ---
Discharge Date and Diagnosis - Problem List Patient Problems: Active and Suspected Problems (This Medical Record has been edited. Action required.) Chest pain (Acute) Date of Admission: 03/02/19 Date of Discharge: 03/04/19 - Primary Discharge Diagnosis Active and Suspected Problems (This Medical Record has been edited. Action required.) Chest pain (Acute) - Secondary Discharge Diagnosis Chronic Problems (This Medical Record has been edited. 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 Diabetes mellitus, type II (Chronic) Hypothyroidism (Chronic) HLD (hyperlipidemia) (Chronic) Ischemic cardiomyopathy (Chronic) CAD (coronary artery disease), [place] coronary artery (Chronic) Hospital Course and Treatment Imaging Results: CXR: IMPRESSION: Left pacemaker in place. Prior cardiac surgery. No acute intrathoracic process. Consults: Cardiology Operations: None Procedures: None Summary of Care Provided: Per HPI: The patient is a 48 year old M with past medical history of coronary artery disease with prior CABG last June, prior stents, patient of Dr. Lee, history of ischemic cardiomyopathy with AICD in place, atrial fibrillation, pacemaker in place, type 2 diabetes, hypothyroidism, depression who presented to the emergency room with complaints of chest pain. This pain began yesterday when he woke up. He woke up and started getting ready for work when he suddenly developed pressure on the left side of his chest that radiated into the left axilla. He also became short of breath when the chest pain came on. He took 3 nitro and had no relief. He went to work and it became worse throughout the day. He describes his pain as being exactly like when he had a CABG in the past. This morning he went to [facility] in [place] had an EKG and blood work and was sent home. He came to [place] [facility] after this. Notably he also was seen in the emergency room for chest pain in January and was sent home. He was having chest pain in December when he saw his drop worker in the office. And according to the last cardiology note he had another heart catheterization in October. The patient continues to have ongoing chest pain with no relief. He appears to be in obvious discomfort lying in bed. Hospital Course: 1. Chest pain/CAD status post CABG and stents/status post AICD/pacemaker [id number] male with an extensive past cardiac history presented with chest pain. He said that it was very similar to his previous chest pains that required stents and a bypass. He recently had a cardiac cath done on October of this year that did not require any intervention, though it did demonstrate a borderline in-stent restenosis of the stent in the LAD. He was given a dose of Lasix and Xanax and today feels much better. He would like to go home. He has outpatient cardiac follow-up on Wednesday with Dr. Lee. In the hospital his EKG was unremarkable and his troponins were negative x3. He does have a history of ischemic cardiomyopathy with an EF of 45 to 50%, and the Lasix caused him to lose about 4 L of fluid. On the day of discharge he was discussed with him that since he wants to go home he would need to follow-up on Wednesday with his drop worker and that if symptoms worsen and that he was to come back to the hospital. He expressed understanding and agreed with the plan. The only medication change that was made was the addition of Norvasc 2.5 mg daily to see if that could assist with any of his chest pain. 2. DM 2-blood sugars have been stable while he is here, he can restart his home medications on discharge 3. His other medical diagnoses were evaluated and his home medications were continued where appropriate Patient Problems: Active and Suspected Problems (This Medical Record has been edited. Action required.) Chest pain (Acute) - Physical Exam General: Alert, Oriented x3, Cooperative, No apparent distress HEENT: Atraumatic, PERRLA, EOMI, Normocephalic Oral: Moist Mucosa Neck: Supple, No JVD Lungs: Clear to auscultation, Normal air movement, No rhonchi, No wheeze, No rales, Diminished Cardiovascular: Regular rate, Regular Rhythm, Normal S1, Normal S2, No murmurs Abdomen: Soft, Non Tender, Non-Distended, No Hepato-splenomegaly Extremities: No edema, Capillary Refill Less than 3 Seconds Skin: No rashes, No breakdown Neurological: Neuro grossly intact, Sensory exam intact to light touch and pain Psych/Mental Status: Normal Affect, Appropriate Vital Signs Temp Pulse Resp BP Pulse Ox 98.9 F 69 16 98/62 93 03/04/19 03:50 08/24/19 07:08 03/04/19 03:50 03/04/19 03:50 03/04/19 03:50 Oxygen Delivery Method Room Air Weight: 237 lb 14.06 oz Body Mass Index (BMI) 34.0 Intake and Output for Last 24 Hours 03/02/19 03/03/19 03/04/19 23:59 23:59 23:59 Intake Total 480 / 480 1577 / 1577 100 / 100 Output Total 1000 / 1000 3900 / 3900 700 / 700 Balance -520 / -520 -2323 / -2323 -600 / -600 Laboratory Tests Past 24 Hrs 03/04/19 06:05 Sodium 140 Potassium 4.1 Chloride 107 Carbon Dioxide 24.0 Anion Gap 9 BUN 21 H Creatinine 1.11 Estim Creat Clear Calc 85.86 Est GFR (MDRD) Af Amer 91 Est GFR (MDRD) Non-Af 76 BUN/Creatinine Ratio 18.9 Glucose 126 H Calcium 8.6 POC Glucose 03/04/19 03/03/19 03/03/19 07:04 21:59 16:26 POC Glucose 136 H 138 H 112 H Discharge Activity: Return to Normal Activity Call your doctor if you observe: Fever of 101 or Higher, Shortness of breath, Dizziness, Fainting spells, Swelling in the ankles, Chest pain, Increased palpitations (irregular heartbeat) Home Medications: Medications to take at Discharge empagliflozin 25 mg tablet 25 mg PO QAM 10/24/18 levothyroxine 200 mcg capsule 200 mcg PO DAILY 10/24/18 nitroglycerin 0.4 mg sublingual tablet 0.4 mg SUBLINGUAL Q5-15M PRN 10/24/18 coenzyme Q10 100 mg capsule 100 mg PO DAILY 01/02/19 Aspirin [Aspir 81] 81 mg PO DAILY 01/14/19 Atorvastatin Calcium [Lipitor] 80 mg PO QHS 01/14/19 B-Complex with Vitamin C [Super B Complex-Vitamin C] 1 ea PO DAILY 01/14/19 Carvedilol [Coreg (Beta Jose Guadalupe)] 12.5 mg PO BID 01/14/19 Dexlansoprazole [Dexilant] 60 mg PO DAILY 01/14/19 Furosemide 40 mg PO DAILY 01/14/19 Gemfibrozil [Lopid] 600 mg PO BIDAC 01/14/19 Glipizide [Glipizide ER] 10 mg PO BID 01/14/19 Isosorbide Mononitrate [Isosorbide Mononitrate ER] 120 mg PO DAILY 01/14/19 Multivitamin [Daily Multiple Vitamin] 1 ea PO DAILY 01/14/19 [place]-3 Fatty Acids [[place]-3] 1,040 mg PO DAILY 01/14/19 Ranolazine [Ranexa] 1,000 mg PO BID 01/14/19 Sitagliptin Phos/Metformin HCl [Janumet 50-1,000 MG Tablet] 1 tab PO BIDCM 01/14/19 traZODone [Desyrel] 100 mg PO QHS 01/14/19 Dulaglutide [Trulicity] 0.75 mg SQ WE 03/02/19 Lorazepam [Ativan] 1 mg PO QHS PRN 03/02/19 Sacubitril/Valsartan 49-51 mg [Entresto 49 mg-51 mg Tablet] 1 ea PO BID 03/02/19 Spironolactone 12.5 mg PO DAILY 03/02/19 Amlodipine [Norvasc] 2.5 mg PO DAILY #30 tab 03/04/19 Following Prescrptions Were Given to Patient: Amlodipine [Norvasc] 2.5 mg PO DAILY #30 tab Transmission Status: Pending to [id number] Primary Care Physician: Chanda Espana DO [Primary Care Provider] - Please follow up with your Primary Care Physician in: 3-5 days Please Follow Up With: Zachary Lee MD When: 03/06/2019 Disposition: Home Minutes spent on discharge:: 35 Patient Condition:: Stable Medical Necessity - Tobacco Use Smoking Status: Never smoker Tobacco Use: Non-smoker Meaningful Use Info Meaningful Use Diagnoses (Choose all that apply): None applicable Code Visit OBSV E&M: 11374 Observation care discharge
== END 2019-03-04 10:25 | disposition home or self-care (01) ==
LOC: ED 16:00 → PCU 22:35
PROVIDERS: Physician Assistant; Admitting Provider Internal Medicine; Emergency Provider Emergency Medicine; Family Provider Internal Medicine; PCP Internal Medicine; Referring Provider Internal Medicine; Visit Provider Family Medicine
DX: R07.89 Other chest pain (principal); E78.5 Hyperlipidemia, unspecified; I25.10 Atherosclerotic heart disease of native coronary artery without angina pectoris; E03.9 Hypothyroidism, unspecified; I25.5 Ischemic cardiomyopathy; R06.02 Shortness of breath; G47.33 Obstructive sleep apnea (adult) (pediatric); E11.22 Type 2 diabetes mellitus with diabetic chronic kidney disease; I12.9 Hypertensive chronic kidney disease with stage 1 through stage 4 chronic kidney disease, or unspecified chronic kidney disease; N18.3 Chronic kidney disease, stage 3 (moderate); I48.91 Unspecified atrial fibrillation; Z79.899 Other long term (current) drug therapy; Z95.1 Presence of aortocoronary bypass graft; Z79.82 Long term (current) use of aspirin; Z79.84 Long term (current) use of oral hypoglycemic drugs; Z95.810 Presence of automatic (implantable) cardiac defibrillator
CPT/HCPCS: 36415; 71045; 80048; 80053; 82962; 84443; 84484; 85025; 85379; 85610; 93005; 96372; 96374; 97802; 99218; 99285; A4216; G0378; J1940

== ENCOUNTER 2019-03-08 11:43 | Observation (INO) | payer OTHER, SELFPAY ==
[2019-03-06 13:27] VITALS: BMI 34.5
[2019-03-08] VITALS (11 sets, daily range): BP systolic 118–131; BP diastolic 67–85; PULSE 67–77; RESP 14–18; TEMP 36.7–36.8; O2SAT 94–100; BMI 34.6; BMI 34.2
--- NOTE | 2019-03-08 11:53 | EKG12_ITS ---
Test Reason : CP Blood Pressure : / mmHG Vent. Rate : 073 BPM Atrial Rate : 073 BPM P-R Int : 168 ms QRS Dur : 098 ms QT Int : 390 ms P-R-T Axes : 016 -51 090 degrees QTc Int : 429 ms Normal sinus rhythm Left anterior fascicular block Septal infarct (cited on or before 02-MAR-2019) Possible Lateral infarct (cited on or before 02-MAR-2019) Abnormal ECG Confirmed by LEXIE CASTLE ([id number]), desk editor ALBANIA SANDOVAL ([id number]) on 03/14/2019 9:40:12 AM Referred By: SHEREE Confirmed By:LEXIE CASTLE
--- NOTE | 2019-03-08 11:53 | ED.DCSUM_ITS ---
History of Present Illness Chief Complaint: Chest Pain Narrative: 48-year-old male with a history of for cardiac stents (most recently in April 2015), all in the left anterior descending and a history of CABG in June 2018 presents with 2 weeks of midsternal chest pressure that is worse with exertion. He also has exertional dyspnea and is now developing sharp pleuritic chest pain as well for the past few days. He was recently hospitalized for this and his work-up was unremarkable. Pain became much worse this morning and he was referred here by his composite technician for a CT angiogram to rule out pulmonary embolism and the plan is for a heart cath if it is negative to further evaluate. The pain is currently moderate in severity. He describes it as a heavy pressure sensation. He has never smoked. Past Medical History - Allergies and Home Meds Allergies/Adverse Reactions: Allergies No Known Allergies Allergy (Verified 03/08/19 11:45) Primary Care Physician: Chanda Espana DO [Primary Care Provider] - Surgical History: coronary bypass surgery, tonsillectomy, - - hemorrhoidectomy, vasectomy Smoking Status: Never smoker Review of Systems General: Denies: Chills, Fever, Sweats Eyes: Denies: Visual changes - bilaterally, Diplopia ENT: Denies: Rhinorrhea, Sore throat Cardiovascular: Reports: Chest pain. Denies: Palpitations Respiratory: Reports: Dyspnea, Dyspnea on exertion. Denies: Cough Gastrointestinal: Denies: Abdominal pain, Nausea, Vomiting, Diarrhea, Melena, Hematochezia Genitourinary: Denies: Dysuria, Hematuria, Frequency Musculoskeletal: Denies: Back pain, Extremity Pain Skin: Denies: Rash, Wounds Neurological: Denies: Headache, Weakness, Numbness Physical Exam Vital Signs/Narrative: Vital Signs Temp Pulse Resp BP Pulse Ox 03/08/19 11:43 98.2 F 77 18 131/67 H 95 General: Well nourished, Well developed, No Acute Distress Head: Normocephalic, Atraumatic Eyes: Perrl, EOMI ENT: Moist mucous membranes, No rhinorrhea Neck: Supple, Nontender Cardiovascular: Regular rate, Regular rhythm, No murmurs Respiratory: No distress, CTA bilaterally, Chest nontender Abdomen: Soft, Nontender, Nondistended, Normal bowel sounds Back: Nontender, Normal Inspection Extremities: Nontender, No edema Skin: Normal color, No rash Neurological: Alert, Oriented x3, Cranial nerves II-XII grossly intact, Normal Strength, Normal Sensation Psychological: Normal affect, Normal Mood Diagnostic/Tx/Re-eval Chest X-Ray - ED: 1 View - Medical Decision Making EKG interpreted by me. Sinus rhythm at a rate of 73. No acute ischemic changes. Unchanged from prior. No ST elevation. No QRS widening. CBC and chemistries are unremarkable. Troponin negative. Chest x-ray unremarkable and subsequent CT angiogram negative for pulmonary embolism. I discussed the case with the patient's composite technician, Dr. Lee who recommend ed admission medically and he will perform a heart cath in the morning. He remained hemodynamically stable here. ED Disposition - Plan for ED Patient: Disposition: Acute Care Hospital [facility] Diagnosis: Chest pain, rule out acute myocardial infarction Referrals: Chanda Espana DO [Primary Care Provider] -
--- NOTE | 2019-03-08 11:53 | RAD_ITS ---
STUDY: X-RAY CHEST REASON FOR EXAM: Male, 48 years old. Chest pain. TECHNIQUE: Single AP portable view of the chest. COMPARISON: Comparison is made with prior study dated March 02, 2019. FINDINGS: EKG electrodes are seen. The lungs are clear and expanded. There is no demonstrated pleural abnormality. Sternal cerclage wires and vascular clips are present from a prior sternotomy and coronary artery bypass graft procedure (CABG). A left-sided ICD is seen. Normal mediastinum and brisa. Normal visualized pulmonary arteries. Normal visualized aortic arch and descending thoracic aorta. Normal visualized thoracic spine. Normal visualized ribs, clavicles, and shoulders. There is no demonstrated abnormality of the visualized soft tissue structures of the upper abdomen. RAD/Chest 1 View (Portable) IMPRESSION: No acute abnormality is present. Electronically Signed: Alex Morton, at 12:33 EDT , Service support ,
[2019-03-08] MEDS: Aspirin 81 MG TAB.CHEW 324 MG PO (12:15)
[2019-03-08 12:41] LABS: Absolute Lymphocyte Count 0.88 X10^3/uL (0.83-4.51); Absolute Neutrophil Count 2.5 X10^3/uL (2.0-7.7); Basophil# 0.02 X10^3/uL; Basophil% 0.5 % (0-1); Eosinophil# 0.11 X10^3/uL; Eosinophils% 2.7 % (0-5); Hematocrit 39.4 % (40-54); Hemoglobin 13.3 g/dL (13.0-16.5); Lymphocyte # 0.88 X10^3/ul (4.0); Lymphocyte % 21.9 % (19-41); Mean Corp Hgb Conc 33.8 g/dL (32-36); Mean Corpuscular Volume 88.9 fL (80-94); Mean Platelet Vol. 9.3 fl (6.2-12.0); Monocyte# 0.48 X10^3/uL; Monocyte% 11.9 % (0-10); NRBC Flagged by Analyzer 0 % (0-5); Neutrophil # 2.51 X10^3/uL (2.7-7.7); Neutrophil % 62.5 % (47-70); Platelet Count 313 K/mm3 (150-450); RBC Distribution Width CV 13.6 % (11.6-14.6); RBC Distribution Width SD 44.1 fl (35.1-43.9); Red Blood Count 4.43 M/mm3 (4.6-6.2)
[2019-03-08 12:46] LABS: Prothrombin Time (Protime)PT. 13.3 SECONDS (11.7-14.9)
[2019-03-08 12:59] LABS: Anion Gap 3 (5-15); BUN 23 mg/dL (7-18); BUN/Creat Ratio 21.3 RATIO (10-20); Calcium,Total 8.8 mg/dL (8.5-10.1); Chloride 105 mmol/L (98-107); Creatinine, Serum 1.08 mg/dL (0.70-1.30); EST Glomerular Filtration Rate 78 mL/min (>60); Est Glom Filt Rate - Afr Amer 94 mL/min (>60); Estimated Creatinine Clearance 88.25 ml/min; Glucose 125 mg/dL (74-106); Potassium 4.2 mmol/L (3.5-5.1); Sodium Level 139 mmol/L (136-145)
--- NOTE | 2019-03-08 13:32 | CT_ITS ---
STUDY: CTA CHEST REASON FOR EXAM: Male, 48 years old. Chest pain. Prior CABG and coronary stents. RADIATION DOSAGE (If Supplied By Facility): CTDIvol = ( 17.08 ) mGy, DLP = ( 565.27 ) mGycm TECHNIQUE: The examination was performed with the intravenous administration of 100 IV Isovue 370. Post-processing of the angiographic images was performed, with multiplanar reformation and 3D reconstruction. Individualized dose optimization techniques were used for this CT. COMPARISON: None. FINDINGS: Normal enhancement of the main pulmonary artery and right and left pulmonary arteries. Normal enhancement of the bilateral peripheral pulmonary arteries. There is no demonstrated pulmonary embolism. Normal thoracic aorta and visualized great vessels. There is no demonstrated aortic dissection. Sternal cerclage wires and vascular clips are present from a prior sternotomy and coronary artery bypass graft procedure (CABG). A left-sided ICD is seen. Normal mediastinum. Normal hilar regions. Normal visualized trachea and bronchi. The lungs are well expanded. Minimal degree of increased linear markings at the lung bases slightly more prominent on the right side suggestive of a atelectasis. Normal pleura. Normal chest wall structures. There are degenerative changes of thoracic spine. Small hiatal hernia. CT/CTA Chest W/WO Contrast IMPRESSION: Status post CABG. There is no evidence of a pulmonary embolism. Electronically Signed: Alex Morton, at 15:20 EDT , Service support ,
--- NOTE | 2019-03-08 16:04 | NURSING ---
PCU OBS CP R/O KARAN GALAN
--- NOTE | 2019-03-08 16:22 | PCM.HP.STD ---
<Hossein Anderson - Last Filed: 03/08/19 16:22> Problem List (1) Chest pain Status: Acute Qualifiers: Chest pain type: unspecified Qualified Code(s): R07.9 - Chest pain, unspecified (2) Hypothyroidism Status: Chronic (3) Hypertension Status: Chronic Qualifiers: Hypertension type: unspecified Qualified Code(s): I10 - Essential (primary) hypertension (4) S/P CABG x 2 Status: Chronic Comment: 06/30/2018 COLBERT to LAD, Reverse saphenous vein aortocoronary grafting of the posterior descending branch of the RCA. (5) Cardiac defibrillator in situ Status: Resolved Comment: 08/13/2015 lt dual-ICD Medtronic Evera MRI XT, model [id number], serial number [id number], Atrial lead Mdtronic 5076-52, serial number [id number]. Ventricular lead Medtronic 4165C77 serial number [id number]. (6) HLD (hyperlipidemia) Status: Chronic (7) Ischemic cardiomyopathy Status: Chronic (8) CAD (coronary artery disease), kake coronary artery Status: Chronic History of Present Illness Date of Admission: 03/08/19 Chief Complaint: chest pain The patient is a 48 year old M with a hx of CAD with CABGx2, ischemic CM, ICD in place, HTN, HLD, hypothyroidism, DMt2, who presents to the ER with chest pain. He was recently here admitted for chest pain. He was treated for CHF and discharge 3 days prior. On the day of discharge he had no further chest pain and was discharged home. He had a heart cath 4 months ago at which point no intervention was done. The day after leaving the hospital he woke up and his check pain was back. This is a left sided pressure 7/10. It is worse with exertion and he has exertional dyspnea. No radiation. No associated nausea or diaphoresis. 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 He had no relief of his chest pain. It has continued to worsen so he presents to the ER. Dr. Lee was contacted and recommends cath in the AM. [] Past Medical History Past Medical History (Chronic Problems): Chronic Problems (Last Reviewed 03/06/19 @ 15:03 by Zachary Lee MD) Hypothyroidism (Chronic) Hypertension (Chronic) S/P CABG x 2 (Chronic) 06/30/2018 COBLERT to LAD, Reverse saphenous vein aortocoronary grafting of the posterior descending branch of the RCA. Cardiac defibrillator in situ (Chronic) 08/13/2015 lt dual-ICD Medtronic Evera MRI XT, model [id number], serial number [id number], Atrial lead Mdtronic 5076-52, serial number [id number]. Ventricular lead Medtronic 9351J41 serial number [id number]. History of PTCA (Chronic) 04/12/2015 PTCA/stent on the 100% in stent stenosis in the mid LAD, a 2.75 mm x 33 mm Xience Alpine RX JF and a 3.5 mm x 33mm Xience alpine RX JF.; 03/01/2015 4.0 x 12 bare metal stent in the LAD, proximal to that stent 4.0 x 16 bare metal stent to the LAD. HLD (hyperlipidemia) (Chronic) Ischemic cardiomyopathy (Chronic) CAD (coronary artery disease), kake coronary artery (Chronic) Medical History: Medical History (Last Reviewed 03/06/19 @ 15:03 by Zachary Lee MD) Chest pain (Acute) R07.9 Hypertension (Chronic) I10 HLD (hyperlipidemia) (Chronic) E78.5 Ischemic cardiomyopathy (Chronic) I25.5 CAD (coronary artery disease), kake coronary artery (Chronic) I25.10 Diabetes mellitus, type II E11.9 Foreign body of knee S80.259A right Hypothyroidism E03.9 Obstructive sleep apnea G47.33 Allergies No Known Allergies Allergy (Verified 03/08/19 11:45) Home Medications: Ambulatory Orders Medication Instructions Recorded empagliflozin 25 mg tablet 25 mg PO QAM 10/24/18 levothyroxine 200 mcg capsule 200 mcg PO DAILY 10/24/18 nitroglycerin 0.4 mg sublingual 0.4 mg SUBLINGUAL Q5-15M PRN 10/24/18 tablet Aspirin [Aspir 81] 81 mg PO DAILY 01/14/19 Atorvastatin Calcium [Lipitor] 80 mg PO QHS 01/14/19 B-Complex with Vitamin C [Super B 1 tab PO DAILY 01/14/19 Complex-Vitamin C] Carvedilol [Coreg (Beta Jose Guadalupe)] 12.5 mg PO BID 01/14/19 Dexlansoprazole [Dexilant] 60 mg PO DAILY 01/14/19 Furosemide 40 mg PO DAILY 01/14/19 Gemfibrozil [Lopid] 600 mg PO BIDAC 01/14/19 Isosorbide Mononitrate [Isosorbide 120 mg PO DAILY 01/14/19 Mononitrate ER] Multivitamin [Daily Multiple 1 tab PO DAILY 01/14/19 Vitamin] [place]-3 Fatty Acids [[place]-3] 1,000 mg PO BID 01/14/19 Ranolazine [Ranexa] 1,000 mg PO BID 01/14/19 Sitagliptin Phos/Metformin HCl 1 tab PO BIDCM 01/14/19 [Janumet 50-1,000 MG Tablet] traZODone [Desyrel] 100 mg PO QHS 01/14/19 Dulaglutide [Trulicity] 0.75 mg SQ WE 03/02/19 Lorazepam [Ativan] 1 mg PO QHS PRN 03/02/19 Spironolactone 12.5 mg PO DAILY 03/02/19 sacubitril 97 mg-valsartan 103 mg 1 tab PO BID 03/06/19 tablet Surgical History: Surgical History (Last Reviewed 03/06/19 @ 15:03 by Zachary Lee MD) S/P CABG x 2 (Chronic) Z95.1 06/30/2018 COLBERT to LAD, Reverse saphenous vein aortocoronary grafting of the posterior descending branch of the RCA. History of left heart catheterization (Resolved) Z98.890 10/14/2018, 09/2016,06/27/2018, 08/12/2015,06/12/2016 Cardiac defibrillator in situ (Resolved) Z95.810 08/13/2015 lt dual-ICD Medtronic Evera MRI XT, model [id number], serial number [id number], Atrial lead Mdtronic 5076-52, serial number [id number]. Ventricular lead Medtronic 1390F64 serial number [id number]. History of PTCA (Resolved) Z98.61 04/12/2015 PTCA/stent on the 100% in stent stenosis in the mid LAD, a 2.75 mm x 33 mm Xience Alpine RX JF and a 3.5 mm x 33mm Xience alpine RX JF.; 03/01/2015 4.0 x 12 bare metal stent in the LAD, proximal to that stent 4.0 x 16 bare metal stent to the LAD. H/O hemorrhoidectomy Z98.890 History of appendectomy Z90.49 Surgical History: coronary bypass surgery, tonsillectomy, - - hemorrhoidectomy, vasectomy Psychiatric History: No pertinent psych hx Lives: With Family Smoking Status: Never smoker Tobacco Use: Non-smoker Alcohol: Rare Drugs: None - *Family History Maternal Family History: Family History (Last Reviewed 03/06/19 @ 15:03 by Zachary Lee MD) Mother Hypertension Diabetes COPD (chronic obstructive pulmonary disease) Heart disease Brother CVA (cerebral vascular accident) Review of Systems Constitutional: Denies: Chills, Fever, Weight Change HEENT: Denies: Head Aches, Sinus Congestion, Sinus Drainage, Visual Changes Cardiovascular: Reports: Chest Pain, Chest Pressure. Denies: Edema, Light Headedness, Palpitations, Syncope Respiratory: Reports: Shortness of Breath, Shortness of breath upon exertion. Denies: Cough, Shortness of breath at rest, Sputum production Gastrointestinal: Denies: Abdominal Pain, Diarrhea, Nausea, Vomiting Genitourinary: Denies: Dysuria, Frequency, Urgency Musculoskeletal: Denies: Joint Pain, Joint Tenderness Skin: Denies: Lesions, Rash, Wounds Neurological: Denies: Numbness, Tingling, Focal weakness Psychiatric: Denies: Anxiety, Depression, Homicidal Ideations, Suicidal Ideations Hematologic/ Lymphatic: Denies: Easy Bruising, Easy Bleeding VTE Information - Inpt Only VTE Present on Admission: No VTE Mechan Device Prophylaxis: None VTE Pharm Prophylaxis ordered?: Yes - Physical Exam General: Alert, Oriented x3, Cooperative HEENT: Atraumatic, PERRLA, EOMI, Normocephalic Neck: Supple, No JVD, Negative Carotid Bruits Lungs: Clear to auscultation, Normal air movement Cardiovascular: Regular rate, No murmurs Abdomen: Bowel Sounds Present, Soft, Non Tender Extremities: No edema, Capillary Refill Less than 3 Seconds Skin: No rashes, No breakdown Musculoskeletal: No Tenderness to Palpation of Joints or Extremities Neurological: Cranial nerves II-XII grossly intact Psych/Mental Status: Normal Affect, Appropriate Vital Signs Temp Pulse Resp BP Pulse Ox 98.2 F 72 14 121/77 H 98 03/08/19 11:43 03/08/19 15:45 03/08/19 15:45 03/08/19 15:45 03/08/19 15:45 Oxygen Delivery Method Room Air Weight: 241 lb 6.499 oz Body Mass Index (BMI) 34.6 Laboratory Tests Past 24 Hrs 03/08/19 03/08/19 03/08/19 12:24 12:24 12:24 WBC 4.0 L RBC 4.43 L Hgb 13.3 Hct 39.4 L MCV 88.9 MCH 30.0 MCHC 33.8 RDW Std Deviation 44.1 H RDW Coeff of Mickey 13.6 Plt Count 313 MPV 9.3 Immature Gran % (Auto) 0.500 Neut % (Auto) 62.5 Lymph % (Auto) 21.9 [place] % (Auto) 11.9 H Eos % (Auto) 2.7 Baso % (Auto) 0.5 Absolute Neuts (auto) 2.5 Absolute Lymphs (auto) 0.88 Nucleated RBC % 0 PT 13.3 INR 1.0 Sodium 139 Potassium 4.2 Chloride 105 Carbon Dioxide 31.0 Anion Gap 3 L BUN 23 H Creatinine 1.08 Estim Creat Clear Calc 88.25 Est GFR (MDRD) Af Amer 94 Est GFR (MDRD) Non-Af 78 BUN/Creatinine Ratio 21.3 H Glucose 125 H Calcium 8.8 Troponin I < 0.015 B-Natriuretic Peptide 03/08/19 12:24 WBC RBC Hgb Hct MCV MCH MCHC RDW Std Deviation RDW Coeff of Mickey Plt Count MPV Immature Gran % (Auto) Neut % (Auto) Lymph % (Auto) [place] % (Auto) Eos % (Auto) Baso % (Auto) Absolute Neuts (auto) Absolute Lymphs (auto) Nucleated RBC % PT INR Sodium Potassium Chloride Carbon Dioxide Anion Gap BUN Creatinine Estim Creat Clear Calc Est GFR (MDRD) Af Amer Est GFR (MDRD) Non-Af BUN/Creatinine Ratio Glucose Calcium Troponin I B-Natriuretic Peptide 51.0 Assessment/Plan All Active Problems (Last Reviewed 03/06/19 @ 15:03 by Zachary Lee MD) Chest pain (Acute) 1. Chest pain - recurrent. Dr. Lee consulted. Cath in AM. Repeat EKG, cycle enzymes, AM labs, prn Nitro 2. Chronic CHF with intermediate ejection fraction - 45-50%, recently diuresed 4L fluid, no weight gain or swelling. Continue home lasix/aldactone. 3. CAD with ischemic CM - prior CABG. AICD in place. On asa/statin/imdur/ranexa/entresto/coreg 4. DMt2 with obesity- on empaglaflozin, janumet, trulicity. Hold orals and trulicity. No metformin x 3 days if cath'd. SSI. 5. HTN/HLD - home meds 6. hypothyroid - synthroid 7. Anxiety - trazodone, ativan DVT ppx: hold for cath This patient was seen by Hossein Anderson PA-C under the supervision of Dr. Marques. <Blair Marques - Last Filed: 03/08/19 17:03> History of Present Illness The patient is a 48 year old M [] Past Medical History Medical History: Medical History (Last Reviewed 03/06/19 @ 15:03 by Zachary Lee MD) Chest pain (Acute) R07.9 Hypertension (Chronic) I10 HLD (hyperlipidemia) (Chronic) E78.5 Ischemic cardiomyopathy (Chronic) I25.5 CAD (coronary artery disease), kake coronary artery (Chronic) I25.10 Diabetes mellitus, type II E11.9 Foreign body of knee S80.259A right Hypothyroidism E03.9 Obstructive sleep apnea G47.33 Allergies No Known Allergies Allergy (Verified 03/08/19 11:45) Surgical History: Surgical History (Last Reviewed 03/06/19 @ 15:03 by Zachary Lee MD) S/P CABG x 2 (Chronic) Z95.1 06/30/2018 COLBERT to LAD, Reverse saphenous vein aortocoronary grafting of the posterior descending branch of the RCA. Cardiac defibrillator in situ (Chronic) Z95.810 08/13/2015 lt dual-ICD Medtronic Evera MRI XT, model [id number], serial number [id number], Atrial lead Mdtronic 5076-52, serial number [id number]. Ventricular lead Medtronic 0802V57 serial number [id number]. History of PTCA (Chronic) Z98.61 04/12/2015 PTCA/stent on the 100% in stent stenosis in the mid LAD, a 2.75 mm x 33 mm Xience Alpine RX JF and a 3.5 mm x 33mm Xience alpine RX JF.; 03/01/2015 4.0 x 12 bare metal stent in the LAD, proximal to that stent 4.0 x 16 bare metal stent to the LAD. H/O hemorrhoidectomy Z98.890 History of appendectomy Z90.49 - *Family History Maternal Family History: Family History (Last Reviewed 03/06/19 @ 15:03 by Zachary Lee MD) Mother Hypertension Diabetes COPD (chronic obstructive pulmonary disease) Heart disease Brother CVA (cerebral vascular accident) - Physical Exam Vital Signs Temp Pulse Resp BP Pulse Ox 98.2 F 69 14 125/82 H 99 03/08/19 11:43 03/08/19 16:37 03/08/19 16:37 03/08/19 16:37 03/08/19 16:37 Oxygen Delivery Method Room Air Weight: 241 lb 6.499 oz Body Mass Index (BMI) 34.6 Laboratory Tests Past 24 Hrs 03/08/19 03/08/19 03/08/19 12:24 12:24 12:24 WBC 4.0 L RBC 4.43 L Hgb 13.3 Hct 39.4 L MCV 88.9 MCH 30.0 MCHC 33.8 RDW Std Deviation 44.1 H RDW Coeff of Mickey 13.6 Plt Count 313 MPV 9.3 Immature Gran % (Auto) 0.500 Neut % (Auto) 62.5 Lymph % (Auto) 21.9 [place] % (Auto) 11.9 H Eos % (Auto) 2.7 Baso % (Auto) 0.5 Absolute Neuts (auto) 2.5 Absolute Lymphs (auto) 0.88 Nucleated RBC % 0 PT 13.3 INR 1.0 Sodium 139 Potassium 4.2 Chloride 105 Carbon Dioxide 31.0 Anion Gap 3 L BUN 23 H Creatinine 1.08 Estim Creat Clear Calc 88.25 Est GFR (MDRD) Af Amer 94 Est GFR (MDRD) Non-Af 78 BUN/Creatinine Ratio 21.3 H Glucose 125 H Calcium 8.8 Troponin I < 0.015 B-Natriuretic Peptide 03/08/19 12:24 WBC RBC Hgb Hct MCV MCH MCHC RDW Std Deviation RDW Coeff of Mickey Plt Count MPV Immature Gran % (Auto) Neut % (Auto) Lymph % (Auto) [place] % (Auto) Eos % (Auto) Baso % (Auto) Absolute Neuts (auto) Absolute Lymphs (auto) Nucleated RBC % PT INR Sodium Potassium Chloride Carbon Dioxide Anion Gap BUN Creatinine Estim Creat Clear Calc Est GFR (MDRD) Af Amer Est GFR (MDRD) Non-Af BUN/Creatinine Ratio Glucose Calcium Troponin I B-Natriuretic Peptide 51.0 Assessment/Plan Hospitalist note: I am seeing this patient in conjunction with Hossein Anderson. I independently seen and examined the patient. History and physical, laboratory data and imaging studies reviewed and I concur with the above admission and work-up plan. Patient presented to the emergency room because of chest pain that has been going on for around a week according to the patient. Pain is on the left side of his chest, dull aching pain, 7 out of 10 in severity, goes around his left upper lateral chest to the bottom of his left shoulder, aggravated by activity and associated with shortness of breath upon activity but not at rest, somewhat relieved by rest. Patient was admitted few days ago for chest pain, was treated for CHF and he was discharged 3 days ago. On the day of discharge, patient had no more chest pain. Patient mentioned that he went for heart cath around 4 months ago at [facility] and there was no interventions performed. Around 1 week ago, he went to [facility] where he was admitted and no interventions or cardiac testing performed. He denied associated nausea, vomiting or diaphoresis. In the emergency department, his vital signs are stable. His routine blood work was unremarkable. EKG revealed normal sinus rhythm without evidence of acute ischemic changes. Troponin was negative. Chest x-ray showed no acute findings. CTA chest also done and showed no PE or dissection. - Physical Exam General: Alert, Oriented x3, Cooperative, No apparent distress. HEENT: Atraumatic, PERRLA, EOMI. Neck: Supple, No JVD, Negative Carotid Bruits, Trachea Midline, Thyroid Normal. Lungs: Clear to auscultation, Normal air movement, No rhonchi, No wheeze, No rales. Cardiovascular: Regular rate, Regular Rhythm, Normal S1, Normal S2, PMI Normal. Abdomen: Bowel Sounds Present, Soft, Non Tender, Non-Distended, No Hepato-splenomegaly. Extremities: No clubbing, No cyanosis, No edema Skin: No rashes, No breakdown Neurological: Cranial nerves are intact, neuro grossly intact Vital Signs are stable. Assessment and plan: #1 chest pain: Recurrent. Initial EKG and troponin was unremarkable. Chest x-ray and CTA chest was unremarkable. Cardiology was consulted by ER physician and recommended admission for cardiac catheterization tomorrow morning. Plan: Admit to PCU for observation, cardiac monitoring, serial cardiac enzymes, repeat EKG tomorrow morning, IV fluids, IV morphine PRN for pain, sublingual nitroglycerin PRN for pain, cardiology consult, continue aspirin, statins, Coreg, nitrate and Ranexa. #2 other chronic medical problems: Stable, continue current medications as above. This note was generated with [employer] dictation software. It may contain incorrect words, spelling, and punctuation that were not noted in checking the note before signing. Code Visit OBSV E&M: 73994 Initial observation care L3
--- NOTE | 2019-03-08 17:55 | EKG12_ITS ---
Test Reason : Blood Pressure : / mmHG Vent. Rate : 065 BPM Atrial Rate : 065 BPM P-R Int : 180 ms QRS Dur : 108 ms QT Int : 340 ms P-R-T Axes : 028 -57 093 degrees QTc Int : 353 ms Normal sinus rhythm Left anterior fascicular block Anteriolateral infarct: age undetermined; cannot be excluded Nonspecific T- wave Abnormality Abnormal ECG Confirmed by ROSIO WALDROP, OSCAR ([id number]), desk editor [place] SANDOVAL ([id number]) on 03/14/2019 11:56:26 AM Referred By: HALLIE Confirmed By:OSCAR AVELAR MD
[2019-03-08] MEDS: Gemfibrozil 600 MG Tablet PO (19:44)
[2019-03-08] MEDS: Carvedilol 12.5 MG Tablet PO (19:44)
[2019-03-08] MEDS: 0.9% Normal Saline 1,000 ML 75 ML IV (19:44)
--- NOTE | 2019-03-08 20:55 | NURSING ---
Handoff given to Broderick Rai RN and Vilma Read RN at this time.
[2019-03-08] MEDS: Ranolazine 500 MG Tablet 1000 MG PO (21:44)
[2019-03-08] MEDS: Atorvastatin Calcium 80 MG Tablet PO (21:44)
[2019-03-08] MEDS: traZODone 100 MG Tablet PO (21:45)
[2019-03-08 22:01] LABS: Bedside Glucose 133 mg/dL (70-110)
[2019-03-08] MEDS: SACUBITRIL/VALSARTAN 97-103 MG TABLET 1 EACH PO (22:27)
[2019-03-09] VITALS (11 sets, daily range): BP systolic 101–112; BP diastolic 62–74; PULSE 65–75; RESP 16; TEMP 36.6–37.1; O2SAT 93–97
--- NOTE | 2019-03-09 05:55 | EKG12_ITS ---
Test Reason : AM EKG Blood Pressure : / mmHG Vent. Rate : 068 BPM Atrial Rate : 068 BPM P-R Int : 174 ms QRS Dur : 100 ms QT Int : 380 ms P-R-T Axes : 042 -45 116 degrees QTc Int : 404 ms Normal sinus rhythm Left anterior fascicular block Anterior infarct , age undetermined , cannot be excluded Abnormal ECG Confirmed by ROSIO WALDROP, OSCAR ([id number]), mapping editor [place] SANDOVAL ([id number]) on 03/14/2019 11:51:44 AM Referred By: ADAMA Confirmed By:OSCAR AVELAR MD
[2019-03-09 06:07] LABS: Absolute Lymphocyte Count 0.93 X10^3/uL (0.83-4.51); Basophil# 0.02 X10^3/uL; Basophil% 0.6 % (0-1); Eosinophil# 0.15 X10^3/uL; Eosinophils% 4.2 % (0-5); Hematocrit 37.7 % (40-54); Hemoglobin 12.5 g/dL (13.0-16.5); Lymphocyte # 0.93 X10^3/ul (4.0); Lymphocyte % 26.1 % (19-41); Mean Corp Hgb Conc 33.2 g/dL (32-36); Mean Corpuscular Hgb 29.7 pg (27.0-32.0); Mean Corpuscular Volume 89.5 fL (80-94); Mean Platelet Vol. 9.3 fl (6.2-12.0); Monocyte# 0.43 X10^3/uL; Monocyte% 12.1 % (0-10); NRBC Flagged by Analyzer 0 % (0-5); Neutrophil # 2.02 X10^3/uL (2.7-7.7); Neutrophil % 56.7 % (47-70); Platelet Count 281 K/mm3 (150-450); RBC Distribution Width CV 13.7 % (11.6-14.6); RBC Distribution Width SD 44.4 fl (35.1-43.9); Red Blood Count 4.21 M/mm3 (4.6-6.2); White Blood Count 3.6 K/mm3 (4.4-11.0)
[2019-03-09 06:31] LABS: Anion Gap 8 (5-15); BUN 16 mg/dL (7-18); Calcium,Total 8.2 mg/dL (8.5-10.1); Chloride 108 mmol/L (98-107); Creatinine, Serum 1.07 mg/dL (0.70-1.30); EST Glomerular Filtration Rate 79 mL/min (>60); Est Glom Filt Rate - Afr Amer 95 mL/min (>60); Estimated Creatinine Clearance 89.07 ml/min; Glucose 149 mg/dL (74-106); Potassium 3.5 mmol/L (3.5-5.1); Sodium Level 143 mmol/L (136-145)
[2019-03-09] MEDS: Carvedilol 12.5 MG Tablet PO (06:39)
[2019-03-09] MEDS: Aspirin E.C. 81 MG Tablet PO (06:39)
[2019-03-09 06:40] LABS: Bedside Glucose 177 mg/dL (70-110)
[2019-03-09] MEDS: Levothyroxine 100 MCG Tablet 200 MCG PO (06:40)
[2019-03-09 07:41] LABS: Bedside Glucose 149 mg/dL (70-110)
--- NOTE | 2019-03-09 09:01 | CASEMGMT ---
Per the [employer] website, the following are in-network tertiary facilities: [facility], [facility], [facility], [facility], [facility], [place], [facility], and . Peyton KESSLER CM
--- NOTE | 2019-03-09 10:28 | PCM.CONS.C ---
Problem List (1) Chest pain Status: Acute Qualifiers: Chest pain type: unspecified Qualified Code(s): R07.9 - Chest pain, unspecified Reason for Consult Date of Consultation: 03/09/19 Reason for Consultation: chest pain History of Present Illness: The patient is a 48 year old M with past medical history of coronary artery disease with prior CABG last June with SVG to RCA and COLBERT to LAD, prior stents, history of ischemic cardiomyopathy with AICD in place, (EF by echo in October 2018 was 45 to 50%) atrial fibrillation, type 2 diabetes, hypothyroidism, depression who presented to the emergency room with complaints of chest pain. This pain began last wednesday/ when he woke up. He woke up and started getting ready for work when he suddenly developed pressure on the left side of his chest that radiated into the left axilla. He also became short of breath when the chest pain came on. He took 3 nitro and had no relief. He went to work and it became worse throughout the day. He describes his pain as being exactly like when he had a CABG in the past. The pain was worse with exertion. He went to [facility] in [place] had an EKG and blood work and was sent home. He came to [place] [facility] after this. Notably he also was seen in the emergency room for chest pain in January and was sent home. He had a heart cath in October of this year which showed atretic COLBERT to LAD and patent SVG to RCA. He had an FFR in the LAD which was 0.81. He has stents in LAD and appears to have in-stent restenosis that is borderline. He was switched to Entresto and this resulted in improvement of his symptoms including the chest pain. He was given IV Lasix on Wednesday and felt better on Wednesday. He was discharged home and then started having chest pain again. I saw him in the office on Wednesday and we decided to optimize his CHF medications and see if this results in symptom improvement. Unfortunately while his shortness of breath has improved he continues to have chest pain. The chest pain is atypical by history but similar to what he had prior to his CABG. Review of systems: All systems reviewed. All else is negative except that in the HPI Past Medical History Allergies/Adverse Reactions: Allergies No Known Allergies Allergy (Verified 03/08/19 11:45) Home Medications: Ambulatory Orders Medication Instructions Recorded empagliflozin 25 mg tablet 25 mg PO QAM 10/24/18 levothyroxine 200 mcg capsule 200 mcg PO DAILY 10/24/18 nitroglycerin 0.4 mg sublingual 0.4 mg SUBLINGUAL Q5-15M PRN 10/24/18 tablet Aspirin [Aspir 81] 81 mg PO DAILY 01/14/19 Atorvastatin Calcium [Lipitor] 80 mg PO QHS 01/14/19 B-Complex with Vitamin C [Super B 1 tab PO DAILY 01/14/19 Complex-Vitamin C] Carvedilol [Coreg (Beta Jose Guadalupe)] 12.5 mg PO BID 01/14/19 Dexlansoprazole [Dexilant] 60 mg PO DAILY 01/14/19 Furosemide 40 mg PO DAILY 01/14/19 Gemfibrozil [Lopid] 600 mg PO BIDAC 01/14/19 Isosorbide Mononitrate [Isosorbide 120 mg PO DAILY 01/14/19 Mononitrate ER] Multivitamin [Daily Multiple 1 tab PO DAILY 01/14/19 Vitamin] [place]-3 Fatty Acids [[place]-3] 1,000 mg PO BID 01/14/19 Ranolazine [Ranexa] 1,000 mg PO BID 01/14/19 Sitagliptin Phos/Metformin HCl 1 tab PO BIDCM 01/14/19 [Janumet 50-1,000 MG Tablet] traZODone [Desyrel] 100 mg PO QHS 01/14/19 Dulaglutide [Trulicity] 0.75 mg SQ WE 03/02/19 Lorazepam [Ativan] 1 mg PO QHS PRN 03/02/19 Spironolactone 12.5 mg PO DAILY 03/02/19 sacubitril 97 mg-valsartan 103 mg 1 tab PO BID 03/06/19 tablet Past Medical History (Chronic Problems): Chronic Problems (Last Reviewed 03/06/19 @ 15:03 by Zachary Lee MD) Hypothyroidism (Chronic) Hypertension (Chronic) S/P CABG x 2 (Chronic) 06/30/2018 COLBERT to LAD, Reverse saphenous vein aortocoronary grafting of the posterior descending branch of the RCA. Cardiac defibrillator in situ (Chronic) 08/13/2015 lt dual-ICD [employer] MRI XT, model [id number], serial number [id number], Atrial lead Mdtronic 5076-52, serial number [id number]. Ventricular lead Medtronic [id number] serial number [id number]. History of PTCA (Chronic) 04/12/2015 PTCA/stent on the 100% in stent stenosis in the mid LAD, a 2.75 mm x 33 mm Xience Alpine RX JF and a 3.5 mm x 33mm Xience alpine RX JF.; 03/01/2015 4.0 x 12 bare metal stent in the LAD, proximal to that stent 4.0 x 16 bare metal stent to the LAD. HLD (hyperlipidemia) (Chronic) Ischemic cardiomyopathy (Chronic) CAD (coronary artery disease), [place] coronary artery (Chronic) Surgical History: coronary bypass surgery, tonsillectomy, - - hemorrhoidectomy, vasectomy Psychiatric History: No pertinent psych hx - *Family History Maternal Family History: Family History (Last Reviewed 03/06/19 @ 15:03 by Zachary Lee MD) Mother Hypertension Diabetes COPD (chronic obstructive pulmonary disease) Heart disease Brother CVA (cerebral vascular accident) Lives: With Family Smoking Status: Never smoker Tobacco Use: Non-smoker Alcohol: Rare Drugs: None Objective: Vital Signs Temp Pulse Resp BP Pulse Ox 98.0 F 67 16 108/62 96 03/09/19 06:34 03/09/19 06:34 03/09/19 06:34 03/09/19 06:34 03/09/19 06:34 Oxygen Delivery Method Room Air Weight: 238 lb 5.115 oz Body Mass Index (BMI) 34.2 Intake and Output for Last 24 Hours 03/07/19 03/08/19 03/09/19 23:59 23:59 23:59 Intake Total 1243.75 / 1243.75 681.25 / 681.25 Output Total 1330 / 1330 550 / 550 Balance -86.25 / -86.25 131.25 / 131.25 General: Awake, Alert, Oriented x 3 HEENT: PERRL, EOMI, Sclera Non Icteric Neck: Supple, Good ROM, No Lymph Node Enlargement Lungs: Clear to auscultation Cardiovascular: Regular Rhythm, Normal S1, Normal S2, No Murmurs, No Rubs, No Gallops Extremities: No edema Skin: No Rashes Neurological: No Focal Motor or Sensory Deficit Psych/Mental Status: Appropriate 03/08/19 12:24: WBC 4.0 L, RBC 4.43 L, Hgb 13.3, Hct 39.4 L, MCV 88.9, MCH 30.0, MCHC 33.8, Plt Count 313, MPV 9.3, Immature Gran % (Auto) 0.500, Neut % (Auto) 62.5, Lymph % (Auto) 21.9, [place] % (Auto) 11.9 H, Eos % (Auto) 2.7, Baso % (Auto) 0.5, Absolute Neuts (auto) 2.5, Nucleated RBC % 0 03/08/19 12:24: PT 13.3, INR 1.0 03/08/19 12:24: Sodium 139, Potassium 4.2, Chloride 105, Carbon Dioxide 31.0, Anion Gap 3 L, BUN 23 H, Creatinine 1.08, Est GFR (MDRD) Af Amer 94, Est GFR (MDRD) Non-Af 78, BUN/Creatinine Ratio 21.3 H, Glucose 125 H, Calcium 8.8, Troponin I < 0.015 03/08/19 12:24: B-Natriuretic Peptide 51.0 03/08/19 18:00: Troponin I < 0.015 03/08/19 20:45: Troponin I < 0.015 03/09/19 05:44: WBC 3.6 L, RBC 4.21 L, Hgb 12.5 L, Hct 37.7 L, MCV 89.5, MCH 29.7, MCHC 33.2, Plt Count 281, MPV 9.3, Immature Gran % (Auto) 0.300, Neut % (Auto) 56.7, Lymph % (Auto) 26.1, [place] % (Auto) 12.1 H, Eos % (Auto) 4.2, Baso % (Auto) 0.6, Absolute Neuts (auto) 2.0, Nucleated RBC % 0 03/09/19 05:44: Sodium 143, Potassium 3.5, Chloride 108 H, Carbon Dioxide 27.0, Anion Gap 8, BUN 16, Creatinine 1.07, Est GFR (MDRD) Af Amer 95, Est GFR (MDRD) Non-Af 79, BUN/Creatinine Ratio 15.0, Glucose 149 H, Calcium 8.2 L Rhythm: EKG: ECHO: Stress Test: Cardiac Cath: PCI: CT Surgery: Holter monitor: EPS: PPM: CXR: Chest CT Scan: Assessment/Plan 1. Chest pain: Patient continues to have chest pain. He states this is similar to what he had prior to his coronary interventions and bypass surgery. We will proceed with coronary angiography. Risks and benefits explained to the patient. Patient's preference is also to proceed with coronary angiography. 2. CHF: Patient is compensated from the standpoint. We will continue current medications at this time.
--- NOTE | 2019-03-09 10:53 | PN_ITS ---
Subjective: Still having CP that radiates to his L axilla. This hasn't let up. He states that he was feeling better prior to his d/c a few days ago but didn't have resolution of his CP prior to d/c. 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 States that he just wants to feel better. Vitals/I&O's: Vital Signs Temp Pulse Resp BP Pulse Ox 98.0 F 67 16 108/62 96 03/09/19 06:34 03/09/19 06:34 03/09/19 06:34 03/09/19 06:34 03/09/19 06:34 Oxygen Delivery Method Room Air Weight: 108.1 kg Body Mass Index (BMI) 34.2 Intake and Output for Last 24 Hours 03/07/19 03/08/19 03/09/19 23:59 23:59 23:59 Intake Total 1243.75 / 1243.75 681.25 / 681.25 Output Total 1330 / 1330 550 / 550 Balance -86.25 / -86.25 131.25 / 131.25 General: Alert, Oriented x3, Cooperative, No apparent distress, Well developed, Well nourished, - - sitting up in bed, IV being placed in his R hand, appears older than stated age HEENT: Atraumatic, Normocephalic, EAC Clear Oral: Moist Mucosa, No Gingival or Mucosal Lesions/ Ulcerations, - - Mallampati 3, no thrush Neck: Supple, No JVD, Negative Hepatojugular Reflux, No Nodes, Trachea Midline, Thyroid Normal Size and Texture Lungs: Clear to auscultation, Normal air movement, No rhonchi, No wheeze, No rales Cardiovascular: Regular rate, Regular Rhythm, Normal S1, Normal S2, No murmurs, No Ectopic Activity, No rub noted, No Gallop Abdomen: Bowel Sounds Present, Soft, Non Tender, Non-Distended, No Hepato- splenomegaly, Obese, No hernias noted Extremities: No clubbing, No cyanosis, No edema Skin: No rashes, No breakdown Musculoskeletal: No Tenderness to Palpation of Joints or Extremities, No Muscle Wasting Lymphatic: - - no cervical or supraclavicular LAD Neurological: Cranial nerves II-XII grossly intact, Neuro grossly intact, Motor Exam 5/5 strength throughout, Muscle tone normal, Sensory exam intact to light touch and pain, Coordination normal Psych/Mental Status: Normal Affect, Appropriate, Alert and oriented to time, place, person, mood and affect Laboratory Results 03/08/19 12:24: WBC 4.0 L, RBC 4.43 L, Hgb 13.3, Hct 39.4 L, MCV 88.9, MCH 30.0, MCHC 33.8, RDW Std Deviation 44.1 H, RDW Coeff of Mickey 13.6, Plt Count 313, MPV 9.3, Immature Gran % (Auto) 0.500, Neut % (Auto) 62.5, Lymph % (Auto) 21.9, [place] % (Auto) 11.9 H, Eos % (Auto) 2.7, Baso % (Auto) 0.5, Absolute Neuts (auto) 2.5, Absolute Lymphs (auto) 0.88, Nucleated RBC % 0 03/08/19 12:24: PT 13.3, INR 1.0 03/08/19 12:24: Sodium 139, Potassium 4.2, Chloride 105, Carbon Dioxide 31.0, Anion Gap 3 L, BUN 23 H, Creatinine 1.08, Estim Creat Clear Calc 88.25, Est GFR (MDRD) Af Amer 94, Est GFR (MDRD) Non-Af 78, BUN/Creatinine Ratio 21.3 H, Glucose 125 H, Calcium 8.8, Troponin I < 0.015 03/08/19 12:24: B-Natriuretic Peptide 51.0 03/08/19 18:00: Troponin I < 0.015 03/08/19 20:45: Troponin I < 0.015 03/08/19 21:53: POC Glucose 133 H 03/09/19 05:44: WBC 3.6 L, RBC 4.21 L, Hgb 12.5 L, Hct 37.7 L, MCV 89.5, MCH 29.7, MCHC 33.2, RDW Std Deviation 44.4 H, RDW Coeff of Mickey 13.7, Plt Count 281, MPV 9.3, Immature Gran % (Auto) 0.300, Neut % (Auto) 56.7, Lymph % (Auto) 26.1, [place] % (Auto) 12.1 H, Eos % (Auto) 4.2, Baso % (Auto) 0.6, Absolute Neuts (auto) 2.0, Absolute Lymphs (auto) 0.93, Nucleated RBC % 0 03/09/19 05:44: Sodium 143, Potassium 3.5, Chloride 108 H, Carbon Dioxide 27.0, Anion Gap 8, BUN 16, Creatinine 1.07, Estim Creat Clear Calc 89.07, Est GFR (MDRD) Af Amer 95, Est GFR (MDRD) Non-Af 79, BUN/Creatinine Ratio 15.0, Glucose 149 H, Calcium 8.2 L 03/09/19 06:37: POC Glucose 177 H 03/09/19 07:31: POC Glucose 149 H Current Medications Acetaminophen (Tylenol) 650 mg PO Q6H PRN PRN PRN Reason: Mild pain 1-3/Temp > 100.7 F Aspirin (Ecotrin) 81 mg PO DAILY [facility] Last Admin: 03/09/19 06:39 Dose: 81 mg Documented by: Atorvastatin Calcium (Lipitor) 80 mg PO QHS [facility] Last Admin: 03/08/19 21:44 Dose: 80 mg Documented by: Carvedilol (Coreg) 12.5 mg PO BIDCM [facility] Last Admin: 03/09/19 06:39 Dose: 12.5 mg Documented by: Dextrose (D50w Syringe) 0 gm IV X1 PRN; Protocol PRN Reason: Hypoglycemia Empagliflozin (Jardiance) 25 mg PO QAM [facility] Gemfibrozil (Lopid) 600 mg PO BIDAC [facility] Last Admin: 03/09/19 09:29 Dose: Not Given Documented by: Glucagon () 1 mg IM .X1 PRN PRN Reason: Hypoglycemia Sodium Chloride () 1,000 mls @ 0 mls/hr IV .Q0M [facility] Insulin Human Lispro (Humalog Kwikpen (Bkc)) [facility]; Protocol Last Admin: 03/09/19 09:25 Dose: Not Given Documented by: Isosorbide Mononitrate (Imdur) 120 mg PO DAILY [facility] Last Admin: 03/09/19 06:40 Dose: 120 mg Documented by: Levothyroxine Sodium (Synthroid) 200 mcg PO DAILY@0600 [facility] Last Admin: 03/09/19 06:40 Dose: 200 mcg Documented by: Lorazepam (Ativan) 1 mg PO QHS PRN PRN Reason: anxiety/sleep Morphine Sulfate () 1 - 2 mg IV Q4H PRN PRN PRN Reason: SEVERE PAIN (6-10/10) Nitroglycerin (Nitrostat) 0.4 mg SUBLINGUAL Q5M PRN PRN Reason: CARDIAC/CHEST PAIN Ondansetron HCl (Zofran) 4 mg IV Q8H PRN PRN PRN Reason: NAUSEA/VOMITING Pantoprazole Sodium (Protonix) 40 mg PO DAILY [facility] Ranolazine (Ranexa) 1,000 mg PO BID [facility] Last Admin: 03/08/19 21:44 Dose: 1,000 mg Documented by: Sacubitril/Valsartan (Entresto 97 Mg-103 Mg Tablet) 1 each PO BID [facility] Last Admin: 03/08/19 22:27 Dose: 1 each Documented by: Sodium Chloride () 10 - 40 ml IV UD PRN PRN Reason: SALINE FLUSH Spironolactone (Aldactone) 25 mg PO QODAY [facility] Trazodone HCl (Desyrel) 100 mg PO HS [facility] Last Admin: 03/08/19 21:45 Dose: 100 mg Documented by: Medical Necessity - Tobacco Use Smoking Status: Never smoker Tobacco Use: Non-smoker Assessment/Plan All Active Problems (Last Reviewed 03/06/19 @ 15:03 by Zachary Lee MD) Chest pain (Acute) Recurrent CP -similar to that of previous infarct -has had PCI in 2014 and CABG x2 06/2018 -Cards following -cardiac catheterization today Mild Leukopenia -suspect some dilutional -recheck in am -if remains low check HIV Mild Anemia -suspect dilutional -trend--> no s/o acute blood loss HTN/HPL/CAD/HFrEF/PAF continue Imdur/ASA/Coreg/Lopid/Ranxea/Entresto/Aldactone/Lipitor -Echo from October 2018 showed EF of 45-50% -has ICD in place -no A-fib since post op period - heart cath in October of this year which showed atretic COLBERT to LAD and patent SVG to RCA with FFR in the LAD which was 0.81 -no troponin elevation this admission DM-2 -check A1C -continue SSI -is on oral agents at home (Jardiance) GERD -continue PPI DVT prophylaxis Start Heparin sub q Code Visit Inpatient E&M: 73880 Subs Hosp L2
[2019-03-09] MEDS: Pantoprazole Sodium 40 MG Tablet PO (12:42)
[2019-03-09] MEDS: Ranolazine 500 MG Tablet 1000 MG PO (12:42)
[2019-03-09] MEDS: Empagliflozin 25 MG Tablet PO (12:42)
[2019-03-09] MEDS: SACUBITRIL/VALSARTAN 97-103 MG TABLET 1 EACH PO (12:42)
[2019-03-09] MEDS: Spironolactone 25 MG Tablet PO (12:42)
--- NOTE | 2019-03-09 12:46 | CL.D_ITS ---
Patient Name: RUSS LIZ Study Date: 03/09/2019 Performing: Yahir Lee MD Ht: 70 inches 178 cm : 1970 Wt: 238.4 lbs 108 kg Age: 48 Gender: male BSA: 2.25 PROCEDURE(S) PERFORMED PB55-DIV/COR/LV/CABG CLINICAL PROFILE AND INDICATIONS Indications: Suspected CAD Heart Failure: None Stress/Imaging Stress/Image Study Performed: No CAD Presentations: Unstable angina. CONCLUSIONS CAD as described with patent 2/2 bypass grafts. Moderate to severe LV systolic dysfunction with coy l LVEDP. No significant or MR RECOMMENDATIONS Maximal medical therapy for CAD, CHF and risk factor modification. DESCRIPTION OF PROCEDURE The patient arrived to the procedure lab. The risks and benefits of the procedure as well as a full d escription of our services here and current unavailability of surgical backup were fully explained to the patient and/or their significant other prior to the catheterization. The Timeout was completed, verifying the correct patient and procedure. The patient's procedural site was prepped and draped in the usual fashion. Local anesthetic was given subcutaneously to left radial region with Lidocaine 2%. Using a modified Seldinger technique, arterial access was obtained via the left radial artery, a 6Fr sheath was inserted. Right Coronary Artery selective angiography was then performed in multiple vie ws using a 5 Fr. JR 4 catheter. Saphenous Vein graft to the RPDA selective angiography was performed in multiple views using a 5 Fr. JR 4 catheter. Left Ventriculography was performed in [place] projection using a 6 Fr. Pigtail catheter. LV to AO pullback pressures were then recorded. Left Coronary Artery selective angiography was performed in multiple views using a 5 Fr. JL4 catheter. Lef t internal mammary artery graft to the LAD selective angiography was performed in multiple views usin g a 5 Fr. IM catheter.The arterial sheath was pulled and a TR Band was applied for hemostasis w/ 11ml air CORONARY ANGIOGRAPHY DOMINANCE: Right Dominant LEFT HEART ASSESSMENT Left Ventricular Ejection Fraction: by LV Gram 35-40 % Anterior and apical Hypokinesis - Severe LEFT MAIN: Mild luminal irregularities LEFT ANTERIOR DESCENDING ARTERY: Previously placed stent has an instent 60-70 % restenosis CIRCUMFLEX ARTERY: Mild luminal irregularities RAMUS: Mild luminal irregularities RIGHT CORONARY ARTERY: MID RCA: 100 % Stenosis GRAFTS: COLBERT graft to the LAD is patent Saphenous Vein graft to the RCA is patent VALVE FINDINGS: No Aortic Valve Stenosis No Mitral Insufficency COMPLICATIONS No Complications PROCEDURE MEDICATIONS Versed 1 mg IV Fentanyl 50 mcg IV Oxygen: 2 L/min via nasal cannula Heparin given IA 03/09/2019 11:26:13 Verapamil 2.5mg, Ntg 100mcgs, 3000 units of Heparin given IA 03/09/2019 11:26:13 SUMMARY OF HEMODYNAMIC DATA Time AIR REST ECG 10:59:52 AO 110/72 (91) SA 11:34:01 LV 117/-6, 10 11:43:09 LV 117/-7, 8 11:43:15 LV 116/-6, 10 11:44:19 LVp 105/11, 18 11:44:25 AOp 112/66 (87) 11:44:31 Signed By Yahir Lee MD On 03/09/2019 12:45:04 Yahir Lee MD
[2019-03-09] MEDS: Morphine 2 MG/ML Syringe IV (12:49)
[2019-03-09 12:51] LABS: Bedside Glucose 129 mg/dL (70-110)
[2019-03-09] MEDS: 0.9% Normal Saline 1,000 ML 100 ML IV (12:57)
--- NOTE | 2019-03-09 13:20 | PCM.DC.SUM ---
Discharge Date and Diagnosis Date of Admission: 03/08/19 Date of Discharge: 03/09/19 - Secondary Discharge Diagnosis Chronic Problems (Last Reviewed 03/06/19 @ 15:03 by Zachary Lee MD) Hypothyroidism (Chronic) Hypertension (Chronic) S/P CABG x 2 (Chronic) 06/30/2018 COLBERT to LAD, Reverse saphenous vein aortocoronary grafting of the posterior descending branch of the RCA. Cardiac defibrillator in situ (Chronic) 08/13/2015 lt dual-ICD Medtronic Evera MRI XT, model [id number], serial number [id number], Atrial lead Mdtronic 5076-52, serial number [id number]. Ventricular lead Medtronic [id number] serial number [id number]. History of PTCA (Chronic) 04/12/2015 PTCA/stent on the 100% in stent stenosis in the mid LAD, a 2.75 mm x 33 mm Xience Alpine RX JF and a 3.5 mm x 33mm Xience alpine RX JF.; 03/01/2015 4.0 x 12 bare metal stent in the LAD, proximal to that stent 4.0 x 16 bare metal stent to the LAD. HLD (hyperlipidemia) (Chronic) Ischemic cardiomyopathy (Chronic) CAD (coronary artery disease), [place] coronary artery (Chronic) Hospital Course and Treatment Imaging Results: Cardiac Catheterization -EF on LV gram 35-40% -all grafts were open -maximal medical therapy was recommended Cardiology Operations: None Procedures: Cardiac catheterization Summary of Care Provided: Mr. Connell is a 48 year old M who presented to the ED on 03/08/19 c/o L sided CP that radiated to his axilla. He had a recent admission here for CP and was d/c 3 days prior to re-presentation. He states that his CP at that time had never resolved but he was feeling better overall. He states that the pain was 7/10. He saw his multimedia assistant (Dr. Lee) on Wednesday and his Entresto was increased. He was admitted to PCU. Troponins were not elevated and his EKG was stable. He was taken to the photographic laboratory technician on the am of 03/09/19 and stable disease with patent grafts and an LV gram with an EF of 35-40% was noted at that time. Approach for the cath was L radial aa. He is still having sx, but given that his cath was negative. Cardiology felt he could be d/brijesh. He was d/c with no medication changes in stable condition. [] - Physical Exam Vital Signs Temp Pulse Resp BP Pulse Ox 98.0 F 67 16 108/62 96 03/09/19 06:34 03/09/19 06:34 03/09/19 06:34 03/09/19 06:34 03/09/19 06:34 Oxygen Delivery Method Room Air Weight: 108.1 kg Body Mass Index (BMI) 34.2 Intake and Output for Last 24 Hours 03/07/19 03/08/19 03/09/19 23:59 23:59 23:59 Intake Total 1243.75 / 1243.75 681.25 / 681.25 Output Total 1330 / 1330 550 / 550 Balance -86.25 / -86.25 131.25 / 131.25 Laboratory Tests Past 24 Hrs 03/08/19 03/08/19 03/09/19 18:00 20:45 05:44 WBC 3.6 L RBC 4.21 L Hgb 12.5 L Hct 37.7 L MCV 89.5 MCH 29.7 MCHC 33.2 RDW Std Deviation 44.4 H RDW Coeff of Mickey 13.7 Plt Count 281 MPV 9.3 Immature Gran % (Auto) 0.300 Neut % (Auto) 56.7 Lymph % (Auto) 26.1 [place] % (Auto) 12.1 H Eos % (Auto) 4.2 Baso % (Auto) 0.6 Absolute Neuts (auto) 2.0 Absolute Lymphs (auto) 0.93 Nucleated RBC % 0 Sodium Potassium Chloride Carbon Dioxide Anion Gap BUN Creatinine Estim Creat Clear Calc Est GFR (MDRD) Af Amer Est GFR (MDRD) Non-Af BUN/Creatinine Ratio Glucose Calcium Troponin I < 0.015 < 0.015 03/09/19 05:44 WBC RBC Hgb Hct MCV MCH MCHC RDW Std Deviation RDW Coeff of Mickey Plt Count MPV Immature Gran % (Auto) Neut % (Auto) Lymph % (Auto) [place] % (Auto) Eos % (Auto) Baso % (Auto) Absolute Neuts (auto) Absolute Lymphs (auto) Nucleated RBC % Sodium 143 Potassium 3.5 Chloride 108 H Carbon Dioxide 27.0 Anion Gap 8 BUN 16 Creatinine 1.07 Estim Creat Clear Calc 89.07 Est GFR (MDRD) Af Amer 95 Est GFR (MDRD) Non-Af 79 BUN/Creatinine Ratio 15.0 Glucose 149 H Calcium 8.2 L Troponin I POC Glucose 03/09/19 03/09/19 03/09/19 12:39 07:31 06:37 POC Glucose 129 H 149 H 177 H 03/08/19 21:53 POC Glucose 133 H Discharge Diet: Low fat/ Low Cholesterol, 1800 Calorie Control Diet Discharge Activity: Return to Normal Activity Return to work on:: 03/13/19November shower in (days): 09 November resume sexual activity in: - - 24 hrs Weight Bearing Status: Weight bearing as tolerated Call your doctor if your incision/area has: Continuous Slow Oozing, Sudden Increased Bleeding, Increased Pain/ Swelling, Increased Redness Call your doctor if you observe: Fever of 101 or Higher, Shortness of breath, Dizziness, Fainting spells, Swelling in the ankles, Chest pain Cleanse incision/area with: Soap & Water Home Medications: Medications to take at Discharge empagliflozin 25 mg tablet 25 mg PO QAM 10/24/18 levothyroxine 200 mcg capsule 200 mcg PO DAILY 10/24/18 nitroglycerin 0.4 mg sublingual tablet 0.4 mg SUBLINGUAL Q5-15M PRN 10/24/18 Aspirin [Aspir 81] 81 mg PO DAILY 01/14/19 Atorvastatin Calcium [Lipitor] 80 mg PO QHS 01/14/19 B-Complex with Vitamin C [Super B Complex-Vitamin C] 1 tab PO DAILY 01/14/19 Carvedilol [Coreg (Beta Jose Guadalupe)] 12.5 mg PO BID 01/14/19 Dexlansoprazole [Dexilant] 60 mg PO DAILY 01/14/19 Furosemide 40 mg PO DAILY 01/14/19 Gemfibrozil [Lopid] 600 mg PO BIDAC 01/14/19 Isosorbide Mononitrate [Isosorbide Mononitrate ER] 120 mg PO DAILY 01/14/19 Multivitamin [Daily Multiple Vitamin] 1 tab PO DAILY 01/14/19 [place]-3 Fatty Acids [[place]-3] 1,000 mg PO BID 01/14/19 Ranolazine [Ranexa] 1,000 mg PO BID 01/14/19 Sitagliptin Phos/Metformin HCl [Janumet 50-1,000 MG Tablet] 1 tab PO BIDCM 01/14/19 traZODone [Desyrel] 100 mg PO QHS 01/14/19 Dulaglutide [Trulicity] 0.75 mg SQ WE 03/02/19 Lorazepam [Ativan] 1 mg PO QHS PRN 03/02/19 Spironolactone 12.5 mg PO DAILY 03/02/19 sacubitril 97 mg-valsartan 103 mg tablet 1 tab PO BID 03/06/19 Primary Care Physician: Chanda Espana DO [Primary Care Provider] - Please follow up with your Primary Care Physician in: 1-2 weeks Please Follow Up With: Zachary Lee MD When: as scheduled Medical Necessity - Tobacco Use Smoking Status: Never smoker Tobacco Use: Non-smoker Meaningful Use Info Meaningful Use Diagnoses (Choose all that apply): None applicable Code Visit Inpatient E&M: 36785 Disch Hosp
--- NOTE | 2019-03-09 13:35 | PCM.DC ---
- Discharge Diagnoses Current Active Problems: Current Active and Chronic Problems (Last Reviewed 03/06/19 @ 15:03 by Zachary Lee MD) Hypothyroidism (Chronic) You will use the following diet at home:: Calorie/Carbohydrate Controlled (specify 1200, 1400, etc), Cardiac Your food should be the consistency of: Regular Your liquids should be the consistency of: Regular/Thin Discharge Activity: Return to Normal Activity Return to work on:: 03/13/19 May shower in (days): 1 May resume sexual activity in: - - 24 hrs Weight Bearing Status: Weight bearing as tolerated Call your doctor if your incision/area has: Continuous Slow Oozing, Sudden Increased Bleeding, Increased Pain/ Swelling, Increased Redness Call your doctor if you observe: Fever of 101 or Higher, Shortness of breath, Dizziness, Fainting spells, Swelling in the ankles, Chest pain Cleanse incision/area with: Soap & Water Allergies/Adverse Reactions: Allergies No Known Allergies Allergy (Verified 03/08/19 11:45) Medications to take at Discharge empagliflozin 25 mg tablet 25 mg PO QAM 10/24/18 levothyroxine 200 mcg capsule 200 mcg PO DAILY 10/24/18 nitroglycerin 0.4 mg sublingual tablet 0.4 mg SUBLINGUAL Q5-15M PRN 10/24/18 Aspirin [Aspir 81] 81 mg PO DAILY 01/14/19 Atorvastatin Calcium [Lipitor] 80 mg PO QHS 01/14/19 B-Complex with Vitamin C [Super B Complex-Vitamin C] 1 tab PO DAILY 01/14/19 Carvedilol [Coreg (Beta Jose Guadalupe)] 12.5 mg PO BID 01/14/19 Dexlansoprazole [Dexilant] 60 mg PO DAILY 01/14/19 Furosemide 40 mg PO DAILY 01/14/19 Gemfibrozil [Lopid] 600 mg PO BIDAC 01/14/19 Isosorbide Mononitrate [Isosorbide Mononitrate ER] 120 mg PO DAILY 01/14/19 Multivitamin [Daily Multiple Vitamin] 1 tab PO DAILY 01/14/19 [place]-3 Fatty Acids [[place]-3] 1,000 mg PO BID 01/14/19 Ranolazine [Ranexa] 1,000 mg PO BID 01/14/19 Sitagliptin Phos/Metformin HCl [Janumet 50-1,000 MG Tablet] 1 tab PO BIDCM 01/14/19 traZODone [Desyrel] 100 mg PO QHS 01/14/19 Dulaglutide [Trulicity] 0.75 mg SQ WE 03/02/19 Lorazepam [Ativan] 1 mg PO QHS PRN 03/02/19 Spironolactone 12.5 mg PO DAILY 03/02/19 sacubitril 97 mg-valsartan 103 mg tablet 1 tab PO BID 03/06/19 Primary Care Physician: Chanda Espana DO [Primary Care Provider] - Please follow up with your Primary Care Physician in: 1-2 weeks Test Results: Test results from this visit will be discussed in further detail at your follow-up appointment, if applicable. Please Follow Up With: Zachary Lee MD When: as scheduled
--- NOTE | 2019-03-09 15:37 | CHAPLAIN ---
Type of Pastoral Visit _x__ Initial Visit ___ Follow-up Visit ___ On-call Visit ___ General Patient Visit ___ Spiritual Assessment ___ Family Conference ___ Bereavement ___ Rapid Response ___ Code Blue ___ Other (describe below) Pastoral Care Referral From _x__ Patient ___ Family ___ Nurse ___ Physician ___ Saw Repairer ___ Digital Solution Architect ___ Other (describe below) Sacrament/Intervention _x__ Active listening ___ Anointing ___ Congregation ___ Bereavement ___ Communion ___ Jennifer exploration ___ ___ Life review _x__ Prayer ___ Reconciliation ___ Sacrament of Sick ___ Supportive presence ___ Wedding ___ Other (describe below) Pastoral Comments
--- NOTE | 2019-03-09 15:40 | NURSING ---
REVIEWED RAN Becerril CHARTING.
== END 2019-03-09 13:34 | disposition home or self-care (01) ==
LOC: ED 15:54 → PCU 16:50
PROVIDERS: Admitting Provider Hospitalist; Emergency Provider Emergency Medicine; Family Provider Internal Medicine; PCP Internal Medicine; Visit Provider Internal Medicine
DX: I25.110 Atherosclerotic heart disease of native coronary artery with unstable angina pectoris (principal); E03.9 Hypothyroidism, unspecified; E78.5 Hyperlipidemia, unspecified; I25.5 Ischemic cardiomyopathy; G47.33 Obstructive sleep apnea (adult) (pediatric); F41.9 Anxiety disorder, unspecified; K21.9 Gastro-esophageal reflux disease without esophagitis; I11.0 Hypertensive heart disease with heart failure; I50.20 Unspecified systolic (congestive) heart failure; E66.9 Obesity, unspecified; Z79.84 Long term (current) use of oral hypoglycemic drugs; Z95.1 Presence of aortocoronary bypass graft; Z79.899 Other long term (current) drug therapy; Z79.82 Long term (current) use of aspirin; Z95.810 Presence of automatic (implantable) cardiac defibrillator; Z68.34 Body mass index [BMI] 34.0-34.9, adult; Z71.3 Dietary counseling and surveillance
CPT/HCPCS: 36415; 71045; 71275; 80048; 82962; 83880; 84484; 85025; 85610; 93005; 93459; 96361; 96374; 99152; 99153; 99218; 99285; J7030; Q9967; A4216; C1769; C1894; G0378

== ENCOUNTER 2020-01-16 10:39 | Observation (INO) | payer OTHER, SELFPAY ==
[2019-10-23 18:13] VITALS: BMI 34.2
[2020-01-16] VITALS (10 sets, daily range): BP systolic 98–117; BP diastolic 62–73; PULSE 67–77; RESP 14–18; TEMP 36.2–37.1; O2SAT 94–97; BMI 34.4; BMI 34.6
--- NOTE | 2020-01-16 10:48 | RAD_ITS ---
STUDY: X-RAY CHEST REASON FOR EXAM: Male, 49 years old. Shortness of breath and chest heaviness X1 week, worsens with exertion. TECHNIQUE: 2 AP portable views COMPARISON: 03/08/2019 FINDINGS: EKG leads overlie the chest. Stable appearance of a left subclavian pacemaker The lungs are clear and expanded. There is no demonstrated pleural abnormality. Sternal cerclage wires and vascular clips are present from a prior sternotomy and coronary artery bypass graft procedure (CABG). Normal mediastinum and brisa. Normal visualized pulmonary arteries. Normal visualized aortic arch and descending thoracic aorta. Normal visualized thoracic spine. Normal visualized ribs, clavicles, and shoulders. There is no demonstrated abnormality of the visualized soft tissue structures of the upper abdomen. RAD/Chest 1 View (Portable) IMPRESSION: No acute pulmonary process Electronically Signed: Walker Huang MD at 12:05 EDT , Service support ,
--- NOTE | 2020-01-16 10:48 | EKG12_ITS ---
Test Reason : CP Blood Pressure : / mmHG Vent. Rate : 070 BPM Atrial Rate : 070 BPM P-R Int : 166 ms QRS Dur : 094 ms QT Int : 362 ms P-R-T Axes : 024 -35 084 degrees QTc Int : 390 ms Normal sinus rhythm Left axis deviation Anterolateral infarct , age undetermined Abnormal ECG Confirmed by LEXIE CASTLE ([id number]), department editor ABIMBOLA LAMAR ([id number]) on 01/22/2020 8:30:39 AM Referred By: EVY Confirmed By:LEXIE CASTLE
[2020-01-16 11:00] LABS: Absolute Neutrophil Count 2.6 X10^3/uL (2.0-7.7); Basophil# 0.03 X10^3/uL; Basophil% 0.7 % (0-1); Eosinophil# 0.24 X10^3/uL; Eosinophils% 5.6 % (0-5); Hemoglobin 14.5 g/dL (13.0-16.5); Lymphocyte % 23.4 % (19-41); Mean Corp Hgb Conc 32.2 g/dL (32-36); Mean Corpuscular Hgb 29.7 pg (27.0-32.0); Mean Corpuscular Volume 92.2 fL (80-94); Mean Platelet Vol. 9.3 fl (6.2-12.0); Monocyte# 0.38 X10^3/uL; Monocyte% 8.9 % (0-10); NRBC Flagged by Analyzer 0 % (0-5); Neutrophil % 60.9 % (47-70); Platelet Count 312 K/mm3 (150-450); RBC Distribution Width CV 12.6 % (11.6-14.6); RBC Distribution Width SD 42.7 fl (35.1-43.9); Red Blood Count 4.88 M/mm3 (4.6-6.2); White Blood Count 4.3 K/mm3 (4.4-11.0)
[2020-01-16] MEDS: Nitroglycerin Oint 1 INCH PACKET TRANSDERM. (11:01)
[2020-01-16] MEDS: Aspirin 81 MG TAB.CHEW 324 MG PO (11:01)
[2020-01-16] MEDS: 0.9% Normal Saline 1,000 ML 150 ML IV (11:02)
[2020-01-16 11:08] LABS: Prothrombin Time (Protime)PT. 12.9 SECONDS (11.7-14.9)
[2020-01-16 11:09] LABS: Partial Thromboplast Time 24.5 Seconds (24.1-36.2)
[2020-01-16 11:17] LABS: Anion Gap 4 (5-15); BUN 18 mg/dL (7-18); BUN/Creat Ratio 15.3 RATIO (10-20); Chloride 107 mmol/L (98-107); Creatinine, Serum 1.18 mg/dL (0.70-1.30); EST Glomerular Filtration Rate 70 mL/min (>60); Est Glom Filt Rate - Afr Amer 85 mL/min (>60); Estimated Creatinine Clearance 79.91 ml/min; Glucose 136 mg/dL (74-106); Potassium 4.5 mmol/L (3.5-5.1); Sodium Level 140 mmol/L (136-145)
--- NOTE | 2020-01-16 11:39 | ED.VIS.GEN ---
History of Present Illness Chief Complaint: Chest Pain Informant: Patient Onset: Weeks - 2 Narrative: Here with significant other 2 weeks of chest pressure shortness of breath worse with exertion. Mild dry cough. No fevers. No nausea or vomiting. Yesterday had some [id number] to his left arm. History of two-vessel CABG in 2018. He is followed by Dr. Lee. Last seen 6 months ago. Stress test approximate 18 months ago. Did not take any nitro at home takes baby aspirin at night last dose yesterday. History of AICD placed in 2016 reports had a sudden cardiac event in 2015. History of high blood pressure, hypercholesterolemia and diabetes. Significant family history of heart disease specially his mother. States symptoms is 3 out of 10 currently. Prior similar symptoms: Yes Past Medical History - Allergies and Home Meds Allergies/Adverse Reactions: Allergies No Known Allergies Allergy (Verified 10/23/19 14:16) Primary Care Physician: Chanda Espana DO [Primary Care Provider] - Past Medical History: - - Hypertension, hyperlipidemia, diabetes, coronary disease, [place], cardiomyopathy, hypothyroidism Surgical History: coronary bypass surgery, tonsillectomy, - - hemorrhoidectomy, vasectomy Smoking Status: Never smoker Review of Systems General: Denies: Chills, Fever, Sweats Eyes: Denies: Visual changes - bilaterally, Diplopia ENT: Denies: Rhinorrhea, Sore throat Cardiovascular: Reports: Chest pain. Denies: Palpitations Respiratory: Reports: Dyspnea, Cough. Denies: Dyspnea on exertion Gastrointestinal: Denies: Abdominal pain, Nausea, Vomiting, Diarrhea, Melena, Hematochezia Genitourinary: Denies: Dysuria, Hematuria, Frequency Musculoskeletal: Denies: Back pain, Extremity Pain Skin: Denies: Rash, Wounds Neurological: Denies: Headache, Weakness, Numbness Physical Exam Vital Signs/Narrative: Vital Signs Temp Pulse Resp BP Pulse Ox 01/16/20 11:01 69 103/73 01/16/20 10:40 97.2 F L 72 15 98/69 97 Inital Vital Signs reviewed: Yes General: Well nourished, Well developed, No Acute Distress Head: Normocephalic, Atraumatic Eyes: Perrl, EOMI ENT: Moist mucous membranes, No rhinorrhea Neck: Supple, Nontender Cardiovascular: Regular rate, Regular rhythm, No murmurs Respiratory: No distress, CTA bilaterally, Chest nontender Abdomen: Soft, Nontender, Nondistended, Normal bowel sounds Back: Nontender, Normal Inspection Extremities: Nontender, No edema Skin: Normal color, No rash Neurological: Alert, Oriented x3, Cranial nerves II-XII grossly intact, Normal Strength, Normal Sensation Psychological: Normal affect, Normal Mood Diagnostic/Tx/Re-eval Chest X-Ray - ED: 1 View, Read by ED Physician, No Acute Disease Abnormal Lab Results 01/16/20 01/16/20 01/16/20 10:50 10:50 10:50 WBC 4.3 L RBC 4.88 Hgb 14.5 Hct 45.0 MCV 92.2 MCH 29.7 MCHC 32.2 RDW Std Deviation 42.7 RDW Coeff of Mickey 12.6 Plt Count 312 MPV 9.3 Immature Gran % (Auto) 0.500 Neut % (Auto) 60.9 Lymph % (Auto) 23.4 [place] % (Auto) 8.9 Eos % (Auto) 5.6 H Baso % (Auto) 0.7 Absolute Neuts (auto) 2.6 Absolute Lymphs (auto) 1.00 Nucleated RBC % 0 PT 12.9 INR 1.0 APTT 24.5 Sodium 140 Potassium 4.5 Chloride 107 Carbon Dioxide 29.0 Anion Gap 4 L BUN 18 Creatinine 1.18 Estim Creat Clear Calc 79.91 Est GFR (MDRD) Af Amer 85 Est GFR (MDRD) Non-Af 70 BUN/Creatinine Ratio 15.3 Glucose 136 H Calcium 9.0 Troponin I < 0.015 - EKG Initial EKG Interpretation: Sinus Rhythm - Normal sinus rhythm rate of 70, no ST changes there is T wave inversions anterior leads, compared to February 2019 this is similar. - Medical Decision Making Patient nontoxic blood pressure borderline systolic 90s on arrival. Was started on gentle fluids, Nitropaste was placed along with aspirin given. Cardiac work-up negative with a stable EKG. His symptoms were improving with the Nitropaste. Patient's heart score is 5. I discussed with hospitalist Dr. Erwin for admission to PCU. ED Disposition - Plan for ED Patient: Disposition: Acute Care Hospital [facility] Diagnosis: Acute chest pain Referrals: Chanda Espana DO [Primary Care Provider] -
--- NOTE | 2020-01-16 12:11 | EKG12_ITS ---
Test Reason : CP ADMISSION Blood Pressure : / mmHG Vent. Rate : 072 BPM Atrial Rate : 072 BPM P-R Int : 170 ms QRS Dur : 096 ms QT Int : 394 ms P-R-T Axes : 020 -42 089 degrees QTc Int : 431 ms Normal sinus rhythm Left axis deviation Septal infarct , age undetermined Abnormal ECG When compared with ECG of 16-JAN-2020 10:48, MANUAL COMPARISON REQUIRED, DATA IS UNCONFIRMED Confirmed by BELINDA WALDROP, MARLIN ([id number]), department editor ABIMBOLA LAMAR ([id number]) on 01/22/2020 1:29:14 PM Referred By: JAZMINE Confirmed By:MARLIN TREVINO MD
[2020-01-16 12:12] LABS: AST(SGOT) 16 U/L (15-37); Alanine Aminotransfer ALT/SGPT 27 U/L (16-61); Alkaline Phosphatase 40 U/L (45-117); Globulin 3.4 g/dL (2.2-4.2); Protein, Total 7.4 g/dL (6.4-8.2)
--- NOTE | 2020-01-16 12:12 | HP.PCM_ITS ---
History of Present Illness Date of Admission: 01/16/20 Chief Complaint: CP The patient is a 49 year old M with a marked cardiac history including sudden cardiac in 2014 2/2 ischemic cardiomyopathy, CABG x2 (LAD and RCA) 2016 with an EF of 35-45% who presents today with about a week of increased SOB, CP t hat has radiated to his L arm, and associated nausea and diaphoresis. He states that this feels very much like he did just prior to him requiring his bypass. He has noted a decrease in exertional tolerance as well and states that exertion does seem to make his sx worse. He follows with Dr. Lee. He had a LHC in February of 2019 and it showed an EF of 35-40% but patent grafts. His VS are stable. His EKG shows no new changes c/w acute ischemia. His initial troponin was negative. Hi is on aggressive medical therapy for his cardiac disease. Past Medical History Past Medical History (Chronic Problems): Chronic Problems (Last Reviewed 10/23/19 @ 14:22 by Breanna Mcclelland) Hypothyroidism (Chronic) Hypertension (Chronic) S/P CABG x 2 (Chronic) 06/30/2018 COLBERT to LAD, Reverse saphenous vein aortocoronary grafting of the posterior descending branch of the RCA. Cardiac defibrillator in situ (Chronic) 08/13/2015 lt dual-ICD Medtronic Evera MRI XT, model [id number], serial number [id number], Atrial lead Mdtronic 5076-52, serial number [id number]. Ventricular lead Medtronic 0801O97 serial number [id number]. History of PTCA (Chronic) 04/12/2015 PTCA/stent on the 100% in stent stenosis in the mid LAD, a 2.75 mm x 33 mm Xience Alpine RX JF and a 3.5 mm x 33mm Xience alpine RX JF.; 03/01/2015 4.0 x 12 bare metal stent in the LAD, proximal to that stent 4.0 x 16 bare metal stent to the LAD. HLD (hyperlipidemia) (Chronic) Ischemic cardiomyopathy (Chronic) CAD (coronary artery disease), [place] coronary artery (Chronic) Medical History: Medical History (Last Reviewed 01/16/20 @ 12:[address] Marilyn Erwin DO) Chest pain (Resolved) R07.9 Hypertension (Chronic) I10 HLD (hyperlipidemia) (Chronic) E78.5 Ischemic cardiomyopathy (Chronic) I25.5 CAD (coronary artery disease), [place] coronary artery (Chronic) I25.10 Diabetes mellitus, type II E11.9 Foreign body of knee S80.259A right Hypothyroidism E03.9 Obstructive sleep apnea G47.33 Allergies No Known Allergies Allergy (Verified 10/23/19 14:16) Home Medications: Ambulatory Orders Medication Instructions Recorded levothyroxine 200 mcg capsule 200 mcg PO DAILY 10/24/18 nitroglycerin 0.4 mg sublingual 0.4 mg SUBLINGUAL Q5-15M PRN 10/24/18 tablet Aspirin [Aspir 81] 81 mg PO DAILY 01/14/19 Atorvastatin Calcium [Lipitor] 80 mg PO QHS 01/14/19 Furosemide 40 mg PO DAILY 01/14/19 Gemfibrozil [Lopid] 600 mg PO BIDAC 01/14/19 Isosorbide Mononitrate [Isosorbide 120 mg PO DAILY 01/14/19 Mononitrate ER] Multivitamin [Daily Multiple 1 tab PO DAILY 01/14/19 Vitamin] [place]-3 Fatty Acids [[place]-3] 1,000 mg PO BID 01/14/19 Ranolazine [Ranexa] 1,000 mg PO BID 01/14/19 Sitagliptin Phos/Metformin HCl 1 tab PO BIDCM 01/14/19 [Janumet 50-1,000 MG Tablet] traZODone [Desyrel] 100 mg PO QHS 01/14/19 Lorazepam [Ativan] 1 mg PO QHS PRN 03/02/19 Spironolactone 12.5 mg PO DAILY 03/02/19 carvedilol 25 mg tablet 25 mg PO BID #180 tab 06/21/19 sacubitril 97 mg-valsartan 103 mg 1 tab PO BID #180 tab 09/05/19 tablet B-complex with vitamin C 2 tab PO DAILY tab 10/23/19 cholecalciferol (vitamin D3) 125 5,000 unit PO DAILY 10/23/19 mcg (5,000 unit) tablet gabapentin 300 mg capsule 300 mg PO TID 10/23/19 liraglutide 0.6 mg/0.1 mL (18 mg/3 0.6 mg SC DAILY 10/23/19 mL) subcutaneous pen injector magnesium oxide 100 mg PO DAILY tab 10/23/19 pantoprazole 40 mg tablet,delayed 40 mg PO BID tab 10/23/19 release Surgical History: Surgical History (Last Reviewed 01/16/20 @ 12:[address] Marilyn Erwin DO) S/P CABG x 2 (Chronic) Z95.1 06/30/2018 COLBERT to LAD, Reverse saphenous vein aortocoronary grafting of the posterior descending branch of the RCA. Cardiac defibrillator in situ (Chronic) Z95.810 08/13/2015 lt dual-ICD Medtronic Evera MRI XT, model [id number], serial number [id number], Atrial lead Mdtronic 5076-52, serial number [id number]. Ventricular lead Medtronic [id number] serial number [id number]. History of PTCA (Chronic) Z98.61 04/12/2015 PTCA/stent on the 100% in stent stenosis in the mid LAD, a 2.75 mm x 33 mm Xience Alpine RX JF and a 3.5 mm x 33mm Xience alpine RX JF.; 03/01/2015 4.0 x 12 bare metal stent in the LAD, proximal to that stent 4.0 x 16 bare metal stent to the LAD. H/O hemorrhoidectomy Z98.890 History of appendectomy Z90.49 Surgical History: coronary bypass surgery, tonsillectomy Psychiatric History: No pertinent psych hx Smoking Status: Never smoker Tobacco Use: Non-smoker Alcohol: Rare Drugs: None Review of Systems Constitutional: Reports: Weakness, Fatigue. Denies: Anorexia, Chills, Fever, Night Sweats, Malaise, Weight Change Eyes: Denies: Blurred vision, Cataracts, Conjunctivae Inflammation, Double vision, Drainage, Eyelid Inflammation, Pain, Redness, Vision Change HEENT: Denies: Difficulty Hearing, Dysphasia, Ear Pain, Head Aches, Nasal bleeding, Nasal Congestion, Sinus Congestion, Sinus Drainage, Sore Throat Cardiovascular: Reports: Chest Pain, Chest Pressure, Chest Tightness, Heaviness. Denies: Claudication, Edema, Light Headedness, Orthopnea, Palpitations, Paroxysmal Noc. Dyspnea, Syncope Respiratory: Reports: Shortness of Breath, Shortness of breath upon exertion. Denies: Pleuritic Pain, Shortness of breath at rest, Sputum production, Wheezing Gastrointestinal: Reports: Nausea - with CP. Denies: Abdominal Pain, Constipation, Diarrhea, Dyspepsia, Hematemesis, Hematochezia, Melena, Vomiting Genitourinary: Denies: Dysuria, Frequency, Hematuria, Hesitancy, Incontinence, Nocturia, Retention, Urgency Musculoskeletal: Reports: Arm Pain - L arm, Shoulder Pain - L. Denies: Back Pain, Joint Pain, Joint stiffness, Joint swelling, Joint Tenderness, Muscle pain, Neck Pain Skin: Denies: Dryness, Jaundice, Lesions, Pruritis, Rash, Skin Changes, Wounds Neurological: Reports: Numbness - intermittent L arm, Tingling. Denies: Balance problems, Blurred vision, Double vision, Change in Speech, Slurred speech, Confusion, Difficulty swallowing, Focal weakness, Headaches, Incoordination, Tremor, Seizures Psychiatric: Denies: Anxiety, Depression, Homicidal Ideations, Suicidal Ideations Endocrine: Denies: Change in Body Habitus, Heat/ Cold Intolerance, Polydipsia, Polyuria Hematologic/ Lymphatic: Denies: Adenopathy, Anemia, Easy Bruising, Easy Bleeding, Petechiae, Purpura VTE Information - Inpt Only VTE Present on Admission: No VTE Mechan Device Prophylaxis: None VTE Pharm Prophylaxis ordered?: Yes Patient Problems: Active and Suspected Problems (Last Reviewed 10/23/19 @ 14:22 by Breanna Mcclelland) Acute chest pain (Acute) - Physical Exam Vitals/I&O's: Vital Signs Temp Pulse Resp BP Pulse Ox 97.2 F L 69 15 103/73 97 01/16/20 10:40 01/16/20 11:01 01/16/20 10:40 01/16/20 11:01 01/16/20 10:40 Oxygen Flow Rate (L/min) 2 Oxygen Delivery Method Nasal Cannula Weight: 108.862 kg Body Mass Index (BMI) 34.4 General: Alert, Oriented x3, Cooperative, No apparent distress, Well developed, Well nourished, - - sitting up in bed, sitting at bedside HEENT: Atraumatic, PERRLA, EOMI, Normocephalic, EAC Clear Oral: Moist Mucosa, No Gingival or Mucosal Lesions/ Ulcerations, - - good dentition, mallampati 2 Neck: Supple, No JVD, Negative Carotid Bruits, Negative Hepatojugular Reflux, No Nodes, No Nuchal Rigidity, Trachea Midline, Thyroid Normal Size and Texture Lungs: Clear to auscultation, Normal air movement, No rhonchi, No wheeze, No rales Cardiovascular: Regular rate, Regular Rhythm, Normal S1, Normal S2, No murmurs, No Ectopic Activity, No rub noted, No Gallop Abdomen: Bowel Sounds Present, Soft, Non Tender, Non-Distended, No Hepato- splenomegaly, Obese, No hernias noted Extremities: No clubbing, No cyanosis, No edema, Capillary Refill Less than 3 Seconds, Peripheral Pulses Normal Skin: No rashes, No breakdown Musculoskeletal: No Tenderness to Palpation of Joints or Extremities, No Muscle Wasting Lymphatic: No Cervical, Supraclavicular, or Inguinal Adenopathy Neurological: Cranial nerves II-XII grossly intact, Deep Tendon Reflexes 2+/4 and Symmetrical, Neuro grossly intact, Motor Exam 5/5 strength throughout, Muscle tone normal, Sensory exam intact to light touch and pain, Coordination normal Psych/Mental Status: Normal Affect, Appropriate, Alert and oriented to time, place, person, mood and affect Laboratory Results 01/16/20 10:50: WBC 4.3 L, RBC 4.88, Hgb 14.5, Hct 45.0, MCV 92.2, MCH 29.7, MCHC 32.2, RDW Std Deviation 42.7, RDW Coeff of Mickey 12.6, Plt Count 312, MPV 9.3, Immature Gran % (Auto) 0.500, Neut % (Auto) 60.9, Lymph % (Auto) 23.4, [place] % (Auto) 8.9, Eos % (Auto) 5.6 H, Baso % (Auto) 0.7, Absolute Neuts (auto) 2.6, Absolute Lymphs (auto) 1.00, Nucleated RBC % 0 01/16/20 10:50: PT 12.9, INR 1.0, APTT 24.5 01/16/20 10:50: Sodium 140, Potassium 4.5, Chloride 107, Carbon Dioxide 29.0, Anion Gap 4 L, BUN 18, Creatinine 1.18, Estim Creat Clear Calc 79.91, Est GFR (MDRD) Af Amer 85, Est GFR (MDRD) Non-Af 70, BUN/Creatinine Ratio 15.3, Glucose 136 H, Calcium 9.0, Troponin I < 0.015 01/16/20 10:50: Total Bilirubin Pending, Direct Bilirubin Pending, AST Pending, ALT Pending, Alkaline Phosphatase Pending, Total Protein Pending, Albumin Pending 01/16/20 10:50: B-Natriuretic Peptide Pending Current Medications Acetaminophen (Tylenol) 650 mg PO Q6H PRN PRN PRN Reason: Pain Score 1-10/Temp > 100.7 F Al Hydroxide/Mg Hydroxide (Mylanta Ii) 30 ml PO Q6H PRN PRN PRN Reason: Gastric Burning Aspirin (Ecotrin) 81 mg PO DAILY [facility] Atorvastatin Calcium (Lipitor) 80 mg PO QHS [facility] Carvedilol (Coreg) 25 mg PO BID [facility] Dextrose (D50w Syringe) 0 gm IV X1 PRN; Protocol PRN Reason: Hypoglycemia Enoxaparin Sodium (Lovenox) 40 mg SC DAILY [facility] Furosemide (Lasix) 40 mg PO DAILY [facility] Gabapentin (Neurontin) 300 mg PO TID [facility] Gemfibrozil (Lopid) 600 mg PO BIDAC [facility] Glucagon () 1 mg IM .X1 PRN PRN Reason: Hypoglycemia Guaifenesin (Robitussin) 20 ml PO Q4H PRN PRN PRN Reason: COUGH Sodium Chloride () 1,000 mls @ 75 mls/hr IV .[id number] [facility] Insulin Human Lispro (Humalog Kwikpen (Bkc)) 0 unit SC Q6 [facility]; Protocol Isosorbide Mononitrate (Imdur) 120 mg PO DAILY [facility] Liraglutide (Victoza) 0.6 mg SQ DAILY [facility] Lorazepam (Ativan) 1 mg PO QHS PRN PRN Reason: anxiety/sleep Melatonin (Melatonin) 3 mg PO QHS PRN PRN PRN Reason: INSOMNIA Morphine Sulfate () 2 mg IV Q3H PRN PRN PRN Reason: Pain Score 6-10/10 Nitroglycerin (Nitrostat) 0.4 mg SUBLINGUAL Q5M PRN PRN Reason: CARDIAC/CHEST PAIN Non-Formulary Medication (Cholecalciferol (Vitamin D3) [Vitamin D3]) 5,000 unit PO DAILY [facility] Non-Formulary Medication (Levothyroxine Sodium [Tirosint]) 200 mcg PO DAILY [facility] Non-Formulary Medication (Multivitamin [Daily Multiple Vitamin]) 1 tab PO DAILY [facility] Non-Formulary Medication ([place]-3 Fatty Acids [Uehling-3]) 1,000 mg PO BID [facility] Non-Formulary Medication (Ranolazine [Ranexa]) 1,000 mg PO BID [facility] Pantoprazole Sodium (Protonix) 40 mg PO BID [facility] Sacubitril/Valsartan (Entresto 97 Mg-103 Mg Tablet) each PO BID [facility] Spironolactone (Aldactone) 12.5 mg PO DAILY [facility] Trazodone HCl (Desyrel) 100 mg PO QHS [facility] Assessment/Plan All Active Problems (Last Reviewed 10/23/19 @ 14:22 by Breanna Mcclelland) Acute chest pain (Acute) Chest pain (Resolved) Acute CP -pt has an extensive cardiac history with marked family history, DM, HTN, HPL -CABG to RCA and LAD in 2016 at [place] -last cath was 02/2019 and showed patent grafts and and EF of 35-40% -EKG without acute ischemic changes and troponin is negative -will cycle trops -ASA -prn nitro -NPO until seen by cardiology -IVF at 70 cc/hr until able to eat -Cards consultation--> Dr. Khoury notified CAD/HTN/HPL -continue Lipitor 80, fish oil, and Lopid -continue Lasix 40 mg -continue Ranexa -continue Aldactone/Entresto/Isosorbide/Coreg HFrEF 2/2 Ischemic Cardiomyopathy-compensated -modest IVF until PO intake--> d/c once on PO diet -continue Lasix -has ICD (2016) DM-2 -continue Victoza -hold sitagliptin and Metformin -SSI q 6 until able to eat then AC -A1c Neuropathy -continue Gabapentin GERD -continue PPI DVT prophylaxis -Lovenox Code Status -Full Inpatient E&M: 42681 Init Hosp L3
[2020-01-16 12:21] LABS: BNP,B-Type NATRIURETIC PEPTIDE 123.7 pg/mL (0-100)
--- NOTE | 2020-01-16 15:25 | CASEMGMT ---
According to the MMO website, the following are in-network tertiary facilities: [facility], [facility], [facility], [facility], [facility], [facility], [facility], [facility], [facility], and . Peyton KESSLER CM [address]
[2020-01-16] MEDS: Clopidogrel Bisulfate 300 MG Tablet PO (16:47)
[2020-01-16] MEDS: Gabapentin 300 MG Capsule PO (16:47)
[2020-01-16 16:55] LABS: Bedside Glucose 87 mg/dL (70-110)
[2020-01-16] MEDS: Gemfibrozil 600 MG Tablet PO (17:46)
--- NOTE | 2020-01-16 18:55 | CON.PCM_ITS ---
Problem List (1) Unstable angina Status: Acute (2) CAD (coronary artery disease), [place] coronary artery Status: Chronic Qualifiers: [place] vs. transplanted heart: [place] heart Associated angina: without angina Qualified Code(s): I25.10 - Atherosclerotic heart disease of [place] coronary artery without angina pectoris (3) History of PTCA Status: Chronic Comment: 04/12/2015 PTCA/stent on the 100% in stent stenosis in the mid LAD, a 2.75 mm x 33 mm Xience Alpine RX JF and a 3.5 mm x 33mm Xience alpine RX JF.; 03/01/2015 4.0 x 12 bare metal stent in the LAD, proximal to that stent 4.0 x 16 bare metal stent to the LAD. (4) S/P CABG x 2 Status: Chronic Comment: 06/30/2018 COLBERT to LAD, Reverse saphenous vein aortocoronary grafting of the posterior descending branch of the RCA. (5) Ischemic cardiomyopathy Status: Chronic (6) Cardiac defibrillator in situ Status: Chronic Comment: 08/13/2015 lt dual-ICD Medtronic Evera MRI XT, model [id number], serial number [id number], Atrial lead Mdtronic 5076-52, serial number [id number]. Ventricular lead Medtronic [id number] serial number [id number]. (7) HLD (hyperlipidemia) Status: Chronic Qualifiers: Hyperlipidemia type: unspecified Qualified Code(s): E78.5 - Hyperlipidemia, unspecified (8) Hypertension Status: Chronic Qualifiers: Hypertension type: unspecified Qualified Code(s): I10 - Essential (primary) hypertension (9) Diabetes Status: Acute (10) Hypothyroidism Status: Chronic Reason for Consult Date of Consultation: 01/16/20 History of Present Illness: The patient is a 49 year old white male with a past medical history of CAD, PCI, CABG, ischemic mediated cardiomyopathy, atrial fibrillation, hyperlipidemia, hypertension, diabetes mellitus, and hypothyroidism is referred for evaluation of symptoms concerning for unstable angina pectoralis. The patient has undergone previous noninvasive and invasive studies and revascularization therapy with both PCI and CABG. He states that he has continued his medical therapy and outpatient follow-up. However he notes over the last 1 to 2 weeks, during the heat humidity, he has been noticing accelerating chest discomfort/pressure/heaviness over his central chest area with associated rayo rtness of breath with exertional activity including minimal exertional activity such as walking across the parking lot as well as going up a flight of stairs. He notes based upon the urging of his spouse he presented to the emergency department for further evaluation. He was evaluated and noted initially to have a negative troponin I level. He is ECG demonstrated the appearance of sinus rhythm with left axis deviation with poor R wave progression with an anteroseptal PR pattern of indeterminate age. He was placed in the PCU for further evaluation and care. He has denied ongoing orthopnea or PND or peripheral pitting edema. He states he has not noted palpitations nor has he had any near-syncope or syncope. He notes his ICD has not discharged. [] Past Medical History Allergies/Adverse Reactions: Allergies No Known Allergies Allergy (Verified 10/23/19 14:16) Home Medications: Ambulatory Orders Medication Instructions Recorded levothyroxine 200 mcg capsule 200 mcg PO DAILY 10/24/18 nitroglycerin 0.4 mg sublingual 0.4 mg SUBLINGUAL Q5-15M PRN 10/24/18 tablet Aspirin [Aspir 81] 81 mg PO QHS 01/14/19 Atorvastatin Calcium [Lipitor] 80 mg PO QHS 01/14/19 Furosemide 40 mg PO DAILY 01/14/19 Gemfibrozil [Lopid] 600 mg PO BIDAC 01/14/19 Isosorbide Mononitrate [Isosorbide 120 mg PO DAILY 01/14/19 Mononitrate ER] Multivitamin [Daily Multiple 1 tab PO DAILY 01/14/19 Vitamin] [place]-3 Fatty Acids [[place]-3] 1,000 mg PO BID 01/14/19 Ranolazine [Ranexa] 1,000 mg PO BID 01/14/19 traZODone [Desyrel] 100 mg PO QHS 01/14/19 Lorazepam [Ativan] 1 mg PO QHS PRN 03/02/19 carvedilol 25 mg tablet 25 mg PO BID #180 tab 06/21/19 sacubitril 97 mg-valsartan 103 mg 1 tab PO BID #180 tab 09/05/19 tablet B-complex with vitamin C 2 tab PO DAILY tab 10/23/19 cholecalciferol (vitamin D3) 125 5,000 unit PO DAILY 10/23/19 mcg (5,000 unit) tablet gabapentin 300 mg capsule 300 mg PO TID 10/23/19 liraglutide 0.6 mg/0.1 mL (18 mg/3 1.8 mg SC DAILY 10/23/19 mL) subcutaneous pen injector magnesium oxide 100 mg PO DAILY tab 10/23/19 pantoprazole 40 mg tablet,delayed 40 mg PO BID tab 10/23/19 release Empagliflozin [Jardiance] 25 mg PO DAILY 01/16/20 Metformin HCl 1,000 mg PO BID 01/16/20 Past Medical History (Chronic Problems): Chronic Problems (Last Reviewed 01/16/20 @ 12:[address] Marilyn Erwin, DO) Hypothyroidism (Chronic) Hypertension (Chronic) S/P CABG x 2 (Chronic) 06/30/2018 COLBERT to LAD, Reverse saphenous vein aortocoronary grafting of the posterior descending branch of the RCA. Cardiac defibrillator in situ (Chronic) 08/13/2015 lt dual-ICD Medtronic Evera MRI XT, model [id number], serial number [id number], Atrial lead Mdtronic 5076-52, serial number [id number]. Ventricular lead Medtronic [id number] serial number [id number]. History of PTCA (Chronic) 04/12/2015 PTCA/stent on the 100% in stent stenosis in the mid LAD, a 2.75 mm x 33 mm Xience Alpine RX JF and a 3.5 mm x 33mm Xience alpine RX JF.; 03/01/2015 4.0 x 12 bare metal stent in the LAD, proximal to that stent 4.0 x 16 bare metal stent to the LAD. HLD (hyperlipidemia) (Chronic) Ischemic cardiomyopathy (Chronic) CAD (coronary artery disease), [place] coronary artery (Chronic) Surgical History: coronary bypass surgery, tonsillectomy Psychiatric History: No pertinent psych hx Smoking Status: Never smoker Tobacco Use: Non-smoker Alcohol: Rare Drugs: None Review of Systems - Review of Systems General: Denies: Fever, Night Sweats, Fatigue Cardiovascular: Reports: Chest Discomfort, Chest Discomfort with Exertion, Shortness of Breath, Shortness of Breath with Exertion. Denies: Orthopnea, PND, Peripheral Edema, Palpitations, Lightheadedness, Dizziness, Near Syncope, Syncope Respiratory: Reports: Shortness of Breath. Denies: Cough, Sputum Production, Hemoptysis Gastrointestinal: Denies: Hematemesis, Hematochezia, Melena Genitourinary: Denies: Dysuria, Hematuria Skin: Denies: Rash Subjectve: This is a pleasant 49-year-old white male who appears to be resting reasonably comfortably at this time in no acute distress. Objective: Vital Signs Temp Pulse Resp BP Pulse Ox 97.8 F 69 16 102/62 97 01/16/20 17:02 01/16/20 17:02 01/16/20 17:02 01/16/20 17:02 01/16/20 17:02 Oxygen Flow Rate (L/min) 2 Oxygen Delivery Method Room Air Weight: 241 lb 6.499 oz Body Mass Index (BMI) 34.6 Intake and Output for Last 24 Hours 01/14/20 01/15/20 01/16/20 23:59 23:59 23:59 Intake Total 290 / 290 Balance 290 / 290 General: Awake, Alert, Oriented x 3, Cooperative, No Acute Distress HEENT: Atraumatic, Normocephalic, PERRL, EOMI, Sclera Non Icteric Oral: Moist Mucosa Neck: Supple, Good ROM, No JVD Lungs: Clear to auscultation Cardiovascular: Regular Rhythm, Normal S1, Normal S2 Abdomen: Bowel Sounds Present, Soft, Non Tender Extremities: No edema Neurological: No Focal Motor or Sensory Deficit Psych/Mental Status: Appropriate 01/16/20 10:50: WBC 4.3 L, RBC 4.88, Hgb 14.5, Hct 45.0, MCV 92.2, MCH 29.7, MCH C 32.2, Plt Count 312, MPV 9.3, Immature Gran % (Auto) 0.500, Neut % (Auto) 60.9, Lymph % (Auto) 23.4, [place] % (Auto) 8.9, Eos % (Auto) 5.6 H, Baso % (Auto) 0.7, Absolute Neuts (auto) 2.6, Nucleated RBC % 0 01/16/20 10:50: PT 12.9, INR 1.0, APTT 24.5 01/16/20 10:50: Sodium 140, Potassium 4.5, Chloride 107, Carbon Dioxide 29.0, Anion Gap 4 L, BUN 18, Creatinine 1.18, Est GFR (MDRD) Af Amer 85, Est GFR (MDRD) Non-Af 70, BUN/Creatinine Ratio 15.3, Glucose 136 H, Calcium 9.0, Troponin I < 0.015 01/16/20 10:50: Total Bilirubin 0.70, Direct Bilirubin 0.20 01/16/20 10:50: B-Natriuretic Peptide 123.7 H 01/16/20 14:00: Troponin I < 0.015 01/16/20 16:55: Troponin I < 0.015 Rhythm: Sinus rhythm EKG: As noted above ECHO: 10-14-18: [place], [place]: Reported as demonstrating left ventricular regional wall motion abnormalities with an estimated LVEF of 45 to 50% Cardiac Cath: 03/09/2019 CONCLUSIONS CAD as described with patent 2/2 bypass grafts. Moderate to severe LV systolic dysfunction with normal LVEDP. No significant or MR RECOMMENDATIONS Maximal medical therapy for CAD, CHF and risk factor modification. CORONARY ANGIOGRAPHY DOMINANCE: Right Dominant LEFT HEART ASSESSMENT Left Ventricular Ejection Fraction: by LV Gram 35-40 % Anterior and apical Hypokinesis - Severe LEFT MAIN: Mild luminal irregularities LEFT ANTERIOR DESCENDING ARTERY: Previously placed stent has an instent 60-70 % restenosis CIRCUMFLEX ARTERY: Mild luminal irregularities RAMUS: Mild luminal irregularities RIGHT CORONARY ARTERY: MID RCA: 100 % Stenosis GRAFTS: COLBERT graft to the LAD is patent Saphenous Vein graft to the RCA is patent VALVE FINDINGS: No Aortic Valve Stenosis No Mitral Insufficency PCI: Per previous medical records: 03-01-2015: 4.0 x 16 mm and 4.0 x 12 mm bare-metal stent in the LAD 04-12-2015: Previous LAD PCI with a 2.75 mm x 33 mm Xience Alpine Rx JF and a 3.5 mm x 33 mm Xience Alpine Rx JF CT Surgery: Per previous medical records: 12l?20?20 18: COLBERT to the LAD and SVG to the RCA ICD: 08-13-2015: Dual-chamber Medtronic Evera MRI XT model [id number] serial number [id number] CXR: Preliminary evaluation: Post open heart surgery changes: No acute cardiopulmonary disease process: Please see official report Assessment/Plan 1. Unstable angina The patient presents with findings compatible with unstable angina/accelerating angina. At the moment he is being monitored. He will be followed by cardiac enzymes and ECG. He will continue medical therapy with adjustment as deemed appropriate. It is been recommended the patient be reassessed in the cardiac catheterization laboratory. The procedure and risks were discussed with him. He was agreeable to this approach. 2. CAD status post PCI status post CABG The patient has an extensive history of premature CAD requiring revascularization with both PCI and CABG. His most recent diagnostic cardiac catheterization was from 03-09-2019. The results are as noted. The present time based upon what appears to be symptoms compatible with unstable angina pectoris/accelerating angina he is going to continue to be monitored, continue medical therapy, and be reassessed with diagnostic cardiac catheterization. 3. Ischemic mediated cardiomyopathy Patient does have a history of an underlying ischemic mediated cardiomyopathy. He does not appear to have evidence of acute CHF or pulmonary edema at this time. He will continue medical management. 4. Status post ICD The patient does have an ICD in place. He states it has not discharged. He will continue to be followed. 5. Hyperlipidemia The patient should continue risk factor evaluation/medical therapy. 6. Hypertension The patient will continue medical adjustment as needed. 7. Diabetes mellitus The patient will continue evaluation care per internal medicine. 8. Hypothyroidism The patient will continue evaluation care per internal medicine. Comment: The patient's case has been discussed and reviewed with the patient. This note was generated using a voice recognition system and there may be incorrect words, spelling or punctuation that were not noted when reviewing the office note prior to saving.
[2020-01-16] MEDS: SACUBITRIL/VALSARTAN 97-103 MG TABLET 1 EACH PO (22:46)
[2020-01-16] MEDS: Atorvastatin Calcium 80 MG Tablet PO (22:46)
[2020-01-16] MEDS: Carvedilol 25 MG Tablet PO (22:46)
[2020-01-16] MEDS: traZODone 100 MG Tablet PO (22:46)
[2020-01-16] MEDS: Ranolazine 500 MG Tablet 1000 MG PO (22:49)
[2020-01-16 23:01] LABS: Bedside Glucose 100 mg/dL (70-110)
[2020-01-16] MEDS: Pantoprazole Sodium 40 MG Tablet PO (23:25)
[2020-01-17] VITALS (15 sets, daily range): BP systolic 90–110; BP diastolic 51–70; PULSE 66–75; RESP 14–18; TEMP 36.3–36.9; O2SAT 92–97
--- NOTE | 2020-01-17 05:55 | EKG12_ITS ---
Test Reason : AM EKG Blood Pressure : / mmHG Vent. Rate : 069 BPM Atrial Rate : 069 BPM P-R Int : 172 ms QRS Dur : 104 ms QT Int : 380 ms P-R-T Axes : 024 -53 112 degrees QTc Int : 407 ms Normal sinus rhythm Left anterior fascicular block Anterolateral infarct , age undetermined Abnormal ECG When compared with ECG of 16-JAN-2020 12:17, MANUAL COMPARISON REQUIRED, DATA IS UNCONFIRMED Confirmed by BELINDA WALDROP, MARLIN ([id number]), editor in chief newspaper ABIMBOLA LAMAR ([id number]) on 01/22/2020 1:21:02 PM Referred By: JAZMINE Confirmed By:MARLIN TREVINO MD
[2020-01-17 06:22] LABS: Hematocrit 42.2 % (40-54); Hemoglobin 13.7 g/dL (13.0-16.5); Mean Corp Hgb Conc 32.5 g/dL (32-36); Mean Corpuscular Hgb 29.8 pg (27.0-32.0); Mean Corpuscular Volume 91.9 fL (80-94); Mean Platelet Vol. 9.2 fl (6.2-12.0); Platelet Count 268 K/mm3 (150-450); RBC Distribution Width CV 12.9 % (11.6-14.6); RBC Distribution Width SD 43.4 fl (35.1-43.9); Red Blood Count 4.59 M/mm3 (4.6-6.2); White Blood Count 4.3 K/mm3 (4.4-11.0)
[2020-01-17] MEDS: 0.9% Saline Lock 10 ML Syringe IV (06:44)
[2020-01-17] MEDS: Levothyroxine 100 MCG Tablet 200 MCG PO (06:45)
[2020-01-17] MEDS: Carvedilol 25 MG Tablet PO (06:46)
[2020-01-17] MEDS: Aspirin E.C. 81 MG Tablet PO (06:48)
[2020-01-17] MEDS: SACUBITRIL/VALSARTAN 97-103 MG TABLET 1 EACH PO (06:48)
[2020-01-17] MEDS: Ranolazine 500 MG Tablet 1000 MG PO (06:49)
[2020-01-17] MEDS: Clopidogrel Bisulfate 75 MG Tablet PO (06:53)
[2020-01-17 07:02] LABS: ALB/GLOB Ratio 1.2 RATIO (0.9-2.4); AST(SGOT) 15 U/L (15-37); Alanine Aminotransfer ALT/SGPT 28 U/L (16-61); Albumin, Serum 3.8 g/dL (3.2-5.0); Alkaline Phosphatase 39 U/L (45-117); Anion Gap 6 (5-15); BUN 18 mg/dL (7-18); BUN/Creat Ratio 15.1 RATIO (10-20); Calcium,Total 8.5 mg/dL (8.5-10.1); Chloride 106 mmol/L (98-107); Cholesterol 157 mg/dL (200); Creatinine, Serum 1.19 mg/dL (0.70-1.30); EST Glomerular Filtration Rate 69 mL/min (>60); Est Glom Filt Rate - Afr Amer 84 mL/min (>60); Estimated Creatinine Clearance 79.24 ml/min; Globulin 3.2 g/dL (2.2-4.2); Glucose 147 mg/dL (74-106); High Density Lipoprotein 27 mg/dL; Potassium 3.9 mmol/L (3.5-5.1); Sodium Level 137 mmol/L (136-145); Triglycerides 415 mg/dL
[2020-01-17 07:06] LABS: Bedside Glucose 145 mg/dL (70-110)
--- NOTE | 2020-01-17 09:18 | CL.D_ITS ---
Patient Name: RUSS LIZ Study Date: 01/17/2020 Performing: West Khoury MD Ht: 70.07 inches 178 cm : 1970 Wt: 242.51 lbs 110 kg Age: 49 Gender: male BSA: 2.27 PROCEDURE(S) PERFORMED AI40-EAV/COR/LV/CABG CLINICAL PROFILE AND INDICATIONS Indications: Suspected CAD Heart Failure: None Stress/Imaging Stress/Image Study Performed: No Angina Classification Anginal Classification w/in 2 Weeks: CCS III CAD Presentations: Unstable angina. CONCLUSIONS Normal Left Ventricular End Diastolic Pressure Segmented LV systolic dysfunction- Moderate LVEF: by LV gram 35 % COLBERT to LAD: patent SVG to RPDA: patent RECOMMENDATIONS Risk factor modification Medical therapy DESCRIPTION OF PROCEDURE The patient arrived to the procedure lab. The risks and benefits of the procedure as well as a full d escription of our services here and current unavailability of surgical backup were fully explained to the patient and/or their significant other prior to the catheterization. The Timeout was completed, verifying the correct patient and procedure. The patient's procedural site was prepped and draped in the usual fashion. Local anesthetic was given subcutaneously to right groin region with Lidocaine 2%. Using a modified Seldinger technique, arterial access was obtained via the right femoral artery, a 4 Fr sheath was inserted Left Coronary Artery selective angiography was performed in multiple views us ing a 4 Fr. JL5 catheter. Right Coronary Artery selective angiography was then performed in multiple views using a 4 Fr. 3DRC catheter. Saphenous Vein graft to the RPDA selective angiography was perform ed in multiple views using a 4 Fr. 3DRC catheter. Left internal mammary artery graft to the LAD selective angiography was performed in multiple views using a 4 Fr. 3DRC catheter. Left Ventr iculography was performed in [place] projection using a 4 Fr. Pigtail catheter. LV to AO pullback pressur es were then recorded.The arterial sheath was pulled and manual compression applied until hemostasis is achieved. CORONARY ANGIOGRAPHY DOMINANCE: Right Dominant LEFT HEART ASSESSMENT Left Ventricular Ejection Fraction: by LV Gram 35 % Anterior Akinesis. Apical Akinesis Normal Left Ventricular End Diastolic Pressure LVEDP: 7 mmHg LEFT MAIN: Angiographically normal LEFT ANTERIOR DESCENDING ARTERY: PROX LAD: Previously placed stent is patent MID LAD: Previously placed stent has an instent 25 - 50 % restenosis DISTAL LAD: fills from antegrade flow and COLBERT graft flow with no angiographically significant appear ing disease distal to the graft attachment CIRCUMFLEX ARTERY: Angiographically normal RIGHT CORONARY ARTERY: MID RCA: is occluded RT PDA: Proximal - fills from SVG graft flow with no angiographically significant appearing disease d istal to the graft attachment GRAFTS: COLBERT graft to the Mid LAD is patent Saphenous Vein graft to the RPDA is patent AORTIC ROOT: Angiographically normal COMPLICATIONS No Complications PROCEDURE MEDICATIONS Versed 1 mg IV Oxygen: 2 L/min via nasal cannula SUMMARY OF HEMODYNAMIC DATA Time AIR REST ECG 08:17:02 AO 103/54 (71) SA 08:26:07 LV 110/-15, 10 08:51:16 LV 112/-17, 4 08:51:23 LV 105/-13, 7 08:52:28 LVp 106/-17, 5 08:52:34 AOp 93/56 (72) 08:52:39 Signed By West Khoury MD On 01/17/2020 09:17:53 West Khoury MD
--- NOTE | 2020-01-17 09:18 | PN.CARD_ITS ---
Subjectve: The patient has had no new acute concerns/events. Objective: Vital Signs Temp Pulse Resp BP Pulse Ox 97.4 F L 68 18 103/70 94 01/17/20 06:43 01/17/20 06:43 01/17/20 06:43 01/17/20 06:43 01/17/20 06:54 Oxygen Flow Rate (L/min) 2 Oxygen Delivery Method Room Air Weight: 241 lb 10.026 oz Body Mass Index (BMI) 34.6 Intake and Output for Last 24 Hours 01/15/20 01/16/20 01/17/20 23:59 23:59 23:59 Intake Total 290 / 290 Balance 290 / 290 General: Awake, Alert, Oriented x 3, Cooperative, No Acute Distress HEENT: Atraumatic, Normocephalic, PERRL Neck: Supple, Good ROM, No JVD Lungs: Clear to auscultation Cardiovascular: Regular Rhythm, Normal S1, Normal S2 Abdomen: Bowel Sounds Present, Soft Extremities: No edema Neurological: No Focal Motor or Sensory Deficit Psych/Mental Status: Appropriate 01/16/20 10:50: WBC 4.3 L, RBC 4.88, Hgb 14.5, Hct 45.0, MCV 92.2, MCH 29.7, MCHC 32.2, Plt Count 312, MPV 9.3, Immature Gran % (Auto) 0.500, Neut % (Auto) 60.9, Lymph % (Auto) 23.4, [place] % (Auto) 8.9, Eos % (Auto) 5.6 H, Baso % (Auto) 0.7, Absolute Neuts (auto) 2.6, Nucleated RBC % 0 01/16/20 10:50: PT 12.9, INR 1.0, APTT 24.5 01/16/20 10:50: Sodium 140, Potassium 4.5, Chloride 107, Carbon Dioxide 29.0, Anion Gap 4 L, BUN 18, Creatinine 1.18, Est GFR (MDRD) Af Amer 85, Est GFR (MDRD) Non-Af 70, BUN/Creatinine Ratio 15.3, Glucose 136 H, Calcium 9.0, Troponin I < 0.015 01/16/20 10:50: Total Bilirubin 0.70, Direct Bilirubin 0.20 01/16/20 10:50: B-Natriuretic Peptide 123.7 H 01/16/20 14:00: Troponin I < 0.015 01/16/20 16:55: Troponin I < 0.015 01/17/20 06:06: WBC 4.3 L, RBC 4.59 L, Hgb 13.7, Hct 42.2, MCV 91.9, MCH 29.8, MCHC 32.5, Plt Count 268, MPV 9.2 01/17/20 06:06: Sodium 137, Potassium 3.9, Chloride 106, Carbon Dioxide 25.0, Anion Gap 6, BUN 18, Creatinine 1.19, Est GFR (MDRD) Af Amer 84, Est GFR (MDRD) Non-Af 69, BUN/Creatinine Ratio 15.1, Glucose 147 H, Calcium 8.5, Total Bilirubin 0.70, Triglycerides 415 H, Cholesterol 157, LDL Cholesterol TNP, VLDL Cholesterol TNP, HDL Cholesterol 27 L Rhythm: Sinus rhythm EKG: Sinus rhythm; left axis deviation; left anterior fascicular block; poor R wave progression; anterior lateral [place] of indeterminate age Medical Necessity - Tobacco Use Smoking Status: Never smoker Tobacco Use: Non-smoker Assessment/Plan 1. Unstable angina The patient presents with findings compatible with unstable angina/accelerating angina. His cardiac enzymes have been reported as negative. He has now undergone further evaluation with diagnostic cardiac catheterization. His LAD stent remains patent, his LCx remains angiographically normal, his RCA remains occluded, his COLBERT to the LAD remains patent, and his SVG to the right PDA system remains patent. He did not require additional PCI. At the present time he will need to continue medical management with alteration as deemed appropriate. 2. CAD status post PCI status post CABG The patient has an extensive history of premature CAD requiring revascularization with both PCI and CABG. He has now undergone further evaluation with diagnostic cardiac catheterization. He did not require additional PCI. He will continue medical management. 3. Ischemic mediated cardiomyopathy He will need to continue medical therapy. He is on nitrates, beta-blockers, diuretics, and afterload reducing agents as well as his aspirin therapy and lipid-lowering therapy. 4. Status post ICD The patient does have an ICD in place. He states it has not discharged. He will continue to be followed. 5. Hyperlipidemia The patient should continue risk factor evaluation/medical therapy. 6. Hypertension The patient will continue medical adjustment as needed. 7. Diabetes mellitus The patient will continue evaluation care per internal medicine. 8. Hypothyroidism The patient will continue evaluation care per internal medicine. Overall, the present time, the patient will continue medical therapy. It did not appear he required additional coronary artery revascularization. He will continue with outpatient ICD follow-up and outpatient cardiovascular follow-up. Comment: The patient's case has been discussed and reviewed with the patient and his spouse. This note was generated using a voice recognition system and there may be incorrect words, spelling or punctuation that were not noted when reviewing the office note prior to saving.
--- NOTE | 2020-01-17 09:41 | PCM.DC ---
- Discharge Diagnoses Current Active Problems: Current Active and Chronic Problems (Last Reviewed 01/16/20 @ 12:[address] Marilyn Erwin, DO) Acute chest pain (Acute) Unstable angina (Acute) Diabetes (Acute) You will use the following diet at home:: Calorie/Carbohydrate Controlled (specify 1200, 1400, etc), Cardiac Your food should be the consistency of: Regular Your liquids should be the consistency of: Regular/Thin Discharge Activity: Return to Normal Activity Return to work on:: 01/19/20 May shower in (days): 1 Call your doctor if your incision/area has: Continuous Slow Oozing, Sudden Increased Bleeding, Increased Pain/ Swelling, Increased Redness, Foul Smelling Discharge, Swelling at the incision site Call your doctor if you observe: Fever of 101 or Higher, Shortness of breath, Dizziness, Fainting spells, Swelling in the ankles, Chest pain Allergies/Adverse Reactions: Allergies No Known Allergies Allergy (Verified 10/23/19 14:16) Medications to take at Discharge levothyroxine 200 mcg capsule 200 mcg PO DAILY 10/24/18 nitroglycerin 0.4 mg sublingual tablet 0.4 mg SUBLINGUAL Q5-15M PRN 10/24/18 Aspirin [Aspir 81] 81 mg PO QHS 01/14/19 Atorvastatin Calcium [Lipitor] 80 mg PO QHS 01/14/19 Furosemide 40 mg PO DAILY 01/14/19 Gemfibrozil [Lopid] 600 mg PO BIDAC 01/14/19 Isosorbide Mononitrate [Isosorbide Mononitrate ER] 120 mg PO DAILY 01/14/19 Multivitamin [Daily Multiple Vitamin] 1 tab PO DAILY 01/14/19 [place]-3 Fatty Acids [[place]-3] 1,000 mg PO BID 01/14/19 Ranolazine [Ranexa] 1,000 mg PO BID 01/14/19 traZODone [Desyrel] 100 mg PO QHS 01/14/19 Lorazepam [Ativan] 1 mg PO QHS PRN 03/02/19 carvedilol 25 mg tablet 25 mg PO BID #180 tab 06/21/19 sacubitril 97 mg-valsartan 103 mg tablet 1 tab PO BID #180 tab 09/05/19 B-complex with vitamin C 2 tab PO DAILY tab 10/23/19 cholecalciferol (vitamin D3) 125 mcg (5,000 unit) tablet 5,000 unit PO DAILY 10/23/19 gabapentin 300 mg capsule 300 mg PO TID 10/23/19 liraglutide 0.6 mg/0.1 mL (18 mg/3 mL) subcutaneous pen injector 1.8 mg SC DAILY 10/23/19 magnesium oxide 100 mg PO DAILY tab 10/23/19 pantoprazole 40 mg tablet,delayed release 40 mg PO BID tab 10/23/19 Empagliflozin [Jardiance] 25 mg PO DAILY 01/16/20 Metformin HCl 1,000 mg PO BID 01/16/20 Primary Care Physician: Chanda Espana DO [Primary Care Provider] - Please follow up with your Primary Care Physician in: 1-2 weeks for hospital f/u Test Results: Test results from this visit will be discussed in further detail at your follow-up appointment, if applicable. Please Follow Up With: Zachary Lee MD When: as scheduled
--- NOTE | 2020-01-17 09:46 | DS.PCM_ITS ---
Discharge Date and Diagnosis - Problem List Patient Problems: Active and Suspected Problems (Last Reviewed 01/16/20 @ 12:[address] Marilyn Erwin DO) Acute chest pain (Acute) Unstable angina (Acute) Diabetes (Acute) Date of Admission: 01/16/20 Date of Discharge: 01/17/20 - Primary Discharge Diagnosis Acute Problems: Active Problems (Last Reviewed 01/16/20 @ 12:[address] Marilyn Erwin DO) Acute chest pain (Acute) Unstable angina (Acute) Diabetes (Acute) - Secondary Discharge Diagnosis Chronic Problems: Chronic Problems (Last Reviewed 01/16/20 @ 12:[address] Marilyn Erwin DO) Hypothyroidism (Chronic) Hypertension (Chronic) S/P CABG x 2 (Chronic) 06/30/2018 COLBERT to LAD, Reverse saphenous vein aortocoronary grafting of the posterior descending branch of the RCA. Cardiac defibrillator in situ (Chronic) 08/13/2015 lt dual-ICD Medtronic Evera MRI XT, model XXCP6E4, serial number [id number], Atrial lead Mdtronic 5076-52, serial number [id number]. Ventricular lead Medtronic 9262O29 serial number [id number]. History of PTCA (Chronic) 04/12/2015 PTCA/stent on the 100% in stent stenosis in the mid LAD, a 2.75 mm x 33 mm Xience Alpine RX JF and a 3.5 mm x 33mm Xience alpine RX JF.; 03/01/2015 4.0 x 12 bare metal stent in the LAD, proximal to that stent 4.0 x 16 bare metal stent to the LAD. HLD (hyperlipidemia) (Chronic) Ischemic cardiomyopathy (Chronic) CAD (coronary artery disease), [place] coronary artery (Chronic) Hospital Course and Treatment Operations: None Summary of Care Provided: Mr. Connell is a 49 year old M with a marked cardiac history including sudden cardiac in 2014 2/2 ischemic cardiomyopathy, CABG x2 (LAD and RCA) 2017 with an EF of 35-45% who presented to the ED on 01/16/2020 with about a week of increased SOB, CP that has radiated to his L arm, and associated nausea and diaphoresis. He stated that this felt very much like he did just prior to him requiring his bypass. He had noted a decrease in exertional tolerance as well and stated that exertion does seem to make his sx worse. His VS were stable. On admission his EKG showed no new changes c/w acute ischemia. His initial troponin was negative. He was admitted and taken to the labor arbitrator hearing office on the am of 01/17/2020. His cath was as follows: his LAD stent remains patent, his LCx remains angiographically normal, his RCA remains occluded, his COLBERT to the LAD remains patent, and his SVG to the right PDA system remains patent. He did not require additional PCI and was cleared to go home with no medication changes. Acute CP -pt has an extensive cardiac history with marked family history, DM, HTN, HPL -CABG to RCA and LAD in 2017 at [place] -cath with no PCI needed -EKG without acute ischemic changes and troponin is negative -troponin remained negative -ASA CAD/HTN/HPL -continue Lipitor 80, fish oil, and Lopid -continue Lasix 40 mg -continue Ranexa -continue Aldactone/Entresto/Isosorbide/Coreg HFrEF 2/2 Ischemic Cardiomyopathy-compensated -continue Lasix -has ICD (2015) DM-2 -continue Victoza -restart Sitagliptin and Metformin -SSI q 6 until able to eat then AC -A1c Neuropathy -continue Gabapentin GERD -continue PPI Patient Problems: Active and Suspected Problems (Last Reviewed 01/16/20 @ 12:[address] Marilyn Erwin, DO) Acute chest pain (Acute) Unstable angina (Acute) Diabetes (Acute) Subjective: Pt states that he is feeling well and has no complaints today. - Physical Exam Vitals/I&O's: Vital Signs Temp Pulse Resp BP Pulse Ox 97.4 F L 68 16 95/59 L 96 01/17/20 06:43 01/17/20 09:36 01/17/20 09:36 01/17/20 09:36 01/17/20 09:36 Oxygen Flow Rate (L/min) 2 Oxygen Delivery Method Room Air Weight: 109.6 kg Body Mass Index (BMI) 34.6 Intake and Output for Last 24 Hours 01/15/20 01/16/20 01/17/20 23:59 23:59 23:59 Intake Total 290 / 290 Balance 290 / 290 General: Alert, Oriented x3, Cooperative, No apparent distress, Well developed, Well nourished Oral: Moist Mucosa, No Gingival or Mucosal Lesions/ Ulcerations Neck: Supple, Negative Carotid Bruits, Negative Hepatojugular Reflux, No Nodes, No Nuchal Rigidity, Trachea Midline Lungs: Clear to auscultation, Normal air movement, No rhonchi, No wheeze, No rales Cardiovascular: Regular rate, Regular Rhythm, Normal S1, Normal S2, No murmurs, No Ectopic Activity, No rub noted, No Gallop Abdomen: Bowel Sounds Present, Soft, Non Tender, Non-Distended, No Hepato- splenomegaly, Obese Extremities: No clubbing, No cyanosis, No edema, Capillary Refill Less than 3 Seconds, No Calf Tenderness, Peripheral Pulses Normal Skin: No rashes, No breakdown, - - R groin with bandage in place and no blood on bandage Neurological: Cranial nerves II-XII grossly intact, Neuro grossly intact Psych/Mental Status: Normal Affect, Appropriate, Alert and oriented to time, place, person, mood and affect Laboratory Results 01/16/20 10:50: WBC 4.3 L, RBC 4.88, Hgb 14.5, Hct 45.0, MCV 92.2, MCH 29.7, MCHC 32.2, RDW Std Deviation 42.7, RDW Coeff of Mickey 12.6, Plt Count 312, MPV 9.3, Immature Gran % (Auto) 0.500, Neut % (Auto) 60.9, Lymph % (Auto) 23.4, [place] % (Auto) 8.9, Eos % (Auto) 5.6 H, Baso % (Auto) 0.7, Absolute Neuts (auto) 2.6, Absolute Lymphs (auto) 1.00, Nucleated RBC % 0 01/16/20 10:50: PT 12.9, INR 1.0, APTT 24.5 01/16/20 10:50: Sodium 140, Potassium 4.5, Chloride 107, Carbon Dioxide 29.0, Anion Gap 4 L, BUN 18, Creatinine 1.18, Estim Creat Clear Calc 79.91, Est GFR (MDRD) Af Amer 85, Est GFR (MDRD) Non-Af 70, BUN/Creatinine Ratio 15.3, Glucose 136 H, Calcium 9.0, Troponin I < 0.015 01/16/20 10:50: Total Bilirubin 0.70, Direct Bilirubin 0.20, AST 16, ALT 27, Alkaline Phosphatase 40 L, Total Protein 7.4, Albumin 4.0, Globulin 3.4 01/16/20 10:50: B-Natriuretic Peptide 123.7 H 01/16/20 14:00: Troponin I < 0.015 01/16/20 16:44: POC Glucose 87 01/16/20 16:55: Troponin I < 0.015 01/16/20 22:43: POC Glucose 100 01/17/20 06:06: WBC 4.3 L, RBC 4.59 L, Hgb 13.7, Hct 42.2, MCV 91.9, MCH 29.8, MCHC 32.5, RDW Std Deviation 43.4, RDW Coeff of Mickey 12.9, Plt Count 268, MPV 9.2 01/17/20 06:06: Sodium 137, Potassium 3.9, Chloride 106, Carbon Dioxide 25.0, Anion Gap 6, BUN 18, Creatinine 1.19, Estim Creat Clear Calc 79.24, Est GFR (MDRD) Af Amer 84, Est GFR (MDRD) Non-Af 69, BUN/Creatinine Ratio 15.1, Glucose 147 H, Calcium 8.5, Total Bilirubin 0.70, AST 15, ALT 28, Alkaline Phosphatase 39 L, Total Protein 7.0, Albumin 3.8, Globulin 3.2, Albumin/Globulin Ratio 1.2, Triglycerides 415 H, Cholesterol 157, LDL Cholesterol TNP, VLDL Cholesterol TNP, HDL Cholesterol 27 L 01/17/20 06:38: POC Glucose 145 H Current Medications Acetaminophen (Tylenol) 650 mg PO Q6H PRN PRN PRN Reason: Pain Score 1-10/Temp > 100.7 F Al Hydroxide/Mg Hydroxide (Mylanta Ii) 30 ml PO Q6H PRN PRN PRN Reason: Gastric Burning Aspirin (Ecotrin) 81 mg PO DAILY@0800 [facility] Last Admin: 01/17/20 06:48 Dose: 81 mg Documented by: Atorvastatin Calcium (Lipitor) 80 mg PO QHS [facility] Last Admin: 01/16/20 22:46 Dose: 80 mg Documented by: Carvedilol (Coreg) 25 mg PO BID [facility] Last Admin: 01/17/20 06:46 Dose: 25 mg Documented by: Cholecalciferol (Vitamin D (25mcg)) 5,000 unit PO DAILY@0800 [facility] Dextrose (D50w Syringe) 0 gm IV X1 PRN; Protocol PRN Reason: Hypoglycemia Furosemide (Lasix) 40 mg PO DAILY [facility] Gabapentin (Neurontin) 300 mg PO TIDCM [facility] Last Admin: 01/16/20 16:47 Dose: 300 mg Documented by: Gemfibrozil (Lopid) 600 mg PO BIDAC [facility] Last Admin: 01/16/20 17:46 Dose: 600 mg Documented by: Glucagon () 1 mg IM .X1 PRN PRN Reason: Hypoglycemia Guaifenesin (Robitussin) 20 ml PO Q4H PRN PRN PRN Reason: COUGH Heparin Sodium (Beef Lung) (Heparin 500 Unit/5 Ml (100/Ml)) 500 unit IV UD PRN PRN Reason: HEPARIN FLUSH Sodium Chloride () 500 mls @ 15 mls/hr IV PRN PRN PRN Reason: Blood Transfusion Sodium Chloride () 250 mls @ 15 mls/hr IV .[id number] PRN PRN Reason: Saline Flush Sodium Chloride () 250 mls @ 15 mls/hr IV .[id number] PRN PRN Reason: Additional IVPB Infusion Sodium Chloride () 1,000 mls @ 0 mls/hr IV .Q0M SHERMAN Sodium Chloride () 1,000 mls @ 50 mls/hr IV .Q20H SHERMAN Stop: 01/17/20 13:09 Insulin Human Lispro (Humalog Kwikpen (Bkc)) 0 unit SC ACHS [facility]; Protocol Last Admin: 01/17/20 06:45 Dose: Not Given Documented by: Isosorbide Mononitrate (Imdur) 120 mg PO DAILY [facility] Last Admin: 01/17/20 06:46 Dose: 120 mg Documented by: Labetalol HCl (Trandate) 5 mg IV X1 PRN PRN Reason: SBP > 160 prior to sheath pull Stop: 01/19/20 09:06 Levothyroxine Sodium (Synthroid) 200 mcg PO DAILY@0600 [facility] Last Admin: 01/17/20 06:45 Dose: 200 mcg Documented by: Lorazepam (Ativan) 1 mg PO QHS PRN PRN Reason: anxiety/sleep Melatonin (Melatonin) 3 mg PO QHS PRN PRN PRN Reason: INSOMNIA Morphine Sulfate () 2 mg IV Q3H PRN PRN PRN Reason: Pain Score 6-10/10 Multivitamins (Multivitamin) 1 tablet PO DAILY@0800 [facility] Nitroglycerin (Nitrostat) 0.4 mg SUBLINGUAL Q5M PRN PRN Reason: CARDIAC/CHEST PAIN Pantoprazole Sodium (Protonix) 40 mg PO BID [facility] Last Admin: 01/16/20 23:25 Dose: 40 mg Documented by: Ranolazine (Ranexa) 1,000 mg PO BID [facility] Last Admin: 01/17/20 06:49 Dose: 1,000 mg Documented by: Sacubitril/Valsartan (Entresto 97 Mg-103 Mg Tablet) 1 each PO BID [facility] Last Admin: 01/17/20 06:48 Dose: 1 each Documented by: Sodium Chloride () 10 - 40 ml IV UD PRN PRN Reason: SALINE FLUSH Last Admin: 01/17/20 06:44 Dose: 10 ml Documented by: Spironolactone (Aldactone) 12.5 mg PO DAILY [facility] Trazodone HCl (Desyrel) 100 mg PO QHS [facility] Last Admin: 01/16/20 22:46 Dose: 100 mg Documented by: Discharge Activity: Return to Normal Activity Return to work on:: 01/19/20November shower in (days): 1 Call your doctor if your incision/area has: Continuous Slow Oozing, Sudden Increased Bleeding, Increased Pain/ Swelling, Increased Redness, Foul Smelling Discharge, Swelling at the incision site Call your doctor if you observe: Fever of 101 or Higher, Shortness of breath, Dizziness, Fainting spells, Swelling in the ankles, Chest pain Home Medications: Medications to take at Discharge levothyroxine 200 mcg capsule 200 mcg PO DAILY 10/24/18 nitroglycerin 0.4 mg sublingual tablet 0.4 mg SUBLINGUAL Q5-15M PRN 10/24/18 Aspirin [Aspir 81] 81 mg PO QHS 01/14/19 Atorvastatin Calcium [Lipitor] 80 mg PO QHS 01/14/19 Furosemide 40 mg PO DAILY 01/14/19 Gemfibrozil [Lopid] 600 mg PO BIDAC 01/14/19 Isosorbide Mononitrate [Isosorbide Mononitrate ER] 120 mg PO DAILY 01/14/19 Multivitamin [Daily Multiple Vitamin] 1 tab PO DAILY 01/14/19 [place]-3 Fatty Acids [[place]urel-3] 1,000 mg PO BID 01/14/19 Ranolazine [Ranexa] 1,000 mg PO BID 01/14/19 traZODone [Desyrel] 100 mg PO QHS 01/14/19 Lorazepam [Ativan] 1 mg PO QHS PRN 03/02/19 carvedilol 25 mg tablet 25 mg PO BID #180 tab 06/21/19 sacubitril 97 mg-valsartan 103 mg tablet 1 tab PO BID #180 tab 09/05/19 B-complex with vitamin C 2 tab PO DAILY tab 10/23/19 cholecalciferol (vitamin D3) 125 mcg (5,000 unit) tablet 5,000 unit PO DAILY 10/23/19 gabapentin 300 mg capsule 300 mg PO TID 10/23/19 liraglutide 0.6 mg/0.1 mL (18 mg/3 mL) subcutaneous pen injector 1.8 mg SC DAILY 10/23/19 magnesium oxide 100 mg PO DAILY tab 10/23/19 pantoprazole 40 mg tablet,delayed release 40 mg PO BID tab 10/23/19 Empagliflozin [Jardiance] 25 mg PO DAILY 01/16/20 Metformin HCl 1,000 mg PO BID 01/16/20 Primary Care Physician: Chanda Espana DO [Primary Care Provider] - Please follow up with your Primary Care Physician in: 1-2 weeks for hospital f/u Please Follow Up With: Zachary Lee MD When: as scheduled Medical Necessity - Tobacco Use Smoking Status: Never smoker Tobacco Use: Non-smoker Meaningful Use Info Meaningful Use Diagnoses (Choose all that apply): None applicable Inpatient E&M: 24037 [facility]
[2020-01-17] MEDS: 0.9% Normal Saline 1,000 ML 50 ML IV (09:50)
--- NOTE | 2020-01-17 09:50 | PHA.DC.MR ---
Pharmacy Service has performed discharge medication reconciliation for this patient. The patient's discharge medication list was reviewed for discrepancies and discrepancies were resolved. Home Medications levothyroxine 200 mcg capsule 200 mcg PO DAILY 10/24/18 nitroglycerin 0.4 mg sublingual tablet 0.4 mg SUBLINGUAL Q5-15M PRN 10/24/18 Aspirin [Aspir 81] 81 mg PO QHS 01/14/19 Atorvastatin Calcium [Lipitor] 80 mg PO QHS 01/14/19 Furosemide 40 mg PO DAILY 01/14/19 Gemfibrozil [Lopid] 600 mg PO BIDAC 01/14/19 Isosorbide Mononitrate [Isosorbide Mononitrate ER] 120 mg PO DAILY 01/14/19 Multivitamin [Daily Multiple Vitamin] 1 tab PO DAILY 01/14/19 [place]-3 Fatty Acids [[place]-3] 1,000 mg PO BID 01/14/19 Ranolazine [Ranexa] 1,000 mg PO BID 01/14/19 traZODone [Desyrel] 100 mg PO QHS 01/14/19 Lorazepam [Ativan] 1 mg PO QHS PRN 03/02/19 carvedilol 25 mg tablet 25 mg PO BID #180 tab 06/21/19 sacubitril 97 mg-valsartan 103 mg tablet 1 tab PO BID #180 tab 09/05/19 B-complex with vitamin C 2 tab PO DAILY tab 10/23/19 cholecalciferol (vitamin D3) 125 mcg (5,000 unit) tablet 5,000 unit PO DAILY 10/23/19 gabapentin 300 mg capsule 300 mg PO TID 10/23/19 liraglutide 0.6 mg/0.1 mL (18 mg/3 mL) subcutaneous pen injector 1.8 mg SC DAILY 10/23/19 magnesium oxide 100 mg PO DAILY tab 10/23/19 pantoprazole 40 mg tablet,delayed release 40 mg PO BID tab 10/23/19 Empagliflozin [Jardiance] 25 mg PO DAILY 01/16/20 Metformin HCl 1,000 mg PO BID 01/16/20
--- NOTE | 2020-01-17 10:01 | CASEMGMT ---
Pt requesting COVID test as he needs this to return to work. Dr. Erwin states pt does not have any COVID sx's at this time and after speaking with George, PCU director, COVID testing is not warranted during visit as pt is not symptomatic and is not here for that at this time. Dr. Erwin is willing to write a script for OP COVID testing for pt once discharged and pt will have to register thru central [facility] then can do drive thru testing. Reta KESSLER aware, voices understanding and script given to pt with d/c instructions. Peyton KESSLER CM
[2020-01-17] MEDS: Pantoprazole Sodium 40 MG Tablet PO (10:35)
[2020-01-17] MEDS: Gabapentin 300 MG Capsule PO (10:35)
[2020-01-17] MEDS: Multivitamins,Therapeutic Tablet 1 TABLET PO (10:35)
[2020-01-17] MEDS: Gemfibrozil 600 MG Tablet PO (10:36)
[2020-01-17 12:06] LABS: Bedside Glucose 185 mg/dL (70-110)
--- NOTE | 2020-01-17 16:11 | NURSING ---
Pts bedrest was completed at 1330, he got up and ambulated without issue. site remained free from signs of bleeding, bruising or hematoma. VSS stable, pt denies chest pain. Dr. Khoury made aware of all this and gave the OK for discharge.
== END 2020-01-17 09:46 | disposition home or self-care (01) ==
LOC: ED 11:43 → PCU 12:20
PROVIDERS: Admitting Provider Internal Medicine; Emergency Provider Emergency Medicine; PCP Internal Medicine; Visit Provider Internal Medicine
DX: I25.110 Atherosclerotic heart disease of native coronary artery with unstable angina pectoris (principal); E03.9 Hypothyroidism, unspecified; E78.5 Hyperlipidemia, unspecified; I50.20 Unspecified systolic (congestive) heart failure; I11.0 Hypertensive heart disease with heart failure; E11.40 Type 2 diabetes mellitus with diabetic neuropathy, unspecified; K21.9 Gastro-esophageal reflux disease without esophagitis; I25.5 Ischemic cardiomyopathy; I25.2 Old myocardial infarction; G47.33 Obstructive sleep apnea (adult) (pediatric); I25.10 Atherosclerotic heart disease of native coronary artery without angina pectoris; Z95.1 Presence of aortocoronary bypass graft; Z95.810 Presence of automatic (implantable) cardiac defibrillator; Z82.49 Family history of ischemic heart disease and other diseases of the circulatory system; Z79.899 Other long term (current) drug therapy; Z79.82 Long term (current) use of aspirin; I48.91 Unspecified atrial fibrillation
CPT/HCPCS: 36415; 71045; 80048; 80053; 80061; 80076; 82962; 83880; 84484; 85025; 85027; 85610; 85730; 93005; 93459; 96360; 96361; 99152; 99153; 99218; 99251; 99283; J7030; Q9967; A4216; C1769; C1894; G0378; G0463

== ENCOUNTER 2020-06-20 15:33 | Emergency (ER) | payer OTHER, SELFPAY ==
[2020-02-07 14:39] VITALS: BMI 34.9
[2020-06-20] VITALS (9 sets, daily range): BP systolic 113–139; BP diastolic 73–95; PULSE 82–99; RESP 14–18; TEMP 35.9–36.9; O2SAT 90–98; BMI 33.0
--- NOTE | 2020-06-20 15:46 | EKG12_ITS ---
Test Reason : CP Blood Pressure : / mmHG Vent. Rate : 091 BPM Atrial Rate : 091 BPM P-R Int : 142 ms QRS Dur : 088 ms QT Int : 368 ms P-R-T Axes : 031 -25 077 degrees QTc Int : 452 ms Normal sinus rhythm Septal infarct , age undetermined Lateral infarct , age undetermined Abnormal ECG Confirmed by BELINDA WALDROP, MARLIN ([id number]), development editor ABIMBOLA LAMAR ([id number]) on 06/21/2020 2:18:50 PM Referred By: HIPOLITO Confirmed By:MARLIN TREVINO MD
--- NOTE | 2020-06-20 15:47 | ED.DCSUM_ITS ---
- ER Visit Summary Date of Service: 06/20/20 Chief Complaint: Chest pain, Covid positive History of Present Illness: The patient is a 50 M who comes in today with chest pain and shortness of breath. He was diagnosed with coronavirus 4 days ago. About 3 days ago he started developing some chest pressure in the middle part of his chest. Today he feels more short of breath. He has been coughing which is been nonproductive. He has not had any fevers. He is currently on prednisone, Flagyl, Tylenol and Aleve. He did have a cardiac cath in January which showed patent vessels and patent grafts. He does have a history of coronary disease and had a CABG remotely. 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 Physical Examination: Vital signs reviewed. HEENT exam unremarkable. Heart is regular rate and rhythm without murmurs. Lungs are clear to auscultation. Abdomen is soft and nontender. Extremities reveal no edema. Peripheral pulses are equal. Skin exam normal. Neurologic exam normal. Test Results: KG is sinus rhythm with rate of 91. No ST changes. 1 view chest x-ray interpreted by myself and radiologist shows no acute findings. Labs are unremarkable aside for glucose of 191. First and second troponin are negative Emergency Department Course and Treatment: Patient was given aspirin, nitroglycerin and morphine. His 2 troponins are negative. I feel that his pain is likely due to the coronavirus. I do not feel is cardiac in nature. Patient be discharged to use his home medications and follow-up with his pea viner mechanic Treatment Plan: [] Disposition: Discharge Impression: Chest pain, COVID-19 This note was generated with [employer] dictation software. It may contain incorrect words, spelling, and punctuation that were not noted in review of the chart prior to signing ED Disposition - Plan for ED Patient: Disposition: Home or Assisted Living Instructions: Coronavirus Disease 2019 (COVID-19): Overview Referrals: Chanda Espana DO [Primary Care Provider] -
[2020-06-20 16:06] LABS: Absolute Lymphocyte Count 0.69 X10^3/uL (0.83-4.51); Basophil# 0.02 X10^3/uL; Basophil% 0.3 % (0-1); Eosinophil# 0.04 X10^3/uL; Eosinophils% 0.6 % (0-5); Hematocrit 50.2 % (40-54); Lymphocyte # 0.69 X10^3/ul (4.0); Lymphocyte % 9.7 % (19-41); Mean Corp Hgb Conc 33.9 g/dL (32-36); Mean Corpuscular Hgb 28.6 pg (27.0-32.0); Mean Corpuscular Volume 84.5 fL (80-94); Mean Platelet Vol. 8.7 fl (6.2-12.0); Monocyte# 0.34 X10^3/uL; Monocyte% 4.8 % (0-10); NRBC Flagged by Analyzer 0 % (0-5); Platelet Count 262 K/mm3 (150-450); RBC Distribution Width SD 36.3 fl (35.1-43.9); Red Blood Count 5.94 M/mm3 (4.6-6.2); White Blood Count 7.1 K/mm3 (4.4-11.0)
[2020-06-20] MEDS: Aspirin 81 MG TAB.CHEW 324 MG PO (16:06)
[2020-06-20] MEDS: Nitroglycerin SL (ED/IMG/CATH) 0.4 MG TABLET SUBLINGUAL ×2 (16:09→16:14)
--- NOTE | 2020-06-20 16:20 | RAD_ITS ---
STUDY: X-RAY CHEST REASON FOR EXAM: Male, 50 years old. Shortness of breath. Positive COVID 19. Chest pressure. TECHNIQUE: Single AP portable view of the chest. COMPARISON: 01/16/2020. FINDINGS: The lungs are clear and expanded. There is no demonstrated pleural abnormality. Sternal cerclage wires are present from a prior sternotomy. The heart is normal in size. Stable cardiac pacemaker/ICD. Normal mediastinum and brisa. Normal visualized pulmonary arteries. Normal visualized aortic arch and descending thoracic aorta. The thoracic spine is obscured by the mediastinum. Normal visualized ribs, clavicles, and shoulders. There is no demonstrated abnormality of the visualized soft tissue structures of the upper abdomen. RAD/Chest 1 View (Portable) IMPRESSION: No acute cardiopulmonary disease or interval change. Electronically Signed: Tay Galvez DO at 16:42 EST Tel [phone], Service support ,
[2020-06-20 16:23] LABS: Anion Gap 8 (5-15); BUN 18 mg/dL (7-18); BUN/Creat Ratio 18.9 RATIO (10-20); Calcium,Total 9.2 mg/dL (8.5-10.1); Chloride 102 mmol/L (98-107); Creatinine, Serum 0.95 mg/dL (0.70-1.30); EST Glomerular Filtration Rate 90 mL/min (>60); Est Glom Filt Rate - Afr Amer 108 mL/min (>60); Estimated Creatinine Clearance 98.19 ml/min; Glucose 191 mg/dL (74-106); Potassium 4.6 mmol/L (3.5-5.1); Sodium Level 136 mmol/L (136-145)
[2020-06-20] MEDS: Morphine 4 MG/ML Syringe IV (17:17)
== END 2020-06-20 20:13 | disposition home or self-care (01) ==
PROVIDERS: Emergency Provider Emergency Medicine; PCP Internal Medicine
DX: R07.9 Chest pain, unspecified (principal); U07.1 COVID-19; I25.10 Atherosclerotic heart disease of native coronary artery without angina pectoris; Z95.1 Presence of aortocoronary bypass graft
CPT/HCPCS: 71045; 80048; 84484; 85025; 93005; 96374; 99285; A4216

== ENCOUNTER 2020-08-11 13:23 | Emergency (ER) | payer OTHER, SELFPAY ==
[2020-06-20 15:34] VITALS: BMI 33.0
[2020-08-11 13:24] VITALS: BP 131/86; PULSE 92; RESP 14; TEMP 36.6; O2SAT 99; BMI 35.4
[2020-08-11 13:32] VITALS: BP 130/76; PULSE 86; RESP 20; O2SAT 98
--- NOTE | 2020-08-11 13:42 | RAD_ITS ---
STUDY: X-RAY CHEST REASON FOR EXAM: Male, 50 years old. CHEST PAIN LEFT SIDE RADIATES TO ARM, HX HEART ATTACKS, PACEMAKER, CURRENTLY WEARING A HALTER MONITOR, CHF TECHNIQUE: PA and lateral views of the chest. COMPARISON: 06/20/2020 FINDINGS: Two lead cardiac conduction device is seen via the left subclavian vein with lead tips projecting over the right atrium and right ventricle, respectively. Sternal wires and mediastinal surgical clips compatible with prior CABG. EKG leads project over the chest. The lungs are clear and expanded. There is no demonstrated pleural abnormality. Normal size heart. Normal mediastinum and brisa. Normal visualized pulmonary arteries. Normal visualized aortic arch and descending thoracic aorta. There are diffuse degenerative changes of the visualized thoracic spine. Normal visualized ribs, clavicles, and shoulders. There is no demonstrated abnormality of the visualized soft tissue structures of the upper abdomen. RAD/Chest PA and Lateral IMPRESSION: Stable, nonacute x-ray examination of the chest. Electronically Signed: Jair Hanks MD ([place]) at 14:48 EST , Service support ,
--- NOTE | 2020-08-11 13:42 | EKG12_ITS ---
Test Reason : CP Blood Pressure : / mmHG Vent. Rate : 085 BPM Atrial Rate : 085 BPM P-R Int : 158 ms QRS Dur : 088 ms QT Int : 284 ms P-R-T Axes : 057 -13 081 degrees QTc Int : 337 ms Normal sinus rhythm Anterior infarct , age undetermined Abnormal ECG Confirmed by BELINDA WALDROP, MARLIN ([id number]), deputy editor in chief ABIMBOLA LAMAR ([id number]) on 08/12/2020 1:10:50 PM Referred By: MR Confirmed By:MARLIN TREVINO MD
[2020-08-11 13:56] LABS: Absolute Lymphocyte Count 0.84 X10^3/uL (0.83-4.51); Absolute Neutrophil Count 2.5 X10^3/uL (2.0-7.7); Basophil# 0.01 X10^3/uL; Basophil% 0.3 % (0-1); Eosinophil# 0.15 X10^3/uL; Eosinophils% 3.8 % (0-5); Hemoglobin 14.2 g/dL (13.0-16.5); Lymphocyte # 0.84 X10^3/ul (4.0); Lymphocyte % 21.3 % (19-41); Mean Corpuscular Hgb 28.3 pg (27.0-32.0); Mean Corpuscular Volume 85.8 fL (80-94); Monocyte# 0.39 X10^3/uL; Monocyte% 9.9 % (0-10); NRBC Flagged by Analyzer 0 % (0-5); Neutrophil # 2.54 X10^3/uL (2.7-7.7); Neutrophil % 64.4 % (47-70); Platelet Count 273 K/mm3 (150-450); RBC Distribution Width CV 13.7 % (11.6-14.6); Red Blood Count 5.01 M/mm3 (4.6-6.2); White Blood Count 3.9 K/mm3 (4.4-11.0)
[2020-08-11 14:11] LABS: Anion Gap 8 (5-15); BUN 17 mg/dL (7-18); BUN/Creat Ratio 15.5 RATIO (10-20); Calcium,Total 8.7 mg/dL (8.5-10.1); Chloride 106 mmol/L (98-107); EST Glomerular Filtration Rate 76 mL/min (>60); Est Glom Filt Rate - Afr Amer 92 mL/min (>60); Glucose 229 mg/dL (74-106); Sodium Level 139 mmol/L (136-145)
[2020-08-11] MEDS: Aspirin 81 MG TAB.CHEW 324 MG PO (14:19)
[2020-08-11 14:20] VITALS: O2SAT 96
[2020-08-11 15:24] VITALS: BP 129/72; PULSE 79; RESP 16; O2SAT 99
[2020-08-11] MEDS: Acetaminophen 500 MG Tablet 1000 MG PO (15:42)
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
[2020-08-11 16:00] VITALS: BP 130/66; PULSE 82; RESP 15; O2SAT 99
[2020-08-11 17:25] VITALS: BP 122/66; PULSE 87; RESP 17; O2SAT 998
== END 2020-08-11 17:25 | disposition home or self-care (01) ==
PROVIDERS: Emergency Provider Emergency Medicine; PCP Internal Medicine
DX: R07.9 Chest pain, unspecified (principal); I25.10 Atherosclerotic heart disease of native coronary artery without angina pectoris; Z95.1 Presence of aortocoronary bypass graft; Z95.5 Presence of coronary angioplasty implant and graft
CPT/HCPCS: 71046; 80048; 84484; 85025; 93005; 99285; A4216

== ENCOUNTER 2020-08-30 09:48 | Emergency (ER) | payer OTHER, SELFPAY ==
[2020-08-20 15:17] VITALS: BMI 35.4
[2020-08-30 09:49] VITALS: BP 117/80; PULSE 96; RESP 18; TEMP 36.2; O2SAT 98; BMI 33.7
--- NOTE | 2020-08-30 09:58 | EKG12_ITS ---
Test Reason : CP Blood Pressure : / mmHG Vent. Rate : 097 BPM Atrial Rate : 097 BPM P-R Int : 142 ms QRS Dur : 084 ms QT Int : 378 ms P-R-T Axes : 033 011 073 degrees QTc Int : 480 ms Normal sinus rhythm Anterolateral infarct , age undetermined Abnormal ECG Confirmed by BELINDA WALDROP, MARLIN ([id number]), purchase request editor ABIMBOLA LAMAR ([id number]) on 09/02/2020 10:57:33 AM Referred By: WILLI Confirmed By:MARILN TREVINO MD
[2020-08-30 10:08] LABS: Absolute Lymphocyte Count 1.39 X10^3/uL (0.83-4.51); Absolute Neutrophil Count 3.9 X10^3/uL (2.0-7.7); Basophil# 0.03 X10^3/uL; Basophil% 0.5 % (0-1); Eosinophil# 0.25 X10^3/uL; Eosinophils% 4.1 % (0-5); Hematocrit 47.9 % (40-54); Hemoglobin 16.4 g/dL (13.0-16.5); Lymphocyte # 1.39 X10^3/ul (4.0); Lymphocyte % 22.7 % (19-41); Mean Corp Hgb Conc 34.2 g/dL (32-36); Mean Corpuscular Hgb 28.8 pg (27.0-32.0); Mean Corpuscular Volume 84.2 fL (80-94); Mean Platelet Vol. 9.1 fl (6.2-12.0); Monocyte# 0.54 X10^3/uL; Monocyte% 8.8 % (0-10); NRBC Flagged by Analyzer 0 % (0-5); Neutrophil # 3.89 X10^3/uL (2.7-7.7); Neutrophil % 63.6 % (47-70); Platelet Count 339 K/mm3 (150-450); RBC Distribution Width CV 13.5 % (11.6-14.6); RBC Distribution Width SD 41.3 fl (35.1-43.9); Red Blood Count 5.69 M/mm3 (4.6-6.2); White Blood Count 6.1 K/mm3 (4.4-11.0)
[2020-08-30] MEDS: Aspirin 81 MG TAB.CHEW 324 MG PO (10:10)
--- NOTE | 2020-08-30 10:10 | RAD_ITS ---
STUDY: X-RAY CHEST REASON FOR EXAM: Male, 50 years old. Woke up with chest pain and shortness of breath. TECHNIQUE: Single AP portable view of the chest. COMPARISON: Comparison is made with prior examination dated 08/11/2020. FINDINGS: EKG electrodes are seen. The lungs are clear and expanded. There is no demonstrated pleural abnormality. Sternal cerclage wires and vascular clips are present from a prior sternotomy and coronary artery bypass graft procedure (CABG). A left-sided ICD is seen. Normal mediastinum and brisa. Normal visualized pulmonary arteries. Normal visualized aortic arch and descending thoracic aorta. Normal visualized thoracic spine. Normal visualized ribs, clavicles, and shoulders. There is no demonstrated abnormality of the visualized soft tissue structures of the upper abdomen. RAD/Chest 1 View (Portable) IMPRESSION: Stable examination. No acute abnormality is present. Electronically Signed: Alex Morton MD at 10:36 EST , Service support ,
--- NOTE | 2020-08-30 10:16 | ED.DCSUM_ITS ---
History of Present Illness Chief Complaint: Chest Pain Informant: Patient Narrative: Patient presenting for evaluation secondary to chest pain. Patient has an underlying history of coronary artery disease status post coronary artery bypass graft. He has ischemic cardiomyopathy with an ejection fraction around 35% with an ICD. Last cardiac catheterization was back in January which showed the patient to have 25 to 50% in-stent stenosis of the mid LAD stent, but patent grafts. Patient states that yesterday he was feeling generally fatigued. He reports that this is a head to toe general fatigue and not associated with any sort of laterality. Patient denies any fevers chills night sweats cough nausea vomiting or diarrhea. Patient states that he woke up today and was noting that he had some left anterior chest pain. This is an aching and heavy type sensation associated with some shortness of breath. No real exacerbating factors, it was not relieved by nitroglycerin at home. Patient states that this is not necessarily consistent with his cardiac chest pain that he has had in the past. Patient denies any history of DVT or PE. Review of systems otherwise negative. Past Medical History - Allergies and Home Meds Allergies/Adverse Reactions: Allergies No Known Allergies Allergy (Verified 08/30/20 09:54) Primary Care Physician: Chanda Espana DO [Primary Care Provider] - Prior records reviewed: Yes Past Medical History: - - Coronary artery disease, ischemic cardiomyopathy Surgical History: coronary bypass surgery, tonsillectomy Lives: Spouse/ Significant Other Smoking Status: Never smoker Alcohol: None Drugs: None Review of Systems All systems negative except as indicated General: Reports: Malaise Eyes: Denies: Visual changes - bilaterally, Diplopia ENT: Denies: Rhinorrhea, Sore throat Cardiovascular: Reports: Chest pain Respiratory: Reports: Dyspnea Gastrointestinal: Denies: Abdominal pain, Nausea, Vomiting, Diarrhea, Melena, Hematochezia Genitourinary: Denies: Dysuria, Hematuria, Frequency Musculoskeletal: Denies: Back pain, Extremity Pain Skin: Denies: Rash, Wounds Neurological: Denies: Headache, Weakness, Numbness Physical Exam Vital Signs/Narrative: Vital Signs Temp Pulse Resp BP Pulse Ox 08/30/20 09:49 97.2 F L 96 18 117/80 98 Inital Vital Signs reviewed: Yes General: Well nourished, Well developed, No Acute Distress Head: Normocephalic, Atraumatic Eyes: Perrl, EOMI ENT: Moist mucous membranes, No rhinorrhea Neck: Supple, Nontender Cardiovascular: Regular rate, Regular rhythm, No murmurs, - - 2+ radial pulses bilaterally symmetric, 2+ PT pulses bilaterally symmetric Respiratory: No distress, CTA bilaterally, Chest nontender Abdomen: Soft, Nontender, Nondistended, Normal bowel sounds Back: Nontender, Normal Inspection Extremities: Nontender, No edema Skin: Normal color, No rash Neurological: Alert, Oriented x3, Cranial nerves II-XII grossly intact, Normal Strength, Normal Sensation Psychological: - - Patient is mildly anxious, not suicidal homicidal or hallucinating Diagnostic/Tx/Re-eval Chest X-Ray - ED: 1 View, Read by ED Physician, Unchanged, No Acute Disease Clinical Impression(s) from Imaging Studies Chest X-Ray 08/30/20 10:10 IMPRESSION: Stable examination. No acute abnormality is present. Electronically Signed: Alex Morton MD at 10:36 EST , Service support , Laboratory Data 08/30/20 08/30/20 08/30/20 10:00 10:00 12:45 WBC 6.1 RBC 5.69 Hgb 16.4 Hct 47.9 MCV 84.2 MCH 28.8 MCHC 34.2 RDW Std Deviation 41.3 RDW Coeff of Mickey 13.5 Plt Count 339 MPV 9.1 Immature Gran % (Auto) 0.300 Neut % (Auto) 63.6 Lymph % (Auto) 22.7 [place] % (Auto) 8.8 Eos % (Auto) 4.1 Baso % (Auto) 0.5 Absolute Neuts (auto) 3.9 Absolute Lymphs (auto) 1.39 Nucleated RBC % 0 Sodium 138 Potassium 3.9 Chloride 102 Carbon Dioxide 27.0 Anion Gap 9 BUN 22 H Creatinine 1.20 Estim Creat Clear Calc 77.73 Est GFR (MDRD) Af Amer 83 Est GFR (MDRD) Non-Af 69 BUN/Creatinine Ratio 18.3 Glucose 206 H Calcium 9.6 Troponin I < 0.015 < 0.015 - EKG Initial EKG Interpretation: - - Sinus rhythm [address] segments, diffuse nonspecific T wave flattening is noted. Anterolateral Q waves are noted which were present on prior EKG in 11 August of this year. No evidence of acute ischemic or arrhythmic changes. - Medical Decision Making Patient presented secondary to chest pain in setting of coronary artery disease. EKG was obtained which was found to be unremarkable. 1 view chest x-ray by my personal review as well as radiology shows no acute cardiopulmonary pathology. CBC chemistry and initial troponin found to be unremarkable. Patient's heart score is 5, but he had a negative heart catheterization within the last 8 months. Patient will be observed in the emergency department for 3-hour delta troponin. 3-hour delta troponin was also found to be negative. Patient is still having chest pain, although it does seem rather atypical. He has had a negative heart catheterization and to negative cardiac troponins. He has no evidence of pneumonia, pneumothorax, or other serious etiology that would require admission or further work-up. Likewise he is capital PERC negative, there is no indication for work-up for pulmonary embolism. 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 Patient was discharged in stable condition. ED Disposition - Plan for ED Patient: Disposition: Home or Assisted Living Diagnosis: Chest pain Instructions: ED Chest Pain, Uncertain Cause Referrals: Chanda Espana DO [Primary Care Provider] - 3-5 Days
[2020-08-30 10:41] LABS: Anion Gap 9 (5-15); BUN 22 mg/dL (7-18); BUN/Creat Ratio 18.3 RATIO (10-20); Calcium,Total 9.6 mg/dL (8.5-10.1); Chloride 102 mmol/L (98-107); EST Glomerular Filtration Rate 69 mL/min (>60); Est Glom Filt Rate - Afr Amer 83 mL/min (>60); Estimated Creatinine Clearance 77.73 ml/min; Glucose 206 mg/dL (74-106); Potassium 3.9 mmol/L (3.5-5.1); Sodium Level 138 mmol/L (136-145)
[2020-08-30 10:54] VITALS: BP 123/85; PULSE 87; RESP 19; O2SAT 96
[2020-08-30] MEDS: Acetaminophen 500 MG Tablet 1000 MG PO (11:17)
[2020-08-30 11:36] VITALS: BP 127/87; PULSE 80; RESP 20; O2SAT 94
[2020-08-30 12:00] VITALS: BP 119/74; PULSE 81; RESP 16; O2SAT 98
[2020-08-30 12:47] VITALS: BP 106/75; PULSE 87; RESP 19; O2SAT 98
[2020-08-30 13:55] VITALS: BP 114/89; PULSE 96; RESP 19; O2SAT 95
== END 2020-08-30 14:00 | disposition home or self-care (01) ==
PROVIDERS: Emergency Provider Emergency Medicine; PCP Internal Medicine
DX: R07.9 Chest pain, unspecified (principal); I25.10 Atherosclerotic heart disease of native coronary artery without angina pectoris; Z95.1 Presence of aortocoronary bypass graft
CPT/HCPCS: 36415; 71045; 80048; 84484; 85025; 87426; 93005; 99285; A4216

== ENCOUNTER 2021-01-06 16:04 | Observation (INO) | payer OTHER, SELFPAY ==
--- NOTE | 2021-01-06 16:06 | EKG12_ITS ---
Test Reason : AM EKG Blood Pressure : / mmHG Vent. Rate : 073 BPM Atrial Rate : 073 BPM P-R Int : 168 ms QRS Dur : 104 ms QT Int : 350 ms P-R-T Axes : 045 -42 084 degrees QTc Int : 385 ms Normal sinus rhythm Left axis deviation Anterolateral infarct , age undetermined, cannot be excluded Abnormal ECG Confirmed by ROSIO WALDROP, OSCAR ([id number]), production editor ABIMBOLA LAMAR ([id number]) on 01/08/2021 10:43:40 AM Referred By: Dione Chawla Confirmed By:OSCAR AVELAR MD
--- NOTE | 2021-01-06 18:12 | PCM.HP.STD ---
HPI - General General Date of Admission: 01/06/21 Date of Service: 01/06/21 Chief Complaint: Chest pain HPI Narrative The patient is a 50 y/o M w/ PMHx: CAD s/p PCI and CABG x 2 2018, Ischemic Cardiomyopathy, HTN, HLD, Obesity, Diabetes mellitus type II, PAF, KT unable to tolerate CPAP, GERD, Hypothyroidism who presents to the [facility] as direct admission on 01/06/21 from OSH ED ([place]) with history of chest pain x 1 week, seen 3 days prior, negative work-up with d/c to home, now returns, climbing his stairs, worsened L chest laterally with radiation to the LUE with no associated dyspnea, diaphoresis, nausea, emesis, 6/10 in discomfort at their facility presentation, improved at their facility. 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 Patient does report currently pain 6 out of 10. He does state that he has been following with orthopedic surgery for bilateral chronic shoulder discomfort and tears and did think this is likely that but given ongoing significant discomfort prompted reevaluation in the outside facility ED. The patient has been evaluated at their facility 3 times recently for similar complaints. His last catheterization per discussion with Cardiology was 01/2020 and their was no acute findings at that time requiring intervention. ED and Hospitalist discussed case with patient Evaluation Specialist Dr. Lee. Work-up at the OSH Facility included: VS: T 36.6, HR 89, RR 18, BP 114/71, 95% on RA. EKG: SR without acute evidence of ischemia. CBC w/ WBC 4.7, Hgb 14.4, Plts 245 without marked shift noted BMP w/ Na 134, K 3.9, BUN/Cr 17/0.93, glucose 255 Troponin <0.02 with repeat unremarkable also CXR unremarkable L shoulder plain film with degenerative mild changes D-dimer 285 (not elevated) BNP 34 COVID negative. Medications given: ASA 324 mg po x 1, nitropaste 1 inch (noon), zofran 4 mg x [facility] Medical History (Updated 01/06/21 @ 18:[address] Dione Chawla MD) Acute chest pain Atherosclerosis of coronary artery of [place] heart without angina pectoris Chest pain Diabetes mellitus, type II Essential hypertension Foreign body of knee History of atrial fibrillation History of left heart catheterization (01/17/20) HLD (hyperlipidemia) Hypothyroidism Irregular heart rhythm Ischemic cardiomyopathy Obstructive sleep apnea Unstable angina Home Medications levothyroxine 200 mcg capsule 200 mcg PO DAILY 10/24/18 [History Last Taken 01/16/20] nitroglycerin 0.4 mg sublingual tablet 0.4 mg SUBLINGUAL Q5-15M PRN 10/24/18 [History Last Taken Unknown] aspirin 81 mg PO QHS 01/14/19 [History Last Taken 03/07/19] furosemide 40 mg PO DAILY 01/14/19 [History Last Taken 01/16/20] multivitamin 1 tab PO DAILY 01/14/19 [History Last Taken 01/16/20] omega-3 fatty acids 1,000 mg PO BID 01/14/19 [History Last Taken 01/16/20] lorazepam 1 mg PO QHS PRN 03/02/19 [History Last Taken 01/15/20] B-complex with vitamin C 2 tab PO DAILY tab 10/23/19 [History Last Taken Unknown] cholecalciferol (vitamin D3) 125 mcg (5,000 unit) tablet 5,000 unit PO DAILY 10/23/19 [History Last Taken 01/16/20] gabapentin 300 mg capsule 300 mg PO TID PRN 10/23/19 [History Last Taken 01/16/20 1] liraglutide 0.6 mg/0.1 mL (18 mg/3 mL) subcutaneous pen injector 1.8 mg SC DAILY 10/23/19 [History Last Taken 01/16/20] pantoprazole 40 mg tablet,delayed release 40 mg PO BID tab 10/23/19 [History Last Taken 01/16/20] empagliflozin 25 mg PO DAILY 01/16/20 [History Last Taken Unknown] metformin 1,000 mg PO BID 01/16/20 [History Last Taken 01/16/20] atorvastatin 80 mg tablet 80 mg PO DAILY #30 tab 08/20/20 [Rx Last Taken Unknown] metoprolol succinate 25 mg tablet,extended release 24 hr 25 mg PO DAILY #30 tab 08/20/20 [Rx Last Taken Unknown] ranolazine 1,000 mg tablet,extended release,12 hr 1,000 mg PO BID 09/02/20 [History Last Taken Unknown] sacubitril 97 mg-valsartan 103 mg tablet 1 tab PO BID #180 tablet 10/04/20 [Rx Last Taken Unknown] Allergy/AdvReac Type Severity Reaction Status Date / Time No Known Allergies Allergy Verified 08/30/20 09:54 Family History Mother Hypertension Diabetes COPD (chronic obstructive pulmonary disease) Heart disease Brother CVA (cerebral vascular accident) other (Patient does not know his father nor any of his paternal family history.) Surgical History (Updated 01/06/21 @ 16:[address] Dione Chawla MD) Cardiac defibrillator in situ H/O hemorrhoidectomy History of appendectomy History of PTCA History of vasectomy S/P CABG x 2 Social History (Updated 01/06/21 @ 16:[address] Dione Chawla MD) household members: family Smoking Status: Never smoker alcohol intake: never substance use type: does not use caffeine: Yes (occasional) ROS ROS Narrative Admission Review of Systems: CONSTITUTIONAL: No weight loss, fever, chills, + weakness or fatigue. HEENT: Eyes: No visual loss, blurred vision, double vision or yellow sclerae. Ears, Nose, Throat: No hearing loss, sneezing, congestion, runny nose or sore throat. SKIN: No rash or itching, lesions, wounds. CARDIOVASCULAR: + chest pain, chest pressure or chest discomfort, No palpitations, edema, orthopnea, syncopal events. RESPIRATORY: No shortness of breath, cough or sputum, wheezing, hemoptysis. GASTROINTESTINAL: No anorexia, nausea, vomiting or diarrhea, abdominal pain, melena, BRBPR. GENITOURINARY: No dysuria, frequency, urgency or retention. NEUROLOGICAL: No headache, dizziness, syncope, paralysis, ataxia, numbness or tingling in the extremities, focal weakness, change in bowel or bladder control, seizure. MUSCULOSKELETAL: + muscle, back pain, joint pain or stiffness. HEMATOLOGIC: No anemia, bleeding or bruising. LYMPHATICS: No enlarged nodes. No history of splenectomy. PSYCHIATRIC: No history of depression or anxiety. ENDOCRINOLOGIC: No reports of sweating, cold or heat intolerance. No polyuria or polydipsia. ALLERGIES: No history of asthma, hives, eczema or rhinitis. Vital Signs Vital Signs Vital Signs: Weight Body Mass Index (BMI) 33.7 Physical Exam Narrative Physical Examination: General: Awake, alert, oriented x 3 and cooperative, seated upright in the PCU bed in no apparent distress but uncomfortable appearing, rating pain currently 6 out of 10 left shoulder and chest but this has been ongoing constant with negative troponin x2. Skin: Normal color, normal turgor, no icterus, no cyanosis. HEENT: AT/NC, EOMI, PERRLA, moderately dry MM, no carotid bruits or JVD noted. Lungs: CTA bilaterally, moderate effort, mild decrease BL bases, no rales, ronchi or wheezing. Heart: Regular rate and rhythm; no gallop, rub audible, left chest with device present. Abdomen: Soft, umbilical hernia present, NTTP, ND, normal BS, no HSM. Extremities: No cyanosis, clubbing, or edema. Neurological: Patient awake, alert, oriented as noted, cognitive function intact; pupils equally reactive to light and accommodation, cranial nerves II-XII grossly normal, moving all 4 extremities, no focal deficits, strength mildly moderately global decrease secondary to acute presentation. Psychiatric: Affect appears fatigued and uncomfortable otherwise no acute evidence of depressive or anxiety feelings. Assessment & Plan Assessment/Plan (1) Chest pain: QUALIFIERS: Chest pain type: unspecified Qualified Code(s): R07.9 - Chest pain, unspecified PLAN: The patient is a 50 y/o M w/ PMHx: CAD s/p PCI and CABG x 2 2017, Ischemic Cardiomyopathy, HTN, HLD, Obesity, Diabetes mellitus type II, PAF, KT, GERD, Hypothyroidism who presents to the [facility] as direct admission on 01/06/21 from OSH ED ([place]) with history of chest pain x 1 week, seen 3 days prior, negative work-up with d/c to home, now returns, climbing his stairs, worsened L chest laterally with radiation to the LUE with no associated dyspnea, diaphoresis, nausea, emesis, 6/10 in discomfort at their facility presentation, improved at their facility. 1. Chest Pain: EKG in ED at outside facility with sinus rhythm with no acute evidence of ischemia, CXR w/ no acute cardiopulmonary findings, initial trop unremarkable 0.02 with repeat delta pending upon requested transfer. Will admit to PCU, place on a monitored bed to assure no acute myocardial infarction with serial cardiac enzymes and EKGs. Cardiology will be consulted and have already discussed case with planned a.m. cardiac catheterization given serial visits and underlying cardiac history. Will maintain n.p.o. after midnight, administer judicious IV fluids given cardiac catheterization plan. Magnesium level requested. FLP in AM. Continue Nitropaste, ASA, morphine. 2. CAD: s/p CABG x 2 2017 w/ SVG to RCA and COLBERT to LAD, PCI history w/ 04/12/2015 PTCA/stent on 100% in-stent stenosis mid LAD, 03/01/2015 bare metal stent LAD, proximal to that additional bare metal stent to the LAD. 01/17/20 cardiac catheterization with normal LV end-diastolic pressure, moderate segmental LV systolic dysfunction with LVEF 35%, double vessel CAD of the LAD and RCA with patent COLBERT to LAD and patent SVG to RPDA. 3. Ischemic cardiomyopathy: s/p AICD placement, will continue patient home aspirin, statin, metoprolol, lasix, subcubitiril-valsartan, ranolazine regimen. 11/14/20 devices assessment with 3 NSVT episodes and no AT/AF episodes since 07/05/2020. Will request repeat evaluation given current presentation as noted. 4. PAF: Noted history, will continue metoprolol regimen, not anticoagulated. 5. Diabetes mellitus type II with peripheral neuropathy: Hold oral home regimen, will continue liraglutide if available, ADA diet until NPO status, accu checks w/ ISS. We will continue patient home gabapentin regimen. 6. Hypertension: Continue home regimen including Lasix, metoprolol, subcubitiril-valsartan with hold parameters as needed, PRN hydralazine. 7. Hyperlipidemia: Continue home statin regimen. AM FLP. 8. Hypothyroidism: Continue home synthroid regimen, TSH pending. 9. Anxiety: We will continue patient home nightly lorazepam. 10. Obesity: Weight loss and lifestyle changes encouraged. 11. KT: We will continue CPAP nightly if amenable. 12. GERD: Continue patient on PPI. 13. DVT prophylaxis: SCDs, Lovenox this evening with hold on a.m. given catheterization plan. Charges/Coding Visit Charges OBSV E&M: 06409 Initial observation care L3
[2021-01-06 18:29] VITALS: BMI 32.9
[2021-01-06 18:34] VITALS: BP 125/85; PULSE 83; RESP 20; TEMP 36.6; O2SAT 93
[2021-01-06 18:59] VITALS: PULSE 82
[2021-01-06 20:16] LABS: Magnesium 2.3 mg/dL (1.6-2.6)
[2021-01-06] MEDS: Enoxaparin 40 MG/0.4 ML Syringe SC (20:17)
[2021-01-06] MEDS: Nitroglycerin Oint 1 INCH PACKET 0.5 INCH TD (20:18)
[2021-01-06] MEDS: oxyCODONE 5 MG Tablet PO (20:20)
[2021-01-06 20:25] LABS: Troponin-I HS 7.7 pg/mL (3.0-78.5)
[2021-01-06 20:29] VITALS: RESP 16; O2SAT 93
--- NOTE | 2021-01-06 21:32 | CPS ---
Patient would not like to wear hospital BiPAP tonight. He is not compliant with home BiPAP currently. Will wear O2 NC if needed tonight. CHAR PULLER will monitor. RN aware.
[2021-01-06 21:47] VITALS: BP 121/74; PULSE 74; RESP 12; TEMP 36.2; O2SAT 93
[2021-01-06] MEDS: 0.9% Saline Lock 10 ML Syringe IV (21:53)
[2021-01-06] MEDS: Morphine 2 MG/ML Syringe IV (21:53)
[2021-01-06 22:01] LABS: Bedside Glucose 143 mg/dL (70-110)
[2021-01-06 23:07] LABS: Troponin-I HS 8.3 pg/mL (3.0-78.5)
[2021-01-07] VITALS (15 sets, daily range): BP systolic 111–131; BP diastolic 67–82; PULSE 58–85; RESP 14–18; TEMP 36.7–36.9; O2SAT 94–98
[2021-01-07] MEDS: 0.9% Normal Saline 1,000 ML 100 ML IV ×2 (00:06→09:18)
[2021-01-07 02:01] LABS: Troponin-I HS 8.1 pg/mL (3.0-78.5)
[2021-01-07] MEDS: oxyCODONE 5 MG Tablet PO (03:57)
--- NOTE | 2021-01-07 05:55 | EKG12_ITS ---
Test Reason : CP ADMISSION Blood Pressure : / mmHG Vent. Rate : 083 BPM Atrial Rate : 083 BPM P-R Int : 168 ms QRS Dur : 098 ms QT Int : 360 ms P-R-T Axes : 022 -34 078 degrees QTc Int : 423 ms Normal sinus rhythm Left axis deviation Anterolateral infarct , age undetermined, cannot be excluded Abnormal ECG Confirmed by ROSIO WALDROP, OSCAR ([id number]), senior editor ABIMBOLA LAMAR ([id number]) on 01/08/2021 10:45:04 AM Referred By: Dione Chawla Confirmed By:OSCAR AVELAR MD
[2021-01-07 06:40] LABS: Bedside Glucose 127 mg/dL (70-110)
[2021-01-07 06:41] LABS: Absolute Lymphocyte Count 1.09 X10^3/uL (0.83-4.51); Absolute Neutrophil Count 2.4 X10^3/uL (2.0-7.7); Basophil# 0.02 X10^3/uL; Basophil% 0.5 % (0-1); Eosinophil# 0.14 X10^3/uL; Eosinophils% 3.4 % (0-5); Hematocrit 41.5 % (40-54); Hemoglobin 13.9 g/dL (13.0-16.5); Lymphocyte # 1.09 X10^3/ul (0.83-4.51); Lymphocyte % 26.8 % (19-41); Mean Corp Hgb Conc 33.5 g/dL (32-36); Mean Corpuscular Volume 86.6 fL (80-94); Monocyte# 0.41 X10^3/uL; Monocyte% 10.1 % (0-10); NRBC Flagged by Analyzer 0 % (0-5); Neutrophil # 2.38 X10^3/uL (2.7-7.7); Neutrophil % 58.7 % (47-70); Platelet Count 222 K/mm3 (150-450); RBC Distribution Width CV 13.1 % (11.6-14.6); RBC Distribution Width SD 40.8 fl (35.1-43.9); Red Blood Count 4.79 M/mm3 (4.6-6.2); White Blood Count 4.1 K/mm3 (4.4-11.0)
[2021-01-07 06:52] LABS: Prothrombin Time (Protime)PT. 12.9 SECONDS (11.7-14.9)
[2021-01-07 06:53] LABS: Partial Thromboplast Time 25.2 Seconds (24.1-36.2)
[2021-01-07 07:19] LABS: ALB/GLOB Ratio 1.1 RATIO (0.9-2.4); AST(SGOT) 26 U/L (15-37); Alanine Aminotransfer ALT/SGPT 38 U/L (16-61); Albumin, Serum 3.3 g/dL (3.2-5.0); Alkaline Phosphatase 50 U/L (45-117); Anion Gap 7 (5-15); BUN 17 mg/dL (7-18); BUN/Creat Ratio 18.4 RATIO (10-20); Calcium,Total 8.6 mg/dL (8.5-10.1); Chloride 105 mmol/L (98-107); Cholesterol 130 mg/dL (200); Creatinine, Serum 0.92 mg/dL (0.70-1.30); EST Glomerular Filtration Rate 93 mL/min (>60); Est Glom Filt Rate - Afr Amer 112 mL/min (>60); Estimated Creatinine Clearance 101.39 ml/min; Globulin 2.9 g/dL (2.2-4.2); Glucose 140 mg/dL (74-106); High Density Lipoprotein 29 mg/dL; Potassium 3.9 mmol/L (3.5-5.1); Protein, Total 6.2 g/dL (6.4-8.2); Sodium Level 140 mmol/L (136-145); Triglycerides 271 mg/dL; Very Low Density Lipoprotein 54 mg/dL (5-40)
--- NOTE | 2021-01-07 08:38 | CASEMGMT ---
According to the [employer] website, the following are in-network tertiary facilities: [facility], [facility], [facility], [facility], [facility], [place], and . Peyton KESSLER CM
[2021-01-07] MEDS: Morphine 2 MG/ML Syringe IV (09:18)
--- NOTE | 2021-01-07 10:36 | CON.PCM.CA_ITS ---
Assessment & Plan Assessment/Plan (1) Chest pain: QUALIFIERS: Chest pain type: unspecified Qualified Code(s): R07.9 - Chest pain, unspecified PLAN: Will proceed with coronary angiography. Pt. prefers this approach as well. Pt. is aware of risks and benefits. (2) Cardiac defibrillator in situ: HPI Consult Data Date of Consult: 01/07/21 HPI Narrative HPI Narrative: 50-year-old male with past medical history of coronary artery disease status post WA and stents to the LAD, CABG with SVG to RCA and COLBERT to LAD in June 2018, cath in October 2018 showing patent grafts with no antegrade flow in COLBERT to LAD due to competitive flow in the LAD. FFR in the LAD was 0.81. EF on LV gram appeared to be about 35%. He has history of ischemic cardiomyopathy status post AICD. He also had a heart cath in 01/28 that showed patent 2/2 bypass grafts and no significant stenoses requiring intervention. He presents with CP and nausea that has been going on for a few days. CP is retrosternal, pressure like and occurs with minimal exertion. He has had -ve w/u in the ER but is very concerned as his symptoms are more or less similar to what he had prior to interventions. ROS: Pt. also has what appears to be musculoskeletal shoulder pain. All else is negative except that in the [facility] Medical History (Updated 01/06/21 @ 18:46 by Ioana Gibson) Acute chest pain Anxiety Atherosclerosis of coronary artery of [place] heart without angina pectoris Chest pain Congestive heart failure (CHF) Diabetes Diabetes mellitus, type II Essential hypertension Foreign body of knee History of atrial fibrillation History of left heart catheterization (01/17/20) HLD (hyperlipidemia) HTN (hypertension) Hypothyroidism Irregular heart rhythm Ischemic cardiomyopathy Kidney stones Myocardial infarct Obstructive sleep apnea Pacemaker Sleep apnea Unstable angina Home Medications levothyroxine 200 mcg capsule 200 mcg PO DAILY 10/24/18 [History Last Taken 01/06/21] nitroglycerin 0.4 mg sublingual tablet 0.4 mg SUBLINGUAL Q5-15M PRN 10/24/18 [History Last Taken Unknown] aspirin 81 mg PO QHS 01/14/19 [History Last Taken 01/05/21] furosemide 40 mg PO DAILY 01/14/19 [History Last Taken 01/06/21] multivitamin 1 tab PO DAILY 01/14/19 [History Last Taken 01/06/21] omega-3 fatty acids 1,000 mg PO BID 01/14/19 [History Last Taken 01/06/21] lorazepam 1 mg PO QHS PRN 03/02/19 [History Last Taken 01/15/20] B-complex with vitamin C 2 tab PO DAILY tab 10/23/19 [History Last Taken 01/06/21] cholecalciferol (vitamin D3) 125 mcg (5,000 unit) tablet 10,000 unit PO DAILY 10/23/19 [History Last Taken 01/06/21] pantoprazole 40 mg tablet,delayed release 40 mg PO BID tab 10/23/19 [History Last Taken 01/06/21] empagliflozin 25 mg PO DAILY 01/16/20 [History Last Taken 01/06/21] metformin 1,000 mg PO BID 01/16/20 [History Last Taken 01/06/21] atorvastatin 80 mg PO QHS 01/06/21 [History Last Taken 01/05/21] cyclobenzaprine 10 mg PO Q6H PRN PRN 01/06/21 [History Last Taken Unknown] dulaglutide [Trulicity] 3 mg SUBCUT TH 01/06/21 [History Last Taken 01/02/21] gemfibrozil 600 mg PO BID 01/06/21 [History Last Taken 01/06/21] sacubitril-valsartan [Entresto] 1 tab PO BID 01/06/21 [History Last Taken ] Allergy/AdvReac Type Severity Reaction Status Date / Time No Known Allergies Allergy Verified 08/30/20 09:54 Family History Mother Hypertension Diabetes COPD (chronic obstructive pulmonary disease) Heart disease Brother CVA (cerebral vascular accident) Surgical History (Updated 01/06/21 @ 18:45 by Ioana Gibson) Cardiac defibrillator in situ H/O hemorrhoidectomy History of appendectomy History of coronary artery stent placement History of PTCA History of vasectomy Hx of CABG S/P CABG x 2 Social History (Updated 01/06/21 @ 16:[address] Dione Chawla MD) household members: family Smoking Status: Never smoker alcohol intake: never substance use type: does not use caffeine: Yes (occasional) Physical Exam Const alert and oriented x3 Orientation / Consciousness: awake HEENT normocephalic Eyes no scleral icterus Neck supple Chest inspection of chest normal Resp normal respiratory effort Cardio regular rate and regular rhythm Neuro oriented x3 Psych mental status grossly normal Charges/Coding Visit Charges Inpatient E&M: 99609 Init Hosp L3 Objective Data Vital Signs: Vital Signs Temp Pulse Resp BP Pulse Ox 98.4 F 74 14 122/76 H 94 01/07/21 06:00 01/07/21 06:59 01/07/21 06:00 01/07/21 06:00 01/07/21 07:08 Oxygen Delivery Method Room Air Weight: 229 lb 8.019 oz Body Mass Index (BMI) 32.9 Intake & Output: Intake and Output for Last 24 Hours 01/05/21 01/06/21 01/07/21 23:59 23:59 23:59 Intake Total 240 / 240 920 / 920 Output Total 500 / 500 Balance -260 / -260 920 / 920 Lab / Micro Data Result Diagrams: 01/07/21 06:32 01/07/21 06:32 Labs: Laboratory Results - last 24 hr 01/06/21 01/06/21 01/06/21 19:46 19:46 21:50 WBC RBC Hgb Hct MCV MCH MCHC RDW Std Deviation RDW Coeff of Mickey Plt Count MPV Immature Gran % (Auto) Neut % (Auto) Lymph % (Auto) Gooding % (Auto) Eos % (Auto) Baso % (Auto) Absolute Neuts (auto) Absolute Lymphs (auto) Nucleated RBC % PT INR APTT Sodium Potassium Chloride Carbon Dioxide Anion Gap BUN Creatinine Estim Creat Clear Calc Est GFR (MDRD) Af Amer Est GFR (MDRD) Non-Af BUN/Creatinine Ratio Glucose Calcium Magnesium 2.3 Total Bilirubin AST ALT Alkaline Phosphatase Troponin I High Sens 7.7 Total Protein Albumin Globulin Albumin/Globulin Ratio Triglycerides Cholesterol LDL Cholesterol VLDL Cholesterol HDL Cholesterol POC Glucose 143 H 01/06/21 01/07/21 01/07/21 22:05 01:30 06:12 WBC RBC Hgb Hct MCV MCH MCHC RDW Std Deviation RDW Coeff of Mickey Plt Count MPV Immature Gran % (Auto) Neut % (Auto) Lymph % (Auto) Gooding % (Auto) Eos % (Auto) Baso % (Auto) Absolute Neuts (auto) Absolute Lymphs (auto) Nucleated RBC % PT INR APTT Sodium Potassium Chloride Carbon Dioxide Anion Gap BUN Creatinine Estim Creat Clear Calc Est GFR (MDRD) Af Amer Est GFR (MDRD) Non-Af BUN/Creatinine Ratio Glucose Calcium Magnesium Total Bilirubin AST ALT Alkaline Phosphatase Troponin I High Sens 8.3 8.1 Total Protein Albumin Globulin Albumin/Globulin Ratio Triglycerides Cholesterol LDL Cholesterol VLDL Cholesterol HDL Cholesterol POC Glucose 127 H 01/07/21 01/07/21 01/07/21 06:32 06:32 06:32 WBC 4.1 L RBC 4.79 Hgb 13.9 Hct 41.5 MCV 86.6 MCH 29.0 MCHC 33.5 RDW Std Deviation 40.8 RDW Coeff of Mickey 13.1 Plt Count 222 MPV 9.0 Immature Gran % (Auto) 0.500 Neut % (Auto) 58.7 Lymph % (Auto) 26.8 Gooding % (Auto) 10.1 H Eos % (Auto) 3.4 Baso % (Auto) 0.5 Absolute Neuts (auto) 2.4 Absolute Lymphs (auto) 1.09 Nucleated RBC % 0 PT 12.9 INR 1.0 APTT 25.2 Sodium 140 Potassium 3.9 Chloride 105 Carbon Dioxide 28.0 Anion Gap 7 BUN 17 Creatinine 0.92 Estim Creat Clear Calc 101.39 Est GFR (MDRD) Af Amer 112 Est GFR (MDRD) Non-Af 93 BUN/Creatinine Ratio 18.4 Glucose 140 H Calcium 8.6 Magnesium Total Bilirubin 0.70 AST 26 ALT 38 Alkaline Phosphatase 50 Troponin I High Sens Total Protein 6.2 L Albumin 3.3 Globulin 2.9 Albumin/Globulin Ratio 1.1 Triglycerides 271 H Cholesterol 130 LDL Cholesterol 47 VLDL Cholesterol 54 H HDL Cholesterol 29 L POC Glucose Cardiology Labs/Tests 01/06/21 19:46: Magnesium 2.3 01/07/21 06:32: WBC 4.1 L, RBC 4.79, Hgb 13.9, Hct 41.5, MCV 86.6, MCH 29.0, MCHC 33.5, Plt Count 222, MPV 9.0, Immature Gran % (Auto) 0.500, Neut % (Auto) 58.7, Lymph % (Auto) 26.8, Gooding % (Auto) 10.1 H, Eos % (Auto) 3.4, Baso % (Auto) 0.5, Absolute Neuts (auto) 2.4, Nucleated RBC % 0 01/07/21 06:32: PT 12.9, INR 1.0, APTT 25.2 01/07/21 06:32: Sodium 140, Potassium 3.9, Chloride 105, Carbon Dioxide 28.0, Anion Gap 7, BUN 17, Creatinine 0.92, Est GFR (MDRD) Af Amer 112, Est GFR (MDRD) Non-Af 93, BUN/Creatinine Ratio 18.4, Glucose 140 H, Calcium 8.6, Total Bilirubin 0.70, Triglycerides 271 H, Cholesterol 130, LDL Cholesterol 47, VLDL Cholesterol 54 H, HDL Cholesterol 29 L Rhythm: EKG: ECHO: Stress Test: Cardiac Cath: PCI: CT Surgery: Holter monitor: EPS: PPM: CXR: Chest CT Scan:
[2021-01-07 10:40] LABS: Bedside Glucose 115 mg/dL (70-110)
--- NOTE | 2021-01-07 12:07 | CL.D_ITS ---
Patient Name: RUSS LIZ Study Date: 01/07/2021 Performing: Yahir Lee MD Ht: 70.07 inches 178 cm : 1970 Wt: 229.28 lbs 104 kg Age: 50 Gender: male BSA: 2.21 PROCEDURE(S) PERFORMED [id number] CLINICAL PROFILE AND INDICATIONS Indications: Worsening Angina Heart Failure: None Stress/Imaging Stress/Image Study Performed: No CAD Presentations: Unstable angina. CONCLUSIONS CAD as described with progression of instent restenosis in the LAD compared to angiogram from january 28. Patent 2/2 bypass grafts. Elevated LVEDP RECOMMENDATIONS DESCRIPTION OF PROCEDURE The patient arrived to the procedure lab. The risks and benefits of the procedure as well as a full d escription of our services here and current unavailability of surgical backup were fully explained to the patient and/or their significant other prior to the catheterization. The Timeout was completed, verifying the correct patient and procedure. The patient's procedural site was prepped and draped in the usual fashion. Local anesthetic was given subcutaneously to right groin region with Lidocaine 2%. Using a modified Seldinger technique, arterial access was obtained via the right femoral artery, a 5 Fr sheath was inserted. Left Coronary Artery selective angiography was performed in multiple views u sing a 5 Fr. JL4 catheter. Saphenous Vein graft to the RPDA selective angiography was performed in mu ltiple views using a 5 Fr. JR 4 catheter. Right Coronary Artery selective angiography was then perfor med in multiple views using a 5 Fr. JR 4 catheter. Left internal mammary artery graft to the LAD selective angiography was performed in multiple views using a 5 Fr. JR 4 catheter. LV to AO p ullback pressures were then recorded.Contrast was injected through the sheath and the Right Iliac and Femoral artery were assessed for possible closure device.The arterial sheath was pulled and a Perclo se closure device was deployed for hemostasis CORONARY ANGIOGRAPHY DOMINANCE: Right Dominant LEFT HEART ASSESSMENT Left Ventricular Ejection Fraction: Not assessed LVEDP: 26 mmHg LEFT MAIN: Mild luminal irregularities LEFT ANTERIOR DESCENDING ARTERY: MID LAD: 90 % Stenosis-instent restenosis CIRCUMFLEX ARTERY: Mild luminal irregularities RIGHT CORONARY ARTERY: MID RCA: 100 % Stenosis GRAFTS: COLBERT graft to the LAD is patent Saphenous Vein graft to the RCA is patent VALVE FINDINGS: No Aortic Valve Stenosis COMPLICATIONS No Complications PROCEDURE MEDICATIONS Fentanyl 50 mcg IV Versed 1 mg IV Oxygen: 2 L/min via nasal cannula Baby Aspirin (81mg) 1 Tabs PO @ 01/07/2021 11:12:57 SUMMARY OF HEMODYNAMIC DATA Time AIR REST ECG 11:11:21 AO 123/75 (99) SA 11:30:07 LV 130/15, 21 11:42:10 LV 125/4, 26 11:42:17 LVp 120/-2, 23 11:42:50 AOp 122/70 (94) 11:42:55 RM AIR REST 12:05:39 Signed By Yahir Lee MD On 01/07/2021 12:06:39 Yahir Lee MD
--- NOTE | 2021-01-07 13:49 | PCM.DC ---
Discharge Instructions Diet Discharge Diet: 1800 Calorie Control Diet Activity Discharge Activity: Return to Normal Activity Return to work on:: 01/10/21 Follow Up Care Test Results: Test results from this visit will be discussed in further detail at your follow-up appointment, if applicable. Discharge Plan Admission Admit Date/Time: 01/06/21 16:04 Primary Reason for Your Visit: angina Attending Provider: Pilo Padron Primary Care Provider: Chanda Espana Consulting Providers: Zachary Lee Instructions Patient Instructions: ED Chest Pain, Noncardiac Discharge Orders/Prescriptions Prescriptions: New isosorbide mononitrate 30 mg tablet extended release 24 hr 30 mg PO UD Qty: 60 RF: 0 Continued levothyroxine 200 mcg capsule 200 mcg PO DAILY RF: 0 nitroglycerin 0.4 mg tablet, sublingual 0.4 mg SUBLINGUAL Q5-15M PRN (Reason: CHEST PAIN) RF: 0 pantoprazole 40 mg tablet,delayed release (DR/EC) 40 mg PO BID RF: 0 cholecalciferol (vitamin D3) 125 mcg (5,000 unit) tablet 10,000 unit PO DAILY RF: 0 multivitamin 1 EACH tablet 1 tab PO DAILY RF: 0 omega-3 fatty acids 1,000 MG capsule 1,000 mg PO BID RF: 0 aspirin 81 MG tablet,delayed release (DR/EC) 81 mg PO QHS RF: 0 B-complex with vitamin C Tablet 2 tab PO DAILY RF: 0 lorazepam 1 MG tablet 1 mg PO QHS PRN (Reason: anxiety/sleep) RF: 0 metformin 1,000 MG tablet 1,000 mg PO BID RF: 0 empagliflozin 25 MG tablet 25 mg PO DAILY RF: 0 gemfibrozil 600 mg tablet 600 mg PO BID RF: 0 Entresto 97-103 mg tablet 1 tab PO BID RF: 0 Trulicity 3 mg/0.5 mL pen injector 3 mg SUBCUT TH RF: 0 atorvastatin 80 mg tablet 80 mg PO QHS RF: 0 cyclobenzaprine 10 mg tablet 10 mg PO Q6H PRN PRN (Reason: Muscle Pain) RF: 0 furosemide 40 MG tablet 40 mg PO DAILY Qty: 0 RF: 0 Referrals / Follow Up: Chanda Espana DO [Primary Care Provider] - Within 2 Weeks Zachary Lee MD [STAFF PHYSICIAN] - Within 1 Month Disposition Disposition (needs filled in before D/C Order can be placed): Home, Self Care
--- NOTE | 2021-01-07 14:28 | PHA.DC.MC ---
Pharmacy Service has performed discharge medication reconciliation and counseling for this patient. 1. ISOSORBIDE MONONITRATE 30MG PO DAILY X 10 DAYS, THEN 2 TABLETS DAILY THEREAFTER The patient's discharge medication list was reviewed for discrepancies and discrepancies were resolved. Home Medications levothyroxine 200 mcg capsule 200 mcg PO DAILY 10/24/18 nitroglycerin 0.4 mg sublingual tablet 0.4 mg SUBLINGUAL Q5-15M PRN 10/24/18 aspirin 81 mg PO QHS 01/14/19 multivitamin 1 tab PO DAILY 01/14/19 omega-3 fatty acids 1,000 mg PO BID 01/14/19 lorazepam 1 mg PO QHS PRN 03/02/19 B-complex with vitamin C 2 tab PO DAILY tab 10/23/19 cholecalciferol (vitamin D3) 125 mcg (5,000 unit) tablet 10,000 unit PO DAILY 10/23/19 pantoprazole 40 mg tablet,delayed release 40 mg PO BID tab 10/23/19 empagliflozin 25 mg PO DAILY 01/16/20 metformin 1,000 mg PO BID 01/16/20 Entresto 1 tab PO BID 01/06/21 Trulicity 3 mg SUBCUT TH 01/06/21 atorvastatin 80 mg PO QHS 01/06/21 cyclobenzaprine 10 mg PO Q6H PRN PRN 01/06/21 gemfibrozil 600 mg PO BID 01/06/21 furosemide 40 mg PO DAILY #0 tab 01/07/21 isosorbide mononitrate 30 mg PO UD #60 tab 01/07/21 The patient was counseled on the following discharge medications and changes in medications for homegoing were reviewed. The Reason for Use, instructions for use, and potential side effects were reviewed for all new medications. The patient's questions regarding all of their medications were answered. The patient was able to verbally demonstrate an understanding of their discharge medications.
--- NOTE | 2021-01-07 14:45 | NURSING ---
This RN taking over care at this time
--- NOTE | 2021-01-07 15:30 | NURSING ---
bedrest complete. walked patient in hallway, tolerated well. dressing c/d/i. no hematoma noted. teaching completed
== END 2021-01-07 15:46 | disposition home or self-care (01) ==
PROVIDERS: Admitting Provider Family Medicine; PCP Internal Medicine; Referring Provider Family Medicine; Visit Provider Internal Medicine
DX: I25.110 Atherosclerotic heart disease of native coronary artery with unstable angina pectoris (principal); T82.855A Stenosis of coronary artery stent, initial encounter; Y71.8 Miscellaneous cardiovascular devices associated with adverse incidents, not elsewhere classified; I25.5 Ischemic cardiomyopathy; E78.5 Hyperlipidemia, unspecified; G47.33 Obstructive sleep apnea (adult) (pediatric); I48.0 Paroxysmal atrial fibrillation; F41.9 Anxiety disorder, unspecified; I25.2 Old myocardial infarction; I11.0 Hypertensive heart disease with heart failure; I50.9 Heart failure, unspecified; E66.9 Obesity, unspecified; E03.9 Hypothyroidism, unspecified; K21.9 Gastro-esophageal reflux disease without esophagitis; I47.2 Ventricular tachycardia; E11.42 Type 2 diabetes mellitus with diabetic polyneuropathy; Z95.810 Presence of automatic (implantable) cardiac defibrillator; Z95.1 Presence of aortocoronary bypass graft; Z79.899 Other long term (current) drug therapy; Z79.84 Long term (current) use of oral hypoglycemic drugs; Z79.82 Long term (current) use of aspirin
CPT/HCPCS: 36415; 80053; 80061; 82962; 83735; 84484; 85025; 85610; 85730; 93005; 93455; 96361; 96372; 96374; 96376; 99152; 99153; 99218; 99251; J7030; Q9967; A4216; C1760; C1769; G0378; G0463

== ENCOUNTER 2021-01-25 21:18 | Emergency (ER) | payer OTHER, SELFPAY ==
[2021-01-21 13:26] VITALS: BMI 33.4
[2021-01-25 21:18] VITALS: BP 137/76; PULSE 88; RESP 18; TEMP 36.5; O2SAT 95; BMI 33.9
--- NOTE | 2021-01-25 21:25 | EKG12_ITS ---
Test Reason : CP Blood Pressure : / mmHG Vent. Rate : 085 BPM Atrial Rate : 085 BPM P-R Int : 154 ms QRS Dur : 102 ms QT Int : 360 ms P-R-T Axes : 033 -27 063 degrees QTc Int : 428 ms Normal sinus rhythm Anterior infarct , age undetermined Abnormal ECG Confirmed by BELINDA WALDROP, MARLIN ([id number]), writer editor ABIMBOLA LAMAR ([id number]) on 01/27/2021 2:24:58 PM Referred By: RODRÍGUEZ Confirmed By:MARLIN TREVINO MD
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
[2021-01-25 21:36] LABS: Absolute Lymphocyte Count 0.96 X10^3/uL (0.83-4.51); Absolute Neutrophil Count 4.6 X10^3/uL (2.0-7.7); Basophil# 0.03 X10^3/uL; Basophil% 0.5 % (0-1); Eosinophil# 0.09 X10^3/uL; Eosinophils% 1.4 % (0-5); Hematocrit 43.9 % (40-54); Hemoglobin 14.6 g/dL (13.0-16.5); Lymphocyte # 0.96 X10^3/ul (0.83-4.51); Mean Corp Hgb Conc 33.3 g/dL (32-36); Mean Corpuscular Volume 87.3 fL (80-94); Mean Platelet Vol. 9.2 fl (6.2-12.0); Monocyte# 0.68 X10^3/uL; Monocyte% 10.6 % (0-10); NRBC Flagged by Analyzer 0 % (0-5); Neutrophil % 71.9 % (47-70); Platelet Count 278 K/mm3 (150-450); RBC Distribution Width CV 13.2 % (11.6-14.6); RBC Distribution Width SD 41.9 fl (35.1-43.9); Red Blood Count 5.03 M/mm3 (4.6-6.2); White Blood Count 6.4 K/mm3 (4.4-11.0)
--- NOTE | 2021-01-25 21:41 | RAD_ITS ---
STUDY: X-RAY CHEST REASON FOR EXAM: Male, 50 years old. Chest pain. TECHNIQUE: AP COMPARISON: 08/30/2020 CXR FINDINGS: No evidence of pneumonia, pulmonary edema, pneumothorax or pleural effusion. Cardiac silhouette, hilar and mediastinal contours with no acute findings. Heart size normal. Left-sided coronary artery stent. Sternotomy wires and implanted cardiac device with 2 leads extending over the right atrium and right ventricle are similar to prior. Atherosclerosis of the thoracic aorta. Degenerative osseous changes with no acute osseous abnormality. RAD/Chest 1 View (Portable) IMPRESSION: No acute findings. Electronically Signed: Rogelio Hendricks MD at 21:58 EDT Tel , Service support ,
[2021-01-25] MEDS: Aspirin 81 MG TAB.CHEW 324 MG PO (21:46)
[2021-01-25 22:07] LABS: Anion Gap 9 (5-15); BUN 23 mg/dL (7-18); BUN/Creat Ratio 18.3 RATIO (10-20); Calcium,Total 9.6 mg/dL (8.5-10.1); Chloride 97 mmol/L (98-107); Creatinine, Serum 1.26 mg/dL (0.70-1.30); EST Glomerular Filtration Rate 65 mL/min (>60); Est Glom Filt Rate - Afr Amer 78 mL/min (>60); Estimated Creatinine Clearance 74.03 ml/min; Glucose 259 mg/dL (74-106); Sodium Level 135 mmol/L (136-145); Troponin-I HS 5.5 pg/mL (3.0-78.5)
[2021-01-25 22:20] VITALS: O2SAT 96
[2021-01-25] MEDS: proMETHazine 25 MG Tablet PO (22:22)
[2021-01-25 22:23] VITALS: BP 117/69; PULSE 80
[2021-01-25] MEDS: Nitroglycerin SL (ED/IMG/CATH) 0.4 MG TABLET SL (22:23)
[2021-01-25 22:26] VITALS: BP 117/69; PULSE 80; RESP 18; O2SAT 95
[2021-01-25 23:38] VITALS: BP 121/67; PULSE 86; RESP 18; O2SAT 92
[2021-01-25] MEDS: Morphine 4 MG/ML Syringe IV (23:40)
[2021-01-25 23:54] LABS: Troponin-I HS 5.8 pg/mL (3.0-78.5)
[2021-01-26 00:53] VITALS: BP 102/69; PULSE 77; RESP 15; O2SAT 99
== END 2021-01-26 00:55 | disposition home or self-care (01) ==
PROVIDERS: Emergency Provider Student in an Organized Health Care Education/Training Program; PCP Internal Medicine
DX: R07.9 Chest pain, unspecified (principal); F41.9 Anxiety disorder, unspecified; I25.10 Atherosclerotic heart disease of native coronary artery without angina pectoris; I50.9 Heart failure, unspecified; E11.9 Type 2 diabetes mellitus without complications; I11.0 Hypertensive heart disease with heart failure; E78.5 Hyperlipidemia, unspecified; E03.9 Hypothyroidism, unspecified; E66.9 Obesity, unspecified; Z79.84 Long term (current) use of oral hypoglycemic drugs; Z79.899 Other long term (current) drug therapy
CPT/HCPCS: 71045; 80048; 84484; 85025; 93005; 96374; 99285; A4216

== ENCOUNTER 2021-02-17 03:19 | Observation (INO) | payer OTHER, SELFPAY ==
[2021-02-17 02:08] VITALS: BMI 32.2
--- NOTE | 2021-02-17 02:25 | EKG12_ITS ---
Test Reason : CP ADMIT Blood Pressure : / mmHG Vent. Rate : 085 BPM Atrial Rate : 085 BPM P-R Int : 150 ms QRS Dur : 100 ms QT Int : 378 ms P-R-T Axes : 023 -51 034 degrees QTc Int : 449 ms Normal sinus rhythm Left anterior fascicular block Anterolateral infarct (cited on or before 09-MAR-2019) Abnormal ECG When compared with ECG of 25-JAN-2021 21:21, No significant change was found Confirmed by CATRINA WALDROP, MAINOR ([id number]), magazine editor ABIMBOLA LAMAR ([id number]) on 02/19/2021 2:01:27 PM Referred By: DR PENALOZA Confirmed By:RUBEN FRITZ MD
[2021-02-17 02:30] VITALS: BP 135/87; PULSE 80; PULSE 84; RESP 18; TEMP 36.7; O2SAT 95
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
[2021-02-17] MEDS: 0.9% Normal Saline 1,000 ML 75 ML IV (03:49)
[2021-02-17] MEDS: Mexiletine 150 MG Capsule PO (05:57)
[2021-02-17] MEDS: Levothyroxine 100 MCG Tablet 200 MCG PO (05:57)
[2021-02-17] MEDS: Gabapentin 600 MG Tablet PO (05:57)
[2021-02-17] MEDS: Gemfibrozil 600 MG Tablet PO (05:58)
[2021-02-17] MEDS: Insulin Lispro 100 UNIT/ML INSULN.PEN SC (06:44)
[2021-02-17 06:47] LABS: Absolute Lymphocyte Count 1.47 X10^3/uL (0.83-4.51); Absolute Neutrophil Count 2.8 X10^3/uL (2.0-7.7); Basophil# 0.02 X10^3/uL; Basophil% 0.4 % (0-1); Eosinophil# 0.15 X10^3/uL; Hematocrit 45.9 % (40-54); Hemoglobin 15.1 g/dL (13.0-16.5); Lymphocyte # 1.47 X10^3/ul (0.83-4.51); Lymphocyte % 29.4 % (19-41); Mean Corp Hgb Conc 32.9 g/dL (32-36); Mean Corpuscular Hgb 29.2 pg (27.0-32.0); Mean Corpuscular Volume 88.6 fL (80-94); Mean Platelet Vol. 9.3 fl (6.2-12.0); NRBC Flagged by Analyzer 0 % (0-5); Neutrophil # 2.83 X10^3/uL (2.7-7.7); Neutrophil % 56.6 % (47-70); Platelet Count 256 K/mm3 (150-450); RBC Distribution Width CV 13.3 % (11.6-14.6); RBC Distribution Width SD 43.6 fl (35.1-43.9); Red Blood Count 5.18 M/mm3 (4.6-6.2)
[2021-02-17 07:06] LABS: Bedside Glucose 181 mg/dL (70-110)
[2021-02-17 07:13] LABS: ALB/GLOB Ratio 1.1 RATIO (0.9-2.4); AST(SGOT) 20 U/L (15-37); Alanine Aminotransfer ALT/SGPT 34 U/L (16-61); Albumin, Serum 3.6 g/dL (3.2-5.0); Alkaline Phosphatase 58 U/L (45-117); Anion Gap 9 (5-15); BUN 24 mg/dL (7-18); BUN/Creat Ratio 23.5 RATIO (10-20); Calcium,Total 8.6 mg/dL (8.5-10.1); Chloride 99 mmol/L (98-107); Creatinine, Serum 1.02 mg/dL (0.70-1.30); EST Glomerular Filtration Rate 83 mL/min (>60); Est Glom Filt Rate - Afr Amer 100 mL/min (>60); Estimated Creatinine Clearance 91.45 ml/min; Globulin 3.2 g/dL (2.2-4.2); Glucose 179 mg/dL (74-106); Potassium 3.3 mmol/L (3.5-5.1); Protein, Total 6.8 g/dL (6.4-8.2); Sodium Level 135 mmol/L (136-145)
[2021-02-17 07:31] VITALS: PULSE 81
[2021-02-17 08:07] VITALS: BP 117/85; BP 119/87; BP 130/83; PULSE 80; PULSE 86; PULSE 95
[2021-02-17 08:11] VITALS: BP 119/87; PULSE 96; RESP 18; TEMP 36.3; O2SAT 98
[2021-02-17] MEDS: Morphine 2 MG/ML Syringe IV (08:19)
--- NOTE | 2021-02-17 10:56 | CON.PCM.CA_ITS ---
Assessment & Plan Assessment/Plan (1) Chest pain: QUALIFIERS: Chest pain type: unspecified Qualified Code(s): R07.9 - Chest pain, unspecified PLAN: At this time, his chest pain is thought to be noncardiac related. However, his previous heart catheterization from December 2020 showed residual small vessel disease. We will add Ranexa 1000 mg p.o. twice daily to assess if this improves his discomfort. He will continue to follow with [facility] on outpatient basis. (2) Atherosclerosis of coronary artery of grindstone heart without angina pectoris: QUALIFIERS: Coronary Disease-Associated Artery/Lesion type: unspecified vessel or lesion type Qualified Code(s): I25.10 - Atherosclerotic heart disease of grindstone coronary artery without angina pectoris PLAN: He will continue current medications which include aspirin, atorvastatin, and Entresto, and isosorbide. We will now add Ranexa therapy to assist with chest pain. (3) S/P CABG x 2: PLAN: His heart catheterization on January 07, 2021 showed patency of bypass grafts x2. He will continue risk factor and lifestyle modification. He will continue current medical therapy. (4) History of PTCA: PLAN: His most recent heart catheterization from 01/07/2021 showed progression of in-stent restenosis of LAD compared to January 2020. He will continue current medical therapy. He will continue risk factor and lifestyle modification. (5) Ischemic cardiomyopathy: PLAN: His most recent echocardiogram at an outside facility on 01/15/2021 showed an ejection fraction of 45%. He appears to be a euvolemic state on exam. His shortness of breath is at baseline. He will continue with high-dose Entresto therapy. He will continue with isosorbide and furosemide therapy. He has been on beta-blockers previously, but this was discontinued due to not tolerating. He will continue current medical therapy and we will continue to monitor. (6) Essential hypertension: PLAN: Patient's blood pressure is well-controlled. We will continue to monitor. We will not make any medication regimen changes. (7) HLD (hyperlipidemia): QUALIFIERS: Hyperlipidemia type: unspecified Qualified Code(s): E78.5 - Hyperlipidemia, unspecified PLAN: He continue atorvastatin 80 mg p.o. nightly. (8) Cardiac defibrillator in situ: PLAN: He underwent device check on that showed no VT/VF episodes and no AT/AF episodes. He recently was started on mexiletine therapy. He remains in a regular rhythm today via telemetry and twelve-lead ECG. He is not on beta- jatinder due to not tolerating previously. [place] will continue current medical therapy and we will continue to monitor. He will continue to follow with pacemaker clinic on a routine/scheduled basis. HPI Consult Data Date of Consult: 02/17/21 HPI Narrative HPI Narrative: RUSS LIZ, is a 50 M who presented to [facility] for ongoing chest discomfort. He has a history of coronary artery disease status post AR and stents to the LAD, CABG with SVG to RCA and COLBERT to LAD in June 2018, cath in October 2018 showing patent grafts with no antegrade flow in COLBERT to LAD due to competitive flow in the LAD. FFR in the LAD was 0.81. EF on LV gram appeared to be about 35%. He had a heart catheterization o n 01/07/2021 for chest pain that showed patent 2 out of 2 bypass grafts. He had progression in the in-stent restenosis in the LAD but COLBERT to LAD was patent. His RCA was occluded. SVG to RCA was widely patent. His circumflex had mild disease. His LVEDP was elevated at the time. He was advised to take a higher dose of Lasix for a couple of days. Subsequently on 01/13/2021 patient had a syncopal episode which was found to be due to ventricular fibrillation upon interrogation of his AICD. His AICD had fired appropriately at that time. He was seen by pre sales systems engineer at [facility] and started on mexiletine therapy. He also has history of ischemic cardiomyopathy status post AICD, hypertension, hyperlipidemia, torsades the points, and diabetes mellitus type 2. Patient states recent verbal altercation at work and since that time, February 06, 2021, he has had constant left sided chest pressure that radiates to his left ribs. There is no specific aggravating or relieving factor. This is not worse with activity. He does acknowledge this to be different than previous chest di scomfort prior to AR. He rates this a 4?5 out of 10. He denies associated shortness of breath or diaphoresis. He does have intermittent nausea, headaches, lightheadedness, and dizziness that he attributes to recent concussion. He does note shortness of breath with activity during humid weather, which he states is at baseline. REPLACED BY [facility] Medical History (Reviewed 02/17/21 @ 11:04 by Jonathan Jo CENTERLESS GRINDER SET UP OPERATOR, CENTERLESS GRINDER SET UP OPERATOR-C) Acute chest pain Anxiety Atherosclerosis of coronary artery of grindstone heart without angina pectoris Atrial fibrillation BiPAP (biphasic positive airway pressure) dependence Chest pain Chest pain Congestive heart failure (CHF) Congestive heart failure (CHF) Coronary artery disease Diabetes Diabetes Diabetes mellitus, type II Essential hypertension Foreign body of knee GERD (gastroesophageal reflux disease) History of atrial fibrillation HLD (hyperlipidemia) Hypertension Hypothyroidism Hypothyroidism ICD (implantable cardioverter-defibrillator) in place Irregular heart rhythm Ischemic cardiomyopathy Kidney stones Myocardial infarct Myocardial infarct Non-smoker Obstructive sleep apnea Pacemaker Pacemaker Sleep apnea Sleep apnea Torsades de pointes Unstable angina Home Medications levothyroxine 200 mcg capsule 200 mcg PO DAILY 10/24/18 [History Last Taken 02/16/21] nitroglycerin 0.4 mg sublingual tablet 0.4 mg SUBLINGUAL Q5-15M PRN 10/24/18 [History Last Taken Unknown] aspirin 81 mg PO QHS 01/14/19 [History Last Taken 02/15/21] multivitamin 1 tab PO DAILY 01/14/19 [History Last Taken 02/16/21] omega-3 fatty acids 1,000 mg PO BID 01/14/19 [History Last Taken 02/16/21] lorazepam 1 mg PO QHS PRN 03/02/19 [History Last Taken 01/15/20] B-complex with vitamin C 2 tab PO DAILY tab 10/23/19 [History Last Taken 02/16/21] cholecalciferol (vitamin D3) 125 mcg (5,000 unit) tablet 10,000 unit PO DAILY 10/23/19 [History Last Taken 02/16/21] pantoprazole 40 mg tablet,delayed release 40 mg PO BID tab 10/23/19 [History Last Taken 02/16/21] empagliflozin 25 mg PO DAILY 01/16/20 [History Last Taken 02/16/21] metformin 1,000 mg PO BID 01/16/20 [History Last Taken 02/16/21] Entresto 1 tab PO BID 01/06/21 [History Last Taken 02/16/21] Trulicity 3 mg SUBCUT TH 01/06/21 [History Last Taken 02/13/21] atorvastatin 80 mg PO QHS 01/06/21 [History Last Taken 02/15/21] cyclobenzaprine 10 mg PO Q6H PRN PRN 01/06/21 [History Last Taken Unknown] gemfibrozil 600 mg PO BID 01/06/21 [History Last Taken 02/16/21] furosemide 40 mg PO DAILY #0 tab 01/07/21 [Rx Last Taken 02/16/21] diazepam 2 mg tablet 2 mg PO Q8H PRN tab 01/21/21 [History Last Taken Unknown] gabapentin 300 mg capsule 600 mg PO TID cap 01/21/21 [History Last Taken 02/16/21 16:00] isosorbide mononitrate 30 mg tablet,extended release 24 hr 30 mg PO BID tab 01/21/21 [History Last Taken 02/16/21] linagliptin 5 mg tablet 5 mg PO QAM tab 01/21/21 [History Last Taken 02/16/21] magnesium oxide 400 mg PO DAILY 01/21/21 [History Last Taken 02/16/21] methocarbamol 500 mg tablet 500 mg PO Q6H PRN tab 01/21/21 [History Last Taken Unknown] mexiletine 150 mg capsule 150 mg PO TID cap 01/21/21 [History Last Taken 02/16/21 16:00] oxycodone 5 mg tablet 5 mg PO Q6H PRN tab 01/21/21 [History Last Taken Unknown] potassium chloride 20 mEq tablet,extended release(part/cryst) 20 meq PO BID tab 01/21/21 [History Last Taken Unknown] promethazine 12.5 mg PO TID PRN #20 tab 01/25/21 [Rx Last Taken Unknown] Allergy/AdvReac Type Severity Reaction Status Date / Time No Known Allergies Allergy Verified 01/25/21 21:22 Family History (Reviewed 02/17/21 @ 11:04 by Jonathan Jo CENTERLESS GRINDER SET UP OPERATOR, CENTERLESS GRINDER SET UP OPERATOR-C) Mother Hypertension Diabetes COPD (chronic obstructive pulmonary disease) Heart disease Brother CVA (cerebral vascular accident) Surgical History Cardiac defibrillator in situ H/O hemorrhoidectomy History of appendectomy History of coronary artery stent placement History of coronary artery stent placement History of left heart catheterization (01/07/21) History of PTCA History of vasectomy Hx of CABG Hx of CABG S/P CABG x 2 Social History (Reviewed 02/17/21 @ 11:04 by Jonathan Jo CENTERLESS GRINDER SET UP OPERATOR, CENTERLESS GRINDER SET UP OPERATOR-C) household members: family Smoking Status: Never smoker alcohol intake: never substance use type: does not use caffeine: Yes (occasional) ROS Constitutional Constitutional: Denies chills, fatigue or fever(s) Eyes Eyes: Reports none ENT HEENT: Reports none Cardiovascular Cardiovascular: Reports chest pain, chest pain at rest, dizziness, dyspnea, dyspnea on exertion, lightheadedness and nausea; Denies chest pain with activity, claudication, cyanosis, diaphoresis, dyspnea at rest, easily tiring during activity, edema, fatigue, leg edema, orthopnea, orthostatic symptoms, palpitations or paroxysmal nocturnal dyspnea Respiratory/Chest Respiratory/Chest: Reports shortness of breath with exertion; Denies cough or shortness of breath at rest Gastrointestinal Gastrointestinal: Reports nausea Musculoskeletal Musculoskeletal: Reports none Integumentary Integumentary: Reports none Neurologic Neurologic: Reports dizziness and headache(s) Psychiatric Psychiatric: Reports none Endocrine Endocrinology: Reports none Hematologic/Lymphatic Hematologic/Lymphatic: Reports none Allergic/Immunologic Allergic/Immunologic: Reports none Physical Exam Const alert, oriented x3, no apparent distress and healthy appearing Orientation / Consciousness: awake HEENT normocephalic Neck no JVD Carotids: normal carotid upstroke Chest inspection of chest normal Resp normal respiratory effort and clear to auscultation bilaterally Auscultation: Negative for crackles, rales or rhonchi Cardio regular rate, regular rhythm, S1 normal heart sound, S2 normal heart sound, no murmurs, no rub, no gallops, no clicks, no JVD and peripheral pulses 2+ throughout Jugular Venous Distention: Negative for JVD Rate: regular rate Rhythm: regular rhythm Heart Sounds: S1 normal and S2 normal; Negative for click, gallop or murmur Bruits: Negative for carotid bruit Peripheral Pulses: pulses 2+ throughout Extremity normal capillary refill and no pedal edema General Extremity: Negative for edema Neuro oriented x3 and CN's II-XII intact bilaterally Psych mental status grossly normal Objective Data Vital Signs: Vital Signs Temp Pulse Resp BP Pulse Ox 97.3 F L 96 18 119/87 H 98 02/17/21 08:11 02/17/21 08:11 02/17/21 08:11 02/17/21 08:11 02/17/21 08:11 Oxygen Delivery Method Room Air Weight: 225 lb 1.471 oz Body Mass Index (BMI) 32.2 Intake & Output: Intake and Output for Last 24 Hours 02/15/21 02/16/21 02/17/21 23:59 23:59 23:59 Intake Total 322.5 / 322.5 Balance 322.5 / 322.5 Lab / Micro Data Result Diagrams: 02/17/21 05:51 02/17/21 05:51 Labs: Laboratory Results - last 24 hr 02/17/21 05:51: WBC 5.0, RBC 5.18, Hgb 15.1, Hct 45.9, MCV 88.6, MCH 29.2, MCHC 32.9, RDW Std Deviation 43.6, RDW Coeff of Mickey 13.3, Plt Count 256, MPV 9.3, Immature Gran % (Auto) 0.600, Neut % (Auto) 56.6, Lymph % (Auto) 29.4, [place] % (Auto) 10.0, Eos % (Auto) 3.0, Baso % (Auto) 0.4, Absolute Neuts (auto) 2.8, Absolute Lymphs (auto) 1.47, Nucleated RBC % 0 02/17/21 05:51: Sodium 135 L, Potassium 3.3 L, Chloride 99, Carbon Dioxide 27.0, Anion Gap 9, BUN 24 H, Creatinine 1.02, Estim Creat Clear Calc 91.45, Est GFR (MDRD) Af Amer 100, Est GFR (MDRD) Non-Af 83, BUN/Creatinine Ratio 23.5 H, Glucose 179 H, Calcium 8.6, Total Bilirubin 0.70, AST 20, ALT 34, Alkaline Phosphatase 58, Total Protein 6.8, Albumin 3.6, Globulin 3.2, Albumin/Globulin Ratio 1.1 02/17/21 06:37: POC Glucose 181 H Cardiology Labs/Tests 02/17/21 05:51: WBC 5.0, RBC 5.18, Hgb 15.1, Hct 45.9, MCV 88.6, MCH 29.2, MCHC 32.9, Plt Count 256, MPV 9.3, Immature Gran % (Auto) 0.600, Neut % (Auto) 56.6, Lymph % (Auto) 29.4, [place] % (Auto) 10.0, Eos % (Auto) 3.0, Baso % (Auto) 0.4, Absolute Neuts (auto) 2.8, Nucleated RBC % 0 02/17/21 05:51: Sodium 135 L, Potassium 3.3 L, Chloride 99, Carbon Dioxide 27.0, Anion Gap 9, BUN 24 H, Creatinine 1.02, Est GFR (MDRD) Af Amer 100, Est GFR (MDRD) Non-Af 83, BUN/Creatinine Ratio 23.5 H, Glucose 179 H, Calcium 8.6, Total Bilirubin 0.70 Rhythm: Sinus Rhythm EKG: ECHO: 01/20/2021: Summary 1. Normal left ventricular size with mild concentric hypertrophy and mild segmental left ventricular systolic dysfunction, LVEF by biplane measurement 45%. 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 There is very sluggish flow within the apex with no definitive thrombus noted with Definity contrast. 2. Normal right ventricular size and systolic function. 3. No hemodynamically significant valvular disease. Estimated RVSP 20 mmHg. 4. No pericardial effusion. Stress Test: Cardiac Cath: 01/07/2021 CONCLUSIONS CAD as described with progression of instent restenosis in the LAD compared to angiogram from january 2020. Patent 2/2 bypass grafts. Elevated LVEDP RECOMMENDATIONS CORONARY ANGIOGRAPHY DOMINANCE: Right Dominant LEFT HEART ASSESSMENT Left Ventricular Ejection Fraction: Not assessed LVEDP: 26 mmHg LEFT MAIN: Mild luminal irregularities LEFT ANTERIOR DESCENDING ARTERY: MID LAD: 90 % Stenosis-instent restenosis CIRCUMFLEX ARTERY: Mild luminal irregularities RIGHT CORONARY ARTERY: MID RCA: 100 % Stenosis GRAFTS: COLBERT graft to the LAD is patent Saphenous Vein graft to the RCA is patent VALVE FINDINGS: No Aortic Valve Stenosis PCI: CT Surgery: Holter monitor: EPS: PPM: No VT/VF CXR: Chest CT Scan:
--- NOTE | 2021-02-17 11:11 | PCM.DC ---
Discharge Instructions Diet Discharge Diet: No restrictions Activity Discharge Activity: Return to Normal Activity Weight Bearing Status: Weight bearing as tolerated Dressing / Incision Call your doctor if you observe: Fever of 101 or Higher, Numbness or Tingling, Shortness of breath, Dizziness, Chest pain, Increased palpitations (irregular heartbeat) and Calf discomfort Follow Up Care Please Follow Up With: Primary care provider When: Within the next two weeks. Test Results: Test results from this visit will be discussed in further detail at your follow-up appointment, if applicable. Discharge Plan Admission Admit Date/Time: 02/17/21 03:19 Primary Reason for Your Visit: Chest pain Attending Provider: Case Molina Primary Care Provider: Chanda Espana Consulting Providers: Zachary Lee Instructions Patient Instructions: ED Chest Pain, Noncardiac Discharge Orders/Prescriptions Prescriptions: New ranolazine [Ranexa] 1,000 mg tablet extended release 12 hr 1,000 mg PO BID Qty: 60 RF: 0 Continued levothyroxine 200 mcg capsule 200 mcg PO DAILY RF: 0 nitroglycerin 0.4 mg tablet, sublingual 0.4 mg SUBLINGUAL Q5-15M PRN (Reason: CHEST PAIN) RF: 0 pantoprazole 40 mg tablet,delayed release (DR/EC) 40 mg PO BID RF: 0 cholecalciferol (vitamin D3) 125 mcg (5,000 unit) tablet 10,000 unit PO DAILY RF: 0 isosorbide mononitrate 30 mg tablet extended release 24 hr 30 mg PO BID RF: 0 linagliptin 5 mg tablet 5 mg PO QAM RF: 0 mexiletine 150 mg capsule 150 mg PO TID RF: 0 diazepam 2 mg tablet 2 mg PO Q8H PRN (Reason: Pain) RF: 0 oxycodone 5 mg tablet 5 mg PO Q6H PRN (Reason: Pain) RF: 0 gabapentin 300 mg capsule 600 mg PO TID RF: 0 magnesium oxide 400 mg magnesium tablet 400 mg PO DAILY RF: 0 potassium chloride 20 mEq tablet,ER particles/crystals 20 meq PO BID RF: 0 methocarbamol 500 mg tablet 500 mg PO Q6H PRN (Reason: muscle relaxor) RF: 0 multivitamin 1 EACH tablet 1 tab PO DAILY RF: 0 omega-3 fatty acids 1,000 MG capsule 1,000 mg PO BID RF: 0 aspirin 81 MG tablet,delayed release (DR/EC) 81 mg PO QHS RF: 0 B-complex with vitamin C Tablet 2 tab PO DAILY RF: 0 lorazepam 1 MG tablet 1 mg PO QHS PRN (Reason: anxiety/sleep) RF: 0 metformin 1,000 MG tablet 1,000 mg PO BID RF: 0 empagliflozin 25 MG tablet 25 mg PO DAILY RF: 0 gemfibrozil 600 mg tablet 600 mg PO BID RF: 0 Entresto 97-103 mg tablet 1 tab PO BID RF: 0 Trulicity 3 mg/0.5 mL pen injector 3 mg SUBCUT TH RF: 0 atorvastatin 80 mg tablet 80 mg PO QHS RF: 0 cyclobenzaprine 10 mg tablet 10 mg PO Q6H PRN PRN (Reason: Muscle Pain) RF: 0 furosemide 40 MG tablet 40 mg PO DAILY Qty: 0 RF: 0 promethazine 12.5 mg tablet 12.5 mg PO TID PRN (Reason: nausea and vomiting) Qty: 20 RF: 0 Referrals / Follow Up: Chanda Espana DO [Primary Care Provider] - Within 2 Weeks Disposition Disposition (needs filled in before D/C Order can be placed): Home, Self Care
[2021-02-17] MEDS: Cholecalciferol (VIT D3) 25 MCG TABLET (1,000 UNITS) 250 MCG PO (11:14)
[2021-02-17] MEDS: LINAGLIPTIN 5 MG TABLET PO (11:14)
[2021-02-17] MEDS: Furosemide 40 MG Tablet PO (11:15)
[2021-02-17] MEDS: Empagliflozin 25 MG Tablet PO (11:15)
[2021-02-17] MEDS: Pantoprazole Sodium 40 MG Tablet PO (11:15)
[2021-02-17] MEDS: Multivitamins,Therapeutic Tablet 1 TABLET PO (11:16)
[2021-02-17] MEDS: SACUBITRIL/VALSARTAN 97-103 MG TABLET 1 EACH PO (11:16)
[2021-02-17] MEDS: Vitamin B Comp W-C Capsule 2 CAP PO (11:17)
[2021-02-17] MEDS: Isosorbide Mononitrate 30 MG Tablet PO (11:17)
[2021-02-17 11:55] LABS: Bedside Glucose 139 mg/dL (70-110)
[2021-02-17 13:20] VITALS: BP 117/76; PULSE 86; RESP 18; TEMP 36.6; O2SAT 93
--- NOTE | 2021-02-17 14:13 | PCM.DC.SUM ---
Documented by User: Jonathan SERRATO 02/17/21 14:18 Providers Date of Admission: 02/17/21 Primary Care Physician: Dr. Chanda Espana DO Consultations 02/17/21 03:21 Consult: Cardiology Routine Consulting Provider: Zachary Lee Reason for Consult: Chest pain EMERGENT Consult: No MD Notified: Yes Date Notified: 02/17/21 Time Notified: 06:48 Method of Notification: Text Comments:: Consult in am Reason For Visit: CHEST PAIN Diagnosis Discharge Diagnosis (1) Chest pain: Status: Acute Code(s): R07.9 - Chest pain, unspecified Qualifiers: Chest pain type: unspecified Qualified Code(s): R07.9 - Chest pain, unspecified (2) Atherosclerosis of coronary artery of [place] heart without angina pectoris: Status: Chronic Code(s): I25.10 - Atherosclerotic heart disease of [place] coronary artery without angina pectoris Qualifiers: Coronary Disease-Associated Artery/Lesion type: unspecified vessel or lesion type Qualified Code(s): I25.10 - Atherosclerotic heart disease of [place] coronary artery without angina pectoris (3) S/P CABG x 2: Status: Chronic Code(s): Z95.1 - Presence of aortocoronary bypass graft (4) History of PTCA: Status: Chronic Code(s): Z98.61 - Coronary angioplasty status (5) Ischemic cardiomyopathy: Status: Chronic Code(s): I25.5 - Ischemic cardiomyopathy (6) Essential hypertension: Status: Chronic Code(s): I10 - Essential (primary) hypertension (7) HLD (hyperlipidemia): Status: Chronic Code(s): E78.5 - Hyperlipidemia, unspecified Qualifiers: Hyperlipidemia type: unspecified Qualified Code(s): E78.5 - Hyperlipidemia, unspecified (8) Cardiac defibrillator in situ: Status: Chronic Code(s): Z95.810 - Presence of automatic (implantable) cardiac defibrillator Medications at Discharge Home Medications levothyroxine 200 mcg capsule 200 mcg PO DAILY 10/24/18 nitroglycerin 0.4 mg sublingual tablet 0.4 mg SUBLINGUAL Q5-15M PRN 10/24/18 aspirin 81 mg PO QHS 01/14/19 multivitamin 1 tab PO DAILY 01/14/19 omega-3 fatty acids 1,000 mg PO BID 01/14/19 lorazepam 1 mg PO QHS PRN 03/02/19 B-complex with vitamin C 2 tab PO DAILY tab 10/23/19 cholecalciferol (vitamin D3) 125 mcg (5,000 unit) tablet 10,000 unit PO DAILY 10/23/19 pantoprazole 40 mg tablet,delayed release 40 mg PO BID tab 10/23/19 empagliflozin 25 mg PO DAILY 01/16/20 metformin 1,000 mg PO BID 01/16/20 Entresto 1 tab PO BID 01/06/21 Trulicity 3 mg SUBCUT TH 01/06/21 atorvastatin 80 mg PO QHS 01/06/21 cyclobenzaprine 10 mg PO Q6H PRN PRN 01/06/21 gemfibrozil 600 mg PO BID 01/06/21 furosemide 40 mg PO DAILY #0 tab 01/07/21 gabapentin 300 mg capsule 600 mg PO TID cap 01/21/21 isosorbide mononitrate 30 mg tablet,extended release 24 hr 30 mg PO BID tab 01/21/21 linagliptin 5 mg tablet 5 mg PO QAM tab 01/21/21 magnesium oxide 400 mg PO DAILY 01/21/21 mexiletine 150 mg capsule 150 mg PO TID cap 01/21/21 oxycodone 5 mg tablet 5 mg PO Q6H PRN tab 01/21/21 potassium chloride 20 mEq tablet,extended release(part/cryst) 20 meq PO BID tab 01/21/21 promethazine 12.5 mg PO TID PRN #20 tab 01/25/21 ranolazine [Ranexa] 1,000 mg PO BID #60 tab 02/17/21 Hospital Course Summary of Care Provided Minutes Spent on Discharge: 35 Hospital Course: Disposition: Patient to be discharged home, no additional therapies or home health care needs identified. 1) chest pain Patient still reports a 4-5 out of 10 chest pain, which he reports has been chronic for the past 2 months. Patient had a recent cardiac cath on 01/07/21 which showed patent 2 out of 2 bypass grafts, progression in the in-stent restenosis in the LAD but COLBERT to LAD was patent. His RCA was occluded. SVG to RCA was widely patent. His circumflex had mild disease. Cardiology was consulted and recommended initiating ranolazine 1000 mg p.o. twice daily and follow-up within the next 2 weeks. 2) chronic ischemic cardiomyopathy Status post AICD, EF is 45%. Continue Lasix potassium supplementation and Entresto. 3) DM2 Continue home diabetic regimen of Jardiance and Tradjenta. 4) hypothyroidism Continue Synthroid. Patient seen by Jonathan Moore PA-C, under the supervision of Dr. Molina. Physical Exam Narrative Patient is a 50-year-old male comfortably resting in bed, alert and orient x3. Patient states that his chest pain is still present and he rates it about a 4-5 out of 10, patient states this is chronic and has been present for the past 2 months. Const alert, oriented x3 and no apparent distress HEENT normocephalic, head/scalp atraumatic and hearing grossly normal bilaterally Eyes PERRL and EOMs intact bilaterally Neck no lymphadenopathy, supple and no JVD Resp normal respiratory effort, no retractions and no use of accessory muscles Cardio regular rate, regular rhythm, no murmurs and no JVD GI normal to inspection, nondistended, normoactive bowel sounds, soft to palpation and non-tender Extremity normal to inspection, full ROM and no clubbing, cyanosis or edema Skin no rashes or lesions noted, no wounds and skin turgor normal Neuro CN's II-XII intact bilaterally Psych affect normal Weight / BMI Weight Weight: 225 lb 1.471 oz Body Mass Index (BMI) 32.2 ABG / Lab / Microbiology Data Result Diagrams: 02/17/21 05:51 02/17/21 05:51 Laboratory: Laboratory Results - last 24 hr 02/17/21 05:51: WBC 5.0, RBC 5.18, Hgb 15.1, Hct 45.9, MCV 88.6, MCH 29.2, MCHC 32.9, RDW Std Deviation 43.6, RDW Coeff of Mickey 13.3, Plt Count 256, MPV 9.3, Immature Gran % (Auto) 0.600, Neut % (Auto) 56.6, Lymph % (Auto) 29.4, [place] % (Auto) 10.0, Eos % (Auto) 3.0, Baso % (Auto) 0.4, Absolute Neuts (auto) 2.8, Absolute Lymphs (auto) 1.47, Nucleated RBC % 0 02/17/21 05:51: Sodium 135 L, Potassium 3.3 L, Chloride 99, Carbon Dioxide 27.0, Anion Gap 9, BUN 24 H, Creatinine 1.02, Estim Creat Clear Calc 91.45, Est GFR (MDRD) Af Amer 100, Est GFR (MDRD) Non-Af 83, BUN/Creatinine Ratio 23.5 H, Glucose 179 H, Calcium 8.6, Total Bilirubin 0.70, AST 20, ALT 34, Alkaline Phosphatase 58, Total Protein 6.8, Albumin 3.6, Globulin 3.2, Albumin/Globulin Ratio 1.1 02/17/21 06:37: POC Glucose 181 H 02/17/21 11:12: POC Glucose 139 H D/C Instructions Discharge Diet: No restrictions Weight Bearing Status: Weight bearing as tolerated Call your doctor if you observe: Fever of 101 or Higher, Numbness or Tingling, Shortness of breath, Dizziness, Chest pain, Increased palpitations (irregular heartbeat) and Calf discomfort Please Follow Up With: Primary care provider When: Within the next two weeks. Meaningful Use Info Meaningful Use Diagnoses (Choose all that apply): None applicable Discharge Plan Admission Admit Date/Time: 02/17/21 03:19 Primary Reason for Your Visit: Chest pain Attending Provider: Case Molina Primary Care Provider: Chanda Espana Consulting Providers: Zachary Lee Instructions Patient Instructions: ED Chest Pain, Noncardiac Additional Instructions / Restrictions: Take full pill of Metformin at 1000 mg in the morning, take 0.5 of Metformin pill in the evening for a total of 1500 mg daily. Discharge Orders/Prescriptions Prescriptions: New ranolazine [Ranexa] 1,000 mg tablet extended release 12 hr 1,000 mg PO BID Qty: 60 RF: 0 Continued levothyroxine 200 mcg capsule 200 mcg PO DAILY RF: 0 nitroglycerin 0.4 mg tablet, sublingual 0.4 mg SUBLINGUAL Q5-15M PRN (Reason: CHEST PAIN) RF: 0 pantoprazole 40 mg tablet,delayed release (DR/EC) 40 mg PO BID RF: 0 cholecalciferol (vitamin D3) 125 mcg (5,000 unit) tablet 10,000 unit PO DAILY RF: 0 isosorbide mononitrate 30 mg tablet extended release 24 hr 30 mg PO BID RF: 0 linagliptin 5 mg tablet 5 mg PO QAM RF: 0 mexiletine 150 mg capsule 150 mg PO TID RF: 0 oxycodone 5 mg tablet 5 mg PO Q6H PRN (Reason: Pain) RF: 0 gabapentin 300 mg capsule 600 mg PO TID RF: 0 magnesium oxide 400 mg magnesium tablet 400 mg PO DAILY RF: 0 potassium chloride 20 mEq tablet,ER particles/crystals 20 meq PO BID RF: 0 multivitamin 1 EACH tablet 1 tab PO DAILY RF: 0 omega-3 fatty acids 1,000 MG capsule 1,000 mg PO BID RF: 0 aspirin 81 MG tablet,delayed release (DR/EC) 81 mg PO QHS RF: 0 B-complex with vitamin C Tablet 2 tab PO DAILY RF: 0 lorazepam 1 MG tablet 1 mg PO QHS PRN (Reason: anxiety/sleep) RF: 0 metformin 1,000 MG tablet 1,000 mg PO BID RF: 0 empagliflozin 25 MG tablet 25 mg PO DAILY RF: 0 gemfibrozil 600 mg tablet 600 mg PO BID RF: 0 Entresto 97-103 mg tablet 1 tab PO BID RF: 0 Trulicity 3 mg/0.5 mL pen injector 3 mg SUBCUT TH RF: 0 atorvastatin 80 mg tablet 80 mg PO QHS RF: 0 cyclobenzaprine 10 mg tablet 10 mg PO Q6H PRN PRN (Reason: Muscle Pain) RF: 0 furosemide 40 MG tablet 40 mg PO DAILY Qty: 0 RF: 0 promethazine 12.5 mg tablet 12.5 mg PO TID PRN (Reason: nausea and vomiting) Qty: 20 RF: 0 Discontinued diazepam 2 mg tablet 2 mg PO Q8H PRN (Reason: Pain) RF: 0 methocarbamol 500 mg tablet 500 mg PO Q6H PRN (Reason: muscle relaxor) RF: 0 Referrals / Follow Up: Chanda Espana, DO [Primary Care Provider] - Within 2 Weeks Disposition Disposition (needs filled in before D/C Order can be placed): Home, Self Care Documented by User: Dr. Case Molina MD 02/17/21 16:40 Providers Date of Admission: 02/17/21 Reason For Visit: CHEST PAIN Medications at Discharge Home Medications levothyroxine 200 mcg capsule 200 mcg PO DAILY 10/24/18 nitroglycerin 0.4 mg sublingual tablet 0.4 mg SUBLINGUAL Q5-15M PRN 10/24/18 aspirin 81 mg PO QHS 01/14/19 multivitamin 1 tab PO DAILY 01/14/19 omega-3 fatty acids 1,000 mg PO BID 01/14/19 lorazepam 1 mg PO QHS PRN 03/02/19 B-complex with vitamin C 2 tab PO DAILY tab 10/23/19 cholecalciferol (vitamin D3) 125 mcg (5,000 unit) tablet 10,000 unit PO DAILY 10/23/19 pantoprazole 40 mg tablet,delayed release 40 mg PO BID tab 10/23/19 empagliflozin 25 mg PO DAILY 01/16/20 metformin 1,000 mg PO BID 01/16/20 Entresto 1 tab PO BID 01/06/21 Trulicity 3 mg SUBCUT TH 01/06/21 atorvastatin 80 mg PO QHS 01/06/21 cyclobenzaprine 10 mg PO Q6H PRN PRN 01/06/21 gemfibrozil 600 mg PO BID 01/06/21 furosemide 40 mg PO DAILY #0 tab 01/07/21 gabapentin 300 mg capsule 600 mg PO TID cap 01/21/21 isosorbide mononitrate 30 mg tablet,extended release 24 hr 30 mg PO BID tab 01/21/21 linagliptin 5 mg tablet 5 mg PO QAM tab 01/21/21 magnesium oxide 400 mg PO DAILY 01/21/21 mexiletine 150 mg capsule 150 mg PO TID cap 01/21/21 oxycodone 5 mg tablet 5 mg PO Q6H PRN tab 01/21/21 potassium chloride 20 mEq tablet,extended release(part/cryst) 20 meq PO BID tab 01/21/21 promethazine 12.5 mg PO TID PRN #20 tab 01/25/21 ranolazine [Ranexa] 1,000 mg PO BID #60 tab 02/17/21 Hospital Course Operations None Summary of Care Provided Hospital Course: This patient was seen in conjunction with Jonathan Moore PA-C. I have independently interviewed and examined the patient and reviewed pertinent historical, laboratory, and other data. Please refer to Jonathan Moore PA-C's note for details of this patient's presentation, findings, and recommendations. I have reviewed Jonathan Moore PA-C's note and concur with documented findings. In brief, patient is a 50-year-old gentleman with history of coronary artery disease with previous PCI who presented with chest pain admitted to monitored bed for subsequent management Hospital course; as documented above ABG / Lab / Microbiology Data Result Diagrams: 02/17/21 05:51 02/17/21 05:51 Discharge Plan Admission Admit Date/Time: 02/17/21 03:19 Primary Reason for Your Visit: Chest pain Attending Provider: Case Molina Primary Care Provider: Chanda Espana Consulting Providers: Zachary Lee Instructions Patient Instructions: ED Chest Pain, Noncardiac Additional Instructions / Restrictions: Take full pill of Metformin at 1000 mg in the morning, take 0.5 of Metformin pill in the evening for a total of 1500 mg daily. Discharge Orders/Prescriptions Prescriptions: New ranolazine [Ranexa] 1,000 mg tablet extended release 12 hr 1,000 mg PO BID Qty: 60 RF: 0 Continued levothyroxine 200 mcg capsule 200 mcg PO DAILY RF: 0 nitroglycerin 0.4 mg tablet, sublingual 0.4 mg SUBLINGUAL Q5-15M PRN (Reason: CHEST PAIN) RF: 0 pantoprazole 40 mg tablet,delayed release (DR/EC) 40 mg PO BID RF: 0 cholecalciferol (vitamin D3) 125 mcg (5,000 unit) tablet 10,000 unit PO DAILY RF: 0 isosorbide mononitrate 30 mg tablet extended release 24 hr 30 mg PO BID RF: 0 linagliptin 5 mg tablet 5 mg PO QAM RF: 0 mexiletine 150 mg capsule 150 mg PO TID RF: 0 oxycodone 5 mg tablet 5 mg PO Q6H PRN (Reason: Pain) RF: 0 gabapentin 300 mg capsule 600 mg PO TID RF: 0 magnesium oxide 400 mg magnesium tablet 400 mg PO DAILY RF: 0 potassium chloride 20 mEq tablet,ER particles/crystals 20 meq PO BID RF: 0 multivitamin 1 EACH tablet 1 tab PO DAILY RF: 0 omega-3 fatty acids 1,000 MG capsule 1,000 mg PO BID RF: 0 aspirin 81 MG tablet,delayed release (DR/EC) 81 mg PO QHS RF: 0 B-complex with vitamin C Tablet 2 tab PO DAILY RF: 0 lorazepam 1 MG tablet 1 mg PO QHS PRN (Reason: anxiety/sleep) RF: 0 metformin 1,000 MG tablet 1,000 mg PO BID RF: 0 empagliflozin 25 MG tablet 25 mg PO DAILY RF: 0 gemfibrozil 600 mg tablet 600 mg PO BID RF: 0 Entresto 97-103 mg tablet 1 tab PO BID RF: 0 Trulicity 3 mg/0.5 mL pen injector 3 mg SUBCUT TH RF: 0 atorvastatin 80 mg tablet 80 mg PO QHS RF: 0 cyclobenzaprine 10 mg tablet 10 mg PO Q6H PRN PRN (Reason: Muscle Pain) RF: 0 furosemide 40 MG tablet 40 mg PO DAILY Qty: 0 RF: 0 promethazine 12.5 mg tablet 12.5 mg PO TID PRN (Reason: nausea and vomiting) Qty: 20 RF: 0 Discontinued diazepam 2 mg tablet 2 mg PO Q8H PRN (Reason: Pain) RF: 0 methocarbamol 500 mg tablet 500 mg PO Q6H PRN (Reason: muscle relaxor) RF: 0 Referrals / Follow Up: Chanda Espana DO [Primary Care Provider] - Within 2 Weeks Disposition Disposition (needs filled in before D/C Order can be placed): Home, Self Care Charges/Coding Visit Charges OBSV E&M: 78673 Observation care discharge Hospital Course Consultations Consultations: Consultations 02/17/21 03:21 Consult: Cardiology Routine Consulting Provider: Zachary Lee Reason for Consult: Chest pain EMERGENT Consult: No MD Notified: Yes Date Notified: 02/17/21 Time Notified: 06:48 Method of Notification: Text Comments:: Consult in am Operations None
--- NOTE | 2021-02-17 15:02 | PHA.DC.MC ---
Pharmacy Service has performed discharge medication reconciliation and counseling for this patient. 1. RANOLAZINE 1000MG PO BID The patient's discharge medication list was reviewed for discrepancies and discrepancies were resolved. This [facility] spoke with Jonathan Moore. Pt is on metformin 1000mg PO BID. Max dose of metformin when given with Ranexa 1000mg BID is 1700mg/day. Jonathan okay with decreasing metformin to 1000mg QAM and 500mg QPM. This [facility] notified patient of change. Jonathan has not updated list yet but pt notified verbally. Pt confirmed he is no longer taking diazepam or methocarbomol. TORB from Jonathan to D/C meds. Home Medications levothyroxine 200 mcg capsule 200 mcg PO DAILY 10/24/18 nitroglycerin 0.4 mg sublingual tablet 0.4 mg SUBLINGUAL Q5-15M PRN 10/24/18 aspirin 81 mg PO QHS 01/14/19 multivitamin 1 tab PO DAILY 01/14/19 omega-3 fatty acids 1,000 mg PO BID 01/14/19 lorazepam 1 mg PO QHS PRN 03/02/19 B-complex with vitamin C 2 tab PO DAILY tab 10/23/19 cholecalciferol (vitamin D3) 125 mcg (5,000 unit) tablet 10,000 unit PO DAILY 10/23/19 pantoprazole 40 mg tablet,delayed release 40 mg PO BID tab 10/23/19 empagliflozin 25 mg PO DAILY 01/16/20 metformin 1,000 mg PO BID 01/16/20 Entresto 1 tab PO BID 01/06/21 Trulicity 3 mg SUBCUT TH 01/06/21 atorvastatin 80 mg PO QHS 01/06/21 cyclobenzaprine 10 mg PO Q6H PRN PRN 01/06/21 gemfibrozil 600 mg PO BID 01/06/21 furosemide 40 mg PO DAILY #0 tab 01/07/21 gabapentin 300 mg capsule 600 mg PO TID cap 01/21/21 isosorbide mononitrate 30 mg tablet,extended release 24 hr 30 mg PO BID tab 01/21/21 linagliptin 5 mg tablet 5 mg PO QAM tab 01/21/21 magnesium oxide 400 mg PO DAILY 01/21/21 mexiletine 150 mg capsule 150 mg PO TID cap 01/21/21 oxycodone 5 mg tablet 5 mg PO Q6H PRN tab 01/21/21 potassium chloride 20 mEq tablet,extended release(part/cryst) 20 meq PO BID tab 01/21/21 promethazine 12.5 mg PO TID PRN #20 tab 01/25/21 ranolazine [Ranexa] 1,000 mg PO BID #60 tab 02/17/21 The patient was counseled on the following discharge medications and changes in medications for homegoing were reviewed. The Reason for Use, instructions for use, and potential side effects were reviewed for all new medications. The patient's questions regarding all of their medications were answered. The patient was able to verbally demonstrate an understanding of their discharge medications.
== END 2021-02-17 11:19 | disposition home or self-care (01) ==
PROVIDERS: Admitting Provider Internal Medicine; PCP Internal Medicine; Visit Provider Internal Medicine
DX: R07.89 Other chest pain (principal); R55 Syncope and collapse; R51.9 Headache, unspecified; R06.02 Shortness of breath; I25.10 Atherosclerotic heart disease of native coronary artery without angina pectoris; I50.9 Heart failure, unspecified; I11.0 Hypertensive heart disease with heart failure; E11.9 Type 2 diabetes mellitus without complications; K21.9 Gastro-esophageal reflux disease without esophagitis; I48.91 Unspecified atrial fibrillation; G47.33 Obstructive sleep apnea (adult) (pediatric); I25.2 Old myocardial infarction; E03.9 Hypothyroidism, unspecified; F41.9 Anxiety disorder, unspecified; E78.5 Hyperlipidemia, unspecified; I25.5 Ischemic cardiomyopathy; Z95.810 Presence of automatic (implantable) cardiac defibrillator; Z79.899 Other long term (current) drug therapy; Z79.82 Long term (current) use of aspirin; Z79.4 Long term (current) use of insulin; Z95.1 Presence of aortocoronary bypass graft
CPT/HCPCS: 36415; 80053; 82962; 85025; 93005; 96361; 96374; 99218; J7030; G0378; G0379

== ENCOUNTER 2021-10-31 01:50 | Observation (INO) | payer OTHER, SELFPAY ==
[2021-10-31] VITALS (15 sets, daily range): BP systolic 110–146; BP diastolic 63–87; PULSE 63–78; RESP 12–18; TEMP 36.4–36.8; O2SAT 95–100; BMI 31.8
--- NOTE | 2021-10-31 01:37 | EKG12_ITS ---
Test Reason : CP ADMIN Blood Pressure : / mmHG Vent. Rate : 070 BPM Atrial Rate : 070 BPM P-R Int : 166 ms QRS Dur : 098 ms QT Int : 438 ms P-R-T Axes : 054 -13 068 degrees QTc Int : 473 ms Normal sinus rhythm Poor R wave progression Nonspecific T wave abnormality Confirmed by ROSIO WALDROP, OSCAR ([id number]), writer editor ABIMBOLA LAMAR ([id number]) on 11/03/2021 11:38:27 AM Referred By: LINDSEY Confirmed By:OSCAR AVELAR MD
--- NOTE | 2021-10-31 01:57 | PCM.HP.STD ---
[facility] - General General Date of Admission: 10/31/21 HPI Narrative RUSS LIZ, is a 51 M who presents to the hospital with chest pain. He has extensive cardiac history with previous CABG x2 as well as stents. In 2018 he had a heart cath done that demonstrated a 60 to 70% restenosis of the LAD stent at that time he was just adjusted to maximum medical therapy. He also had at that time an EF of 35 to 40%. He had an echo done in January 2021 at [place] with an EF of 45%. He states that this evening at around 5 PM he developed left-sided pressure which is different than his previous heart attack pain. He says that he still has it but is now up to an set of a 7 as well as when he presented to the outside hospital. He denies any shortness of breath but he did have some lightheadedness earlier in the day when he was bending over at work. [facility] Medical History Acute chest pain Anxiety Atherosclerosis of coronary artery of [place] heart without angina pectoris Atrial fibrillation BiPAP (biphasic positive airway pressure) dependence Chest pain Chest pain Congestive heart failure (CHF) Congestive heart failure (CHF) Coronary artery disease Diabetes Diabetes Diabetes mellitus, type II Essential hypertension Foreign body of knee GERD (gastroesophageal reflux disease) History of atrial fibrillation HLD (hyperlipidemia) Hypertension Hypothyroidism Hypothyroidism ICD (implantable cardioverter-defibrillator) in place Irregular heart rhythm Ischemic cardiomyopathy Kidney stones Myocardial infarct Myocardial infarct Non-smoker Obstructive sleep apnea Pacemaker Pacemaker Sleep apnea Sleep apnea Torsades de pointes Unstable angina Home Medications nitroglycerin 0.4 mg sublingual tablet 0.4 mg SUBLINGUAL Q5-15M PRN 10/24/18 [History Last Taken 08/02/21 15:18] aspirin 81 mg PO QHS 01/14/19 [History Last Taken 08/01/21 15:13] multivitamin 1 tab PO DAILY 01/14/19 [History Last Taken 08/02/21 15:18] lorazepam 1 mg PO QHS PRN 03/02/19 [History Last Taken 08/02/21 15:17] B-complex with vitamin C 2 tab PO DAILY tab 10/23/19 [History Last Taken 08/02/21 15:14] cholecalciferol (vitamin D3) 125 mcg (5,000 unit) tablet 10,000 unit PO DAILY 10/23/19 [History Last Taken 08/02/21 15:14] pantoprazole 40 mg tablet,delayed release 40 mg PO BID tab 10/23/19 [History Last Taken 08/02/21 15:19] empagliflozin 25 mg PO DAILY 01/16/20 [History Last Taken 08/02/21 15:15] metformin 1,000 mg PO BID 01/16/20 [History Last Taken 08/02/21 15:18] Entresto 1 tab PO BID 01/06/21 [History Last Taken 02/16/21] cyclobenzaprine 10 mg PO Q6H PRN PRN 01/06/21 [History Last Taken 08/02/21 15:15] gemfibrozil 600 mg PO BID 01/06/21 [History Last Taken 08/02/21 15:16] linagliptin 5 mg tablet 5 mg PO QAM tab 01/21/21 [History Last Taken 08/02/21 15:17] magnesium oxide 400 mg PO DAILY 01/21/21 [History Last Taken 08/02/21 15:18] mexiletine 150 mg capsule 150 mg PO Q8 cap 01/21/21 [History Last Taken 08/02/21 15:18] promethazine 12.5 mg PO TID PRN #20 tab 01/25/21 [Rx Last Taken Unknown] ranolazine [Ranexa] 1,000 mg PO BID #60 tab 02/17/21 [Rx Last Taken Unknown] isosorbide mononitrate 30 mg tablet,extended release 24 hr 30 mg PO BID #180 tab 03/10/21 [Rx Last Taken 08/02/21 15:17] dulaglutide 4.5 mg/0.5 mL subcutaneous pen injector 4.5 mg SUBCUT QWEEK ml 04/29/21 [History Last Taken 08/02/21 15:15] levothyroxine 200 mcg tablet 200 mcg PO DAILY tab 04/29/21 [History Last Taken 08/02/21 15:17] atorvastatin 80 mg tablet 80 mg PO QHS #90 tab 09/25/21 [Rx Last Taken Unknown] diazepam 2 mg PO TID PRN 10/31/21 [History Last Taken Unknown] furosemide 40 mg PO DAILY 10/31/21 [History Last Taken Unknown] ketorolac 10 mg PO Q6H 10/31/21 [History Last Taken Unknown] trazodone 50 mg PO QHS 10/31/21 [History Last Taken Unknown] Allergy/AdvReac Type Severity Reaction Status Date / Time No Known Allergies Allergy Verified 10/21/21 10:37 Family History Mother Hypertension Diabetes COPD (chronic obstructive pulmonary disease) Heart disease Brother CVA (cerebral vascular accident) Surgical History Cardiac defibrillator in situ H/O hemorrhoidectomy History of appendectomy History of coronary artery stent placement History of coronary artery stent placement History of left heart catheterization (01/07/21) History of PTCA History of vasectomy Hx of CABG Hx of CABG Presence of implantable cardioverter-defibrillator (ICD) S/P CABG x 2 Social History household members: family Smoking Status: Never smoker alcohol intake: never substance use type: does not use caffeine: Yes (occasional) ROS Constitutional Constitutional: Denies chills, fatigue, fever(s) or malaise Eyes Eyes: Denies blurry vision ENT HEENT: Denies headache(s) or nasal discharge Cardiovascular Cardiovascular: Reports chest pain; Denies dyspnea on exertion or syncope Respiratory/Chest Respiratory/Chest: Denies cough, shortness of breath at rest or shortness of breath with exertion Gastrointestinal Gastrointestinal: Denies constipation, diarrhea, nausea or vomiting Genitourinary Genitourinary: Denies dysuria Neurologic Neurologic: Denies focal weakness, numbness or tremor(s) Psychiatric Psychiatric: Denies anxiety or depression Vital Signs Vital Signs Vital Signs: Weight Weight: 222 lb 0.088 oz Body Mass Index (BMI) 31.8 Physical Exam Const alert and oriented x3 General Appearance: cooperative HEENT normocephalic and moist oral mucous membranes Eyes PERRL, EOMs intact bilaterally and conjunctivae normal Neck supple and no JVD Resp normal respiratory effort, no retractions, no use of accessory muscles and clear to auscultation bilaterally Auscultation: Negative for crackles, rales, rhonchi or wheezes Cardio regular rate, regular rhythm, S1 normal heart sound, S2 normal heart sound and no murmurs GI soft to palpation, non-tender and non-distended; Negative for hepatosplenomegaly Extremity no clubbing, cyanosis or edema Skin no rashes or lesions noted Neuro no focal motor deficits and no sensory deficits noted Psych affect normal Appearance: appropriate Assessment & Plan Assessment/Plan (1) Chest pain: QUALIFIERS: Chest pain type: unspecified Qualified Code(s): R07.9 - Chest pain, unspecified PLAN: 1. Chest pain/CAD status post CABG and stents/chronic systolic CHF/AICD/HTN/HLD ? 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 Continue with his home medications and will consult cardiology ? We will obtain serial troponins 2. DM2 ? Will monitor blood sugars with Accu-Cheks AC at bedtime ? Sliding scale insulin as well as long-acting insulin ? We will hold his home medications ? We will make adjustments necessary 3. Hypothyroidism ? Stable ? Continue with Synthroid 4. GERD ? Stable ? Continue with PPI DVT: Ambulation Charges/Coding Visit Charges OBSV E&M: 52091 Initial observation care L2
[2021-10-31 02:41] LABS: Troponin-I HS 9 pg/mL (3.0-78.0)
[2021-10-31 06:19] LABS: Troponin-I HS 8 pg/mL (3.0-78.0)
[2021-10-31] MEDS: Levothyroxine 100 MCG Tablet 200 MCG PO (06:25)
[2021-10-31] MEDS: Mexiletine 150 MG Capsule PO ×2 (06:25→14:32)
[2021-10-31 06:51] LABS: Bedside Glucose 127 mg/dL (74-106)
--- NOTE | 2021-10-31 07:25 | PCM.PN.HOSP ---
Subjective Subjective Patient is still has mild cardiac chest pain Objective Data Objective Data Vital Signs: Vital Signs Temp Pulse Resp BP Pulse Ox 97.9 F 75 18 118/63 95 10/31/21 06:21 10/31/21 06:21 10/31/21 06:21 10/31/21 06:21 10/31/21 06:21 Oxygen Delivery Method Room Air Weight: 222 lb 0.088 oz Body Mass Index (BMI) 31.8 Intake & Output: Intake and Output for Last 24 Hours 10/29/21 10/30/21 10/31/21 23:59 23:59 23:59 Intake Total 0 / 0 Balance 0 / 0 Lab / Micro Data Result Diagrams: 10/31/21 08:25 10/31/21 08:25 Labs: Laboratory Results - last 24 hr 10/31/21 02:18: Troponin I High Sens 9 10/31/21 04:18: Troponin I High Sens 8 10/31/21 06:20: POC Glucose 127 H Physical Exam Narrative Seen and examined. Patient had first ND in 2014 after that he had AICD placed in August 2015. 2 years later in 2017 he had two-vessel CABG. Patient also had multiple stent. General: Alert, Oriented x3, Cooperative HEENT: Atraumatic, PERRLA, EOMI, Normocephalic Oral: No Gingival or Mucosal Lesions/ Ulcerations Neck: Supple, No JVD, Negative Carotid Bruits Lungs: Air entry diminished in bilateral lung bases. No crepitation/rhonchi Cardiovascular: Sinus rhythm, Normal S1, Normal S2, AICD left left clavicle. CABG scar. Systolic murmur over LLSB Abdomen: Bowel Sounds Present, Soft, Non Tender, Non-Distended : No renal angle tenderness. No suprapubic tenderness. Extremities: Mild bilateral ankle pitting edema, Capillary Refill Less than 3 Seconds Skin: No rashes, No breakdown Musculoskeletal: No Tenderness to Palpation of Joints or Extremities Neurological: Cranial nerves II-XII grossly intact, DTR 2+/4 and Symmetrical, Neuro grossly intact Psych/Mental Status: Normal Affect, Appropriate Assessment & Plan Assessment/Plan (1) Chest pain: QUALIFIERS: Chest pain type: unspecified Qualified Code(s): R07.9 - Chest pain, unspecified PLAN: 1. Atypical chest pain with history of coronary artery disease status post CABG and stents pain most probably unstable angina: Serial troponins are negative. Registered Midwife was proposed cardiac cath and patient is going for cardiac cath. Patient had cardiac cath on January 07, 2021 which shows progression of in-stent restenosis of LAD stent. Home cardiac medications continued. Continue aspirin, atorvastatin, furosemide, mexiletine, and Entresto 2. Chronic systolic heart failure status post AICD, hypertension and dyslipidemia: Blood pressure is normal. In sinus rhythm.: 2. DM2: Accu-Cheks before meals and at bedtime encouraged Humalog sliding scale. Hold oral hypoglycemic agents. 3. Hypothyroidism ? Continue with Synthroid 4. GERD ? Continue with PPI DVT: Pharmacological prophylaxis after 24 hours heart cath when hemostasis is controlled
[2021-10-31 08:38] LABS: Absolute Lymphocyte Count 1.01 X10^3/uL (0.83-4.51); Absolute Neutrophil Count 2.4 X10^3/uL (2.0-7.7); Basophil# 0.02 X10^3/uL; Basophil% 0.5 % (0-1); Eosinophil# 0.24 X10^3/uL; Eosinophils% 5.6 % (0-5); Hematocrit 43.5 % (40-54); Hemoglobin 14.8 g/dL (13.0-16.5); Lymphocyte # 1.01 X10^3/ul (0.83-4.51); Lymphocyte % 23.7 % (19-41); Mean Corpuscular Volume 85.1 fL (80-94); Mean Platelet Vol. 8.9 fl (6.2-12.0); Monocyte# 0.55 X10^3/uL; Monocyte% 12.9 % (0-10); NRBC Flagged by Analyzer 0 % (0-5); Neutrophil # 2.44 X10^3/uL (2.7-7.7); Neutrophil % 57.1 % (47-70); Platelet Count 289 K/mm3 (150-450); RBC Distribution Width CV 13.2 % (11.6-14.6); RBC Distribution Width SD 40.6 fl (35.1-43.9); Red Blood Count 5.11 M/mm3 (4.6-6.2); White Blood Count 4.3 K/mm3 (4.4-11.0)
[2021-10-31 09:16] LABS: BUN 15 mg/dL (7-18); Creatinine, Serum 1.01 mg/dL (0.70-1.30); Estimated Creatinine Clearance 91.35 ml/min; Glucose 131 mg/dL (74-106)
[2021-10-31 09:17] LABS: Anion Gap 3 (5-15); BUN/Creat Ratio 14.9 RATIO (10-20); Chloride 108 mmol/L (98-107); EST Glomerular Filtration Rate 83 mL/min (>60); Est Glom Filt Rate - Afr Amer 101 mL/min (>60); Potassium 3.5 mmol/L (3.5-5.1); Sodium Level 140 mmol/L (136-145); Troponin-I HS 8 pg/mL (3.0-78.0)
--- NOTE | 2021-10-31 09:40 | CON.PCM.CA_ITS ---
Documented by User: ROJELIO Vidales 10/31/21 15:06 Assessment & Plan Assessment/Plan (1) Acute chest pain: (2) Coronary artery disease: QUALIFIERS: Associated angina: without angina Coronary Disease- Associated Artery/Lesion type: unspecified vessel or lesion type [place] vs. transplanted heart: [place] heart Qualified Code(s): I25.10 - Atherosclerotic heart disease of [place] coronary artery without angina pectoris (3) Essential hypertension: (4) HLD (hyperlipidemia): QUALIFIERS: Hyperlipidemia type: unspecified Qualified Code(s): E78.5 - Hyperlipidemia, unspecified (5) Ischemic cardiomyopathy: (6) Presence of implantable cardioverter-defibrillator (ICD): PLAN: * With pts known CAD, and negative troponins obtained a lexiscan NST. This was abnormal and demonstrated lateral ischemia. Did pursue a heart cath, this demonstrated CAD as described with progression of in stent restenosis in the LAD compared to angiogram from january 2020. Patent 2/2 bypass grafts. Elevated LVEDP He will continue with has Atorvastatin, ASA. He was not on a BB d/t fatigue, will reattempt this. He is on Entresto for his CMP * Ischemic cardiomyopathy: will continue with his lasix and entresto. He did not tolerate BB in the past. will reattempt this. Pt does have an ICD and does follow in the [facility]. He has had recent episodes of NSVT. * Hyperlipidemia: Will continue with current dose of statin. HPI Consult Data Date of Consult: 10/31/21 HPI Narrative HPI Narrative: RUSS LIZ, is a 51 M who presented to the hospital with CP. He states that this evening at around 5 PM he developed left-sided pressure which is different than his previous heart attack pain. He says that he still has it but is now up to an set of a 7 as well as when he presented to the outside hospital. He denies any shortness of breath but he did have some lightheadedness earlier in the day when he was bending over at work. With his cardiac hx it was decided that he would be admitted for further evaluation. He does have a hx of extensive coronary artery disease status post UT and stents to the LAD, CABG with SVG to RCA and COLBERT to LAD in June 2018, cath in October 2018 showing patent grafts with no antegrade flow in COLBERT to LAD due to competitive flow in the LAD. FFR in the LAD was 0.81. EF on LV gram appeared to be about 35%. He has history of ischemic cardiomyopathy status post AICD. On 01/07/2021 he underwent coronary angiography which revealed patent 2 out of 2 bypass grafts. He had progression in the in-stent restenosis in the LAD but COLBERT to LAD was patent. His RCA was occluded. SVG to RCA was widely patent. His circumflex had mild disease. [facility] Medical History (Updated 10/31/21 @ 12:15 by Tash Villatoro PA, PA) Acute chest pain Anxiety Atherosclerosis of coronary artery of [place] heart without angina pectoris Atrial fibrillation BiPAP (biphasic positive airway pressure) dependence Chest pain Chest pain Congestive heart failure (CHF) Congestive heart failure (CHF) Coronary artery disease Diabetes Diabetes Diabetes mellitus, type II Essential hypertension Foreign body of knee GERD (gastroesophageal reflux disease) History of atrial fibrillation HLD (hyperlipidemia) Hypertension Hypothyroidism Hypothyroidism ICD (implantable cardioverter-defibrillator) in place Irregular heart rhythm Ischemic cardiomyopathy Kidney stones Myocardial infarct Myocardial infarct Non-smoker Obstructive sleep apnea Pacemaker Pacemaker Sleep apnea Sleep apnea Torsades de pointes Unstable angina Home Medications nitroglycerin 0.4 mg sublingual tablet 0.4 mg SUBLINGUAL Q5-15M PRN 10/24/18 [History Last Taken 08/02/21 15:18] aspirin 81 mg PO QHS 01/14/19 [History Last Taken 08/01/21 15:13] multivitamin 1 tab PO DAILY 01/14/19 [History Last Taken 08/02/21 15:18] lorazepam 1 mg PO QHS PRN 03/02/19 [History Last Taken 08/02/21 15:17] B-complex with vitamin C 2 tab PO DAILY tab 10/23/19 [History Last Taken 08/02/21 15:14] cholecalciferol (vitamin D3) 125 mcg (5,000 unit) tablet 10,000 unit PO DAILY 10/23/19 [History Last Taken 08/02/21 15:14] pantoprazole 40 mg tablet,delayed release 40 mg PO BID tab 10/23/19 [History Last Taken 08/02/21 15:19] empagliflozin 25 mg PO DAILY 01/16/20 [History Last Taken 08/02/21 15:15] metformin 1,000 mg PO BID 01/16/20 [History Last Taken 08/02/21 15:18] cyclobenzaprine 10 mg PO Q6H PRN PRN 01/06/21 [History Last Taken 08/02/21 15:15] gemfibrozil 600 mg PO BID 01/06/21 [History Last Taken 08/02/21 15:16] linagliptin 5 mg tablet 5 mg PO QAM tab 01/21/21 [History Last Taken 08/02/21 15:17] magnesium oxide 400 mg PO DAILY 01/21/21 [History Last Taken 08/02/21 15:18] mexiletine 150 mg capsule 150 mg PO Q8 cap 01/21/21 [History Last Taken 08/02/21 15:18] isosorbide mononitrate 30 mg tablet,extended release 24 hr 30 mg PO BID #180 tab 03/10/21 [Rx Last Taken 08/02/21 15:17] dulaglutide 4.5 mg/0.5 mL subcutaneous pen injector 4.5 mg SUBCUT QWEEK ml 04/29/21 [History Last Taken 08/02/21 15:15] levothyroxine 200 mcg tablet 200 mcg PO DAILY tab 04/29/21 [History Last Taken 08/02/21 15:17] atorvastatin 80 mg tablet 80 mg PO QHS #90 tab 09/25/21 [Rx Last Taken Unknown] Entresto 1 tab PO BID #180 tab 10/31/21 [Rx Last Taken Unknown] diazepam 2 mg PO TID PRN 10/31/21 [History Last Taken Unknown] furosemide 40 mg PO DAILY 10/31/21 [History Last Taken Unknown] furosemide 80 mg PO QODAY@1000 #30 tab 10/31/21 [Rx Last Taken Unknown] metoprolol succinate 25 mg PO DAILY #30 tab 10/31/21 [Rx Last Taken Unknown] ranolazine [Ranexa] 1,000 mg PO BID 10/31/21 [History Last Taken Unknown] trazodone 50 mg PO QHS 10/31/21 [History Last Taken Unknown] Allergy/AdvReac Type Severity Reaction Status Date / Time No Known Allergies Allergy Verified 10/21/21 10:37 Family History Mother Hypertension Diabetes COPD (chronic obstructive pulmonary disease) Heart disease Brother CVA (cerebral vascular accident) Surgical History Cardiac defibrillator in situ H/O hemorrhoidectomy History of appendectomy History of coronary artery stent placement History of coronary artery stent placement History of left heart catheterization (01/07/21) History of PTCA History of vasectomy Hx of CABG Hx of CABG Presence of implantable cardioverter-defibrillator (ICD) S/P CABG x 2 Social History household members: family Smoking Status: Never smoker alcohol intake: never substance use type: does not use caffeine: Yes (occasional) ROS Constitutional Constitutional: Denies chills, fatigue, fever(s) or malaise Eyes Eyes: Denies blurry vision ENT HEENT: Denies headache(s) or nasal discharge Cardiovascular Cardiovascular: Reports chest pain; Denies dyspnea on exertion or syncope Respiratory/Chest Respiratory/Chest: Denies cough, shortness of breath at rest or shortness of breath with exertion Gastrointestinal Gastrointestinal: Denies constipation, diarrhea, nausea or vomiting Genitourinary Genitourinary: Denies dysuria Neurologic Neurologic: Denies focal weakness, numbness or tremor(s) Psychiatric Psychiatric: Denies anxiety or depression Physical Exam Const alert, oriented x3, no apparent distress and healthy appearing HEENT normocephalic, head/scalp atraumatic, hearing grossly normal bilaterally, external ears normal, external nose normal and moist oral mucous membranes Eyes PERRL, EOMs intact bilaterally, conjunctivae normal and no scleral icterus Neck no lymphadenopathy, supple and no JVD Resp normal respiratory effort and clear to auscultation bilaterally Cardio regular rate, regular rhythm, S1 normal heart sound, S2 normal heart sound, no murmurs, no rub, no gallops, no clicks, no JVD and peripheral pulses 2+ throughout GI normal to inspection, nondistended, normoactive bowel sounds, soft to palpation, non-tender and non-distended Extremity normal to inspection, normal capillary refill, no clubbing, cyanosis or edema and no pedal edema Neuro oriented x3, CN's II-XII intact bilaterally, moves all extremities and no focal motor deficits Psych cooperative and affect normal Risk Stratification Risk Stratification Applicable: Yes Age >/= 65: No >/= 3 CAD Risk Factors (HTN, HLD, DM, family hx of CAD, or current smoker): Yes Aspirin Use in the Past 7 Days: Yes Severe Angina (>/= episodes in 24 hours): Yes EKG ST Changes >/= 0.5mm: No Positive Cardiac Marker: Yes ANA Risk Stratification Score: 4 ANA % Risk: 20% Risk Charges/Coding Visit Charges Office Visits / Consults: 65035 IP Consult L4 Objective Data Vital Signs: Vital Signs Temp Pulse Resp BP Pulse Ox 98.2 F 75 12 129/78 H 95 10/31/21 09:31 10/31/21 09:31 10/31/21 09:31 10/31/21 09:31 10/31/21 09:31 Oxygen Delivery Method Room Air Weight: 222 lb 0.088 oz Body Mass Index (BMI) 31.8 Intake & Output: Intake and Output for Last 24 Hours 10/29/21 10/30/21 10/31/21 23:59 23:59 23:59 Intake Total 0 / 0 Balance 0 / 0 Lab / Micro Data Result Diagrams: 10/31/21 08:25 10/31/21 08:25 Labs: Laboratory Results - last 24 hr 10/31/21 02:18: Troponin I High Sens 9 10/31/21 04:18: Troponin I High Sens 8 10/31/21 06:20: POC Glucose 127 H 10/31/21 08:25: Sodium 140, Potassium 3.5, Chloride 108 H, Carbon Dioxide 29.0, Anion Gap 3 L, BUN 15, Creatinine 1.01, Estim Creat Clear Calc 91.35, Est GFR (MDRD) Af Amer 101, Est GFR (MDRD) Non-Af 83, BUN/Creatinine Ratio 14.9, Glucose 131 H, Calcium 9.0, Troponin I High Sens 8 10/31/21 08:25: WBC 4.3 L, RBC 5.11, Hgb 14.8, Hct 43.5, MCV 85.1, MCH 29.0, MCHC 34.0, RDW Std Deviation 40.6, RDW Coeff of Mickey 13.2, Plt Count 289, MPV 8.9, Immature Gran % (Auto) 0.200, Neut % (Auto) 57.1, Lymph % (Auto) 23.7, Pickett % (Auto) 12.9 H, Eos % (Auto) 5.6 H, Baso % (Auto) 0.5, Absolute Neuts (auto) 2.4, Absolute Lymphs (auto) 1.01, Nucleated RBC % 0 Cardiology Labs/Tests 10/31/21 08:25: Sodium 140, Potassium 3.5, Chloride 108 H, Carbon Dioxide 29.0, Anion Gap 3 L, BUN 15, Creatinine 1.01, Est GFR (MDRD) Af Amer 101, Est GFR (MDRD) Non-Af 83, BUN/Creatinine Ratio 14.9, Glucose 131 H, Calcium 9.0 10/31/21 08:25: WBC 4.3 L, RBC 5.11, Hgb 14.8, Hct 43.5, MCV 85.1, MCH 29.0, MCHC 34.0, Plt Count 289, MPV 8.9, Immature Gran % (Auto) 0.200, Neut % (Auto) 57.1, Lymph % (Auto) 23.7, Pickett % (Auto) 12.9 H, Eos % (Auto) 5.6 H, Baso % (Auto) 0.5, Absolute Neuts (auto) 2.4, Nucleated RBC % 0 ECHO 01/29 at [facility]: Normal left ventricular size with mild concentric LVH, EF 45%. 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 Right ventricle size and systolic function normal. RVSP 20 mmHg. Stress Test: Cardiac Cath 12/2020: CAD as described with progression of instent restenosis in the LAD compared to angiogram from january 2020. Patent 2/2 bypass grafts. Elevated LVEDP DESCRIPTION OF PROCEDURE The patient arrived to the procedure lab. The risks and benefits of the procedure as well as a full description of our services here and current unavailability of surgical backup were fully explained to the patient and/or their significant other prior to the catheterization. The Timeout was completed, verifying the correct patient and procedure. The patient's procedural site was prepped and draped in the usual fashion. Local anesthetic was given subcutaneously to right groin region with Lidocaine 2%. Using a modified Seldinger technique, arterial access was obtained via the right femoral artery, a 5Fr sheath was inserted. Left Coronary Artery selective angiography was performed in multiple views using a 5 Fr. JL4 catheter. Saphenous Vein graft to the RPDA selective angiography was performed in multiple views using a 5 Fr. JR 4 catheter. Right Coronary Artery selective angiography was then performed in multiple views using a 5 Fr. JR 4 catheter. Left internal mammary artery graft to the LAD selective angiography was performed in multiple views using a 5 Fr. JR 4 catheter. LV to AO pullback pressures were then recorded.Contrast was injected through the sheath and the Right Iliac and Femoral artery were assessed for possible closure device.The arterial sheath was pulled and a Perclose closure device was deployed for hemostasis CORONARY ANGIOGRAPHY DOMINANCE: Right Dominant LEFT HEART ASSESSMENT Left Ventricular Ejection Fraction: Not assessed LVEDP: 26 mmHg LEFT MAIN: Mild luminal irregularities LEFT ANTERIOR DESCENDING ARTERY: MID LAD: 90 % Stenosis-instent restenosis CIRCUMFLEX ARTERY: Mild luminal irregularities RIGHT CORONARY ARTERY: MID RCA: 100 % Stenosis GRAFTS: COLBERT graft to the LAD is patent Saphenous Vein graft to the RCA is patent VALVE FINDINGS: No Aortic Valve Stenosis Documented by User: Dr. Brian Chance MD 10/31/21 17:50 Assessment & Plan Assessment/Plan (1) Coronary artery disease: QUALIFIERS: Associated angina: without angina Coronary Disease- Associated Artery/Lesion type: unspecified vessel or lesion type [place] vs. transplanted heart: [place] heart Qualified Code(s): I25.10 - Atherosclerotic heart disease of [place] coronary artery without angina pectoris (2) Ischemic cardiomyopathy: (3) Presence of implantable cardioverter-defibrillator (ICD): (4) History of left heart catheterization: PLAN: Independently examined this patient, reviewed the current data, including stress test as well as perform cardiac catheterization today And I formulated the cardiac care plan as per midlevel documentation. HPI Consult Data Date of Consult: 10/31/21 [facility] Medical History (Updated 10/31/21 @ 12:15 by Tash SERRATO, PA) Acute chest pain Anxiety Atherosclerosis of coronary artery of [place] heart without angina pectoris Atrial fibrillation BiPAP (biphasic positive airway pressure) dependence Chest pain Chest pain Congestive heart failure (CHF) Congestive heart failure (CHF) Coronary artery disease Diabetes Diabetes Diabetes mellitus, type II Essential hypertension Foreign body of knee GERD (gastroesophageal reflux disease) History of atrial fibrillation HLD (hyperlipidemia) Hypertension Hypothyroidism Hypothyroidism ICD (implantable cardioverter-defibrillator) in place Irregular heart rhythm Ischemic cardiomyopathy Kidney stones Myocardial infarct Myocardial infarct Non-smoker Obstructive sleep apnea Pacemaker Pacemaker Sleep apnea Sleep apnea Torsades de pointes Unstable angina Home Medications nitroglycerin 0.4 mg sublingual tablet 0.4 mg SUBLINGUAL Q5-15M PRN 10/24/18 [History Last Taken 08/02/21 15:18] aspirin 81 mg PO QHS 01/14/19 [History Last Taken 08/01/21 15:13] multivitamin 1 tab PO DAILY 01/14/19 [History Last Taken 08/02/21 15:18] lorazepam 1 mg PO QHS PRN 03/02/19 [History Last Taken 08/02/21 15:17] B-complex with vitamin C 2 tab PO DAILY tab 10/23/19 [History Last Taken 08/02/21 15:14] cholecalciferol (vitamin D3) 125 mcg (5,000 unit) tablet 10,000 unit PO DAILY 10/23/19 [History Last Taken 08/02/21 15:14] pantoprazole 40 mg tablet,delayed release 40 mg PO BID tab 10/23/19 [History Last Taken 08/02/21 15:19] empagliflozin 25 mg PO DAILY 01/16/20 [History Last Taken 08/02/21 15:15] metformin 1,000 mg PO BID 01/16/20 [History Last Taken 08/02/21 15:18] cyclobenzaprine 10 mg PO Q6H PRN PRN 01/06/21 [History Last Taken 08/02/21 15:15] gemfibrozil 600 mg PO BID 01/06/21 [History Last Taken 08/02/21 15:16] linagliptin 5 mg tablet 5 mg PO QAM tab 01/21/21 [History Last Taken 08/02/21 15:17] magnesium oxide 400 mg PO DAILY 01/21/21 [History Last Taken 08/02/21 15:18] mexiletine 150 mg capsule 150 mg PO Q8 cap 01/21/21 [History Last Taken 08/02/21 15:18] isosorbide mononitrate 30 mg tablet,extended release 24 hr 30 mg PO BID #180 tab 03/10/21 [Rx Last Taken 08/02/21 15:17] dulaglutide 4.5 mg/0.5 mL subcutaneous pen injector 4.5 mg SUBCUT QWEEK ml 04/29/21 [History Last Taken 08/02/21 15:15] levothyroxine 200 mcg tablet 200 mcg PO DAILY tab 04/29/21 [History Last Taken 08/02/21 15:17] atorvastatin 80 mg tablet 80 mg PO QHS #90 tab 09/25/21 [Rx Last Taken Unknown] Entresto 1 tab PO BID #180 tab 10/31/21 [Rx Last Taken Unknown] diazepam 2 mg PO TID PRN 10/31/21 [History Last Taken Unknown] furosemide 40 mg PO DAILY 10/31/21 [History Last Taken Unknown] furosemide 80 mg PO QODAY@1000 #30 tab 10/31/21 [Rx Last Taken Unknown] metoprolol succinate 25 mg PO DAILY #30 tab 10/31/21 [Rx Last Taken Unknown] ranolazine [Ranexa] 1,000 mg PO BID 10/31/21 [History Last Taken Unknown] trazodone 50 mg PO QHS 10/31/21 [History Last Taken Unknown] Allergy/AdvReac Type Severity Reaction Status Date / Time No Known Allergies Allergy Verified 10/21/21 10:37 Family History Mother Hypertension Diabetes COPD (chronic obstructive pulmonary disease) Heart disease Brother CVA (cerebral vascular accident) Surgical History Cardiac defibrillator in situ H/O hemorrhoidectomy History of appendectomy History of coronary artery stent placement History of coronary artery stent placement History of left heart catheterization (01/07/21) History of PTCA History of vasectomy Hx of CABG Hx of CABG Presence of implantable cardioverter-defibrillator (ICD) S/P CABG x 2 Social History household members: family Smoking Status: Never smoker alcohol intake: never substance use type: does not use caffeine: Yes (occasional) Lab / Micro Data Result Diagrams: 10/31/21 08:25 10/31/21 08:25
[2021-10-31 11:05] LABS: Bedside Glucose 121 mg/dL (74-106)
--- NOTE | 2021-10-31 12:15 | NURSING ---
Report called to Mary in supervisor cytogenetic laboratory at this time.
--- NOTE | 2021-10-31 12:19 | CASEMGMT ---
Tertiary facilities in-network with patient's insurance: [facility], [facility], [facility] , , [facility]
--- NOTE | 2021-10-31 12:29 | ECHOCS_ITS ---
Reason For Study: Chest Pain Procedure This was a 2D Doppler, Color Flow transthoracic echocardiogram. Contrast injection was performed. Exam performed portable in patient room. Left Ventricle Aneurysmal apex. Mildly dilated left ventricle. The estimated ejection fraction is 35-40 %. Right Ventricle Normal right ventricle. ICD or pacer leads identified within the right ventricle. Normal systolic function. Atria The left atrium is mildly enlarged. Normal right atrium. Mitral Valve The mitral valve is structurally normal. No prolapse or stenosis seen. Trivial mitral valve insufficiency. Tricuspid Valve Normal tricuspid valve. Mild tricuspid valve insufficiency. Aortic Valve Normal aortic valve. Pulmonic Valve The pulmonic valve is not well visualized. Great Vessels Normal aortic root. Pericardium/Pleural No pericardial effusion. Medication Diluted definity 5ml given slow IV push to enhance endocardial definition. MMode/2D Measurements & Calculations LVIDd: 5.3 cm IVSd: 1.0 cm Ao root diam: 3.3 cm LVIDs: 3.4 cm LVPWd: 1.3 cm RVDd: 3.8 cm FS: 35.5 % LAV(MOD-bp): 37.4 ml LVAd ap4: 34.3 cm2 SV(MOD-sp4): 41.0 ml LAV(MOD-bp) Indexed: 17.2 ml/m2 LVLd ap4: 9.2 cm LAV(MOD-sp2): 42.4 ml EDV(MOD-sp4): 104.3 ml LAV(MOD-sp4): 30.4 ml EDV(sp4-el): 108.4 ml LVAs ap4: 25.7 cm2 LVLs ap4: 8.5 cm ESV(MOD-sp4): 63.3 ml ESV(sp4-el): 65.9 ml EF(MOD-sp4): 39.3 % EF(sp4-el): 39.2 % SV(sp4-el): 42.5 ml LA A4 area: 13.8 cm2 LA dimension(2D): 4.8 cm RA A4 area: 14.8 cm2 Doppler Measurements & Calculations MV E max mendez: 58.1 cm/sec Lat Peak E' Mendez: 11.3 cm/sec Med Peak E' Mendez: 5.7 cm/sec MV A max mendez: 86.8 cm/sec E/E' lat: 5.1 E/E' med: 10.1 MV E/A: 0.67 Ao V2 max: 143.4 cm/sec LV V1 max: 106.4 cm/sec PA V2 max: 109.8 cm/sec Ao max P.2 mmHg LV V1 max P.5 mmHg Ao V2 mean: 100.7 cm/sec Ao mean P.4 mmHg Ao V2 VTI: 28.3 cm PI end-d mendez: 118.5 cm/sec TR max mendez: 242.1 cm/sec TR max P.4 mmHg ECHO/Echo Complete W/ Contrast Interpretation Summary The estimated ejection fraction is 35-40 %. Apical anuryuseum,Anterior and infero-basal Hypokinesia ICD lead seen in RV Ordering Physician: Tash Villatoro Referring Physician: Chanda Espana Performed By: Raven Jo, TIGRE, RVT
--- NOTE | 2021-10-31 13:43 | PRO.PCM_ITS ---
Procedure Report Date of Procedure: 10/31/21 Procedure performed; 1. Moderate sedation 2. Selective left cholangiogram for 3. Selective right coronary graft 4. Selective COLBERT to LAD 5. Selective SVG graft to RCA 6. Measurement of LVEDP 7. Left ventricle gram 8. Placement of TR band to close the left radial artery arteriotomy site. Consent; Risk and benefit of risk explained detail patient like to proceed informed consent obtained Preprocedure diagnosis; This is a 48-year-old patient with extensive cardiac history had a history of CAD and a prior myocardial infarction he had stent to the LAD and had subsequently CABG with COLBERT to LAD and SVG graft to RCA. He had a cardiac catheterization last year which showed in-stent restenosis of the mid LAD with patency of the COLBERT graft to LAD as well he had patent graft to the RCA with BASIN OPERATOR of RCA ramus and left circumflex had no obstructive atherosclerosis This presentation is symptoms of chest pain with the recurrent angina And evaluated by nuclear stress test which showed mild lateral reversible myocardial ischemia Overall the ejection fraction in this case is around 35% with wall motion abnormality apical dyskinetic and inferobasal is hypokinetic as well as anterior myocardium. Diagnostic catheter used; Access from the left radial artery using a long extension sheath 2. 5 [place] JL 3.5 3. 5 [place] JR4 #4 5 [place] pigtail catheter Procedure in detail; Patient brought to the Research Animal Facility Supervisor in fasting state Left radial artery area prepped and draped in the usual sterile fashion Access obtained from the left radial artery with extension of longer she is Then we will proceed with 5 [place] JL 3.5 advance ascending aorta cannulated the left main without difficulty multiple views of left contrastimulant to Following this catheter exchanged for 5 [place] JR4 and cannulated the right coronary artery without difficulty Multiple views [place] RCA obtained The same catheter was used to cannulate the SVG graft to the RCA and COLBERT to LAD Catheter exchanged for a pigtail catheter and ventriculogram obtained 30 degree PALOMO projection in addition to pullback pressure and measurement of LVEDP Hemodynamics; LVEDP is around 70 mmHg Reduced ejection fraction to around 35% EF with apical aneurysm and anterior and inferobasal hypokinesia There is no systolic gradient across aortic valve. There is no mitral rotation noted Finding of coronary angiography; Left main coronary artery is normal angiographically, trifurcates into LAD, ramus intermedius and left circumflex 2. Left anterior descending artery diffuse in-stent restenosis occluded at the midportion of the stent. 2. The ramus intermedius is normal angiographically 3. The left circumflex is small vessel with nonobstructive atherosclerosis mild 4. RCA BASIN OPERATOR occluded at the midportion, proximally had subtotal 99% Graft angiography; 1. Patent COLBERT to LAD 2. Patent SVG graft to the RCA. Conclusion recommendation this patient has severe coronary atherosclerosis with worsening of his LAD stent now occluded on the prior angiogram it had diffuse in-stent restenosis. Rest of his current angiography include patency of the graft as described with no significant sclerosis involving the left main, ramus or left circumflex artery Recommendation; Aggressive medical therapy and to follow-up with his primary signals collector/analyst Dr. Lee. Brian Chance MD,FACC,[facility]
--- NOTE | 2021-10-31 14:29 | PCM.DC ---
Discharge Instructions Diet Discharge Diet: Low fat / Low cholesterol and 1800 Calorie Control Diet Activity Discharge Activity: Return to Normal Activity and May Not Drive ( For 2 days) Dressing / Incision Call your doctor if your incision/area has: Continuous Slow Oozing (From left radial artery cardiac cath access) Call your doctor if you observe: Fever of 101 or Higher, Coldness, Increased Pain, Numbness or Tingling, Change in Color, Inability to urinate, Inability to have a bowel movement, Using more than 1 pad per hour, Shortness of breath, Dizziness, Fainting spells, Swelling in the ankles, Chest pain, Prolonged hiccupping, Increased palpitations (irregular heartbeat), Calf discomfort and Uncontrolled pain Follow Up Care Test Results: Test results from this visit will be discussed in further detail at your follow-up appointment, if applicable. Discharge Plan Admission Admit Date/Time: 10/31/21 01:50 Primary Reason for Your Visit: Unstable angina Attending Provider: Guillaume Mcfarland Primary Care Provider: Chanda Espana Consulting Providers: Brian Chance Discharge Orders/Prescriptions Prescriptions: New furosemide 40 mg Tablet 80 mg PO QODAY@1000 Qty: 30 RF: 2 Continued nitroglycerin 0.4 mg tablet, sublingual 0.4 mg SUBLINGUAL Q5-15M PRN (Reason: CHEST PAIN) RF: 0 pantoprazole 40 mg tablet,delayed release (DR/EC) 40 mg PO BID RF: 0 cholecalciferol (vitamin D3) 125 mcg (5,000 unit) tablet 10,000 unit PO DAILY RF: 0 linagliptin 5 mg tablet 5 mg PO QAM RF: 0 mexiletine 150 mg capsule 150 mg PO Q8 RF: 0 magnesium oxide 400 mg magnesium tablet 400 mg PO DAILY RF: 0 dulaglutide 4.5 mg/0.5 mL pen injector 4.5 mg subcut QWEEK RF: 0 levothyroxine 200 mcg tablet 200 mcg PO DAILY RF: 0 multivitamin 1 EACH tablet 1 tab PO DAILY RF: 0 aspirin 81 MG tablet,delayed release (DR/EC) 81 mg PO QHS RF: 0 B-complex with vitamin C Tablet 2 tab PO DAILY RF: 0 lorazepam 1 MG tablet 1 mg PO QHS PRN (Reason: anxiety/sleep) RF: 0 empagliflozin 25 MG tablet 25 mg PO DAILY RF: 0 gemfibrozil 600 mg tablet 600 mg PO BID RF: 0 cyclobenzaprine 10 mg tablet 10 mg PO Q6H PRN PRN (Reason: Muscle Pain) RF: 0 trazodone 50 mg Tablet 50 mg PO QHS RF: 0 diazepam 2 mg Tablet 2 mg PO TID PRN (Reason: muscle spasms) RF: 0 furosemide 40 mg tablet 40 mg PO DAILY RF: 0 ranolazine [Ranexa] 1,000 mg tablet extended release 12 hr 1,000 mg PO BID RF: 0 Entresto 97-103 mg tablet 1 tab PO BID Qty: 180 RF: 3 isosorbide mononitrate 30 mg tablet extended release 24 hr 30 mg PO BID Qty: 180 RF: 3 atorvastatin 80 mg tablet 80 mg PO QHS Qty: 90 RF: 3 Held metformin 1,000 MG tablet 1,000 mg PO BID RF: 0 Hold Instructions: Hold for 3 days. Referrals / Follow Up: Chanda Espana DO [Primary Care Provider] - Within 1 Week (unstable angina) Zachary Lee MD [STAFF PHYSICIAN] - Within 2 Weeks (for unstable angina ) Disposition Disposition (needs filled in before D/C Order can be placed): Home, Self Care
[2021-10-31] MEDS: Pantoprazole Sodium 40 MG Tablet PO (14:32)
[2021-10-31] MEDS: SACUBITRIL/VALSARTAN 97-103 MG TABLET 1 EACH PO (14:32)
[2021-10-31] MEDS: Furosemide 40 MG Tablet 80 MG PO (14:32)
--- NOTE | 2021-10-31 14:39 | PCM.DC.SUM ---
Providers Date of Admission: 10/31/21 Primary Care Physician: Dr. Chanda Espana, DO Consultations 10/31/21 02:07 Consult: Cardiology Routine Consulting Provider: Brian Chance Reason for Consult: Chest pain EMERGENT Consult: No MD Notified: Yes Date Notified: 10/31/21 Time Notified: 01:54 Method of Notification: Verbal Reason For Visit: CHEST PAIN Diagnosis Discharge Diagnosis (1) Acute chest pain: Status: Acute Code(s): R07.9 - Chest pain, unspecified (2) Coronary artery disease: Status: Acute Code(s): I25.10 - Atherosclerotic heart disease of [place] coronary artery without angina pectoris Qualifiers: Coronary Disease-Associated Artery/Lesion type: unspecified vessel or lesion type [place] vs. transplanted heart: [place] heart Associated angina: without angina Qualified Code(s): I25.10 - Atherosclerotic heart disease of [place] coronary artery without angina pectoris (3) Essential hypertension: Status: Chronic Code(s): I10 - Essential (primary) hypertension (4) HLD (hyperlipidemia): Status: Chronic Code(s): E78.5 - Hyperlipidemia, unspecified Qualifiers: Hyperlipidemia type: unspecified Qualified Code(s): E78.5 - Hyperlipidemia, unspecified (5) Ischemic cardiomyopathy: Status: Chronic Code(s): I25.5 - Ischemic cardiomyopathy (6) Presence of implantable cardioverter-defibrillator (ICD): Status: Acute Code(s): Z95.810 - Presence of automatic (implantable) cardiac defibrillator Medications at Discharge Home Medications nitroglycerin 0.4 mg sublingual tablet 0.4 mg SUBLINGUAL Q5-15M PRN 10/24/18 aspirin 81 mg PO QHS 01/14/19 multivitamin 1 tab PO DAILY 01/14/19 lorazepam 1 mg PO QHS PRN 03/02/19 B-complex with vitamin C 2 tab PO DAILY tab 10/23/19 cholecalciferol (vitamin D3) 125 mcg (5,000 unit) tablet 10,000 unit PO DAILY 10/23/19 pantoprazole 40 mg tablet,delayed release 40 mg PO BID tab 10/23/19 empagliflozin 25 mg PO DAILY 01/16/20 metformin 1,000 mg PO BID 01/16/20 cyclobenzaprine 10 mg PO Q6H PRN PRN 01/06/21 gemfibrozil 600 mg PO BID 01/06/21 linagliptin 5 mg tablet 5 mg PO QAM tab 01/21/21 magnesium oxide 400 mg PO DAILY 01/21/21 mexiletine 150 mg capsule 150 mg PO Q8 cap 01/21/21 isosorbide mononitrate 30 mg tablet,extended release 24 hr 30 mg PO BID #180 tab 03/10/21 dulaglutide 4.5 mg/0.5 mL subcutaneous pen injector 4.5 mg SUBCUT QWEEK ml 04/29/21 levothyroxine 200 mcg tablet 200 mcg PO DAILY tab 04/29/21 atorvastatin 80 mg tablet 80 mg PO QHS #90 tab 09/25/21 Entresto 1 tab PO BID #180 tab 10/31/21 diazepam 2 mg PO TID PRN 10/31/21 furosemide 40 mg PO DAILY 10/31/21 furosemide 80 mg PO QODAY@1000 #30 tab 10/31/21 metoprolol succinate 25 mg PO DAILY #30 tab 10/31/21 ranolazine [Ranexa] 1,000 mg PO BID 10/31/21 trazodone 50 mg PO QHS 10/31/21 Hospital Course Summary of Care Provided Hospital Course: This is a 51-year-old gentleman with extensive history of cardiac disease was admitted with progressive unstable angina pain. Patient had left-sided tightness around 5 PM similar to previous heart attack. It was localized without radiation associated with lightheadedness but no shortness of breath. Patient had first MD in 2014 after that he was found to have heart failure and an AICD in 2016. In 2017 patient had two-vessel CABG. After that he had multiple heart caths last one in 2019 EF 45% showed restenosis of 60 to 70% of LAD stent. He also had an echo in January 2021 at [place] EF 45%. Patient was further admitted in PCU and hospital course as mentioned below 1. Unstable angina with history of coronary artery disease status post CABG and stents: Serial troponins are negative. Patient had cardiac cath in 2019 which shows progression of in-stent restenosis of LAD stent. Patient had lexicon nuclear stress test demonstrated lateral ischemia. After that he had diagnostic heart cath through left radial artery approach. LAD diffuse in-stent restenosis occluded midportion of the stent. RCA MATERIAL DISPOSITION INSPECTOR occluded midportion. Patent COLBERT to LAD and patent SVG graft to RCA. LAD stent was totally occluded but was perfused by graft. Patient was recommended aggressive medical management and follow-up. Home cardiac medications continued. Continue aspirin, atorvastatin, furosemide, mexiletine, and Entresto. Patient not on beta-jatinder exact cause unclear. Started on metoprolol succinate 25 mg daily. 2. Chronic systolic heart failure status post AICD, hypertension and dyslipidemia: Blood pressure is normal. In sinus rhythm.: 2. DM2: Accu-Cheks before meals and at bedtime encouraged Humalog sliding scale. Hold metformin for 3 days. Rest of oral hypoglycemic agents resumed 3. Hypothyroidism ? Continue with Synthroid 4. GERD ? Continue with PPI Discharge medication reconciliation done. Discharge follow-up instructions completed. Discharge process discussed with the patient and all questions were answered to patient's satisfaction. Patient can be discharged home after heart cath protocol is completed. Follow-up evaporator operator in 2 weeks. Total time spent, exact 35 minutes on discharge meds reconciliation, examination, coordination of care with nurses and ancillary staff, review of imaging and blood test and discussion with the patient on follow-up instructions. Physical Exam Narrative Please see progress note of the same date for physical exam finding. In the morning patient had chest pain 2/10 intensity thereafter it was resolved. Subsequently patient had cardiac nuclear stress test and then cardiac cath. Weight / BMI Weight Weight: 222 lb 0.088 oz Body Mass Index (BMI) 31.8 ABG / Lab / Microbiology Data Result Diagrams: 10/31/21 08:25 10/31/21 08:25 Laboratory: Laboratory Results - last 24 hr 10/31/21 02:18: Troponin I High Sens 9 10/31/21 04:18: Troponin I High Sens 8 10/31/21 06:20: POC Glucose 127 H 10/31/21 08:25: Sodium 140, Potassium 3.5, Chloride 108 H, Carbon Dioxide 29.0, Anion Gap 3 L, BUN 15, Creatinine 1.01, Estim Creat Clear Calc 91.35, Est GFR (MDRD) Af Amer 101, Est GFR (MDRD) Non-Af 83, BUN/Creatinine Ratio 14.9, Glucose 131 H, Calcium 9.0, Troponin I High Sens 8 10/31/21 08:25: WBC 4.3 L, RBC 5.11, Hgb 14.8, Hct 43.5, MCV 85.1, MCH 29.0, MCHC 34.0, RDW Std Deviation 40.6, RDW Coeff of Mickey 13.2, Plt Count 289, MPV 8.9, Immature Gran % (Auto) 0.200, Neut % (Auto) 57.1, Lymph % (Auto) 23.7, [place] % (Auto) 12.9 H, Eos % (Auto) 5.6 H, Baso % (Auto) 0.5, Absolute Neuts (auto) 2.4, Absolute Lymphs (auto) 1.01, Nucleated RBC % 0 10/31/21 10:58: POC Glucose 121 H D/C Instructions Discharge Diet: Low fat / Low cholesterol and 1800 Calorie Control Diet Call your doctor if your incision/area has: Continuous Slow Oozing (From left radial artery cardiac cath access) Call your doctor if you observe: Fever of 101 or Higher, Coldness, Increased Pain, Numbness or Tingling, Change in Color, Inability to urinate, Inability to have a bowel movement, Using more than 1 pad per hour, Shortness of breath, Dizziness, Fainting spells, Swelling in the ankles, Chest pain, Prolonged hiccupping, Increased palpitations (irregular heartbeat), Calf discomfort and Uncontrolled pain Meaningful Use Info Meaningful Use Diagnoses (Choose all that apply): None applicable Discharge Plan Admission Admit Date/Time: 10/31/21 01:50 Primary Reason for Your Visit: Unstable angina Attending Provider: Guillaume Mcfarland Primary Care Provider: Chanda Espana Consulting Providers: Brian Chance Discharge Orders/Prescriptions Prescriptions: New furosemide 40 mg Tablet 80 mg PO QODAY@1000 Qty: 30 RF: 2 metoprolol succinate 25 mg tablet extended release 24 hr 25 mg PO DAILY Qty: 30 RF: 1 Continued nitroglycerin 0.4 mg tablet, sublingual 0.4 mg SUBLINGUAL Q5-15M PRN (Reason: CHEST PAIN) RF: 0 pantoprazole 40 mg tablet,delayed release (DR/EC) 40 mg PO BID RF: 0 cholecalciferol (vitamin D3) 125 mcg (5,000 unit) tablet 10,000 unit PO DAILY RF: 0 linagliptin 5 mg tablet 5 mg PO QAM RF: 0 mexiletine 150 mg capsule 150 mg PO Q8 RF: 0 magnesium oxide 400 mg magnesium tablet 400 mg PO DAILY RF: 0 dulaglutide 4.5 mg/0.5 mL pen injector 4.5 mg subcut QWEEK RF: 0 levothyroxine 200 mcg tablet 200 mcg PO DAILY RF: 0 multivitamin 1 EACH tablet 1 tab PO DAILY RF: 0 aspirin 81 MG tablet,delayed release (DR/EC) 81 mg PO QHS RF: 0 B-complex with vitamin C Tablet 2 tab PO DAILY RF: 0 lorazepam 1 MG tablet 1 mg PO QHS PRN (Reason: anxiety/sleep) RF: 0 empagliflozin 25 MG tablet 25 mg PO DAILY RF: 0 gemfibrozil 600 mg tablet 600 mg PO BID RF: 0 cyclobenzaprine 10 mg tablet 10 mg PO Q6H PRN PRN (Reason: Muscle Pain) RF: 0 trazodone 50 mg Tablet 50 mg PO QHS RF: 0 diazepam 2 mg Tablet 2 mg PO TID PRN (Reason: muscle spasms) RF: 0 furosemide 40 mg tablet 40 mg PO DAILY RF: 0 ranolazine [Ranexa] 1,000 mg tablet extended release 12 hr 1,000 mg PO BID RF: 0 Entresto 97-103 mg tablet 1 tab PO BID Qty: 180 RF: 3 isosorbide mononitrate 30 mg tablet extended release 24 hr 30 mg PO BID Qty: 180 RF: 3 atorvastatin 80 mg tablet 80 mg PO QHS Qty: 90 RF: 3 Held metformin 1,000 MG tablet 1,000 mg PO BID RF: 0 Hold Instructions: Hold for 3 days. Referrals / Follow Up: Chanda Espana DO [Primary Care Provider] - Within 1 Week (unstable angina) Zachary Lee MD [STAFF PHYSICIAN] - Within 2 Weeks (for unstable angina ) Disposition Disposition (needs filled in before D/C Order can be placed): Home, Self Care Charges/Coding Visit Charges OBSV E&M: 11456 Observation care discharge
--- NOTE | 2021-10-31 15:37 | STRESSREP ---
Stress Test Report Pharmacologic Lexiscan sestamibi myocardial perfusion study. Stress protocol: Resting EKG demonstrates. Normal sinus rhythm. With age indeterminant anterior and inferior MD Poor R wave progression across the chest leads. 0.4 mg of regadenoson was infused per usual protocol followed by rapid intravenous saline flush injection continuous EKG monitoring was performed. The maximum heart rate attained was 99 bpm which was 57% of maximum predicted heart . Stress EKG showed; no significant change from the resting EKG, with maximum heart rate of 99 bpm. Arrhythmia: No arrhythmia demonstrated Symptoms: Patient had no symptoms of chest pain Blood pressure at rest: 118/70 mmHg blood pressure at the end of stress: 118/70 mmHg Myocardial perfusion protocol. 14.7 mCi ]of Technetium 99m Sestamibi was injected at rest. [ 0.4 mg ]of Regadenoson was infused per usual protocol peak infusion 44.5 mCi ]of Technetium 99m sestamibi was injected. Stress images were obtained stress and rest images were reconstructed and compared in the short axis vertical and horizontal long axis. Gated images were also obtained Perfusion SPECT analysis: Review of the images demonstrate fixed perfusion defect in the anterior, apical and inferior myocardium consistent with previous infarction There is mild lateral reversible myocardial ischemia. Gated SPECT analysis: The gated ejection fraction is 35-40% by visual estimation with apical, anterior and inferior hypokinesia Conclusion: Abnormal Lexiscan sestamibi myocardial fusion study with fixed perfusion defect as described And mild lateral reversible myocardial ischemia Recommendation; Consider further evaluation with cardiac catheterization. Brian Chance MD,FACC,[facility]
[2021-10-31 16:00] LABS: Cholesterol 123 mg/dL (200); High Density Lipoprotein 30 mg/dL; Triglycerides 145 mg/dL; Very Low Density Lipoprotein 29 mg/dL (5-40)
[2021-10-31 17:00] LABS: Bedside Glucose 163 mg/dL (74-106)
== END 2021-10-31 14:37 | disposition home or self-care (01) ==
PROVIDERS: Admitting Provider Family Medicine; PCP Internal Medicine; Visit Provider Internal Medicine
DX: I25.110 Atherosclerotic heart disease of native coronary artery with unstable angina pectoris (principal); I11.0 Hypertensive heart disease with heart failure; I50.22 Chronic systolic (congestive) heart failure; I48.91 Unspecified atrial fibrillation; E11.9 Type 2 diabetes mellitus without complications; E78.5 Hyperlipidemia, unspecified; I25.5 Ischemic cardiomyopathy; T82.855A Stenosis of coronary artery stent, initial encounter; E03.9 Hypothyroidism, unspecified; I25.2 Old myocardial infarction; Z79.84 Long term (current) use of oral hypoglycemic drugs; Z79.82 Long term (current) use of aspirin; K21.9 Gastro-esophageal reflux disease without esophagitis; Z95.810 Presence of automatic (implantable) cardiac defibrillator; Z79.899 Other long term (current) drug therapy; R42 Dizziness and giddiness; G47.33 Obstructive sleep apnea (adult) (pediatric)
CPT/HCPCS: 36415; 78452; 80048; 80061; 82962; 84484; 85025; 93005; 93017; 93306; 93459; 99152; 99153; 99218; A9500; J7040; Q9957; Q9967; A4216; C1769; C1894; C8929; G0378; J2785

== ENCOUNTER 2023-03-21 17:07 | Emergency (ER) | payer OTHER, SELFPAY ==
[2023-03-21 17:07] VITALS: BP 140/93; PULSE 64; RESP 18; TEMP 36.4; O2SAT 98; BMI 33.0
--- NOTE | 2023-03-21 17:11 | EKG12_ITS ---
Test Reason : CHEST PRESSURE Blood Pressure : / mmHG Vent. Rate : 081 BPM Atrial Rate : 081 BPM P-R Int : 162 ms QRS Dur : 092 ms QT Int : 396 ms P-R-T Axes : 032 -36 036 degrees QTc Int : 460 ms Normal sinus rhythm Left axis deviation Septal infarct , age undetermined Abnormal ECG Confirmed by BELINDA WALDROP, MARLIN ([id number]), news editor LORENZO MONTERROSO ([id number]) on 03/29/2023 7:32:08 AM Referred By: LEWIS Confirmed By:MARLIN TREVINO MD
--- NOTE | 2023-03-21 17:22 | RAD_ITS ---
INDICATION: chest pain EXAMINATION/TECHNIQUE: X-RAY - XR Chest 1 View COMPARISON: 01/25/2021 FINDINGS: LINES/DEVICES: Stable transvenous pacemaker. LUNGS: No consolidation, edema or effusion. No pneumothorax. MEDIASTINUM AND CARDIOVASCULAR STRUCTURES: Cardiac silhouette stable within normal limits. Prior cardiac surgery changes again present. BONES AND SOFT TISSUES: No acute changes. RAD/Chest 1 View (Portable) IMPRESSION: No radiographic evidence of acute cardiopulmonary disease. Electronically Signed: Keith An MD at 17:48 EDT ,
[2023-03-21 17:42] LABS: Absolute Lymphocyte Count 1.54 X10^3/uL (0.83-4.51); Basophil# 0.04 X10^3/uL; Basophil% 0.7 % (0-1); Eosinophil# 0.47 X10^3/uL; Eosinophils% 8.4 % (0-5); Hematocrit 41.8 % (40-54); Hemoglobin 14.2 g/dL (13.0-16.5); Lymphocyte # 1.54 X10^3/ul (0.83-4.51); Lymphocyte % 27.6 % (19-41); Mean Corpuscular Hgb 30.7 pg (27.0-32.0); Mean Corpuscular Volume 90.5 fL (80-94); Monocyte# 0.51 X10^3/uL; Monocyte% 9.2 % (0-10); NRBC Flagged by Analyzer 0 % (0-5); Neutrophil % 53.9 % (47-70); Platelet Count 282 K/mm3 (150-450); RBC Distribution Width CV 12.1 % (11.6-14.6); RBC Distribution Width SD 40.2 fl (35.1-43.9); Red Blood Count 4.62 M/mm3 (4.6-6.2); White Blood Count 5.6 K/mm3 (4.4-11.0)
[2023-03-21 17:48] VITALS: BP 140/96; PULSE 78; RESP 16; O2SAT 98
[2023-03-21 18:04] LABS: Anion Gap 7 (5-15); BUN 18 mg/dL (7-18); BUN/Creat Ratio 16.4 RATIO (10-20); Chloride 102 mmol/L (98-107); EST Glomerular Filtration Rate 75 mL/min (>60); Est Glom Filt Rate - Afr Amer 91 mL/min (>60); Estimated Creatinine Clearance 82.03 ml/min; Glucose 139 mg/dL (74-106); Potassium 3.8 mmol/L (3.5-5.1); Sodium Level 136 mmol/L (136-145); Troponin-I HS (w/2H Reflex) 13 pg/mL (3.0-78.0)
--- NOTE | 2023-03-21 18:30 | ED.VIS.CHEST ---
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 Informant: patient and family Onset/Context/Timing Onset: Month(s) Activity at onset: gradual Timing: Continuous Quality: Positive for Aching Current Severity: Mild Maximum Severity: Mild Narrative Narrative: 53-year-old male extensive past medical history of A-fib, CHF, TX, stents, double bypass, diabetes stage IV 3 renal disease and a defibrillator. Senior [employer] recently changed his medication several months ago and has had chest pain ever since. Today he has had nausea and vomiting. No fever. No dysuria. He still urinating. No melena. Prior Similar Symptoms: Yes Recent Illness/Hospitalization: No CVD Risk Factors: Positive for Diabetes PE Risk Factors: Negative for Recent Travel/Surgery, Recent Immobilization, Prior DVT or PE, Cancer or OCP + Smoking + >/=35 TAD Risk Factors: Negative for Marfan's Syndrome [facility] Medical History Acute chest pain Anxiety Atherosclerosis of coronary artery of [place] heart without angina pectoris Atrial fibrillation BiPAP (biphasic positive airway pressure) dependence Chest pain Congestive heart failure (CHF) Diabetes mellitus, type II Essential hypertension Foreign body of knee GERD (gastroesophageal reflux disease) History of atrial fibrillation HLD (hyperlipidemia) Hypertension Hypothyroidism ICD (implantable cardioverter-defibrillator) in place Irregular heart rhythm Ischemic cardiomyopathy Kidney stones Myocardial infarct Non-smoker Obstructive sleep apnea Pacemaker Torsades de pointes Unstable angina Home Medications nitroglycerin 0.4 mg sublingual tablet 0.4 mg sublingual Q5-15M PRN CHEST PAIN 10/24/18 [History Last Taken 08/02/21 15:18] aspirin 81 mg tablet,delayed release 81 mg PO QHS health maintenance 01/14/19 [History Last Taken 08/01/21 15:13] multivitamin 1 tab PO DAILY supplement 01/14/19 [History Last Taken 08/02/21 15:18] B-complex with vitamin C 2 tab PO DAILY supplement 10/23/19 [History Last Taken 08/02/21 15:14] cholecalciferol (vitamin D3) 125 mcg (5,000 unit) tablet 10,000 unit PO DAILY vitamin 10/23/19 [History Last Taken 08/02/21 15:14] pantoprazole 40 mg tablet,delayed release 40 mg PO BID reflux 10/23/19 [History Last Taken 08/02/21 15:19] empagliflozin 25 mg tablet 25 mg PO DAILY diabetes 01/16/20 [History Last Taken 08/02/21 15:15] metformin 1,000 mg tablet 1,000 mg PO BID diabetes 01/16/20 [History Last Taken 08/02/21 15:18] cyclobenzaprine 10 mg tablet 10 mg PO Q6H PRN PRN Muscle Pain 01/06/21 [History Last Taken 08/02/21 15:15] gemfibrozil 600 mg tablet 600 mg PO BID Check with primary doctor 01/06/21 [History Last Taken 08/02/21 15:16] magnesium oxide 400 mg PO DAILY supplement 01/21/21 [History Last Taken 08/02/21 15:18] mexiletine 150 mg capsule 150 mg PO Q8 heart 01/21/21 [History Last Taken 08/02/21 15:18] dulaglutide 4.5 mg/0.5 mL subcutaneous pen injector 4.5 mg subcut QWEEK 04/29/21 [History Last Taken 08/02/21 15:15] levothyroxine 200 mcg tablet 200 mcg PO DAILY 04/29/21 [History Last Taken 08/02/21 15:17] atorvastatin 80 mg tablet 80 mg PO QHS #90 tabs 09/25/21 [Rx Last Taken Unknown] sacubitril 97 mg-valsartan 103 mg tablet (Entresto) 1 tab PO BID Check with primary doctor #180 tabs 10/31/21 [Rx Last Taken Unknown] amlodipine 2.5 mg tablet 2.5 mg PO DAILY 11/04/21 [History Last Taken Unknown] isosorbide mononitrate 30 mg tablet,extended release 24 hr 30 mg PO BID chest pain #180 tabs 04/03/22 [Rx Last Taken Unknown] furosemide 40 mg tablet 40 mg PO .COMPLEX diuretic #45 tabs 11/27/22 [Rx Last Taken Unknown] ranolazine 1,000 mg tablet,extended release,12 hr (Ranexa) 1,000 mg PO BID heart #180 tabs 11/27/22 [Rx Last Taken Unknown] ondansetron 4 mg disintegrating tablet 4 mg PO Q6H PRN nausea and vomiting #7 tabs 03/21/23 [Rx Last Taken Unknown] Allergy/AdvReac Type Severity Reaction Status Date / Time No Known Allergies Allergy Verified 11/17/22 10:50 Family History Mother Hypertension Diabetes COPD (chronic obstructive pulmonary disease) Heart disease Brother CVA (cerebral vascular accident) Surgical History Cardiac defibrillator in situ H/O hemorrhoidectomy History of appendectomy History of coronary artery stent placement History of coronary artery stent placement History of left heart catheterization (01/07/21) History of PTCA History of rotator cuff surgery History of vasectomy Hx of CABG Hx of CABG Presence of implantable cardioverter-defibrillator (ICD) S/P CABG x 2 Social History household members: family Smoking Status: Never smoker alcohol intake: never substance use type: does not use caffeine: Yes (occasional) ROS ROS ED ROS Narrative Nausea and vomiting. Chest pain. Review of Systems ROS Unobtainable: Denies due to encephalopathy Constitutional Constitutional ED: Denies chills or fever(s) Eyes Eyes: Reports none ENT ENT ED: Denies ear pain Cardiovascular Cardiovascular: Reports chest pain Respiratory/Chest Respiratory/Chest: Denies cough or dyspnea Gastrointestinal Gastrointestinal: Reports nausea and vomiting; Denies abdominal pain, constipation, diarrhea or melena Genitourinary Genitourinary ED: Denies dysuria or hematuria Musculoskeletal Musculoskeletal: Denies arthralgias Integumentary Denies abscess Neurologic Neurologic: Denies headache(s) Psychiatric Psychiatric: Denies anxiety Endocrine Endocrinology: Denies cold intolerance Hematologic/Lymphatic Hematologic/Lymphatic: Denies easy bleeding or easy bruising Allergic/Immunologic Allergic/Immunologic ED: Denies mouth swelling or tongue swelling EXAM Physical Exam Narrative Exam Narrative: 83-year-old male vital signs stable afebrile does not look septic toxic. No distress. +90% on room air no signs hypoxia. H EENT exam unremarkable. Neck nontender no JVD. Lungs clear to auscultation bilaterally. Heart regular rhythm no murmur. Abdomen is soft nontender. Moving all 4 extremities. Nontender no edema. Neurologically is awake alert with no focal motor deficits. Benign exam. Const Vital Signs: 03/21/23 17:07 03/21/23 17:48 03/21/23 17:48 Temperature 97.6 F L Temperature Source Temporal Pulse Rate 64 78 Respiratory Rate 18 16 Respiratory Effort Blood Pressure 140/93 H 140/96 H Blood Pressure Mean 108 110 Pulse Ox 98 98 Oxygen Delivery Method Room Air Room Air Room Air 03/21/23 17:48 03/21/23 18:39 Temperature Temperature Source Pulse Rate 74 Respiratory Rate 18 Respiratory Effort Normal Blood Pressure 125/86 H Blood Pressure Mean 99 Pulse Ox Oxygen Delivery Method Positive well nourished and well developed; Negative for cachectic, contractures or unkempt General Appearance ED: well developed and NAD; Negative for unkempt, cachectic, contractures or pallor Nutritional Appearance: Negative for cachectic HEENT Reports moist mucous membranes normocephalic and atraumatic; Negative for trauma or tenderness Eyes PERRL and EOMs intact bilaterally General Eye ED: Negative for pale conjunctiva, scleral icterus or other Neck no lymphadenopathy, supple and no JVD General: Negative for tenderness Chest Wall inspection of chest normal and palpation of chest normal Chest: Negative for tenderness Resp normal respiratory effort and clear to auscultation bilaterally Effort and Inspection: Negative for respiratory distress Auscultation: Negative for rales, rhonchi or wheezes Cardio regular rate, regular rhythm, S1 normal heart sound, S2 normal heart sound and no murmurs Rate: Negative for bradycardia or tachycardic Peripheral Pulses: pulses 2+ throughout GI normal to inspection, nondistended, normoactive bowel sounds, soft to palpation, non-tender, non-distended and no masses Back/Spine no CVA tenderness and no thoracic nor lumbar tenderness General Back: Negative for CVA tenderness Cervical Spine: Negative for cervical spine tenderness Extremity normal to inspection General Extremety ED: Negative for edema or pulses abnormal General Extremity: Negative for edema or pulses abnormal Neuro oriented x3 and CN's II-XII intact bilaterally Sensorium / Orientation: awake, alert, oriented to person, oriented to place and oriented to time Motor Exam: strength 5/5 throughout Psych mental status grossly normal Appearance: Negative for unkempt Attitude: No agitated Mood & Affect: Negative for depressed, anxious or tearful Skin no rashes or lesions noted General Skin Exam: Negative for jaundice or pallor Rashes: No rashes noted Trauma: Negative for abrasion or laceration Heart Score History: Slightly/Non-Suspicious ECG: Normal Age: >/= 65 years Risk Factors: >/= 3 Risk Factors or History of CAD Troponin: </= Normal Limit Score: 4 MDM MDM MDM Narrative Medical decision making narrative: 53-year-old male stage III kidney disease patient had meds stopped 2 months ago by his 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 He has had nausea and vomiting today. Exam benign. Treated with IV Zofran. Cardiac work-up done. Clinically he has had this for 2 months I do not think this can be cardiac in etiology. Repeat exam patient doing well at 7:42 PM. Will be discharged home. Overall all his lab results chest x-ray and EKG. Discharged home with prescription for Zofran for nausea. Follow-up as needed. History & Record Review Discussion w/independent historian: Patient Additional record(s) reviewed:: Prior inpatient record, Prior outpatient record, Prior ED visit and Prior labs Lab Data Attestation: I reviewed the patient's lab results. Lab results narrative: CBC shows a white count of 5.6. H&H 14 and 41. Platelets 282. Chemistry showed gap of 7. Normal BUN and creatinine 18 and 1.1. Glucose 139. Troponin 13. Chest x-ray unremarkable. Labs: Laboratory Results - last 24 hr 03/21/23 17:36 WBC 5.6 RBC 4.62 Hgb 14.2 Hct 41.8 MCV 90.5 MCH 30.7 MCHC 34.0 RDW Std Deviation 40.2 RDW Coeff of Mickey 12.1 Plt Count 282 MPV 9.0 Immature Gran % (Auto) 0.200 Neut % (Auto) 53.9 Lymph % (Auto) 27.6 [place] % (Auto) 9.2 Eos % (Auto) 8.4 H Baso % (Auto) 0.7 Absolute Neuts (auto) 3.0 Absolute Lymphs (auto) 1.54 Nucleated RBC % 0 Sodium 136 Potassium 3.8 Chloride 102 Carbon Dioxide 27.0 Anion Gap 7 BUN 18 Creatinine 1.10 Estim Creat Clear Calc 82.03 Est GFR (MDRD) Af Amer 91 Est GFR (MDRD) Non-Af 75 BUN/Creatinine Ratio 16.4 Glucose 139 H Calcium 9.0 Troponin I High Sens 13 Radiography Chest X-Ray - ED: 1 View, Read by ED Physician, Read by Radiologist, Heart, Lungs, Mediastinum, Bony Structures, No Acute Disease and Chronic Changes Diagnostic Testing: Clinical Impression(s) from Imaging Studies Chest X-Ray 03/21/23 17:22 IMPRESSION: No radiographic evidence of acute cardiopulmonary disease. Electronically Signed: Keith An MD at 17:48 EDT Reading Location ID and State: [facility] / [place] Tel , Service support , Chest x-ray, portable, single view shows no acute abnormality. Normal cardiac silhouette. Normal mediastinum. Left-sided pacemaker defibrillator. Rhythm Strip Rhythm Strip: Sinus Rhythm Rate: 81 Ectopy: None EKG Initial EKG: Attestation: I personally reviewed and interpreted this EKG as follows: Interpretation: Sinus Rhythm and No Acute Injury Pattern Comments: Normal sinus rhythm rate 81 no acute signs of TX or ischemia. Discharge Plan Triage Chief Complaint: Chest Pain ED Provider: Christian Gillilnad Dx/Rx/DC Orders Clinical Impression: Nausea & vomiting, Chest pain Instructions: ED Chest Pain, Uncertain Cause, ED Vomiting (Adult) Prescriptions: New ondansetron 4 mg tablet,disintegrating 4 mg PO Q6H PRN (Reason: nausea and vomiting) Qty: 7 0RF No Action nitroglycerin 0.4 mg tablet, sublingual 0.4 mg SUBLINGUAL Q5-15M PRN (Reason: CHEST PAIN) pantoprazole 40 mg tablet,delayed release (DR/EC) 40 mg PO BID cholecalciferol (vitamin D3) 125 mcg (5,000 unit) tablet 10,000 unit PO DAILY mexiletine 150 mg capsule 150 mg PO Q8 magnesium oxide 400 mg magnesium tablet 400 mg PO DAILY dulaglutide 4.5 mg/0.5 mL pen injector 4.5 mg subcut QWEEK Rx Instructions: levothyroxine 200 mcg tablet 200 mcg PO DAILY multivitamin 1 EACH tablet 1 tab PO DAILY aspirin 81 MG tablet,delayed release (DR/EC) 81 mg PO QHS B-complex with vitamin C Tablet 2 tab PO DAILY metformin 1,000 MG tablet 1,000 mg PO BID Hold Instructions: Hold for 3 days. empagliflozin 25 MG tablet 25 mg PO DAILY gemfibrozil 600 mg tablet 600 mg PO BID cyclobenzaprine 10 mg tablet 10 mg PO Q6H PRN PRN (Reason: Muscle Pain) Entresto 97-103 mg tablet 1 tab PO BID Qty: 180 3RF Rx Instructions: Hold for systolic blood pressure less than 90 mmHg atorvastatin 80 mg tablet 80 mg PO QHS Qty: 90 3RF amlodipine 2.5 mg tablet 2.5 mg PO DAILY isosorbide mononitrate 30 mg tablet extended release 24 hr 30 mg PO BID Qty: 180 3RF furosemide 40 mg tablet 40 mg PO .COMPLEX Qty: 45 11RF Rx Instructions: 40 mg orally; Take 40 mg twice a day every other day alternating with 40 mg daily every other day. ranolazine [Ranexa] 1,000 mg tablet extended release 12 hr 1,000 mg PO BID Qty: 180 3RF Primary Care Provider: Chanda Espana Referrals: Chanda Espana, DO [Primary Care Provider] - 3-5 Days if not improving Activity Restrictions/Additional Instructions: Plenty of fluids and rest. Zofran as needed for nausea. Follow-up with your doctor if not improving. All your labs today chest x-ray and EKG were all unremarkable. Your kidney function was normal. Disposition Disposition: Home, Self Care
[2023-03-21] MEDS: Ondansetron 4 MG/2 ML Vial IV (18:37)
[2023-03-21 18:39] VITALS: BP 125/86; PULSE 74; RESP 18
[2023-03-21 19:38] LABS: Reflex Troponin-HS? (from REC) Y
[2023-03-21 19:51] VITALS: BP 125/86; PULSE 75
[2023-03-21 20:09] LABS: Troponin-I HS 15 pg/mL (3.0-78.0)
== END 2023-03-21 19:53 | disposition home or self-care (01) ==
PROVIDERS: Emergency Provider Emergency Medicine; PCP Internal Medicine; Visit Provider Emergency Medicine
DX: R11.2 Nausea with vomiting, unspecified (principal); I50.9 Heart failure, unspecified; R07.9 Chest pain, unspecified; I25.10 Atherosclerotic heart disease of native coronary artery without angina pectoris; G47.33 Obstructive sleep apnea (adult) (pediatric); I25.2 Old myocardial infarction; Z95.5 Presence of coronary angioplasty implant and graft; Z95.810 Presence of automatic (implantable) cardiac defibrillator
CPT/HCPCS: 71045; 80048; 84484; 85025; 93005; 96374; 99284; J2405